=== PATIENT | female | born 1955 | race Caucasian/White ===

== ENCOUNTER → 2017-07-07 | Outpatient (CLI) | payer MEDICARE, MEDICAID ==
[2017-07-07 15:50] LABS: ABG BASE EXCESS 7.8 MMOL/L (-2.5-2.5); ABG OXYGEN SATURATION 89 % (94-100); ABG PCO2 53 MMHG (35-45); ABG PH 7.41 (7.37-7.43); ABG PO2 59 MMHG (79-93); ABG TCO2 34.1 MMOL/L (21.0-31.0); ALLENS TEST YES-POS
[2017-07-07 15:51] LABS: INSPIRED O2 3L; PATIENT TEMP 99.6; VENTILATOR NO
--- NOTE | 2017-07-07 16:29 | Diagnostic Imaging Report ---
INDICATION: Shortness of breath. TIME OF EXAMINATION: 3:14 PM. COMPARISON: No prior studies are available for comparison. FINDINGS: The lungs do show some hyperinflation, suggestive of COPD. No infiltrates are seen. No effusion or pneumothorax is identified. IMPRESSION: COPD. No other significant abnormality is detected. Dictated by: Dictated on workstation # [id number]
== END ==
LOC: RAD 14:10
PROVIDERS: ATTEND Nurse Practitioner Family
DX: J44.9 Chronic obstructive pulmonary disease, unspecified (principal)
CPT/HCPCS: 36600; 71046; 82805

== ENCOUNTER → 2017-08-03 | Outpatient (CLI) | payer MEDICARE, MEDICAID ==
[~2017-08-03] MED LIST: RT-ALBUTEROL SULF 2.5 MG/3 ML PRE-MIX VIAL INH ONE
== END ==
LOC: RT 09:41
PROVIDERS: ATTEND Nurse Practitioner Family
DX: J44.9 Chronic obstructive pulmonary disease, unspecified (principal)
CPT/HCPCS: 94060; 94726; 94729

== ENCOUNTER → 2017-10-12 | Outpatient (CLI) | payer MEDICARE, MEDICAID ==
--- NOTE | 2017-10-12 09:59 | Diagnostic Imaging Report ---
PATIENT HISTORY: COPD, CHRONIC BRONCHITIS, ASTHMA. TECHNIQUE: Two views of the chest. COMPARISON: 07/07/2017. FINDINGS: Lung volumes are normal. There are bibasilar airspace opacities which appear similar to the prior study, and may represent atelectasis or overlapping soft tissue. No new consolidation is seen. No pleural effusion or pneumothorax is present. The cardiomediastinal silhouette is normal in size and contour. There is aortic atherosclerosis. IMPRESSION: 1. Bibasilar opacities are stable and may present overlapping soft tissue or bibasilar atelectasis. No new consolidation is seen. Dictated by: Dictated on workstation # [id number]
== END ==
LOC: RAD 09:18
PROVIDERS: ATTEND Nurse Practitioner Family
DX: J44.9 Chronic obstructive pulmonary disease, unspecified (principal); J98.11 Atelectasis
CPT/HCPCS: 71046

== ENCOUNTER → 2017-11-05 | Outpatient (CLI) | payer MEDICARE, MEDICAID ==
--- NOTE | 2017-11-05 08:59 | Diagnostic Imaging Report ---
PROCEDURE: CT chest without contrast. TECHNIQUE: Multiple contiguous axial images were obtained through the chest without the use of intravenous contrast. INDICATION: COPD and chronic bronchitis. COMPARISON: Correlation is made with chest radiograph from 10/12/2017. No prior CT chest studies are available for comparison. FINDINGS: No axillary lymphadenopathy is seen. There are mildly prominent lymph nodes in mediastinum right paratracheal location, indeterminant. Hilar evaluation is limited without intravenous contrast. No pericardial or pleural fluid is identified. The central airways are patent. No infiltrate or mass is identified. The upper abdomen is unremarkable. IMPRESSION: Essentially unremarkable noncontrast CT chest apart from mildly prominent mediastinal lymph nodes, which may be reactive. No parenchymal mass or infiltrate is seen. Dictated by: Dictated on workstation # [id number]
== END ==
LOC: RAD 08:27
PROVIDERS: ATTEND Nurse Practitioner Family
DX: J44.9 Chronic obstructive pulmonary disease, unspecified (principal); J96.20 Acute and chronic respiratory failure, unspecified whether with hypoxia or hypercapnia
CPT/HCPCS: 71250

== ENCOUNTER → 2017-11-05 | Outpatient (CLI) | payer MEDICARE, MEDICAID ==
[2017-11-05 10:10] LABS: BASOPHILS % (AUTO) 0 % (0-10); EOSINOPHILS # (AUTO) 0.2 10^3/uL (0.0-0.3); EOSINOPHILS % (AUTO) 1 % (0-10); HEMATOCRIT 40 % (35-52); HEMOGLOBIN 12.9 G/DL (11.5-16.0); LYMPHOCYTES # (AUTO) 3.2 X 10^3 (1.0-4.0); LYMPHOCYTES % (AUTO) 19 % (12-44); MEAN CORPUSCULAR HEMOGLOBIN 33 PG (25-34); MEAN CORPUSCULAR HGB CONC 32 G/DL (32-36); MEAN CORPUSCULAR VOLUME 104 FL (80-99); MEAN PLATELET VOLUME 10.8 FL (7.4-10.4); MONOCYTES # (AUTO) 1.2 X 10^3 (0.0-1.0); MONOCYTES % (AUTO) 7 % (0-12); NEUTROPHILS # (AUTO) 12.6 X 10^3 (1.8-7.8); NEUTROPHILS % (AUTO) 73 % (42-75); PLATELET COUNT 323 10^3/uL (130-400); RED BLOOD COUNT 3.88 10^6/uL (4.35-5.85); RED CELL DISTRIBUTION WIDTH 19.4 % (10.0-14.5); WHITE BLOOD COUNT 17.2 10^3/uL (4.3-11.0)
[2017-11-05 10:32] LABS: ALBUMIN 4.1 GM/DL (3.2-4.5); BILIRUBIN,TOTAL 0.4 MG/DL (0.1-1.0); CALCIUM 10.5 MG/DL (8.5-10.1); CREATININE SERUM 1.42 MG/DL (0.60-1.30); POTASSIUM 4.2 MMOL/L (3.6-5.0); TOTAL PROTEIN 6.5 GM/DL (6.4-8.2)
[2017-11-05 10:51] LABS: BAND NEUTROPHILS 5 %; BASOPHILS % (MANUAL) 0 %; EOSINOPHILS % (MANUAL) 1 %; LYMPHOCYTES % (MANUAL) 11 %; MONOCYTES % (MANUAL) 11 %; NEUTROPHILS % (MANUAL) 70 %
[2017-11-05 10:52] LABS: ANISOCYTOSIS SLIGHT; MYELOCYTES % 2 %
== END ==
LOC: LAB 09:48
PROVIDERS: ATTEND Nurse Practitioner Family
DX: J44.9 Chronic obstructive pulmonary disease, unspecified (principal)
CPT/HCPCS: 36415; 80053; 83880; 85007; 85027

== ENCOUNTER 2017-12-01 13:00 | Outpatient (RCR) | payer MEDICARE, MEDICAID ==
[2017-12-01 13:05] VITALS: BP 130/60
[2017-12-01 14:00] VITALS: BP 140/70
[2017-12-10] MEDS ORDERED: MIRT30TA PO (11:39)
[2017-12-10] MEDS ORDERED: ZPR80C PO (11:39)
[2017-12-10] MEDS ORDERED: POLY119P5 PO (11:39)
[2017-12-10] MEDS ORDERED: RT-ALBUINH IH (11:39)
[2017-12-10] MEDS ORDERED: ZIPR60CA2 PO (11:39)
[2017-12-10] MEDS ORDERED: PREG75CA PO (11:39)
[2017-12-10] MEDS ORDERED: CHOL10003 PO (11:39)
[2017-12-10] MEDS ORDERED: POTA-51 PO (11:39)
[2017-12-10] MEDS ORDERED: PRAV20TA3 PO (11:39)
[2017-12-10] MEDS ORDERED: FLUT9.9S NS (11:39)
[2017-12-10] MEDS ORDERED: ACET-168 PO (11:39)
[2017-12-10] MEDS ORDERED: ONDN4T PO (11:39)
[2017-12-10] MEDS ORDERED: MONT10TA24 PO (11:39)
[2017-12-10] MEDS ORDERED: ALPR0.254 PO (11:39)
[2017-12-10] MEDS ORDERED: DULO30CA3 PO (11:39)
[2017-12-10] MEDS ORDERED: LIDO1ADH19 TP (11:39)
[2017-12-10] MEDS ORDERED: FLUT1AER IH (11:39)
[2017-12-10] MEDS ORDERED: UMEC62.5 IH (11:39)
[2017-12-10] MEDS ORDERED: LISI-556 PO (11:39)
[2017-12-10] MEDS ORDERED: FURO40TA4 PO (11:39)
[2017-12-10] MEDS ORDERED: LAMO150T3 PO (11:39)
[2017-12-10] MEDS ORDERED: MULT-1029 PO (11:39)
[2017-12-10] MEDS ORDERED: AMLO5TAB7 PO (11:39)
[2017-12-10] MEDS ORDERED: BENZ100C18 PO (11:39)
[2017-12-11] MEDS ORDERED: CEFD300C3 PO (08:22)
[2017-12-11] MEDS ORDERED: PRD10T PO (08:22)
[2017-12-15 12:55] VITALS: BP_SYST 129; BP_SYST 170; BP_DIAS 50; BP_DIAS 78
[2017-12-15 13:55] VITALS: BP 149/50
[2017-12-17 13:02] VITALS: BP 176/41
[2017-12-17 13:56] VITALS: BP 145/52
[2017-12-22 13:00] VITALS: BP 160/45
[2017-12-22 14:00] VITALS: BP 140/60
== END 2018-01-03 | disposition home or self-care (01) ==
LOC: PULM 13:00
PROVIDERS: ATTEND Nurse Practitioner Family
DX: J44.9 Chronic obstructive pulmonary disease, unspecified (principal); J96.20 Acute and chronic respiratory failure, unspecified whether with hypoxia or hypercapnia
CPT/HCPCS: 99211

== ENCOUNTER → 2017-12-07 | Outpatient (CLI) | payer MEDICARE, MEDICAID ==
[~2017-12-07] MED LIST changes: +ACET-168 PO; +ALPR0.254 PO; +AMLO5TAB7 PO; +BENZ100C18 PO; +CEFD300C3 PO; +CHOL10003 PO; +DULO30CA3 PO; +FLUT1AER IH; +FLUT9.9S NS; +FURO40TA4 PO; +LAMO150T3 PO; +LIDO1ADH19 TP; +LISI-556 PO; +MIRT30TA PO; +MONT10TA24 PO; +MULT-1029 PO; +ONDN4T PO; +POLY119P5 PO; +POTA-51 PO; +PRAV20TA3 PO; +PRD10T PO; +PREG75CA PO; +RT-ALBUINH IH; -RT-ALBUTEROL SULF 2.5 MG/3 ML PRE-MIX VIAL INH ONE; +UMEC62.5 IH; +ZIPR60CA2 PO; +ZPR80C PO
--- NOTE | 2017-12-07 12:21 | Diagnostic Imaging Report ---
PROCEDURE: CT sinuses without contrast TECHNIQUE: Multiple contiguous axial images were obtained through the sinuses without the use of intravenous contrast. Coronal and sagittal reformations were then performed. INDICATION: Allergic rhinitis and sinus pressure. FINDINGS: The ostiomeatal complexes are patent, bilaterally. Note is made of rightward deviation and spurring of the nasal septum. There is no evidence of paranasal sinus air-fluid level or significant mucosal thickening. Frontal sinuses are rudimentary, bilaterally. Mastoid air cells are also unremarkable in appearance. There is bilateral proptosis, greater on the left. No retrobulbar mass is identified. IMPRESSION: Rightward deviation of the nasal septum with rightward septal spurring. There is no CT evidence of significant sinusitis. Note is made of proptosis, greater on the left. Dictated by: Dictated on workstation # [id number]
== END ==
LOC: RAD 11:54
PROVIDERS: ATTEND Nurse Practitioner Family
DX: J30.9 Allergic rhinitis, unspecified (principal); J34.2 Deviated nasal septum; J42 Unspecified chronic bronchitis; H05.20 Unspecified exophthalmos
CPT/HCPCS: 70486

== ENCOUNTER 2017-12-10 09:46 | Day surgery (SDC) | payer MEDICARE, MEDICAID ==
[~2017-12-10] VITALS: Ht 152.4 cm; Wt 115.7 kg
[2017-12-10] VITALS (20 sets, daily range): BP systolic 98–189; BP diastolic 45–93
[2017-12-10] MEDS ORDERED: LIDOCAINE PF 1% 2 ML VIAL (OR ONLY) IJ ONE (09:47)
--- OUTSIDE RECORDS SUMMARY | 2017-12-10 09:50 | XMS REPORT | CCD ---
Author Author RONALDO PATEL Organization Unknown Address [address] [facility] [address] [place] [address] Care Team Providers Care Education Spec Name Role Phone EDIE WAGNER, CEE Aguilar Attphys Allergies Allergy Code Allergy Type Reaction Status BENZTROPINE 1424 Drug allergy Active TETRACYCLINE 83213 Drug allergy Active MINOCYCLINE 6980 Drug allergy Active SHELLFISH 0 Food allergy Active LITHIUM 6448 Drug allergy Active MYSOLINE 391527 Drug allergy Active ZOLOFT 11893 Drug allergy Active ERYTHROMYCIN 4053 Drug allergy Active TOVIAZ 210539 Drug allergy Active SULFA (sulfonamide) 0 Drug allergy Active IODINE 5933 Drug allergy Active KEFLEX 737602 Drug allergy Active TORADOL {Deactivated Allergy} 95893 Drug allergy Active Active Medications Medication Code Dose Units Frequency Route Modification Start Date/Time Lasix 40MG Oral Tablet 1.5 TABLET TWO TIMES A DAY BY MOUTH 09/04/2016 10:19 Prescription Detail 1.5 TABLET BY MOUTH TWO TIMES A DAY Potassium Chloride 20MEQ Oral Tablet, Extended Release 8900800 2 TABLET DAILY BY MOUTH 09/04/2016 10:19 Prescription Detail 2 TABLET BY MOUTH DAILY Alendronate Sod 70MG Oral Tablet 801757 70 MILLIGRAMS WEEKLY ORAL 09/04/2016 10:16 Prescription Detail 70 MILLIGRAMS ORAL WEEKLY amLODIPine Besylate 5MG Oral Tablet 501750 5 MILLIGRAMS DAILY ORAL 09/04/2016 10:16 Prescription Detail 5 MILLIGRAMS ORAL DAILY Anoro Ellipta 62.5MCG-25MCG/1ACT Inhalation Powder 7629237 1 EACH DAILY INHALATION 09/04/2016 10:16 Prescription Detail 1 EACH INHALATION DAILY DULoxetine HCl 30MG Oral Capsule, Delayed Release 117152 30 MILLIGRAMS DAILY ORAL 09/04/2016 10:16 Prescription Detail 30 MILLIGRAMS ORAL DAILY Duoneb 3MG/3ML-0.5MG/3ML Inhalation Solution 4764859 1 EACH INHALATION 09/04/2016 10:16 Prescription Detail 1 EACH INHALATION fentaNYL Transdermal System Novaplus 25MCG/1HR Transdermal Patch, Extended Release 508903 25 MCG EVERY 72 HOURS TOPICAL APPLICATION 09/04/2016 10:16 Prescription Detail 25 MCG TOPICAL APPLICATION EVERY 72 HOURS Geodon 40MG Oral Capsule 945867 40 MILLIGRAMS TWO TIMES A DAY BY MOUTH 09/04/2016 10:16 Prescription Detail 40 MILLIGRAMS BY MOUTH TWO TIMES A DAY lamoTRIgine 150MG Oral Tablet 914146 150 MILLIGRAMS TWO TIMES A DAY ORAL 09/04/2016 10:16 Prescription Detail 150 MILLIGRAMS ORAL TWO TIMES A DAY MiraLAX 17GM/1Dose Oral Powder for Solution 143079 1 EACH NEEDED ORAL 09/04/2016 10:16 Prescription Detail 1 EACH ORAL NEEDED Albuterol Sulfate 0.083% Inhalation Solution 269028 1 EACH TID PRN INHALATION 08/24/2015 12:42 Prescription Detail 1 EACH INHALATION TID PRN clonazePAM 0.5MG Oral Tablet 509729 0.5 MILLIGRAMS TWO TIMES A DAY ORAL 08/24/2015 12:42 Prescription Detail 0.5 MILLIGRAMS ORAL TWO TIMES A DAY Lyrica 75MG Oral Capsule 513817 75 MILLIGRAMS THREE TIMES A DAY ORAL 08/24/2015 12:42 Prescription Detail 75 MILLIGRAMS ORAL THREE TIMES A DAY metFORMIN HCl 500MG Oral Tablet 437975 500 MILLIGRAMS TWO TIMES A DAY ORAL 08/24/2015 12:42 Prescription Detail 500 MILLIGRAMS ORAL TWO TIMES A DAY Mirtazapine 15MG Oral Tablet 235912 1.5 TABLET AT BEDTIME ORAL 08/24/2015 12:42 Prescription Detail 1.5 TABLET ORAL AT BEDTIME SEROquel 50MG Oral Tablet 329935 100 MILLIGRAMS AT BEDTIME ORAL 08/24/2015 12:42 Prescription Detail 100 MILLIGRAMS ORAL AT BEDTIME Potassium Chloride 10MEQ Oral Tablet, Extended Release 8447401 10 MEQ DAILY ORAL 08/30/2014 12:24 Prescription Detail 10 MEQ ORAL DAILY Simvastatin 10MG Oral Tablet 537690 10 MILLIGRAMS AT BEDTIME ORAL 07/28/2012 15:17 Prescription Detail 10 MILLIGRAMS ORAL AT BEDTIME Singulair 10MG Oral Tablet 686542 10 MILLIGRAMS DAILY ORAL 07/28/2012 15:17 Prescription Detail 10 MILLIGRAMS ORAL DAILY Problems Problem Code Start Date Resolved Date Status COPD with exacerbation 957487762 09/03/2016 Active Hypokalemia 45017369 09/02/2016 Active Acute injury of kidney 11299720166370773 09/02/2016 Active Procedures Procedure Code Procedure Type Date CX CHEST [id number] [facility] 10/06/2016 TROPONIN-I ADV [id number] [facility] 10/06/[id number] [facility] 10/06/2016 CBC W/ AUTO DIFF (RFLX MAN DIFF IF IND) [id number] [facility] 10/06/2016 COMPREHENSIVE METABOLIC PANEL [id number] [facility] [id number] [facility] 10/06/2016 ^CBC W/AUTO DIFF [id number] [facility] 10/06/2016 Results COMPREHENSIVE METABOLIC PANEL - Collect Date/Time: 10/06/2016 16:25 Test Name Code Test Result Test Units Test Ref Range GLUCOSE 2345-7 101 MG/DL L=70 H=100 SODIUM 2951-2 143 MEQ/L L=135 H=148 POTASSIUM 2823-3 3.4 MEQ/L L=3.5 H=5.3 CHLORIDE 2075-0 99 MEQ/L L=96 H=110 CO2 2028-9 31 MEQ/L L=22 H=29 BUN 3094-0 14 MG/DL L=8 H=22 CREATININE 2160-0 1.2 MG/DL L=0.6 H=1.6 SGOT/AST 1920-8 22 IU/L L=10 H=40 SGPT/ALT 1742-6 24 IU/L L=8 H=54 ALK PHOS 6768-6 111 IU/L L=35 H=115 TOTAL PROTEIN 2885-2 7.0 G/DL L=5.5 H=8.5 ALBUMIN 1751-7 4.0 G/DL L=3.1 H=5.4 TOTAL BILI 1975-2 0.4 MG/DL L=0.0 H=1.5 CALCIUM 51997-2 10.4 MG/DL L=8.2 H=10.6 AGE 61 yrs GFR NonAA 46 GFR AA 56 eGFR 46 mL/min/1.7 eGFR AA* 56 mL/min/1.7 CBC W/ AUTO DIFF (RFLX MAN DIFF IF IND) - Collect Date/Time: 10/06/2016 16:25 Test Name Code Test Result Test Units Test Ref Range WBC 40534-9 8.0 TH/CMM L=4.5 H=10.8 RBC 789-8 4.11 ML/CMM L=4.20 H=5.40 HGB 718-7 13.7 G/DL L=12.0 H=16.0 HCT 4544-3 41.9 % L=37.0 H=47.0 MCV 102 FL L=81 H=99 MCH 33.3 PG L=27.0 H=33.0 MCHC 32.7 G/DL L=31.0 H=36.0 RDW SD 63 FL L=36 H=50 RDW CV 16.6 % L=0.0 H=14.8 MPV 10.6 FL L=9.3 H=12.5 PLT 777-3 242 TH/CMM L=130 H=440 NRBC# 0.00 TH/CMM L=0.00 H=0.00 NRBC% 0.0 /100WBC L=0.0 H=2.0 %NEUT 56.0 % %LYMP 31.8 % %MONO 7.9 % %EOS 3.3 % %BASO 0.6 % #NEUT 4.45 TH/CMM L=2.10 H=8.20 #LYMP 2.53 TH/CMM L=0.90 H=5.20 #MONO 0.63 TH/CMM L=0.16 H=1.00 #EOS 0.26 TH/CMM L=0.00 H=0.80 #BASO 0.05 TH/CMM L=0.00 H=0.20 MANUAL DIFF NOT IND N/A PT/PTT - Collect Date/Time: 10/06/2016 16:25 Test Name Code Test Result Test Units Test Ref Range PROTIME 5964-2 10.4 SEC L=9.9 H=11.9 INR 73557-7 1.0 PTT 3173-2 26.8 SEC L=22.2 H=37.2 BNP - Collect Date/Time: 10/06/2016 16:25 Test Name Code Test Result Test Units Test Ref Range BNP 30127-3 20 PG/ML L=0 H=100 TROPONIN-I ADV - Collect Date/Time: 10/06/2016 16:25 Test Name Code Test Result Test Units [place] [address]-5 <0.04 ng/mL L=0.04 H= 0.40 MAGNESIUM - Collect Date/Time: 10/06/2016 16:25 Test Name Code Test Result Test Units Test Ref Range MAGNESIUM 01852-0 1.7 MG/DL L=1.7 H=2.8 Function Status Unknown or Not Available. History of Immunizations Immunization Code Date influenza, split (incl. purified surface antigen) 15 03/11/2006 pneumococcal polysaccharide PPV23 33 03/03/2017 Plan of Treatment Unknown or Not Available. Social History Smoking Status Code Start Date End Date Former smoker [id number] Vital Signs Unknown or Not Available. Function Status Unknown or Not Available. Goals Unknown or Not Available. ASSESSMENTS Unknown or Not Available. Health Concerns Section Unknown or Not Available.
--- OUTSIDE RECORDS SUMMARY | 2017-12-10 09:50 | XMS REPORT | CCD ---
Author Author PEYTON BAH KELSEYMontse Organization Unknown Address [address] [place], [place] [id number] Care Team Providers Care Story Writer Name Role Phone SCHNEIDER, BRIANDA DO Attphys SCHNEIDER, BRIANDA DO Prisurg Vital Signs Unknown or Not Available. Allergies Allergy Code Allergy Type Reaction Status BENZTROPINE 1424 Drug allergy Active TETRACYCLINE 69583 Drug allergy Active MINOCYCLINE 6980 Drug allergy Active SHELLFISH 0 Food allergy Active LITHIUM 6448 Drug allergy Active MYSOLINE 058987 Drug allergy Active ZOLOFT 47056 Drug allergy Active ERYTHROMYCIN 4053 Drug allergy Active TOVIAZ 914317 Drug allergy Active SULFA (sulfonamide) 0 Drug allergy Active IODINE 5933 Drug allergy Active KEFLEX 214373 Drug allergy Active TORADOL 19838 Drug allergy Active Procedures Procedure Code Procedure Type Date RIBS, UNILAT.; PA CHEST, MINIMUM [id number] 02/13/2015 History of Immunizations Immunization Code Date influenza, split (incl. purified surface antigen) 15 03/11/2006 Problems Problem Code Start Date Resolved Date Status PNEUMONIA 486 Active Results Unknown or Not Available. Active Medications Medication Code Dose Units Frequency Route Modification Start Date/Time Abilify 10MG Oral Tablet 125765 10 MILLIGRAMS DAILY ORAL 08/30/2014 12:24 Prescription Detail 10 MILLIGRAMS ORAL DAILY Albuterol 0.09MG/Actuation Inhalation Aerosol Powder 605472 2 PUFF EVERY 6 HOURS INHALATION 08/30/2014 12: 24 Prescription Detail 2 PUFF INHALATION EVERY 6 HOURS ALPRAZolam 0.25MG Oral Tablet 939140 0.25 MILLIGRAMS WITH LUNCH ORAL 08/30/2014 12:24 Prescription Detail 0.25 MILLIGRAMS ORAL WITH LUNCH Cymbalta 30MG Oral Capsule, Delayed Release 242782 30 MILLIGRAMS TWO TIMES A DAY ORAL 08/30/2014 12:24 Prescription Detail 30 MILLIGRAMS ORAL TWO TIMES A DAY Duragesic 12MCG/1HR Transdermal Patch, Extended Release 971472 1 EACH EVERY 72 HOURS TRANSDERMAL 2014 12:24 Prescription Detail 1 EACH TRANSDERMAL EVERY 72 HOURS Furosemide 20MG Oral Tablet 687812 20 MILLIGRAMS DAILY ORAL 08/30/2014 12:24 Prescription Detail 20 MILLIGRAMS ORAL DAILY Gabapentin 300MG Oral Capsule 696448 300 MILLIGRAMS WITH BREAKFAST ORAL 08/30/2014 12:24 Prescription Detail 300 MILLIGRAMS ORAL WITH BREAKFAST Gabapentin 300MG Oral Capsule 695454 300 MILLIGRAMS WITH LUNCH ORAL 08/30/2014 12:24 Prescription Detail 300 MILLIGRAMS ORAL WITH LUNCH Gabapentin 300MG Oral Capsule 901420 600 MILLIGRAMS WITH SUPPER ORAL 08/30/2014 12:24 Prescription Detail 600 MILLIGRAMS ORAL WITH SUPPER Lidoderm 5% Topical application Patch, Extended Release 5082988 1 EACH NEEDED DAILY TOPICAL APPLICATION 08/30/2014 12:24 Prescription Detail 1 EACH TOPICAL APPLICATION NEEDED DAILY Lisinopril 5MG Oral Tablet 284732 5 MILLIGRAMS DAILY ORAL 08/30/2014 12:24 Prescription Detail 5 MILLIGRAMS ORAL DAILY Mirtazapine 30MG Oral Tablet 716552 30 MILLIGRAMS AT BEDTIME ORAL 08/30/2014 12:24 Prescription Detail 30 MILLIGRAMS ORAL AT BEDTIME Nasal 0.65% Nasal Lostant 23653345075 1 SPRAY NEEDED EVERY 12 H NASAL 08/30/2014 12:24 Prescription Detail 1 SPRAY NASAL NEEDED EVERY 12 H Nexium 40MG Oral Capsule, Delayed Release 333749 40 MILLIGRAMS DAILY ORAL 08/30/2014 12:24 Prescription Detail 40 MILLIGRAMS ORAL DAILY Novaplus fentaNYL Transdermal System 25MCG/1HR Transdermal Patch, Extended Release 317211 1 EACH EVERY 72 HOURS TOPICAL APPLICATION 08/30/2014 12:24 Prescription Detail 1 EACH TOPICAL APPLICATION EVERY 72 HOURS Potassium Chloride 10MEQ Oral Tablet, Extended Release 029153 10 MEQ DAILY ORAL 08/30/2014 12:24 Prescription Detail 10 MEQ ORAL DAILY Pulmicort Respules 0.5MG/2ML Inhalation Suspension 181104 1 DOSE Q 12 HRS (RT ONLY) INHALATION 08/30/2014 12:24 Prescription Detail 1 DOSE INHALATION Q 12 HRS (RT ONLY) Spiriva 18MCG Inhalation Capsule 472172 18 MCG DAILY INHALATION 08/30/2014 12:24 Prescription Detail 18 MCG INHALATION DAILY Symbicort 160MCG-4.5MCG/1 Actu Inhalation Aerosol Liquid 26872989339 2 PUFF TWO TIMES A DAY INHALATION 05/2014 12:24 Prescription Detail 2 PUFF INHALATION TWO TIMES A DAY Tylenol 325MG Oral Tablet 289740 325 MILLIGRAMS NEEDED ORAL 08/30/2014 12:24 Prescription Detail 325 MILLIGRAMS ORAL NEEDED Geodon 80MG Oral Capsule 368374 80 MILLIGRAMS TWO TIMES A DAY ORAL 04/30/2013 11:57 Prescription Detail 80 MILLIGRAMS ORAL TWO TIMES A DAY Clinton 325MG-10MG Oral Tablet 570557 1 EACH NEEDED EVERY 4 HR ORAL 04/30/2013 11:57 Prescription Detail 1 EACH ORAL NEEDED EVERY 4 HR Celebrex 200MG Oral Capsule 701674 200 MILLIGRAMS DAILY ORAL 07/28/2012 15:17 Prescription Detail 200 MILLIGRAMS ORAL DAILY Diltiazem 180MG Oral Capsule, Extended Release 945765 180 MILLIGRAMS DAILY ORAL 07/28/2012 15:17 Prescription Detail 180 MILLIGRAMS ORAL DAILY Lamotrigine 100MG Oral Tablet 970809 100 MILLIGRAMS TWO TIMES A DAY ORAL 07/28/2012 15:17 Prescription Detail 100 MILLIGRAMS ORAL TWO TIMES A DAY Simvastatin 10MG Oral Tablet 102366 10 MILLIGRAMS AT BEDTIME ORAL 07/28/2012 15:17 Prescription Detail 10 MILLIGRAMS ORAL AT BEDTIME Singulair 10MG Oral Tablet 723017 10 MILLIGRAMS DAILY ORAL 07/28/2012 15:17 Prescription Detail 10 MILLIGRAMS ORAL DAILY Medications Administered During Visit Unknown or Not Available. Encounters Encounter Diagnosis Diagnosis Code Start Date Sprain of ribs, initial encounter [id number] 02/13/2015 Social History Smoking Status Code Start Date End Date Former smoker [id number] Patient Decision Aids Unknown or Not Available. Discharge Instructions You were admitted to [facility] on 02/13/2015 with a principal diagnosis of Sprain of ribs, initial encounter. You were discharged from [facility] on 02/13/2015. Should you have any questions prior to discharge, please contact a member of your healthcare team. If you have left the hospital and have any questions, please contact your primary care physician. Chief Complaint and Reason For Visit Chief Complaint Date of Onset FALL INJURY Function Status Unknown or Not Available. Plan of Care Unknown or Not Available. Referral/Transition of Care Unknown or Not Available.
--- OUTSIDE RECORDS SUMMARY | 2017-12-10 09:50 | XMS REPORT | CCD ---
Author Author ELSA CORONA Unknown Address [address] [place], [place] [id number] Care Team Providers Care [employer] Order Clerk Name Role Phone SCHNEIDER, BRIANDA DO Attphys SCHNEIDERALYBRIANDA DO Prisurg Vital Signs Unknown or Not Available. Allergies Allergy Code Allergy Type Reaction Status BENZTROPINE 1424 Drug allergy Active TETRACYCLINE 69144 Drug allergy Active MINOCYCLINE 6980 Drug allergy Active SHELLFISH 0 Food allergy Active LITHIUM 6448 Drug allergy Active MYSOLINE 356753 Drug allergy Active ZOLOFT 25820 Drug allergy Active ERYTHROMYCIN 4053 Drug allergy Active TOVIAZ 180476 Drug allergy Active SULFA (sulfonamide) 0 Drug allergy Active IODINE 5933 Drug allergy Active KEFLEX 161246 Drug allergy Active TORADOL 24182 Drug allergy Active Procedures Unknown or Not Available. History of Immunizations Immunization Code Date influenza, split (incl. purified surface antigen) 15 03/11/2006 Problems Problem Code Start Date Resolved Date Status COPD with exacerbation 506623448 08/21/2015 Active Bronchospasms 8066250 08/21/2015 Active Results Unknown or Not Available. Active Medications Medication Code Dose Units Frequency Route Modification Start Date/Time SSB REGULAR INSULIN 0 SLIDING SCALE FOUR TIMES A DAY SUBCUTANEOUS 08/24/2015 13:46 Prescription Detail SLIDING SCALE SUBCUTANEOUS FOUR TIMES A DAY Albuterol 0.09MG/Actuation Inhalation Aerosol Powder 95331584111 1 EACH NEEDED EVERY 6 HR INHALATION 12:42 Prescription Detail 1 EACH INHALATION NEEDED EVERY 6 HR Albuterol Sulfate 0.083% Inhalation Solution 873761 1 EACH TID PRN INHALATION 08/24/2015 12:42 Prescription Detail 1 EACH INHALATION TID PRN ALPRAZolam 0.25MG Oral Tablet 253528 0.25 MILLIGRAMS NEEDED DAILY ORAL 08/24/2015 12:42 Prescription Detail 0.25 MILLIGRAMS ORAL NEEDED DAILY amLODIPine Besylate 5MG Oral Tablet 969010 5 MILLIGRAMS DAILY ORAL 08/24/2015 12:42 Prescription Detail 5 MILLIGRAMS ORAL DAILY Azithromycin 250MG Oral Tablet 359996 250 MILLIGRAMS DAILY ORAL 08/24/2015 12:42 Prescription Detail 250 MILLIGRAMS ORAL DAILY Benadryl Allergy 25MG Oral Tablet 8030353 25 MILLIGRAMS NEEDED EVERY 4 HR ORAL 08/24/2015 12:42 Prescription Detail 25 MILLIGRAMS ORAL NEEDED EVERY 4 HR cefTRIAXone 1GM Injection Powder for Solution 6409592 1 GM DAILY INJECTION 08/24/2015 12:42 Prescription Detail 1 GM INJECTION DAILY Cipro 500MG Oral Tablet 238129 1 TABLET TWO TIMES A DAY BY MOUTH 08/24/2015 12:42 Prescription Detail 1 TABLET BY MOUTH TWO TIMES A DAY clonazePAM 0.5MG Oral Tablet 135335 0.5 MILLIGRAMS TWO TIMES A DAY ORAL 08/24/2015 12:42 Prescription Detail 0.5 MILLIGRAMS ORAL TWO TIMES A DAY Colace 100MG Oral Capsule, Liquid Filled 6791931 100 MILLIGRAMS DAILY ORAL 08/24/2015 12:42 Prescription Detail 100 MILLIGRAMS ORAL DAILY Cymbalta 30MG Oral Capsule, Delayed Release 040196 30 MILLIGRAMS DAILY ORAL 08/24/2015 12:42 Prescription Detail 30 MILLIGRAMS ORAL DAILY Dulcolax 5MG Oral Tablet, Enteric Coated 312829 5 MILLIGRAMS NEEDED DAILY ORAL 08/24/2015 12:42 Prescription Detail 5 MILLIGRAMS ORAL NEEDED DAILY Fleet Enema Rectal Enema 5841269 1 EACH NEEDED RECTAL 08/24/2015 12:42 Prescription Detail 1 EACH RECTAL NEEDED Fluocinonide 0.05% Topical application Ointment 073549 1 EACH NEEDED EVERY 6 HR TOPICAL APPLICATION 12:42 Prescription Detail 1 EACH TOPICAL APPLICATION NEEDED EVERY 6 HR Furosemide 20MG Oral Tablet 774881 20 MILLIGRAMS WITH LUNCH ORAL 08/24/2015 12:42 Prescription Detail 20 MILLIGRAMS ORAL WITH LUNCH Furosemide 40MG Oral Tablet 799591 40 MILLIGRAMS DAILY ORAL 08/24/2015 12:42 Prescription Detail 40 MILLIGRAMS ORAL DAILY Geodon 40MG Oral Capsule 978708 2 TABLET DAILY AT 8 AM. ORAL 08/24/2015 12:42 Prescription Detail 2 TABLET ORAL DAILY AT 8 AM. Geodon 40MG Oral Capsule 976227 3 TABLET DAILY AT 1700 ORAL 08/24/2015 12:42 Prescription Detail 3 TABLET ORAL DAILY AT 1700 guaiFENesin 200MG Oral Tablet 889134 3 TABLET TWO TIMES A DAY ORAL 08/24/2015 12:42 Prescription Detail 3 TABLET ORAL TWO TIMES A DAY HYDROcodone bitartrate-acetaminophen 5MG-325MG Oral Tablet 443869 1 EACH NEEDED EVERY 8 HR ORAL 2015 12:42 Prescription Detail 1 EACH ORAL NEEDED EVERY 8 HR Hydrocortisone 1% Topical application Cream 2589430 1 EACH TID PRN TOPICAL APPLICATION 08/24/2015 12:42 Prescription Detail 1 EACH TOPICAL APPLICATION TID PRN hydrOXYzine HCl 25MG Oral Tablet 444832 25 MILLIGRAMS QID PRN ORAL 08/24/2015 12:42 Prescription Detail 25 MILLIGRAMS ORAL QID PRN lamoTRIgine 150MG Oral Tablet 141027 150 MILLIGRAMS TWO TIMES A DAY ORAL 08/24/2015 12:42 Prescription Detail 150 MILLIGRAMS ORAL TWO TIMES A DAY Lotrisone 1%-0.05% Topical application Lotion 526856 1 EACH NEEDED EVERY 6 HR TOPICAL APPLICATION 12:42 Prescription Detail 1 EACH TOPICAL APPLICATION NEEDED EVERY 6 HR Lyrica 75MG Oral Capsule 056184 75 MILLIGRAMS THREE TIMES A DAY ORAL 08/24/2015 12:42 Prescription Detail 75 MILLIGRAMS ORAL THREE TIMES A DAY Magnesium 250 MG Oral Tablet 13492892802 250 MG TWO TIMES A DAY ORAL 08/24/2015 12:42 Prescription Detail 250 MG ORAL TWO TIMES A DAY Magnesium Oxide 400MG Oral Tablet 615052 400 MILLIGRAMS DAILY ORAL 08/24/2015 12:42 Prescription Detail 400 MILLIGRAMS ORAL DAILY metFORMIN HCl 500MG Oral Tablet 836311 500 MILLIGRAMS TWO TIMES A DAY ORAL 08/24/2015 12:42 Prescription Detail 500 MILLIGRAMS ORAL TWO TIMES A DAY MILK OF MAG 0 30 MILLILITER NEEDED DAILY ORAL 08/24/2015 12:42 Prescription Detail 30 MILLILITER ORAL NEEDED DAILY MiraLAX 17GM/1Dose Oral Powder for Solution 760579 1 EACH DAILY ORAL 08/24/2015 12:42 Prescription Detail 1 EACH ORAL DAILY Mirtazapine 15MG Oral Tablet 186025 1.5 TABLET AT BEDTIME ORAL 08/24/2015 12:42 Prescription Detail 1.5 TABLET ORAL AT BEDTIME Nystatin/Triamcinolone Acetonide 780151X/1GM-0.1% Topical application Cream 2555957 1 EACH TWO TIMES A DAY TOPICAL APPLICATION 08/24/2015 12:42 Prescription Detail 1 EACH TOPICAL APPLICATION TWO TIMES A DAY ProAir HFA 0.09MG/1Actuation Inhalation Suspension 233200 2 PUFF NEEDED EVERY 6 HR INHALATION 2015 12:42 Prescription Detail 2 PUFF INHALATION NEEDED EVERY 6 HR Protonix 40MG Oral Tablet, Enteric Coated 875482 40 MILLIGRAMS DAILY ORAL 08/24/2015 12:42 Prescription Detail 40 MILLIGRAMS ORAL DAILY SEROquel 50MG Oral Tablet 836804 100 MILLIGRAMS AT BEDTIME ORAL 08/24/2015 12:42 Prescription Detail 100 MILLIGRAMS ORAL AT BEDTIME Ultram 50MG Oral Tablet 042927 50 MILLIGRAMS NEEDED EVERY 6 HR ORAL 08/24/2015 12:42 Prescription Detail 50 MILLIGRAMS ORAL NEEDED EVERY 6 HR Voltaren Gel 1% Topical application Gel/Jelly 662948 1 EACH NEEDED TOPICAL APPLICATION 08/24/2015 12: 42 Prescription Detail 1 EACH TOPICAL APPLICATION NEEDED Nasal 0.65% Nasal [place] 64834973017 1 SPRAY NEEDED EVERY 12 H NASAL 08/30/2014 12:24 Prescription Detail 1 SPRAY NASAL NEEDED EVERY 12 H Nexium 40MG Oral Capsule, Delayed Release 730596 40 MILLIGRAMS DAILY ORAL 08/30/2014 12:24 Prescription Detail 40 MILLIGRAMS ORAL DAILY Potassium Chloride 10MEQ Oral Tablet, Extended Release 9847429 10 MEQ DAILY ORAL 08/30/2014 12:24 Prescription Detail 10 MEQ ORAL DAILY Symbicort 160MCG-4.5MCG/1 Actu Inhalation Aerosol Liquid 34000383782 2 PUFF TWO TIMES A DAY INHALATION 05/2014 12:24 Prescription Detail 2 PUFF INHALATION TWO TIMES A DAY Tylenol 325MG Oral Tablet 547483 325 MILLIGRAMS NEEDED ORAL 08/30/2014 12:24 Prescription Detail 325 MILLIGRAMS ORAL NEEDED Simvastatin 10MG Oral Tablet 998110 10 MILLIGRAMS AT BEDTIME ORAL 07/28/2012 15:17 Prescription Detail 10 MILLIGRAMS ORAL AT BEDTIME Singulair 10MG Oral Tablet 645901 10 MILLIGRAMS DAILY ORAL 07/28/2012 15:17 Prescription Detail 10 MILLIGRAMS ORAL DAILY Medications Administered During Visit Unknown or Not Available. Encounters Encounter Diagnosis Diagnosis Code Start Date Other chronic pain G8929 12/17/2015 Social History Smoking Status Code Start Date End Date Former smoker [id number] Patient Decision Aids Unknown or Not Available. Discharge Instructions You were admitted to [facility] on 12/17/2015 08:47 with a principal diagnosis of Other chronic pain You were discharged from [facility] on 12/17/2015 09:33 Should you have any questions prior to discharge, please contact a member of your healthcare team. If you have left the hospital and have any questions, please contact your primary care physician. Chief Complaint and Reason For Visit Chief Complaint Date of Onset BACK PAIN LEG PAIN Function Status Unknown or Not Available. Referral/Transition of Care Unknown or Not Available.
--- OUTSIDE RECORDS SUMMARY | 2017-12-10 09:51 | XMS REPORT | CCD ---
Author Author RONALDO PATEL Organization Unknown Address [address] IN[facility] BEDS AT [facility] [address] [place], [place] [id number] Care Team Providers Care Monitoring And Evaluation Advisor Name Role Phone SUDARSHAN MENDOZA MD Attphys [place] [place] [facility], ELLIE GARSIA Prisurg H., SOLOMON Shanks NASST F., DANIELLA NASST H., LUKE Muhammad NASST B., PAOLA NASST P., NIMCO NASST J., SEDRICK WILSON NASST Vital Signs Vital Sign Value Unit Date/Time Recent/Initial? Heart Rate 113 bpm 09/10/2014 07:52 Initial VS O2 % BldC Oximetry 89 % 09/10/2014 07:52 Initial VS BP Systolic 94 mmHg 09/10/2014 07:53 Initial VS BP Diastolic 41 mmHg 09/10/2014 07:53 Initial VS Respiratory Rate 23 bpm 09/10/2014 08:00 Initial VS Body Temperature 101.4 degrees 09/10/2014 08:00 Initial VS Weight Measured 230.2 lbs 09/10/2014 10:15 Initial VS Height 60 in 09/10/2014 10:15 Initial VS BMI (Body Mass Index) 44.92 kg/m^2 09/10/2014 10:15 Initial VS BSA (Body Surface Area) 2.1 m^2 09/10/2014 10:15 Initial VS Weight Measured 232.7 lbs 09/17/2014 05:44 Most Recent VS Height 60 in 09/17/2014 05:44 Most Recent VS BMI (Body Mass Index) 45.45 kg/m^2 09/17/2014 05:44 Most Recent VS BSA (Body Surface Area) 2.11 m^2 09/17/2014 05:44 Most Recent VS BP Systolic 101 mmHg 09/17/2014 06:00 Most Recent VS BP Diastolic 44 mmHg 09/17/2014 06:00 Most Recent VS Body Temperature 99 degrees 09/17/2014 08:23 Most Recent VS Respiratory Rate 20 bpm 09/17/2014 10:05 Most Recent VS Heart Rate 102 bpm 09/17/2014 10:05 Most Recent VS O2 % BldC Oximetry 96 % 09/17/2014 10:05 Most Recent VS Allergies Allergy Code Allergy Type Reaction Status BENZTROPINE 1424 Drug allergy Active TETRACYCLINE 88459 Drug allergy Active MINOCYCLINE 6980 Drug allergy Active SHELLFISH 0 Food allergy Active LITHIUM 6448 Drug allergy Active MYSOLINE 436336 Drug allergy Active ZOLOFT 66873 Drug allergy Active ERYTHROMYCIN 4053 Drug allergy Active TOVIAZ 489213 Drug allergy Active SULFA (sulfonamide) 0 Drug allergy Active IODINE 5933 Drug allergy Active KEFLEX 366193 Drug allergy Active TORADOL 53220 Drug allergy Active Procedures Procedure Code Procedure Type Date NON INVASIVE MECHANICAL VENTILATION 9390 ICD-9 CM, Volume 3 09/10/[address] AB[address] SN[address]ED [address] 09/10/2014 CPAP/BIPAP INITIATION & MANAGEMENT 42226305 [facility] CT CPAP/BIPAP INITIATION & MANAGEMENT 99383898 SNOMED CT CPAP/BIPAP INITIATION & MANAGEMENT 32896530 SNOMED CT CPAP/BIPAP PER HOUR 87424969 [facility] 09/10/2014 CPAP/BIPAP INITIATION & MANAGEMENT 45453718 SNOMED CT CPAP/BIPAP PER HOUR 12499596 SNOMED CT 09/10/2014 CPAP/BIPAP INITIATION & MANAGEMENT 54277772 SNOMED CT CPAP/BIPAP PER HOUR 75451429 SNOMED CT 09/10/2014 CPAP/BIPAP PER HOUR 64452943 SNOMED CT 09/10/2014 CPAP/BIPAP PER HOUR 87108162 SNOMED CT 09/10/2014 CPAP/BIPAP PER HOUR 65302331 SNOMED CT 09/10/2014 CPAP/BIPAP PER HOUR 43295993 SNOMED CT 09/10/2014 CPAP/BIPAP PER HOUR 78129595 SNOMED CT 09/11/2014 CPAP/BIPAP PER HOUR 72165579 [facility] CT 09/11/2014 CPAP/BIPAP PER HOUR 58654905 [facility] CT 09/11/2014 CPAP/BIPAP PER HOUR 32351378 SNOMED CT 09/11/2014 CPAP/BIPAP PER HOUR 72556183 SNOMED CT 09/11/2014 CPAP/BIPAP PER HOUR 75704812 SNOMED CT 09/12/2014 CPAP/BIPAP PER HOUR 43435140 SNOMED CT 09/12/2014 CPAP/BIPAP PER HOUR 44879029 SNOMED CT 09/12/2014 CPAP/BIPAP PER HOUR 68479506 SNOMED CT 09/12/2014 CPAP/BIPAP INITIATION & MANAGEMENT 42286505 SNOMED CT CPAP/BIPAP PER HOUR 81000934 SNOMED CT 09/13/2014 CPAP/BIPAP PER HOUR 25820793 SNOMED CT 09/13/2014 CPAP/BIPAP PER HOUR 72319436 SNOMED CT 09/13/2014 CPAP/BIPAP PER HOUR 19208683 SNOMED CT 09/13/2014 CPAP/BIPAP PER HOUR 19565591 SNOMED CT 09/13/2014 CPAP/BIPAP PER HOUR 09935767 SNOMED CT 09/13/2014 CPAP/BIPAP PER HOUR 29848066 SNOMED CT 09/13/2014 CPAP/BIPAP INITIATION & MANAGEMENT 51971037 SNOMED CT CPAP/BIPAP PER HOUR 18219827 SNOMED CT 09/14/2014 CPAP/BIPAP PER HOUR 03676580 SNOMED CT 09/14/2014 CPAP/BIPAP PER HOUR 99456507 SNOMED CT 09/14/2014 CPAP/BIPAP PER HOUR 89389694 SNOMED CT 09/14/2014 CPAP/BIPAP PER HOUR 20785749 SNOMED CT 09/14/2014 CPAP/BIPAP PER HOUR 17605599 SNOMED CT 09/14/2014 CPAP/BIPAP PER HOUR 81208955 SNOMED CT 09/14/2014 CPAP/BIPAP PER HOUR 49838557 SNOMED CT 09/14/2014 CPAP/BIPAP PER HOUR 69596643 SNOMED CT 09/14/2014 CPAP/BIPAP PER HOUR 33995760 SNOMED CT 09/14/2014 CPAP/BIPAP PER HOUR 78997935 SNOMED CT 09/14/2014 CPAP/BIPAP PER HOUR 31833263 SNOMED CT 09/14/2014 CPAP/BIPAP INITIATION & MANAGEMENT 68149603 SNOMED CT CPAP/BIPAP PER HOUR 06975000 SNOMED CT 09/15/2014 CPAP/BIPAP PER HOUR 16716847 SNOMED CT 09/15/2014 CPAP/BIPAP PER HOUR 36565236 SNOMED CT 09/15/2014 CPAP/BIPAP PER HOUR 86161080 SNOMED CT 09/15/2014 CPAP/BIPAP PER HOUR 79846560 SNOMED CT 09/15/2014 CPAP/BIPAP PER HOUR 93535989 SNOMED CT 09/15/2014 CPAP/BIPAP PER HOUR 00505585 SNOMED CT 09/15/2014 CPAP/BIPAP PER HOUR 55993197 SNOMED CT 09/15/2014 CPAP/BIPAP PER HOUR 49283779 SNOMED CT 09/15/2014 CPAP/BIPAP PER HOUR 08967973 SNOMED CT 09/16/2014 CPAP/BIPAP PER HOUR 84596917 SNOMED CT 09/16/2014 CPAP/BIPAP PER HOUR 61970193 SNOMED CT 09/16/2014 CPAP/BIPAP PER HOUR 00840990 SNOMED CT 09/16/2014 CPAP/BIPAP PER HOUR 68987847 SNOMED CT 09/16/2014 CPAP/BIPAP PER HOUR 26076741 SNOMED CT 09/16/2014 CPAP/BIPAP PER HOUR 19962089 SNOMED CT 09/16/2014 CPAP/BIPAP PER HOUR 31633617 SNOMED CT 09/17/2014 CPAP/BIPAP PER HOUR 53246888 SNOMED CT 09/17/2014 CPAP/BIPAP PER HOUR 36027779 SNOMED CT 09/17/2014 CPAP/BIPAP PER HOUR 02343545 SNOMED CT 09/17/2014 ABG DRAW 25946899 SNOMED CT 09/17/2014 TROPONIN-I ADV 574913162 SNOMED CT 09/10/2014 CBC W/ AUTO DIFF (RFLX MAN DIFF IF IND) 4140851 SNOMED CT 09/10/2014 COMPREHENSIVE METABOLIC PANEL 391991387 SNOMED CT [address] 09/10/2014 LACTIC ACID 0259680 SNOM[address] 09/10/2014 CULTURE BLOOD 48548517 SNOMED CT 09/10/2014 UA W/MICRO C&S IF IND 181787829 SNOMED CT 09/10/2014 ^CBC W/AUTO DIFF 9151969 SNOMED CT 09/10/[address] 09/10/[address] 09/10/2014 CBC W/ AUTO DIFF (RFLX MAN DIFF IF IND) 5718933 SNOMED CT 09/11/2014 COMPREHENSIVE METABOLIC PANEL 427045021 SNOMED CT [address] 09/11/[address] 09/11/2014 BEDSIDE GLUCOSE 68802560 SNOMED CT 09/15/2014 LACTIC ACID 5368949 [address] 09/10/[address] 09/11/2014 CULTURE URINE 656506754 SNOMED CT 09/10/2014 ^CBC W/ MANUAL DIFF 71111272 SNOMED CT 09/11/2014 CULTURE SPUTUM 052968897 SNOMED CT 09/11/2014 CBC W/ AUTO DIFF (RFLX MAN DIFF IF IND) 7824114 SNOMED CT 09/12/2014 COMPREHENSIVE METABOLIC PANEL 334991415 SNOMED CT [address] 09/12/[address] 09/12/[address] 09/12/2014 ^CBC W/ MANUAL DIFF 87935477 SNOMED CT 09/12/[address] 09/13/2014 COMPREHENSIVE METABOLIC PANEL 687618709 SNOMED CT [address] 09/14/2014 COMPREHENSIVE METABOLIC PANEL 644837655 SNOMED CT [address] 09/14/2014 THYROID PANEL 32349165 SNOMED CT 09/13/2014 TROPONIN-I ADV 250070157 SNOMED CT 09/13/2014 TROPONIN-I ADV 508426580 SNOMED CT 09/13/2014 ^SENSITIVITY 209951165 SNOMED CT 09/11/[address] 09/15/2014 COMPREHENSIVE METABOLIC PANEL 858667588 SNOMED CT [address] 09/15/[address] 09/16/2014 COMPREHENSIVE METABOLIC PANEL 164385646 SNOMED CT [address] 09/16/[address] 09/17/2014 COMPREHENSIVE METABOLIC PANEL 179768606 SNOMED CT [address] 09/17/2014 GENTAMICIN TROUGH 883920604 SNOMED [address] 09/16/[address] 09/17/2014 CX CHEST [address] 09/17/2014 ABDOMEN ACUTE SERIES 6952269 SNOMED CT 09/10/2014 CT ABD AND PELVIS W/O CONTRAST 841169220 SNOMED CT 2014 CX CHEST [address] 09/11/2014 US ECHO 2D COMP WITH DOPP AND COLOR 12558691 SNOMED CT CX CHEST [address] 09/14/2014 CX CHEST [address] 09/15/2014 PT EVALUATION 711745215 SNOM[address] CT 09/11/2014 OT EVALUATION 251267979 SNOMED CT 09/11/2014 PT THERAPEUTIC EXERCISES [address] 2014 PT THERAPEUTIC EXERCISES [address] 2014 PT THERAPEUTIC EXERCISES [address] 2014 PT THERAPEUTIC EXERCISES [address] 2014 [facility]AN AERO ECLIPSE TREATMENT 71394555 SNOMED CT 09/10/2014 BAN AERO ECLIPSE TREATMENT 90311646 SNOMED CT 09/10/2014 BAN AERO ECLIPSE TREATMENT 35090221 SNOMED CT 09/10/2014 OXYGEN/HOUR 298629098 SNOMED CT 09/10/2014 OXYGEN/HOUR 693954223 SNOMED CT 09/10/2014 BAN AERO ECLIPSE TREATMENT 52574141 SNOMED CT 09/11/2014 BAN AERO ECLIPSE TREATMENT 79655158 SNOMED CT 09/11/2014 BAN AERO ECLIPSE TREATMENT 46974784 SNOMED CT 09/11/2014 BAN AERO ECLIPSE TREATMENT 35979689 SNOMED CT 09/11/2014 OXYGEN/HOUR 264702415 SNOMED CT 09/11/2014 BAN AERO ECLIPSE TREATMENT 33762543 SNOMED CT 09/12/2014 BAN AERO ECLIPSE TREATMENT 34532880 SNOMED CT 09/12/2014 BAN AERO ECLIPSE TREATMENT 88572167 SNOMED CT 09/12/2014 BAN AERO ECLIPSE TREATMENT 03279375 SNOMED CT 09/12/2014 OXYGEN/HOUR 352991313 SNOMED CT 09/12/2014 BAN AERO ECLIPSE TREATMENT 12545967 SNOMED CT 09/13/2014 BAN AERO ECLIPSE TREATMENT 77595221 SNOMED CT 09/13/2014 BAN AERO ECLIPSE TREATMENT 19947675 SNOMED CT 09/13/2014 BAN AERO ECLIPSE TREATMENT 24899498 SNOMED CT 09/13/2014 OXYGEN/HOUR 247447860 SNOMED CT 09/13/2014 OXYGEN/HOUR 404687316 SNOMED CT 09/13/2014 BAN AERO ECLIPSE TREATMENT 85904030 SNOMED CT 09/14/2014 BAN AERO ECLIPSE TREATMENT 96577325 SNOMED CT 09/14/2014 BAN AERO ECLIPSE TREATMENT 99487938 SNOMED CT 09/14/2014 BAN AERO ECLIPSE TREATMENT 01547096 SNOMED CT 09/14/2014 OXYGEN/HOUR 024001827 SNOMED CT 09/14/2014 OXYGEN/HOUR 882021401 SNOMED CT 09/14/2014 BAN AERO ECLIPSE TREATMENT 35499811 SNOMED CT 09/15/2014 BAN AERO ECLIPSE TREATMENT 95487716 SNOMED CT 09/15/2014 BAN AERO ECLIPSE TREATMENT 24601670 SNOMED CT 09/15/2014 BAN AERO ECLIPSE TREATMENT 60137399 SNOMED CT 09/15/2014 OXYGEN/HOUR 545242394 SNOMED CT 09/15/2014 OXYGEN/HOUR 299572760 SNOMED CT 09/15/2014 BAN AERO ECLIPSE TREATMENT 34700358 SNOMED CT 09/16/2014 BAN AERO ECLIPSE TREATMENT 97656467 SNOMED CT 09/16/2014 BAN AERO ECLIPSE TREATMENT 06102609 SNOMED CT 09/16/2014 BAN AERO ECLIPSE TREATMENT 28717891 SNOMED CT 09/16/2014 OXYGEN/HOUR 342466169 SNOMED CT 09/16/2014 OXYGEN/HOUR 125481766 SNOMED CT 09/16/2014 BAN AERO ECLIPSE TREATMENT 17373463 SNOMED CT 09/17/2014 BAN AERO ECLIPSE TREATMENT 45570742 SNOMED CT 09/17/2014 OXYGEN/HOUR 448109059 SNOMED CT 09/17/2014 History of Immunizations Immunization Code Date influenza, split (incl. purified surface antigen) 15 03/11/2006 Problems Problem Code Start Date Resolved Date Status PNEUMONIA 486 Active Results BEDSIDE GLUCOSE - Collect Date/Time: 09/15/2014 11:49 Test Name Code Test Result Test Units Test Ref Range GLUCOSE POCT 151 MG/DL L=70 H=100 COMPREHENSIVE METABOLIC PANEL - Collect Date/Time: 09/17/2014 05:05 Test Name Code Test Result Test Units Test Ref Range GLUCOSE 2345-7 84 MG/DL L=70 H=100 SODIUM 2951-2 138 MEQ/L L=135 H=148 POTASSIUM 2823-3 3.8 MEQ/L L=3.5 H=5.3 CHLORIDE 2075-0 90 MEQ/L L=96 H=110 CO2 2028-9 35 MEQ/L L=22 H=29 BUN 3094-0 15 MG/DL L=8 H=22 CREATININE 2160-0 0.9 MG/DL L=0.6 H=1.6 SGOT/AST 1920-8 26 IU/L L=10 H=40 SGPT/ALT 1742-6 13 IU/L L=8 H=54 ALK PHOS 6768-6 249 IU/L L=35 H=115 TOTAL PROTEIN 2885-2 6.0 G/DL L=5.5 H=8.5 ALBUMIN 1751-7 2.7 G/DL L=3.1 H=5.4 TOTAL BILI 1975-2 0.4 MG/DL L=0.0 H=1.5 CALCIUM 02517-1 9.6 MG/DL L=8.2 H=10.6 AGE 59 yrs GFR NonAA 64 GFR AA 78 eGFR >60 N/A eGFR AA* >60 N/A COMPREHENSIVE METABOLIC PANEL - Collect Date/Time: 09/16/2014 05:25 Test Name Code Test Result Test Units Test Ref Range GLUCOSE 2345-7 85 MG/DL L=70 H=100 SODIUM 2951-2 138 MEQ/L L=135 H=148 POTASSIUM 2823-3 3.8 MEQ/L L=3.5 H=5.3 CHLORIDE 2075-0 94 MEQ/L L=96 H=110 CO2 2028-9 31 MEQ/L L=22 H=29 BUN 3094-0 15 MG/DL L=8 H=22 CREATININE 2160-0 1.0 MG/DL L=0.6 H=1.6 SGOT/AST 1920-8 21 IU/L L=10 H=40 SGPT/ALT 1742-6 14 IU/L L=8 H=54 ALK PHOS 6768-6 244 IU/L L=35 H=115 TOTAL PROTEIN 2885-2 5.8 G/DL L=5.5 H=8.5 ALBUMIN 1751-7 2.6 G/DL L=3.1 H=5.4 TOTAL BILI 1975-2 0.4 MG/DL L=0.0 H=1.5 CALCIUM 58728-1 9.4 MG/DL L=8.2 H=10.6 AGE 59 yrs GFR NonAA 57 GFR AA 69 eGFR 57 mL/min/1.7 eGFR AA* >60 N/A COMPREHENSIVE METABOLIC PANEL - Collect Date/Time: 09/15/2014 05:30 Test Name Code Test Result Test Units Test Ref Range GLUCOSE 2345-7 87 MG/DL L=70 H=100 SODIUM 2951-2 137 MEQ/L L=135 H=148 POTASSIUM 2823-3 3.8 MEQ/L L=3.5 H=5.3 CHLORIDE 2075-0 98 MEQ/L L=96 H=110 CO2 2028-9 26 MEQ/L L=22 H=29 BUN 3094-0 14 MG/DL L=8 H=22 CREATININE 2160-0 1.1 MG/DL L=0.6 H=1.6 SGOT/AST 1920-8 14 IU/L L=10 H=40 SGPT/ALT 1742-6 11 IU/L L=8 H=54 ALK PHOS 6768-6 209 IU/L L=35 H=115 TOTAL PROTEIN 2885-2 5.6 G/DL L=5.5 H=8.5 ALBUMIN 1751-7 2.7 G/DL L=3.1 H=5.4 TOTAL BILI 1975-2 0.6 MG/DL L=0.0 H=1.5 CALCIUM 08853-9 9.0 MG/DL L=8.2 H=10.6 AGE 59 yrs GFR NonAA 51 GFR AA 62 eGFR 51 mL/min/1.7 eGFR AA* >60 N/A COMPREHENSIVE METABOLIC PANEL - Collect Date/Time: 09/14/2014 05:03 Test Name Code Test Result Test Units Test Ref Range GLUCOSE 2345-7 86 MG/DL L=70 H=100 SODIUM 2951-2 135 MEQ/L L=135 H=148 POTASSIUM 2823-3 3.9 MEQ/L L=3.5 H=5.3 CHLORIDE 2075-0 102 MEQ/L L=96 H=110 CO2 2028-9 21 MEQ/L L=22 H=29 BUN 3094-0 13 MG/DL L=8 H=22 CREATININE 2160-0 1.0 MG/DL L=0.6 H=1.6 SGOT/AST 1920-8 12 IU/L L=10 H=40 SGPT/ALT 1742-6 11 IU/L L=8 H=54 ALK PHOS 6768-6 177 IU/L L=35 H=115 TOTAL PROTEIN 2885-2 5.1 G/DL L=5.5 H=8.5 ALBUMIN 1751-7 2.4 G/DL L=3.1 H=5.4 TOTAL BILI 1975-2 0.7 MG/DL L=0.0 H=1.5 CALCIUM 59557-1 8.5 MG/DL L=8.2 H=10.6 AGE 59 yrs GFR NonAA 57 GFR AA 69 eGFR 57 mL/min/1.7 eGFR AA* >60 N/A COMPREHENSIVE METABOLIC PANEL - Collect Date/Time: 09/13/2014 05:15 Test Name Code Test Result Test Units Test Ref Range GLUCOSE 2345-7 83 MG/DL L=70 H=100 SODIUM 2951-2 133 MEQ/L L=135 H=148 POTASSIUM 2823-3 4.6 MEQ/L L=3.5 H=5.3 CHLORIDE 2075-0 106 MEQ/L L=96 H=110 CO2 2028-9 19 MEQ/L L=22 H=29 BUN 3094-0 13 MG/DL L=8 H=22 CREATININE 2160-0 1.0 MG/DL L=0.6 H=1.6 SGOT/AST 1920-8 14 IU/L L=10 H=40 SGPT/ALT 1742-6 12 IU/L L=8 H=54 ALK PHOS 6768-6 163 IU/L L=35 H=115 TOTAL PROTEIN 2885-2 4.7 G/DL L=5.5 H=8.5 ALBUMIN 1751-7 2.4 G/DL L=3.1 H=5.4 TOTAL BILI 1975-2 0.7 MG/DL L=0.0 H=1.5 CALCIUM 26572-2 8.1 MG/DL L=8.2 H=10.6 AGE 59 yrs GFR NonAA 57 GFR AA 69 eGFR 57 mL/min/1.7 eGFR AA* >60 N/A COMPREHENSIVE METABOLIC PANEL - Collect Date/Time: 09/12/2014 05:20 Test Name Code Test Result Test Units Test Ref Range GLUCOSE 2345-7 115 MG/DL L=70 H=100 SODIUM 2951-2 134 MEQ/L L=135 H=148 POTASSIUM 2823-3 4.5 MEQ/L L=3.5 H=5.3 CHLORIDE 2075-0 106 MEQ/L L=96 H=110 CO2 2028-9 19 MEQ/L L=22 H=29 BUN 3094-0 13 MG/DL L=8 H=22 CREATININE 2160-0 1.1 MG/DL L=0.6 H=1.6 SGOT/AST 1920-8 13 IU/L L=10 H=40 SGPT/ALT 1742-6 13 IU/L L=8 H=54 ALK PHOS 6768-6 155 IU/L L=35 H=115 TOTAL PROTEIN 2885-2 5.4 G/DL L=5.5 H=8.5 ALBUMIN 1751-7 2.7 G/DL L=3.1 H=5.4 TOTAL BILI 1975-2 0.6 MG/DL L=0.0 H=1.5 CALCIUM 03072-3 8.4 MG/DL L=8.2 H=10.6 AGE 59 yrs GFR NonAA 51 GFR AA 62 eGFR 51 mL/min/1.7 eGFR AA* >60 N/A COMPREHENSIVE METABOLIC PANEL - Collect Date/Time: 09/11/2014 05:40 Test Name Code Test Result Test Units Test Ref Range GLUCOSE 2345-7 101 MG/DL L=70 H=100 SODIUM 2951-2 132 MEQ/L L=135 H=148 POTASSIUM 2823-3 5.1 MEQ/L L=3.5 H=5.3 CHLORIDE 2075-0 103 MEQ/L L=96 H=110 CO2 2028-9 17 MEQ/L L=22 H=29 BUN 3094-0 18 MG/DL L=8 H=22 CREATININE 2160-0 1.9 MG/DL L=0.6 H=1.6 SGOT/AST 1920-8 16 IU/L L=10 H=40 SGPT/ALT 1742-6 13 IU/L L=8 H=54 ALK PHOS 6768-6 131 IU/L L=35 H=115 TOTAL PROTEIN 2885-2 4.9 G/DL L=5.5 H=8.5 ALBUMIN 1751-7 2.8 G/DL L=3.1 H=5.4 TOTAL BILI 1975-2 0.6 MG/DL L=0.0 H=1.5 CALCIUM 66855-7 7.4 MG/DL L=8.2 H=10.6 AGE 59 yrs GFR NonAA 27 GFR AA 33 eGFR 27 mL/min/1.7 eGFR AA* 33 mL/min/1.7 COMPREHENSIVE METABOLIC PANEL - Collect Date/Time: 09/10/2014 03:50 Test Name Code Test Result Test Units Test Ref Range GLUCOSE 2345-7 110 MG/DL L=70 H=100 SODIUM 2951-2 135 MEQ/L L=135 H=148 POTASSIUM 2823-3 4.8 MEQ/L L=3.5 H=5.3 CHLORIDE 2075-0 97 MEQ/L L=96 H=110 CO2 2028-9 23 MEQ/L L=22 H=29 BUN 3094-0 11 MG/DL L=8 H=22 CREATININE 2160-0 1.8 MG/DL L=0.6 H=1.6 SGOT/AST 1920-8 16 IU/L L=10 H=40 SGPT/ALT 1742-6 17 IU/L L=8 H=54 ALK PHOS 6768-6 141 IU/L L=35 H=115 TOTAL PROTEIN 2885-2 6.3 G/DL L=5.5 H=8.5 ALBUMIN 1751-7 3.4 G/DL L=3.1 H=5.4 TOTAL BILI 1975-2 0.7 MG/DL L=0.0 H=1.5 CALCIUM 37183-5 8.9 MG/DL L=8.2 H=10.6 AGE 59 yrs GFR NonAA 29 GFR AA 35 eGFR 29 mL/min/1.7 eGFR AA* 35 mL/min/1.7 LIPASE - Collect Date/Time: 09/10/2014 03:50 Test Name Code Test Result Test Units Test Ref Range LIPASE 3040-3 21 U/L L=8 H=78 GENTAMICIN TROUGH - Collect Date/Time: 09/16/2014 19:50 Test Name Code Test Result Test Units Test Ref Range GENT TR 3665-7 4.6 UG/ML L=0.0 H=2.0 CBC W/ AUTO DIFF (RFLX MAN DIFF IF IND) - Collect Date/Time: 09/12/2014 05:20 Test Name Code Test Result Test Units Test Ref Range WBC 26360-3 22.4 TH/CMM L=4.5 H=10.8 RBC 789-8 3.58 ML/CMM L=4.20 H=5.40 HGB 718-7 10.5 G/DL L=12.0 H=16.0 HCT 4544-3 32.3 % L=37.0 H=47.0 MCV 90 FL L=81 H=99 MCH 29.3 PG L=27.0 H=33.0 MCHC 32.5 G/DL L=31.0 H=36.0 RDW SD 47 FL L=36 H=50 RDW CV 14.2 % L=0.0 H=14.8 MPV 9.6 FL L=9.3 H=12.5 PLT 777-3 311 TH/CMM L=130 H=440 NRBC# 0.00 TH/CMM L=0.00 H=0.00 NRBC% 0.0 /100WBC L=0.0 H=2.0 %NEUT 88.0 % %LYMP 5.3 % %MONO 3.5 % %EOS 3.1 % %BASO 0.1 % #NEUT 19.71 TH/CMM L=2.10 H=8.20 #LYMP 1.19 TH/CMM L=0.90 H=5.20 #MONO 0.78 TH/CMM L=0.16 H=1.00 #EOS 0.70 TH/CMM L=0.00 H=0.80 #BASO 0.02 TH/CMM L=0.00 H=0.20 SEGS 55 % BANDS 33 % LYMPHS 5 % MONOS 3 % EOS 4 % MANUAL DIFF SEE BELOW N/A CBC W/ AUTO DIFF (RFLX MAN DIFF IF IND) - Collect Date/Time: 09/11/2014 05:40 Test Name Code Test Result Test Units Test Ref Range WBC 02294-9 23.5 TH/CMM L=4.5 H=10.8 RBC 789-8 3.60 ML/CMM L=4.20 H=5.40 HGB 718-7 10.4 G/DL L=12.0 H=16.0 HCT 4544-3 33.1 % L=37.0 H=47.0 MCV 92 FL L=81 H=99 MCH 28.9 PG L=27.0 H=33.0 MCHC 31.4 G/DL L=31.0 H=36.0 RDW SD 48 FL L=36 H=50 RDW CV 14.2 % L=0.0 H=14.8 MPV 9.6 FL L=9.3 H=12.5 PLT 777-3 331 TH/CMM L=130 H=440 NRBC# 0.00 TH/CMM L=0.00 H=0.00 NRBC% 0.0 /100WBC L=0.0 H=2.0 %NEUT 88.4 % %LYMP 6.7 % %MONO 3.7 % %EOS 1.1 % %BASO 0.1 % #NEUT 20.76 TH/CMM L=2.10 H=8.20 #LYMP 1.58 TH/CMM L=0.90 H=5.20 #MONO 0.87 TH/CMM L=0.16 H=1.00 #EOS 0.26 TH/CMM L=0.00 H=0.80 #BASO 0.02 TH/CMM L=0.00 H=0.20 SEGS 49 % BANDS 38 % LYMPHS 6 % MONOS 3 % EOS 2 % METAS 1 % MYELO 1 % MANUAL DIFF SEE BELOW N/A CBC W/ AUTO DIFF (RFLX MAN DIFF IF IND) - Collect Date/Time: 09/10/2014 03:50 Test Name Code Test Result Test Units Test Ref Range WBC 92815-5 12.4 TH/CMM L=4.5 H=10.8 RBC 789-8 4.36 ML/CMM L=4.20 H=5.40 HGB 718-7 12.7 G/DL L=12.0 H=16.0 HCT 4544-3 40.8 % L=37.0 H=47.0 MCV 94 FL L=81 H=99 MCH 29.1 PG L=27.0 H=33.0 MCHC 31.1 G/DL L=31.0 H=36.0 RDW SD 48 FL L=36 H=50 RDW CV 14.1 % L=0.0 H=14.8 MPV 9.8 FL L=9.3 H=12.5 PLT 777-3 464 TH/CMM L=130 H=440 NRBC# 0.00 TH/CMM L=0.00 H=0.00 NRBC% 0.0 /100WBC L=0.0 H=2.0 %NEUT 83.6 % %LYMP 12.2 % %MONO 1.7 % %EOS 2.3 % %BASO 0.2 % #NEUT 10.32 TH/CMM L=2.10 H=8.20 #LYMP 1.51 TH/CMM L=0.90 H=5.20 #MONO 0.21 TH/CMM L=0.16 H=1.00 #EOS 0.29 TH/CMM L=0.00 H=0.80 #BASO 0.02 TH/CMM L=0.00 H=0.20 MANUAL DIFF NOT IND N/A HEMOGRAM - Collect Date/Time: 09/17/2014 05:05 Test Name Code Test Result Test Units Test Ref Range WBC 65365-7 9.8 TH/CMM L=4.5 H=10.8 RBC 789-8 3.40 ML/CMM L=4.20 H=5.40 HGB 718-7 9.7 G/DL L=12.0 H=16.0 HCT 4544-3 30.5 % L=37.0 H=47.0 MCV 90 FL L=81 H=99 MCH 28.5 PG L=27.0 H=33.0 MCHC 31.8 G/DL L=31.0 H=36.0 RDW SD 49 FL L=36 H=50 RDW CV 15.1 % L=0.0 H=14.8 MPV 10.0 FL L=9.3 H=12.5 PLT 777-3 239 TH/CMM L=130 H=440 NRBC# 0.00 TH/CMM L=0.00 H=0.00 NRBC% 0.0 /100WBC L=0.0 H=2.0 HEMOGRAM - Collect Date/Time: 09/16/2014 05:25 Test Name Code Test Result Test Units Test Ref Range WBC 02217-9 9.9 TH/CMM L=4.5 H=10.8 RBC 789-8 3.23 ML/CMM L=4.20 H=5.40 HGB 718-7 9.2 G/DL L=12.0 H=16.0 HCT 4544-3 28.9 % L=37.0 H=47.0 MCV 90 FL L=81 H=99 MCH 28.5 PG L=27.0 H=33.0 MCHC 31.8 G/DL L=31.0 H=36.0 RDW SD 49 FL L=36 H=50 RDW CV 15.0 % L=0.0 H=14.8 MPV 9.5 FL L=9.3 H=12.5 PLT 777-3 235 TH/CMM L=130 H=440 NRBC# 0.00 TH/CMM L=0.00 H=0.00 NRBC% 0.0 /100WBC L=0.0 H=2.0 HEMOGRAM - Collect Date/Time: 09/15/2014 05:30 Test Name Code Test Result Test Units Test Ref Range WBC 45516-2 10.6 TH/CMM L=4.5 H=10.8 RBC 789-8 3.25 ML/CMM L=4.20 H=5.40 HGB 718-7 9.2 G/DL L=12.0 H=16.0 HCT 4544-3 28.8 % L=37.0 H=47.0 MCV 89 FL L=81 H=99 MCH 28.3 PG L=27.0 H=33.0 MCHC 31.9 G/DL L=31.0 H=36.0 RDW SD 49 FL L=36 H=50 RDW CV 14.8 % L=0.0 H=14.8 MPV 9.6 FL L=9.3 H=12.5 PLT 777-3 223 TH/CMM L=130 H=440 NRBC# 0.00 TH/CMM L=0.00 H=0.00 NRBC% 0.0 /100WBC L=0.0 H=2.0 HEMOGRAM - Collect Date/Time: 09/14/2014 05:03 Test Name Code Test Result Test Units Test Ref Range WBC 38121-3 12.7 TH/CMM L=4.5 H=10.8 RBC 789-8 3.20 ML/CMM L=4.20 H=5.40 HGB 718-7 9.3 G/DL L=12.0 H=16.0 HCT 4544-3 28.7 % L=37.0 H=47.0 MCV 90 FL L=81 H=99 MCH 29.1 PG L=27.0 H=33.0 MCHC 32.4 G/DL L=31.0 H=36.0 RDW SD 49 FL L=36 H=50 RDW CV 14.7 % L=0.0 H=14.8 MPV 10.1 FL L=9.3 H=12.5 PLT 777-3 244 TH/CMM L=130 H=440 NRBC# 0.00 TH/CMM L=0.00 H=0.00 NRBC% 0.0 /100WBC L=0.0 H=2.0 HEMOGRAM - Collect Date/Time: 09/13/2014 05:15 Test Name Code Test Result Test Units Test Ref Range WBC 73006-2 13.3 TH/CMM L=4.5 H=10.8 RBC 789-8 3.21 ML/CMM L=4.20 H=5.40 HGB 718-7 9.4 G/DL L=12.0 H=16.0 HCT 4544-3 28.8 % L=37.0 H=47.0 MCV 90 FL L=81 H=99 MCH 29.3 PG L=27.0 H=33.0 MCHC 32.6 G/DL L=31.0 H=36.0 RDW SD 48 FL L=36 H=50 RDW CV 14.5 % L=0.0 H=14.8 MPV 9.6 FL L=9.3 H=12.5 PLT 777-3 230 TH/CMM L=130 H=440 NRBC# 0.00 TH/CMM L=0.00 H=0.00 NRBC% 0.0 /100WBC L=0.0 H=2.0 UA W/MICRO C&S IF IND - Collect Date/Time: 09/11/2014 01:30 Test Name Code Test Result Test Units Test Ref Range COLOR YELLOW N/A NL: YELLOW APPEARANCE HAZY N/A NL: CLEAR SPEC GRAV 1.025 N/A NL: 1.002 - 1.022 pH 5.5 N/A NL: 5 - 9 PROTEIN 30 N/A NL: NEGATIVE mg/dl GLUCOSE NEGATIVE N/A NL: NEGATIVE mg/dl KETONE NEGATIVE N/A NL: NEGATIVE mg/dl BILIRUBIN NEGATIVE N/A NL: NEGATIVE BLOOD MODERATE N/A NL: NEGATIVE NITRITE NEGATIVE N/A NL: NEGATIVE LEUK SCREEN SMALL N/A NL: NEGATIVE WBC/HPF 20-50 N/A NL: NEGATIVE RBC/HPF 5-10 N/A NL: NEGATIVE CASTS/LPF 1+ FINE GRAN N/A NL: NEGATIVE CRYSTALS TRACE AMORPH N/A NL: NEGATIVE MUCOUS THRDS FEW N/A NL: NEGATIVE BACTERIA 1+ N/A NL: NEGATIVE EPITH CELLS FEW SQUAMOUS N/A NL: NEGATIVE TRICHOMONAS NEGATIVE N/A NL: NEGATIVE YEAST NEGATIVE N/A NL: NEGATIVE CULT SET UP? YES N/A BNP - Collect Date/Time: 09/17/2014 05:05 Test Name Code Test Result Test Units Test Ref Range BNP 37410-8 65 PG/ML L=0 H=100 BNP - Collect Date/Time: 09/16/2014 05:25 Test Name Code Test Result Test Units Test Ref Range BNP 89195-7 77 PG/ML L=0 H=100 BNP - Collect Date/Time: 09/15/2014 05:30 Test Name Code Test Result Test Units Test Ref Range BNP 86922-6 120 PG/ML L=0 H=100 BNP - Collect Date/Time: 09/14/2014 05:03 Test Name Code Test Result Test Units Test Ref Range BNP 66289-6 120 PG/ML L=0 H=100 BNP - Collect Date/Time: 09/12/2014 05:20 Test Name Code Test Result Test Units Test Ref Range BNP 49356-8 230 PG/ML L=0 H=100 BNP - Collect Date/Time: 09/11/2014 05:40 Test Name Code Test Result Test Units Test Ref Range BNP 91682-3 106 PG/ML L=0 H=100 BNP - Collect Date/Time: 09/10/2014 03:50 Test Name Code Test Result Test Units Test Ref Range BNP 50651-2 16 PG/ML L=0 H=100 TROPONIN-I ADV - Collect Date/Time: 09/13/2014 20:40 Test Name Code Test Result Test Units [place] [address]-0 <0.04 ng/mL L=0.04 H= 0.40 TROPONIN-I ADV - Collect Date/Time: 09/13/2014 18:30 Test Name Code Test Result Test Units [place] [address]-2 <0.04 ng/mL L=0.04 H= 0.40 TROPONIN-I ADV - Collect Date/Time: 09/10/2014 03:50 Test Name Code Test Result Test Units [place] [address]-2 <0.04 ng/mL L=0.04 H= 0.40 THYROID PANEL - Collect Date/Time: 09/13/2014 05:15 Test Name Code Test Result Test Units Test Ref Range FREE T4 3024-7 0.97 NG/DL L=0.71 H=1.85 TSH 29274-2 0.19 mIU/L L=0.35 H=4.94 ABG - Collect Date/Time: 09/17/2014 07:55 Test Name Code Test Result Test Units Test Ref Range PH 7.46 L=7.35 H=7.45 PCO2 55 mmHG L=35 H=45 PO2 111 mmHG L=80 H=100 BE 12.9 mmol/L L=-2.5 H=2.5 HCO3 39 mmol/L L=22 H=28 TCO2 35 mmol/L L=18 H=31 O2SAT 99 % L=80 H=100 SITE RRA N/A FIO2 10 L NRB N/A ABG - Collect Date/Time: 09/10/2014 10:39 Test Name Code Test Result Test Units Test Ref Range PH 7.33 L=7.35 H=7.45 PCO2 50 mmHG L=35 H=45 PO2 55 mmHG L=80 H=100 HCO3 26 mmol/L L=22 H=28 TCO2 24 mmol/L L=18 H=31 O2SAT 85 % L=80 H=100 SITE L BRACH N/A FIO2 6L N/A BE -0.3 N/A L=-2.5 H=2.5 LACTIC ACID - Collect Date/Time: 09/10/2014 10:39 Test Name Code Test Result Test Units Test Ref Range LACTIC ACID 2524-7 1.8 mmol/L L=0.5 H=1.6 LACTIC ACID - Collect Date/Time: 09/10/2014 03:50 Test Name Code Test Result Test Units Test Ref Range LACTIC ACID 2524-7 2.5 mmol/L L=0.5 H=1.6 MAGNESIUM - Collect Date/Time: 09/12/2014 05:20 Test Name Code Test Result Test Units Test Ref Range MAGNESIUM 92085-0 2.1 MG/DL L=1.7 H=2.8 MAGNESIUM - Collect Date/Time: 09/11/2014 05:40 Test Name Code Test Result Test Units Test Ref Range MAGNESIUM 81526-4 1.7 MG/DL L=1.7 H=2.8 PHOSPHORUS - Collect Date/Time: 09/12/2014 05:20 Test Name Code Test Result Test Units Test Ref Range PHOSPHORUS 2777-1 3.0 MG/DL L=2.5 H=4.5 PHOSPHORUS - Collect Date/Time: 09/11/2014 05:40 Test Name Code Test Result Test Units Test Ref Range PHOSPHORUS 2777-1 4.4 MG/DL L=2.5 H=4.5 Active Medications Medication Code Dose Units Frequency Route Modification Start Date/Time GENTAMICIN IV (PHARMACY INTERVAL DOSING) 876712 Q36H IVPB 09/16/2014 12:00 ~~ GENTAMICIN VIAL: 40MG/ML(800MG IN VIAL) 152579 350 MG ~~ NACL 0.9%: 50ML BAG 240379 50 ML ~~ REFRIGERATE!!! [id number] 1 EA AZACTAM IVPB [PREDEFINED] : 2 GM Q8H IVPB 09/14/2014 10:00 ~~ AZTREONAM [AZACTAM] INJ : 2 GM VIAL 512706 2 GM ~~ NACL 0.9%: 100 ML BAG 904166 100 ML ~~ REFRIGERATE!!! [id number] 1 EA POTASSIUM CHL [K DUR] TABLET: 20 MEQ 886796 20 MEQ BID PO 09/14/2014 09:15 NITROGLYCERIN [NITROSTAT] TAB:0.4 MG SL 972161 1 TAB PRN SL 09/13/2014 18:11 MILK OF MAGNESIA:12OZ 299588 30 ML PRN Q HS PO 09/12/2014 16:30 NORCO [HYDROCODONE/APAP] 5/325MG TAB 872169 1 TAB PRN PO 09/12/2014 09:05 POLYETHYLENE [MIRALAX] POWDER: 17 GM 075814 17 GM DAILY PO 09/12/2014 08:07 ALPRAZOLAM [XANAX] TABLET : 0.25 MG 367921 0.5 MG PRN PO 09/11/2014 16:24 NS 1000 ML IV [PREDEFINED] (7983) 049532 CONT IV IV 09/11/2014 12:44 ~~ NACL 0.9% (7983) 1000ML IV BAG 215354 2817 ML CLINDAMYCIN IV [PREDEFINED]: 900 MG ADV 903255 Q8H IVPB 09/10/2014 14:00 ~~ CLINDAMYCIN IV [PREDEFINED]: 900 MG ADV 850898 900 MG ~~ NACL 0.9% ADD-VANTAGE: 100 ML BAG 632289 100 ML ONDANSETRON [ZOFRAN] INJ 4 MG/2 ML VIAL 716824 4 MG PRN SIVP 09/10/2014 10:22 METOCLOPRAMIDE [REGLAN] INJ: 10MG/2ML 159682 10 MG Q6H IVP 09/10/2014 10:21 PANTOPRAZOLE [PROTONIX] TABLET : 40 MG 832177 40 MG DAILY PO 09/10/2014 10:15 HEPARIN: 5000 UNITS/1ML VIAL 8885215 8139 UNIT(S) Q12H SQ 09/10/2014 08:31 DULOXETINE [CYMBALTA] CAP: 30 MG 209765 30 MG BID PO 09/10/2014 06:53 GABAPENTIN (NEURONTIN) CAP:300 MG 056952 300 MG TID PO 09/10/2014 06:53 LAMOTRIGINE [LAMICTAL] TABLET: 100 MG 187163 100 MG BID PO 09/10/2014 06:53 ACETAMINOPHEN [TYLENOL] TABS 325MG 545909 650 MG PRN PO 09/10/2014 06:52 ARIPIPRAZOLE [ABILIFY] TAB : 10 MG 438025 10 MG DAILY PO 09/10/2014 06:52 DUONEB [IPRATROPIUM/ALBUTEROL] 0.5/3 MG 5436621 1 EA Q 6 HRS (RT ONLY) INHALE 09/10/2014 06:52 ZIPRASIDONE [GEODON] CAPSULE : 40MG 785121 80 MG BID PO 09/10/2014 06:52 ALBUTEROL NEB 2.5MG/3ML (ONLY ALBUTEROL) 115130 1 EA PRN INHALE 09/10/2014 06:51 Medications Administered During Visit Medication Dose Units Frequency Route Date/ Time of Last Dose NS 1000 ML IV [PREDEFINED] (7983) CONT IV IV 09/11/2014 12:36 ARIPIPRAZOLE [ABILIFY] TAB : 10 MG 10 MG DAILY PO 09/16/2014 08:35 ACETAMINOPHEN [TYLENOL] TABS 325MG 650 MG PRN PO 09/12/2014 03:33 GABAPENTIN (NEURONTIN) CAP:300 MG 300 MG TID PO 09/16/2014 17:45 LAMOTRIGINE [LAMICTAL] TABLET: 100 MG 100 MG BID PO 09/16/2014 21:38 DUONEB [IPRATROPIUM/ALBUTEROL] 0.5/3 MG 1 UD Q 6 HRS (RT ONLY) INHALE 09/17/2014 09:38 ZIPRASIDONE [GEODON] CAPSULE : 40MG 80 MG BID PO 09/16/2014 21:38 DULOXETINE [CYMBALTA] CAP: 30 MG 30 MG BID PO 09/16/2014 21:38 CLINDAMYCIN IV [PREDEFINED]: 900 MG ADV Q8H IVPB 09/17/2014 05:42 DOPamine 400MG/250ML:PRE-MIX CONT IV IV 09/12/2014 09:08 HEPARIN: 5000 UNITS/1ML VIAL 5000 UNIT(S) Q12H SQ 09/16/2014 21:38 PANTOPRAZOLE [PROTONIX] TABLET : 40 MG 40 MG DAILY PO 09/16/2014 08:35 METOCLOPRAMIDE [REGLAN] INJ: 10MG/2ML 10 MG Q6H IVP 09/17/2014 04:07 NEOSTIGMINE [BLOXIVERZ] 1MG/ML 10ML VL 0.5 ML QID SQ 09/12/2014 10:14 ONDANSETRON [ZOFRAN] INJ 4 MG/2 ML VIAL 4 MG PRN SIVP 09/10/2014 18:01 NS 1000 ML IV [PREDEFINED] (7983) X1 IV 09/10/2014 12:45 ZOSYN 3.375 GM IV [PREDEFINED] Q6H IVPB 09/11/2014 07:41 MAG SULFATE 2 GM/50ML IVPB BAG X1 IV 09/11/2014 09:21 NS 1000 ML IV [PREDEFINED] (7983) CONT IV IV 09/16/2014 18:11 ZOSYN 2.25 GM IV [PREDEFINED] Q6H IVPB 09/14/2014 08:36 ALPRAZOLAM [XANAX] TABLET : 0.25 MG 0.5 MG PRN PO 09/16/2014 18:11 POLYETHYLENE [MIRALAX] POWDER: 17 GM 17 GM DAILY PO 09/16/2014 08:35 NORCO [HYDROCODONE/APAP] 5/325MG TAB 2 TAB PRN PO 09/17/2014 05:32 MILK OF MAGNESIA:12OZ 30 ML PRN Q HS PO 16:58 FUROSEMIDE (LASIX): 20 MG/2 ML INJ 60 MG X1 IVP 09/13/2014 17:36 FUROSEMIDE (LASIX): 20 MG/2 ML INJ 60 MG X1 IVP 09/13/2014 21:18 NITROGLYCERIN [NITROSTAT] TAB:0.4 MG SL 1 TAB PRN SL 09/13/2014 18:17 FUROSEMIDE (LASIX): 40 MG/4 ML VIAL 60 MG X1 IVP 09/14/2014 09:32 POTASSIUM CHL [K DUR] TABLET: 20 MEQ 40 MEQ X1 PO 09/14/2014 09:32 FUROSEMIDE (LASIX): 40 MG/4 ML VIAL 40 MG Q4H IVP 09/15/2014 00:57 AZACTAM IVPB [PREDEFINED] : 2 GM Q8H IVPB 09/17/2014 02:26 POTASSIUM CHL [K DUR] TABLET: 20 MEQ 20 MEQ BID PO 09/16/2014 21:38 ALBUMIN (HUMAN) 25%(12.5GM)/50ML Q1H IVPB 09/14/2014 14:04 FUROSEMIDE (LASIX): 40 MG/4 ML VIAL 40 MG Q4H IVP 09/16/2014 04:19 FUROSEMIDE (LASIX): 40 MG/4 ML VIAL 40 MG Q4H IVP 09/17/2014 04:07 GENTAMICIN IV (PHARMACY INTERVAL DOSING) Q36H IVPB 09/16/2014 11:51 Encounters Encounter Diagnosis Diagnosis Code Start Date SEPTICEMIA NOS 0389 09/10/2014 Social History Smoking Status Code Start Date End Date Former smoker [id number] Patient Decision Aids Unknown or Not Available. Discharge Instructions You were admitted to [facility] on 09/10/2014 with a principal diagnosis of SEPTICEMIA NOS. You had the following procedures done: NON INVASIVE MECHANICAL VENTILATION You were discharged from [facility] on 09/17/2014. Should you have any questions prior to discharge, please contact a member of your healthcare team. If you have left the hospital and have any questions, please contact your primary care physician. CHIEF COMPLAINT: SOB and Chest Pain Chief Complaint and Reason For Visit Chief Complaint Date of Onset RIGHT LOWER LOBE PNEUMONIA Function Status Unknown or Not Available. Plan of Care Unknown or Not Available. Referral/Transition of Care Unknown or Not Available.
--- OUTSIDE RECORDS SUMMARY | 2017-12-10 09:52 | XMS REPORT | CCD ---
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 Weight Measured 237 lbs 08/21/2015 17:00 Initial VS Height 60 in 08/21/2015 17:00 Initial VS BMI (Body Mass Index) 46.29 kg/m^2 08/21/2015 17:00 Initial VS BSA (Body Surface Area) 2.13 m^2 08/21/2015 17:00 Initial VS BP Systolic 158 mmHg 08/21/2015 17:00 Initial VS BP Diastolic 79 mmHg 08/21/2015 17:00 Initial VS Respiratory Rate 20 bpm 08/21/2015 17:00 Initial VS Heart Rate 88 bpm 08/21/2015 17:00 Initial VS O2 % BldC Oximetry 94 % 08/21/2015 17:00 Initial VS Body Temperature 97.9 degrees 08/21/2015 17:00 Initial VS BP Systolic 136 mmHg 08/24/2015 11:18 Most Recent VS BP Diastolic 74 mmHg 08/24/2015 11:18 Most Recent VS Respiratory Rate 20 bpm 08/24/2015 11:18 Most Recent VS Heart Rate 91 bpm 08/24/2015 11:18 Most Recent VS O2 % BldC Oximetry 94 % 08/24/2015 11:18 Most Recent VS Body Temperature 96.5 degrees 08/24/2015 11:18 Most Recent VS Allergies Allergy Code Allergy Type Reaction Status BENZTROPINE 1424 Drug allergy Active TETRACYCLINE 54962 Drug allergy Active MINOCYCLINE 6980 Drug allergy Active SHELLFISH 0 Food allergy Active LITHIUM 6448 Drug allergy Active MYSOLINE 060051 Drug allergy Active ZOLOFT 66260 Drug allergy Active ERYTHROMYCIN 4053 Drug allergy Active TOVIAZ 678403 Drug allergy Active SULFA (sulfonamide) 0 Drug allergy Active IODINE 5933 Drug allergy Active KEFLEX 531156 Drug allergy Active TORADOL 58199 Drug allergy Active Procedures Procedure Code Procedure Type Date CX CHEST [address] 08/21/2015 BEDSIDE GLUCOSE 31996399 SNOMED CT 08/24/2015 BEDSIDE GLUCOSE 10443566 SNOMED CT 08/24/2015 BEDSIDE GLUCOSE 46636735 SNOMED CT 08/23/2015 BEDSIDE GLUCOSE 58898990 SNOMED CT 08/23/2015 BEDSIDE GLUCOSE 56800194 SNOMED CT 08/23/2015 BEDSIDE GLUCOSE 16861524 SNOMED CT 08/23/2015 BEDSIDE GLUCOSE 72417796 SNOMED CT 08/22/2015 BEDSIDE GLUCOSE 50552264 SNOMED CT 08/22/2015 BEDSIDE GLUCOSE 04789120 SNOMED CT 08/22/[address] 08/21/2015 [address]ROID PANEL 217[address]39 SN[address] 08/21/2015 COMPREHENSIVE METABOLIC PANEL 994617020 SNOMED CT 2015 CBC W/ AUTO DIFF (RFLX MAN DIFF IF IND) 0296891 SNOMED CT 08/22/2015 CULTURE SPUTUM 851834358 SNOMED CT 08/21/2015 INFLUENZA A & B 765809097 SNOMED CT 08/21/[address] 08/21/2015 CULTURE BLOOD 70309509 SNOMED CT 08/21/2015 COMPREHENSIVE METABOLIC PANEL 532790713 SNOMED CT 2015 CBC W/ AUTO DIFF (RFLX MAN DIFF IF IND) 0603463 SNOMED CT 08/21/2015 ABG DRAW 97031105 SNOMED CT 08/21/2015 ABG DRAW 13836432 SNOMED CT 08/21/2015 ^CBC W/ MANUAL DIFF 81027183 SNOMED CT 08/22/2015 ^CBC W/AUTO DIFF 6732844 SNOMED CT 08/21/2015 OXYGEN/HOUR 325937314 SNOMED CT 08/24/2015 PULSE OX CONTINUOUS 276236162 SNOMED CT 08/24/2015 BAN AERO ECLIPSE TREATMENT 94723702 SNOMED CT 08/24/2015 BAN AERO ECLIPSE TREATMENT 44977433 SNOMED CT 08/24/2015 OXYGEN/HOUR 425667842 SNOMED CT 08/23/2015 OXYGEN/HOUR 157837502 SNOMED CT 08/23/2015 PULSE OX CONTINUOUS 859316117 SNOMED CT 08/23/2015 PULSE OX CONTINUOUS 805948926 SNOMED CT 08/23/2015 BAN AERO ECLIPSE TREATMENT 76026223 SNOMED CT 08/23/2015 BAN AERO ECLIPSE TREATMENT 51438808 SNOMED CT 08/23/2015 BAN AERO ECLIPSE TREATMENT 99536196 SNOMED CT 08/23/2015 BAN AERO ECLIPSE TREATMENT 30896955 SNOMED CT 08/23/2015 OXYGEN/HOUR 740954085 SNOMED CT 08/22/2015 OXYGEN/HOUR 977228203 SNOMED CT 08/22/2015 PULSE OX CONTINUOUS 690485384 SNOMED CT 08/22/2015 PULSE OX CONTINUOUS 721294641 SNOMED CT 08/22/2015 BAN AERO ECLIPSE TREATMENT 98130984 SNOMED CT 08/22/2015 BAN AERO ECLIPSE TREATMENT 40517284 SNOMED CT 08/22/2015 BAN AERO ECLIPSE TREATMENT 24489459 SNOMED CT 08/22/2015 BAN AERO ECLIPSE TREATMENT 02573620 SNOMED CT 08/22/2015 BAN AERO ECLIPSE TREATMENT 42112234 SNOMED CT 08/21/2015 PULSE OX CONTINUOUS 932194321 SNOMED CT 08/21/2015 BAN AERO ECLIPSE TREATMENT 88178465 SNOMED CT 08/21/2015 PULSE OX CONTINUOUS 424182771 SNOMED CT 08/21/2015 OXYGEN/HOUR 249481365 SNOMED CT 08/21/2015 History of Immunizations Immunization Code Date influenza, split (incl. purified surface antigen) 15 03/11/2006 Problems Problem Code Start Date Resolved Date Status COPD with exacerbation 070038013 08/21/2015 Active Bronchospasms 5666791 08/21/2015 Active Acute chest pain 805051848 07/24/2015 08/22/2015 Resolved Results BEDSIDE GLUCOSE - Collect Date/Time: 08/24/2015 12:15 Test Name Code Test Result Test Units Test Ref Range GLUCOSE POCT 162 MG/DL L=70 H=100 BEDSIDE GLUCOSE - Collect Date/Time: 08/24/2015 05:04 Test Name Code Test Result Test Units Test Ref Range GLUCOSE POCT 169 MG/DL L=70 H=100 BEDSIDE GLUCOSE - Collect Date/Time: 08/23/2015 20:45 Test Name Code Test Result Test Units Test Ref Range GLUCOSE POCT 183 MG/DL L=70 H=100 BEDSIDE GLUCOSE - Collect Date/Time: 08/23/2015 16:30 Test Name Code Test Result Test Units Test Ref Range GLUCOSE POCT 137 MG/DL L=70 H=100 BEDSIDE GLUCOSE - Collect Date/Time: 08/23/2015 11:54 Test Name Code Test Result Test Units Test Ref Range GLUCOSE POCT 202 MG/DL L=70 H=100 BEDSIDE GLUCOSE - Collect Date/Time: 08/23/2015 05:07 Test Name Code Test Result Test Units Test Ref Range GLUCOSE POCT 167 MG/DL L=70 H=100 BEDSIDE GLUCOSE - Collect Date/Time: 08/22/2015 20:55 Test Name Code Test Result Test Units Test Ref Range GLUCOSE POCT 307 MG/DL L=70 H=100 BEDSIDE GLUCOSE - Collect Date/Time: 08/22/2015 19:33 Test Name Code Test Result Test Units Test Ref Range GLUCOSE POCT 333 MG/DL L=70 H=100 BEDSIDE GLUCOSE - Collect Date/Time: 08/22/2015 17:29 Test Name Code Test Result Test Units Test Ref Range GLUCOSE POCT 326 MG/DL L=70 H=100 COMPREHENSIVE METABOLIC PANEL - Collect Date/Time: 08/22/2015 06:15 Test Name Code Test Result Test Units Test Ref Range GLUCOSE 2345-7 208 MG/DL L=70 H=100 SODIUM 2951-2 142 MEQ/L L=135 H=148 POTASSIUM 2823-3 4.2 MEQ/L L=3.5 H=5.3 CHLORIDE 2075-0 105 MEQ/L L=96 H=110 CO2 2028-9 24 MEQ/L L=22 H=29 BUN 3094-0 16 MG/DL L=8 H=22 CREATININE 2160-0 1.1 MG/DL L=0.6 H=1.6 SGOT/AST 1920-8 18 IU/L L=10 H=40 SGPT/ALT 1742-6 15 IU/L L=8 H=54 ALK PHOS 6768-6 154 IU/L L=35 H=115 TOTAL PROTEIN 2885-2 6.7 G/DL L=5.5 H=8.5 ALBUMIN 1751-7 4.0 G/DL L=3.1 H=5.4 TOTAL BILI 1975-2 0.2 MG/DL L=0.0 H=1.5 CALCIUM 07135-6 9.6 MG/DL L=8.2 H=10.6 AGE 60 yrs GFR NonAA 50 GFR AA 61 eGFR 50 mL/min/1.7 eGFR AA* >60 N/A COMPREHENSIVE METABOLIC PANEL - Collect Date/Time: 08/21/2015 17:25 Test Name Code Test Result Test Units Test Ref Range GLUCOSE 2345-7 101 MG/DL L=70 H=100 SODIUM 2951-2 141 MEQ/L L=135 H=148 POTASSIUM 2823-3 3.7 MEQ/L L=3.5 H=5.3 CHLORIDE 2075-0 103 MEQ/L L=96 H=110 CO2 2028-9 28 MEQ/L L=22 H=29 BUN 3094-0 15 MG/DL L=8 H=22 CREATININE 2160-0 1.1 MG/DL L=0.6 H=1.6 SGOT/AST 1920-8 20 IU/L L=10 H=40 SGPT/ALT 1742-6 15 IU/L L=8 H=54 ALK PHOS 6768-6 155 IU/L L=35 H=115 TOTAL PROTEIN 2885-2 6.3 G/DL L=5.5 H=8.5 ALBUMIN 1751-7 3.9 G/DL L=3.1 H=5.4 TOTAL BILI 1975-2 0.3 MG/DL L=0.0 H=1.5 CALCIUM 94187-7 9.1 MG/DL L=8.2 H=10.6 AGE 60 yrs GFR NonAA 50 GFR AA 61 eGFR 50 mL/min/1.7 eGFR AA* >60 N/A CBC W/ AUTO DIFF (RFLX MAN DIFF IF IND) - Collect Date/Time: 08/22/2015 06:15 Test Name Code Test Result Test Units Test Ref Range WBC 17781-3 3.9 TH/CMM L=4.5 H=10.8 RBC 789-8 4.27 ML/CMM L=4.20 H=5.40 HGB 718-7 12.1 G/DL L=12.0 H=16.0 HCT 4544-3 37.7 % L=37.0 H=47.0 MCV 88 FL L=81 H=99 MCH 28.3 PG L=27.0 H=33.0 MCHC 32.1 G/DL L=31.0 H=36.0 RDW SD 60 FL L=36 H=50 RDW CV 18.6 % L=0.0 H=14.8 MPV 10.5 FL L=9.3 H=12.5 PLT 777-3 235 TH/CMM L=130 H=440 NRBC# 0.00 TH/CMM L=0.00 H=0.00 NRBC% 0.0 /100WBC L=0.0 H=2.0 %NEUT 73.5 % %LYMP 23.1 % %MONO 1.3 % %EOS 0.0 % %BASO 0.3 % #NEUT 2.83 TH/CMM L=2.10 H=8.20 #LYMP 0.89 TH/CMM L=0.90 H=5.20 #MONO 0.05 TH/CMM L=0.16 H=1.00 #EOS 0.00 TH/CMM L=0.00 H=0.80 #BASO 0.01 TH/CMM L=0.00 H=0.20 SEGS 66 % BANDS 11 % LYMPHS 23 % MANUAL DIFF SEE BELOW N/A ANISO 1+ N/A CBC W/ AUTO DIFF (RFLX MAN DIFF IF IND) - Collect Date/Time: 08/21/2015 17:25 Test Name Code Test Result Test Units Test Ref Range WBC 25292-0 5.2 TH/CMM L=4.5 H=10.8 RBC 789-8 4.14 ML/CMM L=4.20 H=5.40 HGB 718-7 11.8 G/DL L=12.0 H=16.0 HCT 4544-3 37.5 % L=37.0 H=47.0 MCV 91 FL L=81 H=99 MCH 28.5 PG L=27.0 H=33.0 MCHC 31.5 G/DL L=31.0 H=36.0 RDW SD 60 FL L=36 H=50 RDW CV 18.6 % L=0.0 H=14.8 MPV 10.4 FL L=9.3 H=12.5 PLT 777-3 251 TH/CMM L=130 H=440 NRBC# 0.00 TH/CMM L=0.00 H=0.00 NRBC% 0.0 /100WBC L=0.0 H=2.0 %NEUT 46.9 % %LYMP 33.4 % %MONO 14.0 % %EOS 4.5 % %BASO 0.4 % #NEUT 2.42 TH/CMM L=2.10 H=8.20 #LYMP 1.72 TH/CMM L=0.90 H=5.20 #MONO 0.72 TH/CMM L=0.16 H=1.00 #EOS 0.23 TH/CMM L=0.00 H=0.80 #BASO 0.02 TH/CMM L=0.00 H=0.20 MANUAL DIFF NOT IND N/A INFLUENZA A & B - Collect Date/Time: 08/21/2015 17:25 Test Name Code Test Result Test Units Test Ref Range INFLUENZA A & B 6437-8 NO INFLUENZA A OR B DETECTED N/A BNP - Collect Date/Time: 08/21/2015 17:25 Test Name Code Test Result Test Units Test Ref Range BNP 72469-9 13 PG/ML L=0 H=100 THYROID PANEL - Collect Date/Time: 08/21/2015 17:25 Test Name Code Test Result Test Units Test Ref Range FREE T4 3024-7 0.86 NG/DL L=0.71 H=1.85 TSH 11286-9 0.93 mIU/L L=0.35 H=4.94 ABG - Collect Date/Time: 08/21/2015 18:21 Test Name Code Test Result Test Units Test Ref Range PH 7.38 L=7.35 H=7.45 PCO2 46 mmHG L=35 H=45 PO2 65 mmHG L=80 H=100 BE 1.5 mmol/L L=-2.5 H=2.5 HCO3 27 mmol/L L=22 H=28 TCO2 24 mmol/L L=18 H=31 O2SAT 91 % L=80 H=100 SITE LT RADISL N/A FIO2 2L N/A Active Medications Medication Code Dose Units Frequency Route Modification Start Date/Time SSB REGULAR INSULIN 0 SLIDING SCALE FOUR TIMES A DAY SUBCUTANEOUS 08/24/2015 13:46 Prescription Detail SLIDING SCALE SUBCUTANEOUS FOUR TIMES A DAY Albuterol 0.09MG/Actuation Inhalation Aerosol Powder 31838026084 1 EACH NEEDED EVERY 6 HR INHALATION 12:42 Prescription Detail 1 EACH INHALATION NEEDED EVERY 6 HR Albuterol Sulfate 0.083% Inhalation Solution 723011 1 EACH TID PRN INHALATION 08/24/2015 12:42 Prescription Detail 1 EACH INHALATION TID PRN ALPRAZolam 0.25MG Oral Tablet 810280 0.25 MILLIGRAMS NEEDED DAILY ORAL 08/24/2015 12:42 Prescription Detail 0.25 MILLIGRAMS ORAL NEEDED DAILY amLODIPine Besylate 5MG Oral Tablet 810299 5 MILLIGRAMS DAILY ORAL 08/24/2015 12:42 Prescription Detail 5 MILLIGRAMS ORAL DAILY Azithromycin 250MG Oral Tablet 222278 250 MILLIGRAMS DAILY ORAL 08/24/2015 12:42 Prescription Detail 250 MILLIGRAMS ORAL DAILY Benadryl Allergy 25MG Oral Tablet 2593961 25 MILLIGRAMS NEEDED EVERY 4 HR ORAL 08/24/2015 12:42 Prescription Detail 25 MILLIGRAMS ORAL NEEDED EVERY 4 HR cefTRIAXone 1GM Injection Powder for Solution 9533045 1 GM DAILY INJECTION 08/24/2015 12:42 Prescription Detail 1 GM INJECTION DAILY Cipro 500MG Oral Tablet 500061 1 TABLET TWO TIMES A DAY BY MOUTH 08/24/2015 12:42 Prescription Detail 1 TABLET BY MOUTH TWO TIMES A DAY clonazePAM 0.5MG Oral Tablet 302983 0.5 MILLIGRAMS TWO TIMES A DAY ORAL 08/24/2015 12:42 Prescription Detail 0.5 MILLIGRAMS ORAL TWO TIMES A DAY Colace 100MG Oral Capsule, Liquid Filled 7329639 100 MILLIGRAMS DAILY ORAL 08/24/2015 12:42 Prescription Detail 100 MILLIGRAMS ORAL DAILY Cymbalta 30MG Oral Capsule, Delayed Release 895158 30 MILLIGRAMS DAILY ORAL 08/24/2015 12:42 Prescription Detail 30 MILLIGRAMS ORAL DAILY Dulcolax 5MG Oral Tablet, Enteric Coated 632561 5 MILLIGRAMS NEEDED DAILY ORAL 08/24/2015 12:42 Prescription Detail 5 MILLIGRAMS ORAL NEEDED DAILY Fleet Enema Rectal Enema 3212161 1 EACH NEEDED RECTAL 08/24/2015 12:42 Prescription Detail 1 EACH RECTAL NEEDED Fluocinonide 0.05% Topical application Ointment 932330 1 EACH NEEDED EVERY 6 HR TOPICAL APPLICATION 12:42 Prescription Detail 1 EACH TOPICAL APPLICATION NEEDED EVERY 6 HR Furosemide 20MG Oral Tablet 618632 20 MILLIGRAMS WITH LUNCH ORAL 08/24/2015 12:42 Prescription Detail 20 MILLIGRAMS ORAL WITH LUNCH Furosemide 40MG Oral Tablet 062771 40 MILLIGRAMS DAILY ORAL 08/24/2015 12:42 Prescription Detail 40 MILLIGRAMS ORAL DAILY Geodon 40MG Oral Capsule 697740 2 TABLET DAILY AT 8 AM. ORAL 08/24/2015 12:42 Prescription Detail 2 TABLET ORAL DAILY AT 8 AM. Geodon 40MG Oral Capsule 635260 3 TABLET DAILY AT 1700 ORAL 08/24/2015 12:42 Prescription Detail 3 TABLET ORAL DAILY AT 1700 guaiFENesin 200MG Oral Tablet 726099 3 TABLET TWO TIMES A DAY ORAL 08/24/2015 12:42 Prescription Detail 3 TABLET ORAL TWO TIMES A DAY HYDROcodone bitartrate-acetaminophen 5MG-325MG Oral Tablet 365922 1 EACH NEEDED EVERY 8 HR ORAL 2015 12:42 Prescription Detail 1 EACH ORAL NEEDED EVERY 8 HR Hydrocortisone 1% Topical application Cream 7359766 1 EACH TID PRN TOPICAL APPLICATION 08/24/2015 12:42 Prescription Detail 1 EACH TOPICAL APPLICATION TID PRN hydrOXYzine HCl 25MG Oral Tablet 633032 25 MILLIGRAMS QID PRN ORAL 08/24/2015 12:42 Prescription Detail 25 MILLIGRAMS ORAL QID PRN lamoTRIgine 150MG Oral Tablet 901161 150 MILLIGRAMS TWO TIMES A DAY ORAL 08/24/2015 12:42 Prescription Detail 150 MILLIGRAMS ORAL TWO TIMES A DAY Lotrisone 1%-0.05% Topical application Lotion 633559 1 EACH NEEDED EVERY 6 HR TOPICAL APPLICATION 12:42 Prescription Detail 1 EACH TOPICAL APPLICATION NEEDED EVERY 6 HR Lyrica 75MG Oral Capsule 932296 75 MILLIGRAMS THREE TIMES A DAY ORAL 08/24/2015 12:42 Prescription Detail 75 MILLIGRAMS ORAL THREE TIMES A DAY Magnesium 250 MG Oral Tablet 98877164252 250 MG TWO TIMES A DAY ORAL 08/24/2015 12:42 Prescription Detail 250 MG ORAL TWO TIMES A DAY Magnesium Oxide 400MG Oral Tablet 313791 400 MILLIGRAMS DAILY ORAL 08/24/2015 12:42 Prescription Detail 400 MILLIGRAMS ORAL DAILY metFORMIN HCl 500MG Oral Tablet 135272 500 MILLIGRAMS TWO TIMES A DAY ORAL 08/24/2015 12:42 Prescription Detail 500 MILLIGRAMS ORAL TWO TIMES A DAY MILK OF MAG 0 30 MILLILITER NEEDED DAILY ORAL 08/24/2015 12:42 Prescription Detail 30 MILLILITER ORAL NEEDED DAILY MiraLAX 17GM/1Dose Oral Powder for Solution 819172 1 EACH DAILY ORAL 08/24/2015 12:42 Prescription Detail 1 EACH ORAL DAILY Mirtazapine 15MG Oral Tablet 509982 1.5 TABLET AT BEDTIME ORAL 08/24/2015 12:42 Prescription Detail 1.5 TABLET ORAL AT BEDTIME Nystatin/Triamcinolone Acetonide 638415F/1GM-0.1% Topical application Cream 5038127 1 EACH TWO TIMES A DAY TOPICAL APPLICATION 08/24/2015 12:42 Prescription Detail 1 EACH TOPICAL APPLICATION TWO TIMES A DAY ProAir HFA 0.09MG/1Actuation Inhalation Suspension 771115 2 PUFF NEEDED EVERY 6 HR INHALATION 2015 12:42 Prescription Detail 2 PUFF INHALATION NEEDED EVERY 6 HR Protonix 40MG Oral Tablet, Enteric Coated 444916 40 MILLIGRAMS DAILY ORAL 08/24/2015 12:42 Prescription Detail 40 MILLIGRAMS ORAL DAILY SEROquel 50MG Oral Tablet 507257 100 MILLIGRAMS AT BEDTIME ORAL 08/24/2015 12:42 Prescription Detail 100 MILLIGRAMS ORAL AT BEDTIME Ultram 50MG Oral Tablet 696969 50 MILLIGRAMS NEEDED EVERY 6 HR ORAL 08/24/2015 12:42 Prescription Detail 50 MILLIGRAMS ORAL NEEDED EVERY 6 HR Voltaren Gel 1% Topical application Gel/Jelly 732077 1 EACH NEEDED TOPICAL APPLICATION 08/24/2015 12: 42 Prescription Detail 1 EACH TOPICAL APPLICATION NEEDED Nasal 0.65% Nasal Toyah 90263570823 1 SPRAY NEEDED EVERY 12 H NASAL 08/30/2014 12:24 Prescription Detail 1 SPRAY NASAL NEEDED EVERY 12 H Nexium 40MG Oral Capsule, Delayed Release 058518 40 MILLIGRAMS DAILY ORAL 08/30/2014 12:24 Prescription Detail 40 MILLIGRAMS ORAL DAILY Potassium Chloride 10MEQ Oral Tablet, Extended Release 266690 10 MEQ DAILY ORAL 08/30/2014 12:24 Prescription Detail 10 MEQ ORAL DAILY Symbicort 160MCG-4.5MCG/1 Actu Inhalation Aerosol Liquid 09135294567 2 PUFF TWO TIMES A DAY INHALATION 05/2014 12:24 Prescription Detail 2 PUFF INHALATION TWO TIMES A DAY Tylenol 325MG Oral Tablet 264905 325 MILLIGRAMS NEEDED ORAL 08/30/2014 12:24 Prescription Detail 325 MILLIGRAMS ORAL NEEDED Simvastatin 10MG Oral Tablet 872355 10 MILLIGRAMS AT BEDTIME ORAL 07/28/2012 15:17 Prescription Detail 10 MILLIGRAMS ORAL AT BEDTIME Singulair 10MG Oral Tablet 222801 10 MILLIGRAMS DAILY ORAL 07/28/2012 15:17 Prescription Detail 10 MILLIGRAMS ORAL DAILY Medications Administered During Visit Medication Dose Units Frequency Route Date/ Time of Last Dose AMLODIPINE [NORVASC] TABLET : 5 MG 5 MG DAILY PO 08/24/2015 08:32 OSELTAMIVIR [TAMIFLU] CAPSULE: 75 MG 75 MG BID PO 08/24/2015 08:32 CLONAZEPAM [KLONOPIN] TABLET: 0.5 MG 2 EA TID PO 08/24/2015 14:04 DOCUSATE SODIUM 100 MG [COLACE] CAPSULE 100 MG DAILY PO 08/24/2015 08:32 FUROSEMIDE [LASIX] TABLET: 40 MG 40 MG DAILY PO 08/24/2015 05:22 FUROSEMIDE [LASIX] TABLET: 20 MG 20 MG DAILY PO 08/24/2015 14:04 ZIPRASIDONE [GEODON] CAPSULE : 40MG 40 MG BID PO 08/24/2015 08:32 LAMOTRIGINE [LAMICTAL] TABLET: 100 MG 100 MG BID PO 08/24/2015 08:32 POTASSIUM CHL [MICRO K] CAPSULE: 10 MEQ 10 MEQ BID PO 08/24/2015 08:32 QUETIAPINE [SEROQUEL] TABLET: 25 MG 50 MG HS PO 08/23/2015 20:20 TraMADOL [ULTRAM] TABLET : 50 MG 50 MG PRN QID PO 08/24/2015 14:07 ALPRAZOLAM [XANAX] TABLET : 0.25 MG 0.25 MG PRN QID PO 08/23/2015 20:20 DUONEB [IPRATROPIUM/ALBUTEROL] 0.5/3 MG 1 UD QID (RT ONLY ) INHALE 08/24/2015 13:20 METHYLPREDNISOLONE INJ [SOLU] 40MG VL 80 MG Q8H IVP 08/22/2015 04:55 LEVOFLOXACIN [LEVAQUIN] IV BAMG Q24H IVPB 08/23/2015 17:47 AZACTAM IVPB [PREDEFINED] : 1 GM Q6H IV 08/24/2015 08:32 METFORMIN [GLUCOPHAGE] TABLET: 500 MG 500 MG BIDM PO 08/24/2015 08:32 BENZONATATE [TESSALON PERLES] : 100 MG 100 MG PRN QID PO 08/24/2015 06:31 METHYLPREDNISOLONE INJ [SOLU] 40MG VL 40 MG Q8H IVP 08/24/2015 05:22 INSULIN [NOVOLOG] 100UNITS/ML (SQ) 10ML 2 Unit(s) PRN SUBCUTANEOUS 08/24/2015 12:33 SALINE NASAL SPRAY (OCEAN, ALTAMIST) 1 EA PRN NASAL 08/23/2015 13:52 Encounters Encounter Diagnosis Diagnosis Code Start Date Chronic obstructive pulmonary disease with acute lower respiratory infection J440 08/21/2015 Social History Smoking Status Code Start Date End Date Former smoker [id number] Patient Decision Aids Unknown or Not Available. Discharge Instructions You were admitted to [facility] on 08/21/2015 16:34 with a principal diagnosis of Chronic obstructive pulmonary disease with acute lower respiratory infecti You had the following tests done: ABG BEDSIDE GLUCOSE BEDSIDE GLUCOSE BEDSIDE GLUCOSE BEDSIDE GLUCOSE BEDSIDE GLUCOSE BEDSIDE GLUCOSE BEDSIDE GLUCOSE BEDSIDE GLUCOSE BEDSIDE GLUCOSE BNP CBC W/ AUTO DIFF (RFLX MAN DIFF IF IND) CBC W/ AUTO DIFF (RFLX MAN DIFF IF IND) COMPREHENSIVE METABOLIC PANEL COMPREHENSIVE METABOLIC PANEL INFLUENZA A & B THYROID PANEL You were discharged from [facility] on 08/24/2015 14:40 Should you have any questions prior to discharge, please contact a member of your healthcare team. If you have left the hospital and have any questions, please contact your primary care physician. PRIMARY CARE PROVIDER: DR. MENDOZA CODE STATUS: PRIOR TRANSFER TO: [facility]. REPORT GIVEN TO JUANIS AT 1340. DIET: DIABETIC - 1800. ELIMINATION: Bowel - Last BM: 08-23-15 AMBULATION: Walker assist. RISK FOR: Fall. BED MOBILITY: Independent. TRANSFER BED/CHAIR: Supervision. TOILET USE: Independent. EATING: Independent. AMBULATING: Supervision. F/U THERAPY AND APPOINTMENTS FOLLOW-UP APPOINTMENT WITH DR. MENDOZA ON August AT 10:00 AM. IN THE LAST 14 DAYS THE PATIENT RECEIVED: IV medication. OTHER COMMENTS: QID ACCUCHECKS WITH SLIDING SCALE B REGULAR INSULIN. CHIEF COMPLAINT: PATIENT PRESENTS TO DR. MENDOZA'S OFFICE WITH C/O CONGESTION SINCE THURSDAY. STATES SHE HAD THE FLU WHILE IN [place]- PS[facility] Chief Complaint and Reason For Visit Chief Complaint Date of Onset BRONCHOSPASM COPD WITH EXAC 08/21/2015 Function Status Unknown or Not Available. Plan of Care Unknown or Not Available. Referral/Transition of Care Unknown or Not Available.
--- OUTSIDE RECORDS SUMMARY | 2017-12-10 09:52 | XMS REPORT | CCD ---
Author Author RONALDO PATEL Organization Unknown Address [address] [facility] [address] [place] [address] Care Team Providers Care Mud Grinder Name Role Phone [facility] Attphys [facility], LUMA ER Prisurg B., RONALD NASST G., ROSA NASST Allergies Allergy Code Allergy Type Reaction Status BENZTROPINE 1424 Drug allergy Active TETRACYCLINE 81832 Drug allergy Active MINOCYCLINE 6980 Drug allergy Active SHELLFISH 0 Food allergy Active LITHIUM 6448 Drug allergy Active MYSOLINE 710002 Drug allergy Active ZOLOFT 88588 Drug allergy Active ERYTHROMYCIN 4053 Drug allergy Active TOVIAZ 030690 Drug allergy Active SULFA (sulfonamide) 0 Drug allergy Active IODINE 5933 Drug allergy Active KEFLEX 279149 Drug allergy Active TORADOL {Deactivated Allergy} 08039 Drug allergy Active Active Medications Medication Code Dose Units Frequency Route Modification Start Date/Time Lasix 40MG Oral Tablet 1.5 TABLET TWO TIMES A DAY BY MOUTH 09/04/2016 10:19 Prescription Detail 1.5 TABLET BY MOUTH TWO TIMES A DAY Potassium Chloride 20MEQ Oral Tablet, Extended Release 1701312 2 TABLET DAILY BY MOUTH 09/04/2016 10:19 Prescription Detail 2 TABLET BY MOUTH DAILY Alendronate Sod 70MG Oral Tablet 552920 70 MILLIGRAMS WEEKLY ORAL 09/04/2016 10:16 Prescription Detail 70 MILLIGRAMS ORAL WEEKLY amLODIPine Besylate 5MG Oral Tablet 234723 5 MILLIGRAMS DAILY ORAL 09/04/2016 10:16 Prescription Detail 5 MILLIGRAMS ORAL DAILY Anoro Ellipta 62.5MCG-25MCG/1ACT Inhalation Powder 6754587 1 EACH DAILY INHALATION 09/04/2016 10:16 Prescription Detail 1 EACH INHALATION DAILY DULoxetine HCl 30MG Oral Capsule, Delayed Release 918684 30 MILLIGRAMS DAILY ORAL 09/04/2016 10:16 Prescription Detail 30 MILLIGRAMS ORAL DAILY Duoneb 3MG/3ML-0.5MG/3ML Inhalation Solution 5945217 1 EACH INHALATION 09/04/2016 10:16 Prescription Detail 1 EACH INHALATION fentaNYL Transdermal System Novaplus 25MCG/1HR Transdermal Patch, Extended Release 821354 25 MCG EVERY 72 HOURS TOPICAL APPLICATION 09/04/2016 10:16 Prescription Detail 25 MCG TOPICAL APPLICATION EVERY 72 HOURS Geodon 40MG Oral Capsule 101585 40 MILLIGRAMS TWO TIMES A DAY BY MOUTH 09/04/2016 10:16 Prescription Detail 40 MILLIGRAMS BY MOUTH TWO TIMES A DAY lamoTRIgine 150MG Oral Tablet 516685 150 MILLIGRAMS TWO TIMES A DAY ORAL 09/04/2016 10:16 Prescription Detail 150 MILLIGRAMS ORAL TWO TIMES A DAY MiraLAX 17GM/1Dose Oral Powder for Solution 514599 1 EACH NEEDED ORAL 09/04/2016 10:16 Prescription Detail 1 EACH ORAL NEEDED Albuterol Sulfate 0.083% Inhalation Solution 220858 1 EACH TID PRN INHALATION 08/24/2015 12:42 Prescription Detail 1 EACH INHALATION TID PRN clonazePAM 0.5MG Oral Tablet 395690 0.5 MILLIGRAMS TWO TIMES A DAY ORAL 08/24/2015 12:42 Prescription Detail 0.5 MILLIGRAMS ORAL TWO TIMES A DAY Lyrica 75MG Oral Capsule 949269 75 MILLIGRAMS THREE TIMES A DAY ORAL 08/24/2015 12:42 Prescription Detail 75 MILLIGRAMS ORAL THREE TIMES A DAY metFORMIN HCl 500MG Oral Tablet 495513 500 MILLIGRAMS TWO TIMES A DAY ORAL 08/24/2015 12:42 Prescription Detail 500 MILLIGRAMS ORAL TWO TIMES A DAY Mirtazapine 15MG Oral Tablet 827622 1.5 TABLET AT BEDTIME ORAL 08/24/2015 12:42 Prescription Detail 1.5 TABLET ORAL AT BEDTIME SEROquel 50MG Oral Tablet 165482 100 MILLIGRAMS AT BEDTIME ORAL 08/24/2015 12:42 Prescription Detail 100 MILLIGRAMS ORAL AT BEDTIME Potassium Chloride 10MEQ Oral Tablet, Extended Release 7808273 10 MEQ DAILY ORAL 08/30/2014 12:24 Prescription Detail 10 MEQ ORAL DAILY Simvastatin 10MG Oral Tablet 230085 10 MILLIGRAMS AT BEDTIME ORAL 07/28/2012 15:17 Prescription Detail 10 MILLIGRAMS ORAL AT BEDTIME Singulair 10MG Oral Tablet 828737 10 MILLIGRAMS DAILY ORAL 07/28/2012 15:17 Prescription Detail 10 MILLIGRAMS ORAL DAILY Problems Problem Code Start Date Resolved Date Status COPD with exacerbation 550691167 09/03/2016 Active Hypokalemia 92729247 09/02/2016 Active Acute injury of kidney 18318754586177269 09/02/2016 Active Bronchospasms 9817673 08/21/2015 09/02/2016 Resolved Procedures Procedure Code Procedure Type Date Respiratory Ventilation, Less than 24 Consecutive Hours [id number] ICD-10 PCS 09/03/2016 US ECHO 2D COMP WITH DOPP AND COLOR 23256758 SNOMED CT 09/2016 CX CHEST [address] 09/02/2016 BEDSIDE GLUCOSE 26758330 SNOMED CT 09/04/2016 BEDSIDE GLUCOSE 94716787 SNOMED CT 09/04/2016 BEDSIDE GLUCOSE 30991791 SNOMED CT 09/03/2016 BEDSIDE GLUCOSE 34331915 SNOMED CT 09/03/2016 BASIC METABOLIC PANEL 127884459 SNOMED CT 09/04/2016 CBC W/ AUTO DIFF (RFLX MAN DIFF IF IND) 4774184 SNOMED CT 09/04/2016 BASIC METABOLIC PANEL 396842210 SNOMED CT 09/03/2016 BEDSIDE GLUCOSE 71208216 SNOMED CT 09/03/2016 BEDSIDE GLUCOSE 61805741 SNOMED CT 09/03/2016 BEDSIDE GLUCOSE 19617229 SNOMED CT 09/02/2016 CREATININE UR RANDOM 844297523 SNOMED CT 09/02/2016 SODIUM UR RANDOM 730473343 SNOMED CT 09/02/2016 URINALYSIS ONLY 802467007 SNOMED CT 09/02/[address] 09/03/[address] 09/03/2016 LIPID [address] 040[address]25 [address] 09/03/[address]OGLOBIN A1C 40604351 SNOMED [address] 09/03/[address] 09/03/[address] 09/03/2016 COMPREHENSIVE METABOLIC PANEL 016413166 SNOMED CT 2016 CBC W/ AUTO DIFF (RFLX MAN DIFF IF IND) 3752197 SNOMED CT 09/03/[address] 09/02/[address] 09/02/2016 CBC W/ AUTO DIFF (RFLX MAN DIFF IF IND) 7463880 SNOMED CT 09/02/2016 COMPREHENSIVE METABOLIC PANEL 605963227 SNOMED CT 2016 TROPONIN-I ADV 192917728 SNOMED CT 09/02/2016 PT EVALUATION; LOW 046739737 SNOMED CT 09/04/2016 CPAP/BIPAP PER HOUR 14577220 SNOMED CT 09/04/2016 CPAP/BIPAP INITIATION AND MANAGEMENT 85434228 SNOMED CT BAN AERO ECLIPSE TREATMENT #[address] 2016 CPAP/BIPAP INITIATION AND MANAGEMENT 54400255 SNOMED CT BAN AERO ECLIPSE TREATMENT #[address] 2016 BAN AERO ECLIPSE TREATMENT #[address] 2016 BAN AERO ECLIPSE TREATMENT #[address] 2016 ^CBC W/AUTO DIFF 5420682 SNOMED CT 09/04/2016 ^CBC W/AUTO DIFF 3534276 SNOMED CT 09/03/2016 ^CBC W/AUTO DIFF 3050480 SNOMED CT 09/02/2016 BAN AERO ECLIPSE TREATMENT 74456155 SNOMED CT 09/04/2016 OXYGEN/HOUR 862203575 SNOMED CT 09/03/2016 OXYGEN/HOUR 939829200 SNOMED CT 09/03/2016 BAN AERO ECLIPSE TREATMENT 78496139 SNOMED CT 09/03/2016 BAN AERO ECLIPSE TREATMENT 87683786 SNOMED CT 09/03/2016 BAN AERO ECLIPSE TREATMENT 52744531 SNOMED CT 09/03/2016 BAN AERO ECLIPSE TREATMENT 96289373 SNOMED CT 09/03/2016 BAN AERO ECLIPSE TREATMENT 05533703 SNOMED CT 09/02/2016 OXYGEN/HOUR 012174332 SNOMED CT 09/02/2016 BAN AERO ECLIPSE TREATMENT 62714068 SNOMED CT 09/02/2016 Results BASIC METABOLIC PANEL - Collect Date/Time: 09/04/2016 05:28 Test Name Code Test Result Test Units Test Ref Range GLUCOSE 2345-7 132 MG/DL L=70 H=100 SODIUM 2951-2 141 MEQ/L L=135 H=148 POTASSIUM 2823-3 3.5 MEQ/L L=3.5 H=5.3 CHLORIDE 2075-0 92 MEQ/L L=96 H=110 CO2 2028-9 33 MEQ/L L=22 H=29 BUN 3094-0 55 MG/DL L=8 H=22 CREATININE 2160-0 1.3 MG/DL L=0.6 H=1.6 CALCIUM 70480-0 9.5 MG/DL L=8.2 H=10.6 AGE 64491-4 61 yrs GFR NonAA 80518-0 42 GFR AA 86490-9 51 eGFR 68684-5 42 mL/min/1.7 eGFR AA* 52930-1 51 mL/min/1.7 BASIC METABOLIC PANEL - Collect Date/Time: 09/03/2016 18:10 Test Name Code Test Result Test Units Test Ref Range GLUCOSE 2345-7 183 MG/DL L=70 H=100 SODIUM 2951-2 137 MEQ/L L=135 H=148 POTASSIUM 2823-3 2.9 MEQ/L L=3.5 H=5.3 CHLORIDE 2075-0 90 MEQ/L L=96 H=110 CO2 8-9 28 MEQ/L L=22 H=29 BUN 3094-0 53 MG/DL L=8 H=22 CREATININE 2160-0 1.5 MG/DL L=0.6 H=1.6 CALCIUM 39343-7 9.7 MG/DL L=8.2 H=10.6 AGE 99272-8 61 yrs GFR NonAA 73937-1 35 GFR AA 09323-4 42 eGFR 86408-3 35 mL/min/1.7 eGFR AA* 90740-2 42 mL/min/1.7 BEDSIDE GLUCOSE - Collect Date/Time: 09/04/2016 11:37 Test Name Code Test Result Test Units Test Ref Range GLUCOSE POCT 122 MG/DL L=70 H=100 BEDSIDE GLUCOSE - Collect Date/Time: 09/04/2016 05:36 Test Name Code Test Result Test Units Test Ref Range GLUCOSE POCT 133 MG/DL L=70 H=100 BEDSIDE GLUCOSE - Collect Date/Time: 09/03/2016 22:38 Test Name Code Test Result Test Units Test Ref Range GLUCOSE POCT 142 MG/DL L=70 H=100 BEDSIDE GLUCOSE - Collect Date/Time: 09/03/2016 16:56 Test Name Code Test Result Test Units Test Ref Range GLUCOSE POCT 172 MG/DL L=70 H=100 BEDSIDE GLUCOSE - Collect Date/Time: 09/03/2016 11:44 Test Name Code Test Result Test Units Test Ref Range GLUCOSE POCT 171 MG/DL L=70 H=100 BEDSIDE GLUCOSE - Collect Date/Time: 09/03/2016 05:05 Test Name Code Test Result Test Units Test Ref Range GLUCOSE POCT 172 MG/DL L=70 H=100 BEDSIDE GLUCOSE - Collect Date/Time: 09/02/2016 21:37 Test Name Code Test Result Test Units Test Ref Range GLUCOSE POCT 242 MG/DL L=70 H=100 COMPREHENSIVE METABOLIC PANEL - Collect Date/Time: 09/03/2016 05:00 Test Name Code Test Result Test Units Test Ref Range GLUCOSE 2345-7 187 MG/DL L=70 H=100 SODIUM 2951-2 139 MEQ/L L=135 H=148 POTASSIUM 2823-3 2.5 MEQ/L L=3.5 H=5.3 CHLORIDE 2075-0 90 MEQ/L L=96 H=110 CO2 2028-9 31 MEQ/L L=22 H=29 BUN 3094-0 50 MG/DL L=8 H=22 CREATININE 2160-0 1.3 MG/DL L=0.6 H=1.6 SGOT/AST 1920-8 26 IU/L L=10 H=40 SGPT/ALT 1742-6 25 IU/L L=8 H=54 ALK PHOS 6768-6 141 IU/L L=35 H=115 TOTAL PROTEIN 2885-2 7.4 G/DL L=5.5 H=8.5 ALBUMIN 1751-7 3.8 G/DL L=3.1 H=5.4 TOTAL BILI 1975-2 0.4 MG/DL L=0.0 H=1.5 CALCIUM 68211-1 9.9 MG/DL L=8.2 H=10.6 AGE [address]2383-8 61 yrs GFR NonAA 44274-4 42 [place]FR AA 89311-7 51 eGFR 50592-0 42 mL/min/1.7 eGFR AA* 63206-0 51 mL/min/1.7 COMPREHENSIVE METABOLIC PANEL - Collect Date/Time: 09/02/2016 15:55 Test Name Code Test Result Test Units Test Ref Range GLUCOSE 2345-7 130 MG/DL L=70 H=100 SODIUM 2951-2 140 MEQ/L L=135 H=148 POTASSIUM 2823-3 2.4 MEQ/L L=3.5 H=5.3 CHLORIDE 2075-0 87 MEQ/L L=96 H=110 CO2 2028-9 39 MEQ/L L=22 H=29 BUN 3094-0 56 MG/DL L=8 H=22 CREATININE 2160-0 1.5 MG/DL L=0.6 H=1.6 SGOT/AST 1920-8 23 IU/L L=10 H=40 SGPT/ALT 1742-6 25 IU/L L=8 H=54 ALK PHOS 6768-6 146 IU/L L=35 H=115 TOTAL PROTEIN 2885-2 7.0 G/DL L=5.5 H=8.5 ALBUMIN 1751-7 4.0 G/DL L=3.1 H=5.4 TOTAL BILI 1975-2 0.4 MG/DL L=0.0 H=1.5 CALCIUM 73556-0 9.9 MG/DL L=8.2 H=10.6 AGE 61 yrs GFR NonAA 35 GFR AA 42 eGFR 35 mL/min/1.7 eGFR AA* 42 mL/min/1.7 LIPID PANEL - Collect Date/Time: 09/03/2016 05:00 Test Name Code Test Result Test Units Test Ref Range TRIGLYCERIDES 3043-7 80 MG/DL L=0 H=135 CHOLESTEROL 2093-3 152 MG/DL L=0 H=199 HDL 2085-9 58 MG/DL L=29 H=89 TOT CHOL/HDL 59724-9 2.6 L=0.0 H=5.0 LDL (CALC) 56613-9 78 MG/DL L=0 H=129 MAGNESIUM - Collect Date/Time: 09/03/2016 05:00 Test Name Code Test Result Test Units Test Ref Range MAGNESIUM 55759-6 2.3 MG/DL L=1.7 H=2.8 MAGNESIUM - Collect Date/Time: 09/02/2016 15:55 Test Name Code Test Result Test Units Test Ref Range MAGNESIUM 79687-1 2.0 MG/DL L=1.7 H=2.8 PHOSPHORUS - Collect Date/Time: 09/03/2016 05:00 Test Name Code Test Result Test Units Test Ref Range PHOSPHORUS 2777-1 2.8 MG/DL L=2.5 H=4.5 CREATININE UR RANDOM - Collect Date/Time: 09/02/2016 20:02 Test Name Code Test Result Test Units Test Ref Range CREAT UR RAND 2161-8 29.8 MG/DL SODIUM UR RANDOM - Collect Date/Time: 09/02/2016 20:02 Test Name Code Test Result Test Units Test Ref Range NA UR RANDOM 2955-3 77 MEQ/L CBC W/ AUTO DIFF (RFLX MAN DIFF IF IND) - Collect Date/Time: 09/04/2016 05:28 Test Name Code Test Result Test Units Test Ref Range WBC 10414-4 14.7 TH/CMM L=4.5 H=10.8 RBC 789-8 3.96 ML/CMM L=4.20 H=5.40 HGB 718-7 13.2 G/DL L=12.0 H=16.0 HCT 4544-3 39.2 % L=37.0 H=47.0 MCV 03344-5 99 FL L=81 H=99 MCH 86529-1 33.3 PG L=27.0 H=33.0 MCHC 96276-8 33.7 G/DL L=31.0 H=36[place]0 [place] [address]-7 63 FL L=36 H=50 [place] [address]-6 17.5 % L=0.0 H=14.8 MPV 12103-1 10.5 FL L=9.3 H=12.5 PLT 777-3 271 TH/CMM L=130 H=440 NRBC# 62443-3 0.02 TH/CMM L=0.00 H=0.00 NRBC% 93430-0 0.1 /100WBC L=0.0 H=2.0 %NEUT 16128-8 69.5 % %LYMP 72798-9 20.1 % %MONO 37653-4 8.9 % %EOS 80541-2 0.2 % %BASO 83557-5 0.3 % #NEUT 68503-9 10.18 TH/CMM L=2.10 H=8.20 #LYMP 66026-7 2.95 TH/CMM L=0.90 H=5.20 #MONO 24536-4 1.31 TH/CMM L=0.16 H=1.00 #EOS 56533-5 0.03 TH/CMM L=0.00 H=0.80 #BASO 10553-5 0.05 TH/CMM L=0.00 H=0.20 MANUAL DIFF 02820-0 NOT IND N/A CBC W/ AUTO DIFF (RFLX MAN DIFF IF IND) - Collect Date/Time: 09/03/2016 05:00 Test Name Code Test Result Test Units Test Ref Range WBC 50239-1 9.7 TH/CMM L=4.5 H=10.8 RBC 789-8 4.22 ML/CMM L=4.20 H=5.40 HGB 718-7 14.2 G/DL L=12.0 H=16.0 HCT 4544-3 41.4 % L=37.0 H=47.0 MCV 55115-0 98 FL L=81 H=99 MCH 51529-3 33.6 PG L=27.0 H=33.0 MCHC 61678-9 34.3 G/DL L=31.0 H=36.0 [place] [address]-3 63 FL L=36 H=50 [place] [address]-3 17.4 % L=0.0 H=14.8 MPV 34078-0 10.6 FL L=9.3 H=12.5 PLT 777-3 260 TH/CMM L=130 H=440 NRBC# 03734-4 0.00 TH/CMM L=0.00 H=0.00 NRBC% 47699-3 0.0 /100WBC L=0.0 H=2.0 %NEUT 07110-0 84.6 % %LYMP 22260-3 13.3 % %MONO 78349-2 1.0 % %EOS 47560-0 0.0 % %BASO 04671-3 0.4 % #NEUT 37532-1 8.17 TH/CMM L=2.10 H=8.20 #LYMP 83259-7 1.28 TH/CMM L=0.90 H=5.20 #MONO 80720-3 0.10 TH/CMM L=0.16 H=1.00 #EOS 72055-1 0.00 TH/CMM L=0.00 H=0.80 #BASO 71692-8 0.04 TH/CMM L=0.00 H=0.20 MANUAL DIFF 68956-8 NOT IND N/A CBC W/ AUTO DIFF (RFLX MAN DIFF IF IND) - Collect Date/Time: 09/02/2016 15:55 Test Name Code Test Result Test Units Test Ref Range WBC 93103-4 13.8 TH/CMM L=4.5 H=10.8 RBC 789-8 4.42 ML/CMM L=4.20 H=5.40 HGB 718-7 14.6 G/DL L=12.0 H=16.0 HCT 4544-3 43.2 % L=37.0 H=47.0 MCV 98 FL L=81 H=99 MCH 33.0 PG L=27.0 H=33.0 MCHC 33.8 G/DL L=31.0 H=36.0 RDW SD 62 FL L=36 H=50 RDW CV 17.0 % L=0.0 H=14.8 MPV 10.5 FL L=9.3 H=12.5 PLT 777-3 293 TH/CMM L=130 H=440 NRBC# 0.00 TH/CMM L=0.00 H=0.00 NRBC% 0.0 /100WBC L=0.0 H=2.0 %NEUT 65.4 % %LYMP 23.2 % %MONO 8.9 % %EOS 1.3 % %BASO 0.5 % #NEUT 8.99 TH/CMM L=2.10 H=8.20 #LYMP 3.19 TH/CMM L=0.90 H=5.20 #MONO 1.23 TH/CMM L=0.16 H=1.00 #EOS 0.18 TH/CMM L=0.00 H=0.80 #BASO 0.07 TH/CMM L=0.00 H=0.20 MANUAL DIFF NOT IND N/A URINALYSIS ONLY - Collect Date/Time: 09/02/2016 20:02 Test Name Code Test Result Test Units Test Ref Range COLOR 59144-9 YELLOW N/A NL: YELLOW APPEARANCE 93407-9 CLEAR N/A NL: CLEAR SPEC GRAV 80194-9 1.010 N/A NL: 1.002 - 1.022 pH 14821-7 7.5 N/A NL: 5 - 9 PROTEIN 24057-8 NEGATIVE N/A NL: NEGATIVE mg/dl GLUCOSE 40229-7 NEGATIVE N/A NL: NEGATIVE mg/dl KETONE 19291-1 NEGATIVE N/A NL: NEGATIVE mg/dl BILIRUBIN 61628-7 NEGATIVE N/A NL: NEGATIVE BLOOD 82660-2 NEGATIVE N/A NL: NEGATIVE NITRITE 59417-5 NEGATIVE N/A NL: NEGATIVE LEUK SCREEN 97641-3 NEGATIVE N/A NL: NEGATIVE WBC/HPF 89714-5 NEGATIVE N/A NL: NEGATIVE RBC/HPF 82299-0 NEGATIVE N/A NL: NEGATIVE CASTS/LPF 34452-1 NEGATIVE N/A NL: NEGATIVE CRYSTALS 49548-1 NEGATIVE N/A NL: NEGATIVE MUCOUS THRDS 31494-8 NEGATIVE N/A NL: NEGATIVE BACTERIA 58196-3 NEGATIVE N/A NL: NEGATIVE EPITH CELLS 73822-8 FEW SQUAMOUS N/A NL: NEGATIVE TRICHOMONAS 23204-7 NEGATIVE N/A NL: NEGATIVE YEAST 74693-8 NEGATIVE N/A NL: NEGATIVE BNP - Collect Date/Time: 09/02/2016 15:55 Test Name Code Test Result Test Units Test Ref Range BNP 97211-2 15 PG/ML L=0 H=100 HEMOGLOBIN A1C - Collect Date/Time: 09/03/2016 05:00 Test Name Code Test Result Test Units Test Ref Range HGB A1C 25433-7 6.0 % L=4.0 H=6.4 Est Avg Glucose 36339-7 125.5 mg/dL TROPONIN-I ADV - Collect Date/Time: 09/02/2016 15:55 Test Name Code Test Result Test Units [place] [address]-9 <0.04 ng/mL L=0.04 H= 0.40 TSH - Collect Date/Time: 09/03/2016 05:00 Test Name Code Test Result Test Units Test Ref Range TSH 28740-3 0.71 mIU/L L=0.35 H=4.94 PREALBUMIN - Collect Date/Time: 09/03/2016 05:00 Test Name Code Test Result Test Units Test Ref Range PREALBUMIN 28586-6 29 MG/DL L=17 H=34 Function Status Unknown or Not Available. History of Immunizations Immunization Code Date influenza, split (incl. purified surface antigen) 15 03/11/2006 pneumococcal polysaccharide PPV23 33 03/03/2017 Plan of Treatment Unknown or Not Available. Social History Smoking Status Code Start Date End Date Former smoker [id number] Vital Signs Vital Sign Value Unit Date/Time Recent/Initial? BMI (Body Mass Index) 53.71 kg/m2 09/02/2016 17:48 Initial VS Weight Measured 252.58 [lb_av] 09/02/2016 17:48 Initial VS Height 60 [in_i] 09/02/2016 17:48 Initial VS BSA (Body Surface Area) 2.2 m2 09/02/2016 17:48 Initial VS BP Systolic 119 mm[Hg] 09/02/2016 19:31 Initial VS BP Diastolic 70 mm[Hg] 09/02/2016 19:31 Initial VS Respiratory Rate 22 /min 09/02/2016 19:31 Initial VS Body Temperature 98.2 [degF] 09/02/2016 19:31 Initial VS Heart Rate 95 /min 09/02/2016 19:32 Initial VS O2 % BldC Oximetry 91 % 09/02/2016 19:41 Initial VS BP Systolic 105 mm[Hg] 09/04/2016 10:00 Most Recent VS BP Diastolic 57 mm[Hg] 09/04/2016 10:00 Most Recent VS Respiratory Rate 16 /min 09/04/2016 10:01 Most Recent VS Body Temperature 97.6 [degF] 09/04/2016 10:01 Most Recent VS Heart Rate 97 /min 09/04/2016 10:59 Most Recent VS O2 % BldC Oximetry 91 % 09/04/2016 10:59 Most Recent VS Function Status Unknown or Not Available. Goals Unknown or Not Available. ASSESSMENTS Unknown or Not Available. Health Concerns Section Unknown or Not Available.
--- OUTSIDE RECORDS SUMMARY | 2017-12-10 09:52 | XMS REPORT | CCD ---
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 BP Systolic 133 mmHg 07/24/2015 20:13 Initial VS BP Diastolic 71 mmHg 07/24/2015 20:13 Initial VS Respiratory Rate 18 bpm 07/24/2015 20:13 Initial VS Heart Rate 85 bpm 07/24/2015 20:13 Initial VS O2 % BldC Oximetry 95 % 07/24/2015 20:13 Initial VS Body Temperature 97.9 degrees 07/24/2015 20:13 Initial VS Weight Measured 229.4 lbs 07/24/2015 20:28 Initial VS Height 60 in 07/24/2015 20:28 Initial VS BMI (Body Mass Index) 44.8 kg/m^2 07/24/2015 20:28 Initial VS BSA (Body Surface Area) 2.1 m^2 07/24/2015 20:28 Initial VS BP Systolic 132 mmHg 07/27/2015 11:22 Most Recent VS BP Diastolic 61 mmHg 07/27/2015 11:22 Most Recent VS Respiratory Rate 20 bpm 07/27/2015 11:22 Most Recent VS Heart Rate 88 bpm 07/27/2015 11:22 Most Recent VS O2 % BldC Oximetry 99 % 07/27/2015 11:22 Most Recent VS Body Temperature 97.2 degrees 07/27/2015 11:22 Most Recent VS Allergies Allergy Code Allergy Type Reaction Status BENZTROPINE 1424 Drug allergy Active TETRACYCLINE 11554 Drug allergy Active MINOCYCLINE 6980 Drug allergy Active SHELLFISH 0 Food allergy Active LITHIUM 6448 Drug allergy Active MYSOLINE 844090 Drug allergy Active ZOLOFT 30191 Drug allergy Active ERYTHROMYCIN 4053 Drug allergy Active TOVIAZ 791317 Drug allergy Active SULFA (sulfonamide) 0 Drug allergy Active IODINE 5933 Drug allergy Active KEFLEX 338702 Drug allergy Active TORADOL 96334 Drug allergy Active Procedures Procedure Code Procedure Type Date US STRESS ECHO 872791715 SNOMED CT 07/26/2015 US ECHO 2D COMP WITH DOPP AND COLOR 33028384 SNOMED CT CT CHEST W/O CONTRAST 188830891 SNOMED CT 07/25/2015 CX CHEST [address] 07/24/[address] 07/25/[address] 07/25/2015 COMPREHENSIVE METABOLIC PANEL 104131712 SNOMED CT 2015 CBC W/ AUTO DIFF (RFLX MAN DIFF IF IND) 3854421 SNOMED CT 07/25/2015 TROPONIN-I ADV 435740400 SNOMED CT 07/25/2015 TROPONIN-I ADV 061530797 SNOMED CT 07/25/2015 TROPONIN-I ADV 837888218 SNOMED CT 07/24/2015 TROPONIN-I ADV 581778679 SNOMED CT 07/24/[address] 07/24/2015 D DIMER QUANT 466842656 SNOMED CT 07/24/[address] 07/24/[address] 07/24/2015 COMPREHENSIVE METABOLIC PANEL 981372803 SNOMED CT 2015 CBC W/ AUTO DIFF (RFLX MAN DIFF IF IND) 6346838 SNOMED CT 07/24/2015 TROPONIN-I ADV 797929635 SNOMED CT 07/24/2015 NM STRESS TEST-EXERCISE W/TRACING 82772794 SNOMED CT 07/25 ABG DRAW 31914388 SNOMED CT 07/25/2015 ABG DRAW 78047504 SNOMED CT 07/24/2015 ^CBC W/AUTO DIFF 0356272 SNOMED CT 07/25/2015 ^CBC W/AUTO DIFF 6368833 SNOMED CT 07/24/2015 DOBUTamine PRE-MIX BAMG/250ML 138208707 SNOMED CT OXYGEN/HOUR 507438078 SNOMED CT 07/27/2015 PULSE OX CONTINUOUS 677631502 SNOMED CT 07/27/2015 BAN AERO ECLIPSE TREATMENT 66818230 SNOMED CT 07/27/2015 OXYGEN/HOUR 561929571 SNOMED CT 07/26/2015 OXYGEN/HOUR 812290799 SNOMED CT 07/26/2015 PULSE OX CONTINUOUS 971677409 SNOMED CT 07/26/2015 PULSE OX CONTINUOUS 846500414 SNOMED CT 07/26/2015 BAN AERO ECLIPSE TREATMENT 77508639 SNOMED CT 07/26/2015 BAN AERO ECLIPSE TREATMENT 29911202 SNOMED CT 07/26/2015 BAN AERO ECLIPSE TREATMENT 45711265 SNOMED CT 07/26/2015 OXYGEN/HOUR 660078538 SNOMED CT 07/25/2015 OXYGEN/HOUR 277031978 SNOMED CT 07/25/2015 PULSE OX CONTINUOUS 370627666 SNOMED CT 07/25/2015 PULSE OX CONTINUOUS 747783821 SNOMED CT 07/25/2015 BAN AERO ECLIPSE TREATMENT 91048688 SNOMED CT 07/25/2015 BAN AERO ECLIPSE TREATMENT 24884938 SNOMED CT 07/25/2015 BAN AERO ECLIPSE TREATMENT 95995146 SNOMED CT 07/25/2015 History of Immunizations Immunization Code Date influenza, split (incl. purified surface antigen) 15 03/11/2006 Problems Problem Code Start Date Resolved Date Status COPD with exacerbation 549039343 08/21/2015 Active Bronchospasms 8899187 08/21/2015 Active Acute chest pain 065777716 07/24/2015 08/22/2015 Resolved PNEUMONIA 486 07/25/2015 Resolved Results COMPREHENSIVE METABOLIC PANEL - Collect Date/Time: 07/25/2015 06:15 Test Name Code Test Result Test Units Test Ref Range GLUCOSE 2345-7 164 MG/DL L=70 H=100 SODIUM 2951-2 141 MEQ/L L=135 H=148 POTASSIUM 2823-3 4.2 MEQ/L L=3.5 H=5.3 CHLORIDE 2075-0 102 MEQ/L L=96 H=110 CO2 2028-9 26 MEQ/L L=22 H=29 BUN 3094-0 16 MG/DL L=8 H=22 CREATININE 2160-0 1.1 MG/DL L=0.6 H=1.6 SGOT/AST 1920-8 17 IU/L L=10 H=40 SGPT/ALT 1742-6 13 IU/L L=8 H=54 ALK PHOS 6768-6 166 IU/L L=35 H=115 TOTAL PROTEIN 2885-2 7.2 G/DL L=5.5 H=8.5 ALBUMIN 1751-7 4.1 G/DL L=3.1 H=5.4 TOTAL BILI 1975-2 0.3 MG/DL L=0.0 H=1.5 CALCIUM 40994-3 9.8 MG/DL L=8.2 H=10.6 AGE 59 yrs GFR NonAA 51 GFR AA 62 eGFR 51 mL/min/1.7 eGFR AA* >60 N/A COMPREHENSIVE METABOLIC PANEL - Collect Date/Time: 07/24/2015 16:20 Test Name Code Test Result Test Units Test Ref Range GLUCOSE 2345-7 115 MG/DL L=70 H=100 SODIUM 2951-2 143 MEQ/L L=135 H=148 POTASSIUM 2823-3 3.6 MEQ/L L=3.5 H=5.3 CHLORIDE 2075-0 102 MEQ/L L=96 H=110 CO2 2028-9 28 MEQ/L L=22 H=29 BUN 3094-0 13 MG/DL L=8 H=22 CREATININE 2160-0 1.3 MG/DL L=0.6 H=1.6 SGOT/AST 1920-8 17 IU/L L=10 H=40 SGPT/ALT 1742-6 16 IU/L L=8 H=54 ALK PHOS 6768-6 185 IU/L L=35 H=115 TOTAL PROTEIN 2885-2 7.6 G/DL L=5.5 H=8.5 ALBUMIN 1751-7 4.4 G/DL L=3.1 H=5.4 TOTAL BILI 1975-2 0.3 MG/DL L=0.0 H=1.5 CALCIUM 01907-9 9.8 MG/DL L=8.2 H=10.6 AGE 59 yrs GFR NonAA 42 GFR AA 51 eGFR 42 mL/min/1.7 eGFR AA* 51 mL/min/1.7 LIPASE - Collect Date/Time: 07/24/2015 16:20 Test Name Code Test Result Test Units Test Ref Range LIPASE 3040-3 34 U/L L=8 H=78 CBC W/ AUTO DIFF (RFLX MAN DIFF IF IND) - Collect Date/Time: 07/25/2015 06:15 Test Name Code Test Result Test Units Test Ref Range WBC 52567-5 8.9 TH/CMM L=4.5 H=10.8 RBC 789-8 4.83 ML/CMM L=4.20 H=5.40 HGB 718-7 13.6 G/DL L=12.0 H=16.0 HCT 4544-3 42.5 % L=37.0 H=47.0 MCV 88 FL L=81 H=99 MCH 28.2 PG L=27.0 H=33.0 MCHC 32.0 G/DL L=31.0 H=36.0 RDW SD 53 FL L=36 H=50 RDW CV 16.8 % L=0.0 H=14.8 MPV 10.5 FL L=9.3 H=12.5 PLT 777-3 272 TH/CMM L=130 H=440 NRBC# 0.00 TH/CMM L=0.00 H=0.00 NRBC% 0.0 /100WBC L=0.0 H=2.0 %NEUT 82.3 % %LYMP 15.8 % %MONO 0.8 % %EOS 0.0 % %BASO 0.3 % #NEUT 7.29 TH/CMM L=2.10 H=8.20 #LYMP 1.40 TH/CMM L=0.90 H=5.20 #MONO 0.07 TH/CMM L=0.16 H=1.00 #EOS 0.00 TH/CMM L=0.00 H=0.80 #BASO 0.03 TH/CMM L=0.00 H=0.20 MANUAL DIFF NOT IND N/A CBC W/ AUTO DIFF (RFLX MAN DIFF IF IND) - Collect Date/Time: 07/24/2015 16:20 Test Name Code Test Result Test Units Test Ref Range WBC 92401-5 11.5 TH/CMM L=4.5 H=10.8 RBC 789-8 4.94 ML/CMM L=4.20 H=5.40 HGB 718-7 13.8 G/DL L=12.0 H=16.0 HCT 4544-3 44.2 % L=37.0 H=47.0 MCV 90 FL L=81 H=99 MCH 27.9 PG L=27.0 H=33.0 MCHC 31.2 G/DL L=31.0 H=36.0 RDW SD 55 FL L=36 H=50 RDW CV 17.3 % L=0.0 H=14.8 MPV 10.2 FL L=9.3 H=12.5 PLT 777-3 306 TH/CMM L=130 H=440 NRBC# 0.00 TH/CMM L=0.00 H=0.00 NRBC% 0.0 /100WBC L=0.0 H=2.0 %NEUT 58.1 % %LYMP 30.7 % %MONO 7.4 % %EOS 2.7 % %BASO 0.6 % #NEUT 6.66 TH/CMM L=2.10 H=8.20 #LYMP 3.53 TH/CMM L=0.90 H=5.20 #MONO 0.85 TH/CMM L=0.16 H=1.00 #EOS 0.31 TH/CMM L=0.00 H=0.80 #BASO 0.07 TH/CMM L=0.00 H=0.20 MANUAL DIFF NOT IND N/A D DIMER QUANT - Collect Date/Time: 07/24/2015 16:20 Test Name Code Test Result Test Units Test Ref Range D-DIMER QUANT 73579-4 0.37 MG/L FEU L=0.00 H= 0.50 BNP - Collect Date/Time: 07/25/2015 06:15 Test Name Code Test Result Test Units Test Ref Range BNP 22562-3 28 PG/ML L=0 H=100 BNP - Collect Date/Time: 07/24/2015 16:20 Test Name Code Test Result Test Units Test Ref Range BNP 60099-7 17 PG/ML L=0 H=100 TROPONIN-I ADV - Collect Date/Time: 07/25/2015 06:15 Test Name Code Test Result Test Units [place] [address]-6 <0.04 ng/mL L=0.04 H= 0.40 TROPONIN-I ADV - Collect Date/Time: 07/25/2015 02:25 Test Name Code Test Result Test Units Test [place] [address]-4 <0.04 ng/mL L=0.04 H= 0.40 TROPONIN-I ADV - Collect Date/Time: 07/24/2015 22:45 Test Name Code Test Result Test Units [place] [address]-5 <0.04 ng/mL L=0.04 H= 0.40 TROPONIN-I ADV - Collect Date/Time: 07/24/2015 17:40 Test Name Code Test Result Test Units [place] [address]-7 <0.04 ng/mL L=0.04 H= 0.40 TROPONIN-I ADV - Collect Date/Time: 07/24/2015 16:20 Test Name Code Test Result Test Units [place] [address]-4 <0.04 ng/mL L=0.04 H= 0.40 ABG - Collect Date/Time: 07/25/2015 05:30 Test Name Code Test Result Test Units Test Ref Range PH 7.39 L=7.35 H=7.45 PCO2 46 mmHG L=35 H=45 PO2 72 mmHG L=80 H=100 BE 2.5 mmol/L L=-2.5 H=2.5 HCO3 28 mmol/L L=22 H=28 TCO2 25 mmol/L L=18 H=31 O2SAT 94 % L=80 H=100 SITE LEFT RADIAL N/A FIO2 6L N/A ABG - Collect Date/Time: 07/24/2015 16:35 Test Name Code Test Result Test Units Test Ref Range PH 7.41 L=7.35 H=7.45 PCO2 44 mmHG L=35 H=45 PO2 72 mmHG L=80 H=100 BE 2.6 mmol/L L=-2.5 H=2.5 HCO3 27 mmol/L L=22 H=28 TCO2 23 mmol/L L=18 H=31 O2SAT 94 % L=80 H=100 SITE RT RAD N/A FIO2 6L NC N/A Active Medications Medications Administered During Visit Medication Dose Units Frequency Route Date/ Time of Last Dose MORPHINE INJ: 2MG/ML 1 ML SYRINGE 2 MG PRN Q 1 HR IVP 07/24/2015 21:59 ASPIRIN [CHEWABLE] TAB : 81MG 81 MG DAILYM PO 07/27/2015 07:50 METHYLPREDNISOLONE INJ [SOLU] 125MG VL 125 MG Q8H IVP 07/27/2015 06:07 DUONEB [IPRATROPIUM/ALBUTEROL] 0.5/3 MG 1 UD QID (RT ONLY ) INHALE 07/27/2015 09:23 MONTELUKAST [SINGULAIR] TABLET: 10 MG 10 MG HS PO 07/26/2015 22:15 SIMVASTATIN [ZOCOR] TABLET: 10 MG 10 MG HS PO 07/26/2015 22:15 ZIPRASIDONE [GEODON] CAPSULE : 40MG 80 MG BID PO 07/27/2015 07:50 POTASSIUM CHL [MICRO K] CAPSULE: 10 MEQ 10 MEQ DAILY PO 07/27/2015 07:50 PANTOPRAZOLE [PROTONIX] TABLET : 40 MG 40 MG DAILY PO 07/27/2015 07:50 FUROSEMIDE [LASIX] TABLET: 40 MG 40 MG DAILY PO 07/27/2015 07:50 LAMOTRIGINE [LAMICTAL] TAB: 150 MG 150 MG BID PO 07/27/2015 08:51 NORCO [HYDROCODONE/APAP] 5/325MG TAB 1 EA PRN Q 8 HRS PO 07/27/2015 08:00 AMLODIPINE [NORVASC] TABLET : 5 MG 5 MG DAILY PO 07/27/2015 07:50 CLONAZEPAM [KLONOPIN] TABLET: 0.5 MG 0.5 MG BID PO 07/27/2015 07:50 DULOXETINE [CYMBALTA] CAP: 30 MG 30 MG DAILY PO 07/27/2015 07:50 FUROSEMIDE [LASIX] TABLET: 20 MG 40 MG CLUNCH PO 07/26/2015 10:59 GUAIFENESIN [place] (ROBITUSSIN) 5 ML PRN PO 07/26/2015 04:25 PREGABALIN 75 MG "LYRICA" CAP 75 MG TID PO 07/27/2015 07:50 POLYETHYLENE [MIRALAX] POWDER: 17 GM 1 GM DAILY PO 07/26/2015 10:59 PHENERGAN & CODEINE LIQUID CHARGE PER ML 5 ML PRN PO 07/26/2015 18:44 QUETIAPINE [SEROQUEL] TABLET: 25 MG 75 MG HS PO 07/26/2015 22:15 TraMADOL [ULTRAM] TABLET : 50 MG 50 MG PRN Q 6 HRS PO 07/26/2015 18:44 ALPRAZOLAM [XANAX] TABLET : 0.25 MG 0.25 MG PRN DAILY PO 07/25/2015 12:36 DOCUSATE SODIUM 100 MG [COLACE] CAPSULE 100 MG DAILY PO 07/27/2015 07:50 Encounters Encounter Diagnosis Diagnosis Code Start Date Chronic obstructive pulmonary disease with (acute) exacerbation J441 07/24/2015 Social History Smoking Status Code Start Date End Date Former smoker [id number] 03/30/1974 03/30/2014 Patient Decision Aids Unknown or Not Available. Discharge Instructions You were admitted to [facility] on 07/24/2015 18:29 with a principal diagnosis of Chronic obstructive pulmonary disease with (acute) exacerbation You had the following tests done: ABG ABG BNP BNP CBC W/ AUTO DIFF (RFLX MAN DIFF IF IND) CBC W / AUTO DIFF (RFLX MAN DIFF IF IND) COMPREHENSIVE METABOLIC PANEL COMPREHENSIVE METABOLIC PANEL D DIMER QUANT LIPASE TROPONIN-I ADV TROPONIN-I ADV TROPONIN-I ADV TROPONIN-I ADV TROPONIN-I ADV You were discharged from [facility] on 07/27/2015 13:01 Should you have any questions prior to discharge, please contact a member of your healthcare team. If you have left the hospital and have any questions, please contact your primary care physician. HOME DIET: PREVIOUS. LOW SODIUM. CONDITION AT DISMISSAL Stable. HOME MEDICATION INSTRUCTIONS: Take only the medications listed above.. HOME MEDS RETURNED TO PATIENT: N/A. ACTIVITY INSTRUCTIONS(list limitations): PREVIOUS - ALL MEDS AND O2 PRIOR RETURN TO WORK/SCHOOL: N/A. WEIGHT MONITORING DISCUSSED (CHF PT) No. SCRIPTS WRITTEN BY DOCTOR GIVEN TO PATIENT? No-none written by physician:. FOLLOW UP CARE - SEE YOUR PHYSICIAN: DR. YOUNG AUGUST 09 AT 1 PM PAIN MANAGEMENT: Medication. PRIMARY CARE PHYSICIAN OR PRACTITIONER: Arsenio Yuong MD, . CONTACT PHYSICIAN IF YOU EXPERIENCE ANY: INCREASE IN SHORTNESS OF BREATH PERSONAL ITEMS RETURNED: Yes. PATIENT PORTAL/OTHER INSTRUCTIONS: Assisted on to Patient Portal. Bring these instructions to next visit? Yes. INSTRUCTIONS GIVEN AND DISCHARGE TO: Patient, AL Staff, [employer] UNDERSTANDING OF INSTRUCTIONS: Yes. INSTRUCTIONS GIVEN BY (TYPE IN NAME AND DATE) BRENTON ESPOSITO CHIEF COMPLAINT: CHEST PAIN/PRESSURE AT NH. DECREASED Thu Chief Complaint and Reason For Visit Chief Complaint Date of Onset COPD CHEST PAIN R/O MD Function Status Unknown or Not Available. Plan of Care Unknown or Not Available. Referral/Transition of Care Unknown or Not Available.
--- OUTSIDE RECORDS SUMMARY | 2017-12-10 09:53 | XMS REPORT | CCD ---
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 Allergies Allergy Code Allergy Type Reaction Status BENZTROPINE 1424 Drug allergy Active TETRACYCLINE 21096 Drug allergy Active MINOCYCLINE 6980 Drug allergy Active SHELLFISH 0 Food allergy Active LITHIUM 6448 Drug allergy Active MYSOLINE 240718 Drug allergy Active ZOLOFT 43748 Drug allergy Active ERYTHROMYCIN 4053 Drug allergy Active TOVIAZ 682242 Drug allergy Active SULFA (sulfonamide) 0 Drug allergy Active IODINE 5933 Drug allergy Active KEFLEX 153952 Drug allergy Active TORADOL 50487 Drug allergy Active Procedures Procedure Code Procedure Type Date ABDOMEN 2 VIEW DECUB/UPRIGHT 794855510 SNOMED CT 2015 UA ROUTINE C&S IF IND 756055126 SNOMED CT 10/09/2015 ^UA WITH MICRO 766387924 SNOMED CT 10/09/2015 History of Immunizations Immunization Code Date influenza, split (incl. purified surface antigen) 15 03/11/2006 Problems Problem Code Start Date Resolved Date Status COPD with exacerbation 526488839 08/21/2015 Active Bronchospasms 0876949 08/21/2015 Active Results UA ROUTINE C&S IF IND - Collect Date/Time: 10/09/2015 10:49 Test Name Code Test Result Test Units Test Ref Range COLOR YELLOW N/A NL: YELLOW APPEARANCE CLEAR N/A NL: CLEAR SPEC GRAV 1.010 N/A NL: 1.002 - 1.022 pH 7.5 N/A NL: 5 - 9 PROTEIN NEGATIVE N/A NL: NEGATIVE mg/dl GLUCOSE NEGATIVE N/A NL: NEGATIVE mg/dl KETONE NEGATIVE N/A NL: NEGATIVE mg/dl BILIRUBIN NEGATIVE N/A NL: NEGATIVE BLOOD TRACE-INTACT N/A NL: NEGATIVE NITRITE NEGATIVE N/A NL: NEGATIVE LEUK SCREEN NEGATIVE N/A NL: NEGATIVE MICRO INDICATED? SEE BELOW N/A WBC/HPF RARE N/A NL: NEGATIVE RBC/HPF 0-5 N/A NL: NEGATIVE CASTS/LPF NEGATIVE N/A NL: NEGATIVE CRYSTALS NEGATIVE N/A NL: NEGATIVE MUCOUS THRDS NEGATIVE N/A NL: NEGATIVE BACTERIA FEW N/A NL: NEGATIVE EPITH CELLS 1+ SQUAMOUS N/A NL: NEGATIVE TRICHOMONAS NEGATIVE N/A NL: NEGATIVE YEAST NEGATIVE N/A NL: NEGATIVE CULT SET UP? NO N/A Active Medications Medication Code Dose Units Frequency Route Modification Start Date/Time SSB REGULAR INSULIN 0 SLIDING SCALE FOUR TIMES A DAY SUBCUTANEOUS 08/24/2015 13:46 Prescription Detail SLIDING SCALE SUBCUTANEOUS FOUR TIMES A DAY Albuterol 0.09MG/Actuation Inhalation Aerosol Powder 59309775469 1 EACH NEEDED EVERY 6 HR INHALATION 12:42 Prescription Detail 1 EACH INHALATION NEEDED EVERY 6 HR Albuterol Sulfate 0.083% Inhalation Solution 373978 1 EACH TID PRN INHALATION 08/24/2015 12:42 Prescription Detail 1 EACH INHALATION TID PRN ALPRAZolam 0.25MG Oral Tablet 378199 0.25 MILLIGRAMS NEEDED DAILY ORAL 08/24/2015 12:42 Prescription Detail 0.25 MILLIGRAMS ORAL NEEDED DAILY amLODIPine Besylate 5MG Oral Tablet 271921 5 MILLIGRAMS DAILY ORAL 08/24/2015 12:42 Prescription Detail 5 MILLIGRAMS ORAL DAILY Azithromycin 250MG Oral Tablet 783279 250 MILLIGRAMS DAILY ORAL 08/24/2015 12:42 Prescription Detail 250 MILLIGRAMS ORAL DAILY Benadryl Allergy 25MG Oral Tablet 8677300 25 MILLIGRAMS NEEDED EVERY 4 HR ORAL 08/24/2015 12:42 Prescription Detail 25 MILLIGRAMS ORAL NEEDED EVERY 4 HR cefTRIAXone 1GM Injection Powder for Solution 4038352 1 GM DAILY INJECTION 08/24/2015 12:42 Prescription Detail 1 GM INJECTION DAILY Cipro 500MG Oral Tablet 274896 1 TABLET TWO TIMES A DAY BY MOUTH 08/24/2015 12:42 Prescription Detail 1 TABLET BY MOUTH TWO TIMES A DAY clonazePAM 0.5MG Oral Tablet 559060 0.5 MILLIGRAMS TWO TIMES A DAY ORAL 08/24/2015 12:42 Prescription Detail 0.5 MILLIGRAMS ORAL TWO TIMES A DAY Colace 100MG Oral Capsule, Liquid Filled 8431301 100 MILLIGRAMS DAILY ORAL 08/24/2015 12:42 Prescription Detail 100 MILLIGRAMS ORAL DAILY Cymbalta 30MG Oral Capsule, Delayed Release 319240 30 MILLIGRAMS DAILY ORAL 08/24/2015 12:42 Prescription Detail 30 MILLIGRAMS ORAL DAILY Dulcolax 5MG Oral Tablet, Enteric Coated 132526 5 MILLIGRAMS NEEDED DAILY ORAL 08/24/2015 12:42 Prescription Detail 5 MILLIGRAMS ORAL NEEDED DAILY Fleet Enema Rectal Enema 8817454 1 EACH NEEDED RECTAL 08/24/2015 12:42 Prescription Detail 1 EACH RECTAL NEEDED Fluocinonide 0.05% Topical application Ointment 489073 1 EACH NEEDED EVERY 6 HR TOPICAL APPLICATION 12:42 Prescription Detail 1 EACH TOPICAL APPLICATION NEEDED EVERY 6 HR Furosemide 20MG Oral Tablet 474515 20 MILLIGRAMS WITH LUNCH ORAL 08/24/2015 12:42 Prescription Detail 20 MILLIGRAMS ORAL WITH LUNCH Furosemide 40MG Oral Tablet 861546 40 MILLIGRAMS DAILY ORAL 08/24/2015 12:42 Prescription Detail 40 MILLIGRAMS ORAL DAILY Geodon 40MG Oral Capsule 274900 2 TABLET DAILY AT 8 AM. ORAL 08/24/2015 12:42 Prescription Detail 2 TABLET ORAL DAILY AT 8 AM. Geodon 40MG Oral Capsule 766955 3 TABLET DAILY AT 1700 ORAL 08/24/2015 12:42 Prescription Detail 3 TABLET ORAL DAILY AT 1700 guaiFENesin 200MG Oral Tablet 722775 3 TABLET TWO TIMES A DAY ORAL 08/24/2015 12:42 Prescription Detail 3 TABLET ORAL TWO TIMES A DAY HYDROcodone bitartrate-acetaminophen 5MG-325MG Oral Tablet 920417 1 EACH NEEDED EVERY 8 HR ORAL 2015 12:42 Prescription Detail 1 EACH ORAL NEEDED EVERY 8 HR Hydrocortisone 1% Topical application Cream 8820484 1 EACH TID PRN TOPICAL APPLICATION 08/24/2015 12:42 Prescription Detail 1 EACH TOPICAL APPLICATION TID PRN hydrOXYzine HCl 25MG Oral Tablet 776798 25 MILLIGRAMS QID PRN ORAL 08/24/2015 12:42 Prescription Detail 25 MILLIGRAMS ORAL QID PRN lamoTRIgine 150MG Oral Tablet 561335 150 MILLIGRAMS TWO TIMES A DAY ORAL 08/24/2015 12:42 Prescription Detail 150 MILLIGRAMS ORAL TWO TIMES A DAY Lotrisone 1%-0.05% Topical application Lotion 976336 1 EACH NEEDED EVERY 6 HR TOPICAL APPLICATION 12:42 Prescription Detail 1 EACH TOPICAL APPLICATION NEEDED EVERY 6 HR Lyrica 75MG Oral Capsule 219102 75 MILLIGRAMS THREE TIMES A DAY ORAL 08/24/2015 12:42 Prescription Detail 75 MILLIGRAMS ORAL THREE TIMES A DAY Magnesium 250 MG Oral Tablet 49642129180 250 MG TWO TIMES A DAY ORAL 08/24/2015 12:42 Prescription Detail 250 MG ORAL TWO TIMES A DAY Magnesium Oxide 400MG Oral Tablet 575476 400 MILLIGRAMS DAILY ORAL 08/24/2015 12:42 Prescription Detail 400 MILLIGRAMS ORAL DAILY metFORMIN HCl 500MG Oral Tablet 622750 500 MILLIGRAMS TWO TIMES A DAY ORAL 08/24/2015 12:42 Prescription Detail 500 MILLIGRAMS ORAL TWO TIMES A DAY MILK OF MAG 0 30 MILLILITER NEEDED DAILY ORAL 08/24/2015 12:42 Prescription Detail 30 MILLILITER ORAL NEEDED DAILY MiraLAX 17GM/1Dose Oral Powder for Solution 939205 1 EACH DAILY ORAL 08/24/2015 12:42 Prescription Detail 1 EACH ORAL DAILY Mirtazapine 15MG Oral Tablet 952294 1.5 TABLET AT BEDTIME ORAL 08/24/2015 12:42 Prescription Detail 1.5 TABLET ORAL AT BEDTIME Nystatin/Triamcinolone Acetonide 090849L/1GM-0.1% Topical application Cream 7959567 1 EACH TWO TIMES A DAY TOPICAL APPLICATION 08/24/2015 12:42 Prescription Detail 1 EACH TOPICAL APPLICATION TWO TIMES A DAY ProAir HFA 0.09MG/1Actuation Inhalation Suspension 860187 2 PUFF NEEDED EVERY 6 HR INHALATION 2015 12:42 Prescription Detail 2 PUFF INHALATION NEEDED EVERY 6 HR Protonix 40MG Oral Tablet, Enteric Coated 177700 40 MILLIGRAMS DAILY ORAL 08/24/2015 12:42 Prescription Detail 40 MILLIGRAMS ORAL DAILY SEROquel 50MG Oral Tablet 174035 100 MILLIGRAMS AT BEDTIME ORAL 08/24/2015 12:42 Prescription Detail 100 MILLIGRAMS ORAL AT BEDTIME Ultram 50MG Oral Tablet 607727 50 MILLIGRAMS NEEDED EVERY 6 HR ORAL 08/24/2015 12:42 Prescription Detail 50 MILLIGRAMS ORAL NEEDED EVERY 6 HR Voltaren Gel 1% Topical application Gel/Jelly 129839 1 EACH NEEDED TOPICAL APPLICATION 08/24/2015 12: 42 Prescription Detail 1 EACH TOPICAL APPLICATION NEEDED Nasal 0.65% Nasal [place] 70204513869 1 SPRAY NEEDED EVERY 12 H NASAL 08/30/2014 12:24 Prescription Detail 1 SPRAY NASAL NEEDED EVERY 12 H Nexium 40MG Oral Capsule, Delayed Release 953133 40 MILLIGRAMS DAILY ORAL 08/30/2014 12:24 Prescription Detail 40 MILLIGRAMS ORAL DAILY Potassium Chloride 10MEQ Oral Tablet, Extended Release 5289079 10 MEQ DAILY ORAL 08/30/2014 12:24 Prescription Detail 10 MEQ ORAL DAILY Symbicort 160MCG-4.5MCG/1 Actu Inhalation Aerosol Liquid 49185390124 2 PUFF TWO TIMES A DAY INHALATION 05/2014 12:24 Prescription Detail 2 PUFF INHALATION TWO TIMES A DAY Tylenol 325MG Oral Tablet [id number] 325 MILLIGRAMS NEEDED ORAL 08/30/2014 12:24 Prescription Detail 325 MILLIGRAMS ORAL NEEDED Simvastatin 10MG Oral Tablet [id number] 10 MILLIGRAMS AT BEDTIME ORAL 07/28/2012 15:17 Prescription Detail 10 MILLIGRAMS ORAL AT BEDTIME Singulair 10MG Oral Tablet [id number] 10 MILLIGRAMS DAILY ORAL 07/28/2012 15:17 Prescription Detail 10 MILLIGRAMS ORAL DAILY Medications Administered During Visit Unknown or Not Available. Encounters Encounter Diagnosis Diagnosis Code Start Date Slow transit constipation K5901 10/09/2015 Social History Smoking Status Code Start Date End Date Former smoker [id number] Patient Decision Aids Unknown or Not Available. Discharge Instructions You were admitted to [facility] on 10/09/2015 09:09 with a principal diagnosis of Slow transit constipation You had the following tests done: UA ROUTINE C&S IF IND You were discharged from [facility] on 10/09/2015 11:30 Should you have any questions prior to discharge, please contact a member of your healthcare team. If you have left the hospital and have any questions, please contact your primary care physician. Chief Complaint and Reason For Visit Chief Complaint Date of Onset CONSTIPATION NAUSEA Function Status Unknown or Not Available. Plan of Care Unknown or Not Available. Referral/Transition of Care Unknown or Not Available.
--- OUTSIDE RECORDS SUMMARY | 2017-12-10 09:53 | XMS REPORT ---
Author Author [facility] Medical Staff Organization [facility] Address [address] [place], [place] [id number] Phone [phone] Care Team Providers Care [place]ama Farmer Name Role Phone MILAGROS YOUNG MD, PP [phone] MILAGROS YOUNG MD, PP [phone] Summary purpose CCDA Sent to [facility] Chief Complaint and Reason for Visit No authorized Reason for Visit (Admitting Diagnosis) is available for this visit. Problem list Condition Status Certainty Chronicity Onset .Agitation Active Encounters The following conditions tracked for encounter diagnoses were recorded for this visit: Finding or Diagnosis Status Certainty Chronicity Onset .Agitation Active Medications Discharge Medications Status Medication Directions Current acetaminophen (TYLENOL) 325 mg: TABLET 650 MG oral EVERY FOUR HOURS NEEDED for PAIN OR FEVER Current ALBUTEROL SULFATE 1.25 MG inhalation INHL THREE TIMES A DAY NEEDED for SOB Current albuterol sulfate (ALBUTEROL) 90 mcg/actuation: AEROSOL 2 PUFFS inhalation Give INHL EVERY SIX HOURS NEEDED for SOB Current alum-mag hydroxide-simeth (MAALOX) 400-400-40 mg/5 mL: SUSPENSION 30 milliliter(s) oral EVERY FOUR HOURS NEEDED for GI UPSET Current amLODIPine (NORVASC) 5 mg: TABLET 5 MG oral ONE TIME A DAY Current azithromycin (ZITHROMAX) 250 mg: TABLET 250 MG oral ONE TIME A DAY Current bisacodyl (DULCOLAX) 5 mg: Tab DR 5 MG oral ONE TIME A DAY NEEDED for CONSTIPATION Current budesonide-formoterol (SYMBICORT) 160-4.5 mcg/actuation: AEROSOL 2 puff(s) inhalation Give INHL RESP 2XDAY Current cefTRIAXone (ROCEPHIN) 1 gram: VIAL 1 GM injection Give IM ONE TIME A DAY Current clonazePAM (KLONOPIN) 0.5 mg: TABLET 0.5 MG oral TWO TIMES A DAY Current diclofenac sodium (VOLTAREN) 1 %: gel 1 APPLIC topical Give TOP THREE TIMES A DAY NEEDED for PAIN Current diphenhydrAMINE HCl (BENADRYL) 25 mg: capsule 25 MG oral EVERY FOUR HOURS NEEDED for ITCHING Current docusate sodium (COLACE) 100 mg: capsule 100 MG oral ONE TIME A DAY Current DULoxetine (CYMBALTA) 60 mg: Cap DR 60 MG oral ONE TIME A DAY Current FLUOCINONIDE 1 APPLICATION topical TOP FOUR TIMES A DAY NEEDED for RASH Current fluticasone (FLONASE) 50 mcg/actuation: SPRAY 1 SPRAY nasal Give NareBoth ONE TIME A DAY Current furosemide (LASIX) 20 mg: TABLET 20 MG oral DAILY AT 1 PM Current furosemide (LASIX) 40 mg: TABLET 40 MG oral ONE TIME A DAY Current guaiFENesin (MUCINEX) 600 mg: Tab ER 12HR 600 MG oral TWO TIMES A DAY Current HYDROcodone-acetaminophen (HYDROCODONE/APAP) 5-325 mg: TABLET 1 TAB oral THREE TIMES A DAY NEEDED for PAIN Current HYDROCORTISONE 1 %: CREAM 1 APPLIC topical Give TOP THREE TIMES A DAY NEEDED for ITCHING Current hydrOXYzine HCl (ATARAX) 25 mg: TABLET 25 MG oral FOUR TIMES A DAY NEEDED for ANXIETY Current lamoTRIgine (LAMICTAL) 100 mg: TABLET 150 MG oral TWO TIMES A DAY Current magnesium hydroxide (MILK OF MAGNESIA) 400 mg/5 mL: SUSPENSION 30 milliliter(s) oral ONE TIME A DAY NEEDED for CONSTIPATION Current magnesium hydroxide (MILK OF MAGNESIA) 400 mg/5 mL: SUSPENSION 30 milliliter(s) oral ONE TIME A DAY NEEDED for NAUSEA Current MAGNESIUM OXIDE 400 mg: TABLET 400 MG oral ONE TIME A DAY Current metFORMIN (GLUCOPHAGE) 500 mg: TABLET 500 MG oral TWO TIMES A DAY Current mirtazapine (REMERON) 15 mg: TABLET 22.5 MG oral BEDTIME Current montelukast (SINGULAIR) 10 mg: TABLET 10 MG oral DAILY AT 5 PM Current nystatin-triamcinolone (NYSTATIN/TRIAMCINOLONE) 100,000-0.1 unit/g-%: CREAM 1 APPLIC topical Give TOP TWO TIMES A DAY Current pantoprazole (PROTONIX) 40 mg: Tab DR 40 MG oral ONE TIME A DAY Current polyethylene glycol 3350 (MIRALAX) 17 gram: POWD PACK 17 GM oral ONE TIME A DAY Current potassium chloride (KLOR-CON) 10 mEq: Tab ER 12HR 10 MEQ oral ONE TIME A DAY Current pregabalin (LYRICA) 75 mg: capsule 75 MG oral THREE TIMES A DAY Current QUEtiapine (SEROQUEL) 100 mg: TABLET 100 MG oral DAILY AT 8 PM Current simvastatin (ZOCOR) 20 mg: TABLET 10 MG oral DAILY AT 8 PM Current sodium phosphates (FLEETS ENEMA) 19-7 gram/118 mL: ENEMA 133 ML rectal Give RECT NEEDED for IF NO RESULTS FROM MOM Current tiotropium bromide (SPIRIVA 18 MCG CP-HANDIHALER) 18 mcg: Inh. Cap 18 MCG inhalation Give INHL EVERY TWENTY-FOUR HOURS Current traMADol (ULTRAM) 50 mg: TABLET 50 MG oral FOUR TIMES A DAY NEEDED for PAIN Current ziprasidone HCl (GEODON) 40 mg: capsule 120 MG oral ONE TIME A DAY Current ziprasidone HCl (GEODON) 40 mg: capsule 80 MG oral ONE TIME A DAY Stopped albuterol sulfate 1.25 mg/3 mL solution for nebulization 3 milliliter (s) inhalation THREE TIMES A DAY NEEDED Stopped amLODIPine 5 mg tablet 5 miligram(s) oral ONE TIME A DAY HOLD IF SBP <110 Stopped Benadryl 25 mg capsule 25 miligram(s) oral EVERY FOUR HOURS NEEDED Stopped clonazePAM 0.5 mg tablet 0.5 miligram(s) oral TWO TIMES A DAY BID @ 0800 ET 1200 Stopped Colace 100 mg capsule 100 miligram(s) oral ONE TIME A DAY Stopped Cymbalta 60 mg capsule,delayed release 60 miligram(s) oral ONE TIME A DAY Stopped Dulcolax (bisacodyl) 5 mg tablet,delayed release 5 miligram(s) oral ONE TIME A DAY NEEDED Stopped fluocinonide 0.05 % topical ointment 1 application(s) topical FOUR TIMES A DAY NEEDED Stopped furosemide 20 mg tablet 20 miligram(s) oral DAILY AT 1 PM Stopped furosemide 40 mg tablet 40 miligram(s) oral ONE TIME A DAY Stopped Geodon 80 mg capsule 80 miligram(s) oral TWO TIMES A DAY BID @ 0800 ET 1700 Stopped Samaria-Tussin 100 mg/5 mL oral liquid 5 milliliter(s) oral FOUR TIMES A DAY NEEDED Stopped HYDROcodone 5 mg-acetaminophen 325 mg tablet 5 miligram(s) oral THREE TIMES A DAY NEEDED Stopped hydrOXYzine HCl 25 mg tablet 25 miligram(s) oral FOUR TIMES A DAY NEEDED Stopped lamoTRIgine 150 mg tablet 150 miligram(s) oral TWO TIMES A DAY BID @ 0800 ET 1700 Stopped Lotrisone 1 %-0.05 % topical cream 1 application(s) topical FOUR TIMES A DAY NEEDED Stopped Lyrica 75 mg capsule 75 miligram(s) oral THREE TIMES A DAY Stopped magnesium 250 mg tablet 250 miligram(s) oral TWO TIMES A DAY BID @ 0800 ET 1700 Stopped Milk of Magnesia oral 30 milliliter(s) oral ONE TIME A DAY NEEDED Stopped Miralax 17 gram oral powder packet 1 packet(s) oral ONE TIME A DAY Stopped Nasal Wallace (sodium chloride) 0.65 % aerosol 1 spray(s) nasal TWO TIMES A DAY NEEDED Stopped Nexium 40 mg capsule,delayed release 40 miligram(s) oral ONE TIME A DAY Stopped potassium chloride ER 10 mEq tablet,extended release 10 milliequivilant(s) oral ONE TIME A DAY Stopped ProAir HFA 90 mcg/actuation aerosol inhaler 2 puff(s) inhalation EVERY SIX HOURS NEEDED Stopped promethazine 6.25 mg-codeine 10 mg/5 mL syrup 5 milliliter(s) oral FOUR TIMES A DAY NEEDED 5-10 mL Stopped Seroquel 50 mg tablet 75 miligram(s) oral DAILY AT 8 PM Stopped simvastatin 10 mg tablet 10 miligram(s) oral DAILY AT 8 PM Stopped Singulair 10 mg tablet 10 miligram(s) oral DAILY AT 5 PM Stopped Spiriva with HandiHaler 18 mcg & inhalation capsules 18 microgram(s) inhalation ONE TIME A DAY Stopped Symbicort 160 mcg-4.5 mcg/actuation HFA aerosol inhaler 2 puff(s) inhalation TWO TIMES A DAY BID @ 0715 ET 1600 Stopped Tylenol 325 mg tablet 650 miligram(s) oral EVERY FOUR HOURS NEEDED Stopped Ultram 50 mg tablet 50 miligram(s) oral FOUR TIMES A DAY NEEDED Stopped Voltaren 1 % topical gel 1 application(s) topical THREE TIMES A DAY NEEDED Allergies, adverse reactions, alerts Allergen Category Ingredient Status Reaction Severity Onset Sulfa (Sulfonamide Antibiotics) Drug Sulfa (Sulfonamide Antibiotics) Active Rash iodine Drug iodine Active Rash Keflex Drug Keflex Active back pain Keflex Drug Cephalexin Active back pain Zoloft Drug Zoloft Active suicidal Zoloft Drug sertraline Active suicidal [place] Drug [place] Active loose stools & vomiting Elavil Drug Elavil Active heart arrythmia Elavil Drug amitriptyline Active heart arrythmia benztropine Drug benztropine Active Unknown Alrgy React adhesive Drug adhesive Active Rash Minocycline Drug Minocycline Active Unknown Alrgy React Tetracycline Drug Tetracycline Active legs hurt Erythromycin Base Drug Erythromycin Base Active legs hurt shellfish derived Drug shellfish derived Active Unknown Adolescence Tetracyclines Drug Tetracyclines Active Unknown Adolescence Toviaz Drug Toviaz Active Unknown Adolescence Toviaz Drug fesoterodine Active Unknown Adolescence Immunizations No immunizations recorded for this patient visit Relevant diagnostic tests and/or laboratory data RESULTS CBC :10:00 Result Normal Range Units WBC 6.52 4.60-10.20 x 103/uL RBC 4.19 4.04-6.13 x 106/uL Hemoglobin L 11.8 12.2-18.1 g/dl Hematocrit 38.2 37.7-53.7 % MCV 91.2 80.0-97.0 FL MCH 28.2 27.0-31.2 pg MCHC L 30.9 31.8-35.4 g/dl RDW H 18.9 11.6-14.8 % Platelets 283 142-424 x 103/uL MPV 10.5 9.4-12.4 FL Manual Diff Not Indicated Neutrophil % 46.8 37-80 % Neutrophils 3.05 2.0-6.9 x 103/uL Lymphocyte % 33.4 10-50 % Lymphocytes 2.18 0.6-3.4 x 103/uL Monocyte % H 14.6 0-12 % Monocytes 0.95 0.0-1.0 x 103/uL Eosinophil % 4.6 0-7 % Eosinophils 0.30 0-0.7 x 103/uL Basophil % 0.6 0-2 % Basophils 0.04 0.0-0.1 x 103/uL :06:00 Result Normal Range Units WBC 10.15 4.60-10.20 x 103/uL RBC 4.37 4.04-6.13 x 106/uL Hemoglobin 12.4 12.2-18.1 g/dl Hematocrit 39.4 37.7-53.7 % MCV 90.2 80.0-97.0 FL MCH 28.4 27.0-31.2 pg MCHC L 31.5 31.8-35.4 g/dl RDW H 18.2 11.6-14.8 % Platelets 231 142-424 x 103/uL MPV 11.1 9.4-12.4 FL Manual Diff Not Indicated Neutrophil % 64.2 37-80 % Neutrophils 6.52 2.0-6.9 x 103/uL Lymphocyte % 26.8 10-50 % Lymphocytes 2.72 0.6-3.4 x 103/uL Monocyte % 6.0 0-12 % Monocytes 0.61 0.0-1.0 x 103/uL Eosinophil % 2.2 0-7 % Eosinophils 0.22 0-0.7 x 103/uL Basophil % 0.8 0-2 % Basophils 0.08 0.0-0.1 x 103/uL Urinalysis :00:00 Result Normal Range Units Site Unknown Urine Color Yellow Yellow Urine Appearance Clear Clear Urine Glucose Negative Negative Urine Bilirubin Negative Negative Urine Ketones Negative Negative Urine Specific [place] 1.010 1.010-1.020 Urine PH 6.5 5.5-7.5 Urine Protein Negative Negative Urine Urobilinogen 0.2 0.2-1.0 Urine Nitrites Negative Negative Urine Blood Negative Negative Urine Leukocytes Negative Negative Urine WBC's None Seen Urine RBC's None Seen Urine Bacteria None Seen Chemistry Group :10:00 Result Normal Range Units Glucose H 109 70-99 mg/dl BUN 17 7-26 mg/dl Creatinine 1.2 0.6-1.3 mg/dl Sodium 144 136-145 mmol/L Potassium 3.9 3.5-5.1 mmol/L Chloride 105 98-107 mmol/L CO2 28 22-29 mmol/L BUN/Creatinine Ratio 14 7-25 Ratio Calcium 9.1 8.4-10.2 mg/dl Osmolality 280 261-280 mOsm/kg Anion GAP 11 5-16 mmol/L :40:00 Result Normal Range Units Glucose H 108 70-99 mg/dl BUN 13 7-26 mg/dl Creatinine 1.0 0.6-1.3 mg/dl Sodium 142 136-145 mmol/L Potassium 4.1 3.5-5.1 mmol/L Chloride 102 98-107 mmol/L CO2 27 22-29 mmol/L BUN/Creatinine Ratio 13 7-25 Ratio Calcium 9.9 8.4-10.2 mg/dl Osmolality 275 261-280 mOsm/kg Anion GAP 13 5-16 mmol/L Hemoglobin A1C H 6.2 < 6.0 % [id number]:06:00 Result Normal Range Units Glucose H 160 70-99 mg/dl BUN 14 7-26 mg/dl Creatinine 1.3 0.6-1.3 mg/dl Sodium 142 136-145 mmol/L Potassium 3.6 3.5-5.1 mmol/L Chloride 102 98-107 mmol/L CO2 27 22-29 mmol/L BUN/Creatinine Ratio 11 7-25 Ratio Calcium 9.4 8.4-10.2 mg/dl Protein Total 6.7 6.4-8.3 g/dl Albumin L 3.4 3.5-5.0 g/dl A/G Ratio L 1.0 1.2-2.2 Ratio AST 14 5-34 U/L ALT 19 0-55 U/L ALP H 151 40-150 U/L Bilirubin Total 0.3 0.2-1.2 mg/dl Osmolality 278 261-280 mOsm/kg Globulin 3.3 2.4-3.5 g/dl Free T4 0.80 0.70-1.48 ng/dl TSH 0.98 0.35-4.94 uIU/mL Reference Lab Group :13:00 Result Normal Range Units Adenovirus Not Detected Not Detected Result Amended on 2015-08-19 at 17:39:42. Previous status was FR. Adeno2 Not Detected Not Detected Result Amended on 2015-08-19 at 17:39:42. Previous status was FR. Coronavirus 229E Not Detected Not Detected Result Amended on 2015-08-19 at 17:39:43. Previous status was FR. Coronavirus HKU1 Not Detected Not Detected Result Amended on 2015-08-19 at 17:39:43. Previous status was FR. Coronavirus NL63 Not Detected Not Detected Result Amended on 2015-08-19 at 17:39:43. Previous status was FR. Coronavirus OC43 Not Detected Not Detected Result Amended on 2015-08-19 at 17:39:43. Previous status was FR. Human Metapneumovir. Not Detected Not Detected Result Amended on 2015-08-19 at 17:39:43. Previous status was FR. Entero1 Not Detected Not Detected Result Amended on 2015-08-19 at 17:39:43. Previous status was FR. Entero2 Not Detected Not Detected Result Amended on 2015-08-19 at 17:39:43. Previous status was FR. Human Rhinovirus 1 Not Detected Not Detected Result Amended on 2015-08-19 at 17:39:43. Previous status was FR. Human Rhinovirus 2 Not Detected Not Detected Result Amended on 2015-08-19 at 17:39:43. Previous status was FR. Human Rhinovirus 3 Not Detected Not Detected Result Amended on 2015-08-19 at 17:39:43. Previous status was FR. Human Rhinovirus 4 Not Detected Not Detected Result Amended on 2015-08-19 at 17:39:43. Previous status was FR. [id number] Not Detected Not Detected Result Amended on 2015-08-19 at 17:39:43. Previous status was FR. FluA-H1-madsen Not Detected Not Detected Result Amended on 2015-08-19 at 17:39:43. Previous status was FR. FluA-H3 Not Detected Not Detected Result Amended on 2015-08-19 at 17:39:43. Previous status was FR. FluA-pan1 Not Detected Not Detected Result Amended on 2015-08-19 at 17:39:43. Previous status was FR. FluA-pan2 Not Detected Not Detected Result Amended on 2015-08-19 at 17:39:43. Previous status was FR. Influenza B Not Detected Not Detected Result Amended on 2015-08-19 at 17:39:43. Previous status was FR. Parainfluenza Virus 1 Not Detected Not Detected Result Amended on 2015-08-19 at 17:39:43. Previous status was FR. Parainfluenza Virus 2 Not Detected Not Detected Result Amended on 2015-08-19 at 17:39:43. Previous status was FR. Parainfluenza Virus 3 AB Detected Not Detected Result Amended on 2015-08-19 at 17:39:43. Previous status was FR. Parainfluenza Virus 4 Not Detected Not Detected Result Amended on 2015-08-19 at 17:39:43. Previous status was FR. Respiratory Syncytial Vir Not Detected Not Detected Result Amended on 2015-08-19 at 17:39:43. Previous status was FR. Bordetella pertussis Not Detected Not Detected Result Amended on 2015-08-19 at 17:39:43. Previous status was FR. Chlamydophila pnemon Not Detected Not Detected Result Amended on 2015-08-19 at 17:39:43. Previous status was FR. Mycoplasma pneumoni Not Detected Not Detected Result Amended on 2015-08-19 at 17:39:43. Previous status was FR. [id number]:45:00 Result Normal Range Units Adenovirus Not Detected Not Detected Result Amended on 2015-08-16 at 14:53:45. Previous status was FR. Adeno2 Not Detected Not Detected Result Amended on 2015-08-16 at 14:53:45. Previous status was FR. Coronavirus 229E Not Detected Not Detected Result Amended on 2015-08-16 at 14:53:45. Previous status was FR. Coronavirus HKU1 Not Detected Not Detected Result Amended on 2015-08-16 at 14:53:45. Previous status was FR. Coronavirus NL63 Not Detected Not Detected Result Amended on 2015-08-16 at 14:53:45. Previous status was FR. Coronavirus OC43 Not Detected Not Detected Result Amended on 2015-08-16 at 14:53:45. Previous status was FR. Human Metapneumovir. Not Detected Not Detected Result Amended on 2015-08-16 at 14:53:45. Previous status was FR. Entero1 Not Detected Not Detected Result Amended on 2015-08-16 at 14:53:45. Previous status was FR. Entero2 Not Detected Not Detected Result Amended on 2015-08-16 at 14:53:45. Previous status was FR. Human Rhinovirus 1 Not Detected Not Detected Result Amended on 2015-08-16 at 14:53:45. Previous status was FR. Human Rhinovirus 2 Not Detected Not Detected Result Amended on 2015-08-16 at 14:53:45. Previous status was FR. Human Rhinovirus 3 Not Detected Not Detected Result Amended on 2015-08-16 at 14:53:45. Previous status was FR. Human Rhinovirus 4 Not Detected Not Detected Result Amended on 2015-08-16 at 14:53:45. Previous status was FR. [id number] Not Detected Not Detected Result Amended on 2015-08-16 at 14:53:45. Previous status was FR. FluA-H1-madsen Not Detected Not Detected Result Amended on 2015-08-16 at 14:53:45. Previous status was FR. FluA-H3 Not Detected Not Detected Result Amended on 2015-08-16 at 14:53:45. Previous status was FR. FluA-pan1 Not Detected Not Detected Result Amended on 2015-08-16 at 14:53:45. Previous status was FR. FluA-pan2 Not Detected Not Detected Result Amended on 2015-08-16 at 14:53:45. Previous status was FR. Influenza B Not Detected Not Detected Result Amended on 2015-08-16 at 14:53:45. Previous status was FR. Parainfluenza Virus 1 Not Detected Not Detected Result Amended on 2015-08-16 at 14:53:45. Previous status was FR. Parainfluenza Virus 2 Not Detected Not Detected Result Amended on 2015-08-16 at 14:53:45. Previous status was FR. Parainfluenza Virus 3 Not Detected Not Detected Result Amended on 2015-08-16 at 14:53:45. Previous status was FR. Parainfluenza Virus 4 Not Detected Not Detected Result Amended on 2015-08-16 at 14:53:45. Previous status was FR. Respiratory Syncytial Vir Not Detected Not Detected Result Amended on 2015-08-16 at 14:53:45. Previous status was FR. Bordetella pertussis Not Detected Not Detected Result Amended on 2015-08-16 at 14:53:45. Previous status was FR. Chlamydophila pnemon Not Detected Not Detected Result Amended on 2015-08-16 at 14:53:45. Previous status was FR. Mycoplasma pneumoni Not Detected Not Detected Result Amended on 2015-08-16 at 14:53:45. Previous status was FR. :06:00 EKG See Manual Report Urinalysis :00:00 Result Normal Range Units Site Unknown Urine Color Yellow Yellow Urine Appearance Clear Clear Urine Glucose Negative Negative Urine Bilirubin Negative Negative Urine Ketones Negative Negative Urine Specific [place] 1.010 1.010-1.020 Urine PH 6.5 5.5-7.5 Urine Protein Negative Negative Urine Urobilinogen 0.2 0.2-1.0 Urine Nitrites Negative Negative Urine Blood Negative Negative Urine Leukocytes Negative Negative Urine WBC's None Seen Urine RBC's None Seen Urine Bacteria None Seen Gram Positive Bacteria :13:00 Result Normal Range Units Entero1 Not Detected Not Detected Result Amended on 2015-08-19 at 17:39:43. Previous status was FR. :45:00 Result Normal Range Units Entero1 Not Detected Not Detected Result Amended on 2015-08-16 at 14:53:45. Previous status was FR. History of procedures No procedures recorded for this patient visit. Functional status Functional Status Finding Observation Time Dexterity Left-handed :44 Weight Bearing Statu Full :44 Transferring/Ambulat Independent :44 Bathing Independent :44 Dressing Independent :44 Eating Independent :44 Drinking Independent :44 Toileting Independent :44 Able to Turn Self in Independent :44 Cane Yes :44 Cognitive Status Finding Observation Time Level of Consciousne Alert :00 Oriented to Person Yes :[address] Yes :00 Oriented to Time Yes :00 Eyes - MONISHA Yes :00 Vital signs Type Value Date Respirations 18 :00 Pulse 71 :00 O2 Saturation 93% :00 Systolic Blood Press 136mm/HG :00 Diastolic Blood Pres 72mm/HG :00 Temperature (Fahr) 98.0Degrees :00 Height 60in :24 Weight 241.4LB [id number] Social history Type Value Smoking Status FORMER SMOKER Treatment Plan Treatment Plan at Follow up with PCP and mental health agency Hospital discharge instructions Diagnosis Schizoaffective disorder, bipolar type currently depressed Diet 1800 ADA Activity Level As tolerated. Uses walker Personal Items Retur Yes Med Dispensed by [facility] Current medication list Flu Vaccine Given Comment: 12/2014 Pneumonia Vaccine Gi Comment: 12/[address] Young Appointment Date and 08/28/15 @ 10:[address] [facility] for Comment: [place] Appointment Date and 09/18/15 @ 11 am Comment: Medication management appointment with Ling Feliciano. Other Instructions Contact precautions d/t parainfluenza virus 3. O2 titrate for O2 > 92%. Currently using 5L per nc. Uses CPAP when laying down.
--- OUTSIDE RECORDS SUMMARY | 2017-12-10 09:53 | XMS REPORT | CCD ---
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 Allergies Allergy Code Allergy Type Reaction Status BENZTROPINE 1424 Drug allergy Active TETRACYCLINE 29943 Drug allergy Active MINOCYCLINE 6980 Drug allergy Active SHELLFISH 0 Food allergy Active LITHIUM 6448 Drug allergy Active MYSOLINE 567927 Drug allergy Active ZOLOFT 22116 Drug allergy Active ERYTHROMYCIN 4053 Drug allergy Active TOVIAZ 684395 Drug allergy Active SULFA (sulfonamide) 0 Drug allergy Active IODINE 5933 Drug allergy Active KEFLEX 024442 Drug allergy Active TORADOL 82726 Drug allergy Active Procedures Procedure Code Procedure Type Date CX CHEST [address] 05/25/[address] 05/25/2015 CULTURE BLOOD 50969986 SNOMED CT 05/25/2015 LACTIC [address]ID 7[address]702 [address] 05/25/2015 INFLUENZA A & B 789893636 SNOMED CT 05/25/2015 TROPONIN-I ADV 810294032 SNOMED CT 05/25/2015 COMPREHENSIVE METABOLIC PANEL 166919220 SNOMED CT 2015 CBC W/ AUTO DIFF (RFLX MAN DIFF IF IND) 1947232 SNOMED CT 05/25/2015 ^CBC W/AUTO DIFF 6681169 SNOMED CT 05/25/2015 History of Immunizations Immunization Code Date influenza, split (incl. purified surface antigen) 15 03/11/2006 Problems Problem Code Start Date Resolved Date Status PNEUMONIA 486 Active Results COMPREHENSIVE METABOLIC PANEL - Collect Date/Time: 05/25/2015 20:00 Test Name Code Test Result Test Units Test Ref Range GLUCOSE 2345-7 135 MG/DL L=70 H=100 SODIUM 2951-2 137 MEQ/L L=135 H=148 POTASSIUM 2823-3 3.7 MEQ/L L=3.5 H=5.3 CHLORIDE 2075-0 100 MEQ/L L=96 H=110 CO2 2028-9 23 MEQ/L L=22 H=29 BUN 3094-0 11 MG/DL L=8 H=22 CREATININE 2160-0 1.0 MG/DL L=0.6 H=1.6 SGOT/AST 1920-8 16 IU/L L=10 H=40 SGPT/ALT 1742-6 12 IU/L L=8 H=54 ALK PHOS 6768-6 164 IU/L L=35 H=115 TOTAL PROTEIN 2885-2 6.7 G/DL L=5.5 H=8.5 ALBUMIN 1751-7 4.0 G/DL L=3.1 H=5.4 TOTAL BILI 1975-2 0.3 MG/DL L=0.0 H=1.5 CALCIUM 44118-3 9.3 MG/DL L=8.2 H=10.6 AGE 59 yrs GFR NonAA 57 GFR AA 69 eGFR 57 mL/min/1.7 eGFR AA* >60 N/A CBC W/ AUTO DIFF (RFLX MAN DIFF IF IND) - Collect Date/Time: 05/25/2015 20:00 Test Name Code Test Result Test Units Test Ref Range WBC 93995-7 12.6 TH/CMM L=4.5 H=10.8 RBC 789-8 4.30 ML/CMM L=4.20 H=5.40 HGB 718-7 12.2 G/DL L=12.0 H=16.0 HCT 4544-3 38.4 % L=37.0 H=47.0 MCV 89 FL L=81 H=99 MCH 28.4 PG L=27.0 H=33.0 MCHC 31.8 G/DL L=31.0 H=36.0 RDW SD 56 FL L=36 H=50 RDW CV 17.1 % L=0.0 H=14.8 MPV 10.3 FL L=9.3 H=12.5 PLT 777-3 251 TH/CMM L=130 H=440 NRBC# 0.00 TH/CMM L=0.00 H=0.00 NRBC% 0.0 /100WBC L=0.0 H=2.0 %NEUT 51.1 % %LYMP 40.7 % %MONO 4.9 % %EOS 3.0 % %BASO 0.3 % #NEUT 6.43 TH/CMM L=2.10 H=8.20 #LYMP 5.12 TH/CMM L=0.90 H=5.20 #MONO 0.62 TH/CMM L=0.16 H=1.00 #EOS 0.38 TH/CMM L=0.00 H=0.80 #BASO 0.04 TH/CMM L=0.00 H=0.20 MANUAL DIFF NOT IND N/A INFLUENZA A & B - Collect Date/Time: 05/25/2015 20:00 Test Name Code Test Result Test Units Test Ref Range INFLUENZA A & B 6437-8 NO INFLUENZA A OR B DETECTED N/A BNP - Collect Date/Time: 05/25/2015 20:00 Test Name Code Test Result Test Units Test Ref Range BNP 88343-5 28 PG/ML L=0 H=100 TROPONIN-I ADV - Collect Date/Time: 05/25/2015 20:00 Test Name Code Test Result Test Units [place] [address]-4 <0.04 ng/mL L=0.04 H= 0.40 LACTIC ACID - Collect Date/Time: 05/25/2015 20:00 Test Name Code Test Result Test Units Test Ref Range LACTIC ACID 2524-7 1.9 mmol/L L=0.5 H=1.6 Active Medications Medication Code Dose Units Frequency Route Modification Start Date/Time Abilify 10MG Oral Tablet 457231 10 MILLIGRAMS DAILY ORAL 08/30/2014 12:24 Prescription Detail 10 MILLIGRAMS ORAL DAILY Albuterol 0.09MG/Actuation Inhalation Aerosol Powder 18401980726 2 PUFF EVERY 6 HOURS INHALATION 08/30/2014 12:24 Prescription Detail 2 PUFF INHALATION EVERY 6 HOURS ALPRAZolam 0.25MG Oral Tablet 952672 0.25 MILLIGRAMS WITH LUNCH ORAL 08/30/2014 12:24 Prescription Detail 0.25 MILLIGRAMS ORAL WITH LUNCH Cymbalta 30MG Oral Capsule, Delayed Release [id number] 30 MILLIGRAMS TWO TIMES A DAY ORAL 08/30/2014 12:24 Prescription Detail 30 MILLIGRAMS ORAL TWO TIMES A DAY Duragesic 12MCG/1HR Transdermal Patch, Extended Release [id number] 1 EACH EVERY 72 HOURS TRANSDERMAL 08/30 12:24 Prescription Detail 1 EACH TRANSDERMAL EVERY 72 HOURS Furosemide 20MG Oral Tablet 644055 20 MILLIGRAMS DAILY ORAL 08/30/2014 12:24 Prescription Detail 20 MILLIGRAMS ORAL DAILY Gabapentin 300MG Oral Capsule 216752 300 MILLIGRAMS WITH BREAKFAST ORAL 08/30/2014 12:24 Prescription Detail 300 MILLIGRAMS ORAL WITH BREAKFAST Gabapentin 300MG Oral Capsule 830470 300 MILLIGRAMS WITH LUNCH ORAL 08/30/2014 12:24 Prescription Detail 300 MILLIGRAMS ORAL WITH LUNCH Gabapentin 300MG Oral Capsule 454546 600 MILLIGRAMS WITH SUPPER ORAL 08/30/2014 12:24 Prescription Detail 600 MILLIGRAMS ORAL WITH SUPPER Lidoderm 5% Topical application Patch, Extended Release 7058612 1 EACH NEEDED DAILY TOPICAL APPLICATION 08/30/2014 12:24 Prescription Detail 1 EACH TOPICAL APPLICATION NEEDED DAILY Lisinopril 5MG Oral Tablet 904987 5 MILLIGRAMS DAILY ORAL 08/30/2014 12:24 Prescription Detail 5 MILLIGRAMS ORAL DAILY Mirtazapine 30MG Oral Tablet 144828 30 MILLIGRAMS AT BEDTIME ORAL 08/30/2014 12:24 Prescription Detail 30 MILLIGRAMS ORAL AT BEDTIME Nasal 0.65% Nasal [place] [id number] 1 SPRAY NEEDED EVERY 12 H NASAL 08/30/2014 12:24 Prescription Detail 1 SPRAY NASAL NEEDED EVERY 12 H Nexium 40MG Oral Capsule, Delayed Release 795751 40 MILLIGRAMS DAILY ORAL 08/30/2014 12:24 Prescription Detail 40 MILLIGRAMS ORAL DAILY Novaplus fentaNYL Transdermal System 25MCG/1HR Transdermal Patch, Extended Release 096353 1 EACH EVERY 72 HOURS TOPICAL APPLICATION 08/30/2014 12:24 Prescription Detail 1 EACH TOPICAL APPLICATION EVERY 72 HOURS Potassium Chloride 10MEQ Oral Tablet, Extended Release 601720 10 MEQ DAILY ORAL 08/30/2014 12:24 Prescription Detail 10 MEQ ORAL DAILY Pulmicort Respules 0.5MG/2ML Inhalation Suspension 398145 1 DOSE Q 12 HRS (RT ONLY) INHALATION 08/30/2014 12:24 Prescription Detail 1 DOSE INHALATION Q 12 HRS (RT ONLY) Spiriva 18MCG Inhalation Capsule 574606 18 MCG DAILY INHALATION 08/30/2014 12:24 Prescription Detail 18 MCG INHALATION DAILY Symbicort 160MCG-4.5MCG/1 Actu Inhalation Aerosol Liquid 59538909220 2 PUFF TWO TIMES A DAY INHALATION 05/2014 12:24 Prescription Detail 2 PUFF INHALATION TWO TIMES A DAY Tylenol 325MG Oral Tablet 595349 325 MILLIGRAMS NEEDED ORAL 08/30/2014 12:24 Prescription Detail 325 MILLIGRAMS ORAL NEEDED Geodon 80MG Oral Capsule 742820 80 MILLIGRAMS TWO TIMES A DAY ORAL 04/30/2013 11:57 Prescription Detail 80 MILLIGRAMS ORAL TWO TIMES A DAY [place] 325MG-10MG Oral Tablet 224733 1 EACH NEEDED EVERY 4 HR ORAL 04/30/2013 11:57 Prescription Detail 1 EACH ORAL NEEDED EVERY 4 HR Celebrex 200MG Oral Capsule 839813 200 MILLIGRAMS DAILY ORAL 07/28/2012 15:17 Prescription Detail 200 MILLIGRAMS ORAL DAILY Diltiazem 180MG Oral Capsule, Extended Release 278954 180 MILLIGRAMS DAILY ORAL 07/28/2012 15:17 Prescription Detail 180 MILLIGRAMS ORAL DAILY Lamotrigine 100MG Oral Tablet 243772 100 MILLIGRAMS TWO TIMES A DAY ORAL 07/28/2012 15:17 Prescription Detail 100 MILLIGRAMS ORAL TWO TIMES A DAY Simvastatin 10MG Oral Tablet 558256 10 MILLIGRAMS AT BEDTIME ORAL 07/28/2012 15:17 Prescription Detail 10 MILLIGRAMS ORAL AT BEDTIME Singulair 10MG Oral Tablet 623550 10 MILLIGRAMS DAILY ORAL 07/28/2012 15:17 Prescription Detail 10 MILLIGRAMS ORAL DAILY Medications Administered During Visit Unknown or Not Available. Encounters Encounter Diagnosis Diagnosis Code Start Date Acute bronchitis, unspecified J209 05/25/2015 Social History Smoking Status Code Start Date End Date Former smoker [id number] Patient Decision Aids Unknown or Not Available. Discharge Instructions You were admitted to [facility] on 05/25/2015 19:31 with a principal diagnosis of Acute bronchitis, unspecified You had the following tests done: BNP CBC W/ AUTO DIFF (RFLX MAN DIFF IF IND) COMPREHENSIVE METABOLIC PANEL INFLUENZA A & B LACTIC ACID TROPONIN-I ADV You were discharged from [facility] on 05/25/2015 22:46 Should you have any questions prior to discharge, please contact a member of your healthcare team. If you have left the hospital and have any questions, please contact your primary care physician. Chief Complaint and Reason For Visit Chief Complaint Date of Onset RESPIRATORY DISTRESS Function Status Unknown or Not Available. Plan of Care Unknown or Not Available. Referral/Transition of Care Unknown or Not Available.
--- OUTSIDE RECORDS SUMMARY | 2017-12-10 09:54 | XMS REPORT ---
Author Author [facility] Medical Staff Organization [facility] Address [phone] [place], [place] [id number] Phone [phone] Care Team Providers Care Hack Driver Name Role Phone MILAGROS MENDOZA MD PP [phone] Summary purpose CCDA Sent to [facility] Chief Complaint and Reason for Visit No authorized Reason for Visit (Admitting Diagnosis) is available for this visit. Problem list No authorized problems tracked for continuity of care are available for this visit. Encounters No authorized problems tracked for encounter diagnoses are available for this visit. Medications No medications recorded for this patient visit Allergies, adverse reactions, alerts Allergen Category Ingredient Status Reaction Severity Onset Sulfa (Sulfonamide Antibiotics) Drug Sulfa (Sulfonamide Antibiotics) Active Rash iodine Drug iodine Active Rash Keflex Drug Keflex Active back pain Keflex Drug Cephalexin Active back pain Zoloft Drug Zoloft Active suicidal Zoloft Drug sertraline Active suicidal Almyra Drug Almyra Active loose stools & vomiting Elavil Drug [...] visit Relevant diagnostic tests and/or laboratory data No authorized results are available for this patient visit History of procedures Procedure Code Code Type Description Date Performed Performing Physician [id number] CPT-4 ELECTROCARDIOGRAM REPORT 08-09-2015 NICOLE ZUNIGA Functional status No functional or cognitive status observations are available for this visit. Vital signs No authorized vital signs are available for this visit. Social history No Social History or smoking status observations were recorded for this visit. ( Unknown if ever smoked.) Treatment Plan No treatment plan text is available for this visit. Hospital discharge instructions No discharge instruction text is available for this visit.
--- OUTSIDE RECORDS SUMMARY | 2017-12-10 09:56 | XMS REPORT ---
Author Author Yeny Hilario Organization [facility] Address [address] [place], [place] [id number] Care Team Providers Care Field Sales Associate Name Role Phone Yeny Hilario PCP Ping Mosqueda Unavailable Unavailable Ping Mosqueda PreferredProvider Allergies and Adverse Reactions Name Reaction Notes erythromycin Toradol Minocycline TETRACYCLINES SULFA (SULFONAMIDES) Keflex Zoloft [place] Carbonate benztropine iodine Shell Fish (shrimp, crayfish, lobster, crab) Plan of Treatment Planned Activity Comments Planned Date Planned Time Plan/Goal URINALYSIS ROUTINE C&S IF IND 11/06/2016 12:00 AM FOBT 1st specimen 12/31/2016 12:00 AM Fecal occult blood detection 03/03/2017 12:00 AM Urine microalbumin screen 03/03/2017 12:00 AM MAMMOGRAPHY SCREENING, BILATERAL 10/15/2017 12:00 AM COPD 05/21/2017 9:30 AM Medications Active Name Start Date Estimated Completion Date SIG Comments triamcinolone acetonide topical cream 0.1 % 06/01/2013 apply a thin layer to the affected area(s) by topical route 2 times per day Geodon 40 mg oral capsule take 2 in the AM and 3 at 5pm lamotrigine 150 mg oral tablet take 1 tablet (150 mg) by oral route 2 times per day Aquaphilic topical ointment 12/03/2016 apply to affected area by external route 2 times a day for 30 days duloxetine 30 mg oral capsule,delayed release(DR/EC) 02/25/2017 take 1 capsule (30 mg) by oral route once daily for 90 days mirtazapine 30 mg oral tablet 05/25/2017 take 1 tablet (30 mg) by oral route once daily before bedtime for 30 days Myrbetriq 25 mg oral tablet extended release 24 hr 06/24/2017 TAKE 1 TABLET BY MOUTH DAILY lisinopril 5 mg oral tablet 08/17/2017 TAKE 1 TABLET (5 MG) BY ORAL ROUTE ONCE DAILY FOR 30 DAYS FOR 30 DAYS Lidoderm 5 % topical adhesive patch,medicated 09/04/2017 04/02/2018 apply 2 patches by transdermal route once daily (May wear up to 12hours.) for 30 days amlodipine 5 mg oral tablet 10/09/2017 TAKE 1 TABLET (5 MG) BY ORAL ROUTE ONCE DAILY FOR 30 DAYS Lasix 40 mg oral tablet 10/28/2017 TAKE 2 TABS IN AM AND 1 IN PM pravastatin 20 mg oral tablet 11/12/2017 TAKE 1 TABLET (20 MG) BY ORAL ROUTE ONCE DAILY AT BEDTIME FOR 90 DAYS prednisone 10 mg oral tablets,dose pack take as directed Mucinex oral potassium chloride 20 mEq oral tablet,ER particles/crystals 11/23/2017 TAKE 2 TABLETS BY MOUTH EVERY DAY Lyrica 50 mg oral capsule 11/24/2017 12/24/2017 take 1 capsule (50 mg) by oral route 3 times per day for 30 days montelukast 10 mg oral tablet 11/25/2017 TAKE 1 TABLET BY MOUTH IN THE EVENING Name Start Date Expiration Date SIG Comments Zocor Oral Tablet 10 mg take 1 tablet (10 mg) by oral route once daily in the evening risperidone Oral tablet 2 mg 03/25/2012 04/24/2012 take 1 tablet (2 mg) by oral route 2 times per day for 30 days Celebrex Oral Capsule 200 mg 04/16/2012 04/16/2012 take 1 capsule (200 mg) by oral route once daily Lamictal Oral Tablet 200 mg 04/19/2012 07/18/2012 take 1 tablet (200 mg) by oral route 2 times per day Risperdal Oral tablet 2 mg 05/03/2012 06/02/2012 TAKE 1 TABLET BY MOUTH TWICE DAILY Carafate Oral tablet 1 gram 05/07/2012 06/04/2012 take 1 tablet (1 gram) by oral route 4 times per day on an empty stomach 1 hour before meals and at bedtime for 4 weeks gabapentin Oral tablet 800 mg 08/16/2012 09/15/2012 TAKE 1 TABLET BY MOUTH THREE TIMES DAILY clindamycin HCl Oral capsule 150 mg 09/02/2012 09/09/2012 take 2 capsules (300 mg) by oral route 2 times per day for 7 days Sudafed 12 Hour Oral tablet extended release 120 mg 09/15/2012 10/15/2012 take 1 tablet (120 mg) by oral route every 12 hours for 30 days docusate sodium Oral tablet 100 mg 01/07/2013 take 1 tablet (100 mg) by oral route once daily Cipro Oral tablet 250 mg 01/07/2013 01/12/2013 take 1 tablet (250 mg) by oral route every 12 hours for 5 days ziprasidone HCl Oral capsule 80 mg 05/24/2012 06/23/2012 TAKE 1 CAPSULE BY MOUTH TWICE DAILY WITH FOOD promethazine Oral tablet 25 mg 05/24/2012 06/01/2012 TAKE 1 TABLET BY MOUTH EVERY 6 HOURS NEEDED montelukast Oral tablet 10 mg 09/13/2012 10/13/2012 TAKE 1 TABLET BY MOUTH ONCE DAILY clindamycin HCl Oral capsule 150 mg 02/03/2013 02/10/2013 take 2 capsules ( 300 mg) by oral route 2 times per day for 7 days bupropion HCl oral tablet extended release 24 hr 150 mg 05/13/2012 06/12/2012 TAKE 1 TABLET BY MOUTH DAILY gabapentin oral capsule 300 mg take 1 capsule (300 mg) by oral route 3 times per day Nexium oral capsule,delayed release(DR/EC) 40 mg 05/25/2013 09/22/2013 TAKE 1 CAPSULE BY MOUTH DAILY Bactroban topical ointment 2 % 06/01/2013 apply a small amount to the affected area by topical route 3 times per day triamcinolone acetonide topical cream 0.1 % 06/17/2013 APPLY A THIN LAYER TO THE AFFECTED AREA (S) TWICE DAILY Lidoderm topical adhesive patch,medicated 5 %(700 mg/patch) 10/05/20132013 apply 1 patch by transdermal route once daily (May wear up to 12hours.) for 30 days Wellbutrin XL oral tablet extended release 24 hr 150 mg take 1 tablet ( 150 mg) by oral route once daily fentanyl transdermal patch 72 hour 25 mcg/hr 12/01/2013 12/31/2013 apply 1 patch (25 mcg/hour) by transdermal route every 72 hours for 30 days 12mcg patch [place] oral tablet 10-325 mg 12/01/2013 01/30/2014 take 1 tablet by oral route every 6 hours as needed for pain for 30 days Dexilant oral capsule,biphase delayed releas 60 mg 12/07/2013 06/05/2014 take 1 capsule (60 mg) by oral route once daily for 30 days Miralax oral powder 17 gram/dose 09/05/2014 03/04/2015 take 17 gram mixed with 8 oz. water, juice, soda, coffee or tea by oral route once daily for 30 days Tylenol 325 mg oral tablet 10/08/2016 11/07/2016 May take up to 4000mg /day as needed for pain Seroquel 50 mg oral tablet 10/27/2016 11/26/2016 take 1 tablet (50 mg) by oral route daily for 30 days Aspir-81 81 mg oral tablet,delayed release (DR/EC) 11/06/2016 02/04/2017 take 1 tablet (81 mg) by oral route once daily for 90 days Zocor 10 mg oral tablet 11/06/2016 02/04/2017 take 1 tablet (10 mg) by oral route once daily in the evening for 90 days Calcium 500 + D (D3) 500 mg(1,250mg) -125 unit oral tablet 03/03/20172017 take 1 tablet by oral route 2 times a day for 30 days prednisone 20 mg oral tablet 04/16/2017 take 2 tablets (40 mg) by oral route once daily for 7 days Colace 100 mg oral capsule 07/02/2017 08/01/2017 take 1 capsule (100 mg) by oral route once daily at bedtime as needed for 30 days triamcinolone acetonide 0.5 % topical cream 07/02/2017 08/31/2017 apply a thin layer to the affected area(s) by topical route 2 times per day for 30 days metformin 500 mg oral tablet 07/08/2017 10/06/2017 take 1 tab daily potassium chloride 20 mEq oral tablet extended release 07/08/2017 11/05/2017 TAKE 2 BY ORAL ROUTE ONCE DAILY WITH FOOD FOR 30 DAYS FOR 30 DAYS for 30 days amlodipine 5 mg oral tablet 07/08/2017 11/05/2017 take 1 tablet (5 mg) by oral route once daily for 30 days for 30 days Tessalon Perles 100 mg oral capsule 09/04/2017 09/11/2017 take 1 capsule (100 mg) by oral route 3 times per day as needed for cough for 7 days Zofran 4 mg oral tablet 09/04/2017 09/11/2017 Take 1-2 hrs PRN nausea every 6- 8 hrs Zyrtec 10 mg oral capsule 10/15/2017 11/14/2017 take 1 capsule by oral route daily for 30 days Flonase Allergy Relief 50 mcg/actuation nasal spray,suspension 10/15/201711/14 spray 1 spray (50 mcg) in each nostril by intranasal route once daily for 30 days Discontinued Name Start Date Discontinued Date SIG Comments Abilify Oral Tablet 10 mg 04/27/2012 take 1 tablet by oral route daily Cozaar Oral Tablet 100 mg 04/27/2012 take 1 tablet (100 mg) by oral route once daily Cymbalta Oral Capsule, Delayed Release(E.C.) 60 mg 04/27/2012 take 2 capsules by oral route once daily Digoxin Oral Tablet 250 mcg 04/27/2012 take 1 tablet (250 mcg) by oral route once daily Estrace Oral Tablet 2 mg 04/27/2012 take 1 tablet (2 mg) by oral route once daily Hydroxyzine HCl Oral Tablet 25 mg 04/27/2012 1 q am,1 q pm & 2 q hs Lorazepam Oral Tablet 1 mg 04/27/2012 take 1 tablet (1 mg) by oral route 3 times per day Namenda Oral Tablet 10 mg 04/27/2012 take 1 tablet (10 mg) by oral route daily Nexium Oral Capsule, Delayed Release(E.C.) 40 mg 04/27/2012 take 1 capsule by oral route daily Requip Oral Tablet 1 mg 04/27/2012 1 tab at 7pm Seroquel Oral Tablet 25 mg 04/27/2012 take 1 tablet (25 mg) by oral route 3 times per day Trihexyphenidyl Oral Tablet 5 mg 04/27/2012 take one-half tablet (2.5 mg) by oral route 2 times per day Zyrtec Oral Tablet 10 mg 04/27/2012 take 1 tablet (10 mg) by oral route once daily Trifluoperazine Oral Tablet 5 mg 01/31/2013 take 2 tablets (10 mg) by oral route once daily Morphine Oral Tablet 15 mg 04/27/2012 1 tab q 6 hrs/PRN pain Prednisone Oral Tablet 20 mg 04/27/2012 1/2 tab daily,finishes 3-3 Voltaren Topical Gel 1 % 10/22/2012 apply 4 gram to affected area(s) by topical route 4 times per day for 30 days lisinopril Oral tablet 20 mg 03/25/2012 10/22/2012 take 1 tablet (20 mg) by oral route once daily for 90 days Protonix Oral tablet,delayed release (DR/EC) 40 mg 04/16/2012 05/07/2012 take 1 tablet (40 mg) by oral route once daily diltiazem HCl Oral capsule, extended release 180 mg 06/18/2016 take 1 capsule (180 mg) by oral route once daily Klonopin Oral tablet 1 mg 11/16/2013 take 1 tablet (1 mg) by oral route 2 times per day Advair Diskus Inhalation Disk with Device 250-50 mcg/dose 01/31/2013 inhale 1 puff by inhalation route 2 times per day in the morning and evening approximately 12 hours apart Bactroban Topical Ointment 2 % 09/09/2012 02/03/2013 apply a small amount to the affected area by topical route 3 times per day Flonase Nasal [place], Suspension 50 mcg/actuation 09/09/2012 10/22/2012 inhale 1 spray (50 mcg) in each nostril by intranasal route once daily Claritin-D 12 Hour Oral tablet extended release 12 hr 5-120 mg 09/09/201210/22 take 1 tablet by oral route every 12 hours Diflucan Oral tablet 150 mg 09/28/2012 10/06/2012 take 1 tablet (150 mg) by oral route once tramadol Oral tablet 50 mg 10/08/2012 10/22/2012 take 1 tablet (50 mg) by oral route every 6 hours as needed oxycodone Oral 01/31/2013 Abilify Oral tablet 5 mg 11/16/2013 take 1 tablet (5 mg) by oral route once daily Geodon Oral capsule 80 mg 06/18/2016 take 1 capsule (80 mg) by oral route 2 times per day with food lamotrigine Oral tablet extended release 24hr 100 mg 06/18/2016 take 1 tablet by oral route two times per day swallowing whole. Do not crush, chew and/ or divide. Singulair Oral tablet 10 mg 06/18/2016 take 1 tablet (10 mg) by oral route once daily in the evening Spiriva with HandiHaler Inhalation capsule, w/inhalation device 18 mcg 06/18 inhale 1 capsule (18 mcg) by inhalation route once daily Symbicort Inhalation HFA Aerosol Inhaler 160-4.5 mcg/actuation 06/18/2016 inhale 2 puffs by inhalation route 2 times a day multivitamin Oral tablet 06/18/2016 take 1 tablet by oral route daily tramadol Oral tablet 50 mg 01/31/2013 take 1 tablet (50 mg) by oral route every 6 hours as needed Bactroban topical cream 2 % 04/18/2013 11/16/2013 apply a small amount to the affected area by topical route 3 times per day Cymbalta oral capsule,delayed release(DR/EC) 30 mg 11/16/2013 take 1 capsule (30 mg) by oral route 2 times per day Ambien oral tablet 5 mg 07/05/2013 11/16/2013 take 1 tablet (5 mg) by oral route once daily at bedtime pantoprazole oral tablet,delayed release (DR/EC) 40 mg 12/07/2013 take 1 tablet (40 mg) by oral route once daily cyclobenzaprine oral tablet 10 mg 2013 11/16/2013 take 1 tablet by mouth daily at Abili oral tablet 10 mg 06/18/2016 take 1 tablet (10 mg) by oral route once daily Klonopin oral tablet 0.5 mg 06/18/2016 1 tab daily alprazolam oral tablet 0.25 mg 09/10/2016 take 1 tablet (0.25 mg) by oral route 2 times per day /PRN second dose should be 4 hrs or more since the first dose. Cymbalta oral capsule,delayed release(DR/EC) 30 mg 06/18/2016 1 capsule po BID fentanyl transdermal patch 72 hour 12 mcg/hr 06/18/2016 apply 1 patch (12 mcg/hour) by transdermal route every 72 hours furosemide oral tablet 20 mg 06/18/2016 take 1 tablet (20 mg) by oral route once daily gabapentin oral capsule 300 mg 06/18/2016 1 po BID and 600mg po once a day Nexium oral capsule,delayed release(DR/EC) 40 mg 06/18/2016 take 1 capsule by oral route daily mirtazapine oral tablet 30 mg 06/18/2016 take 1 tablet (30 mg) by oral route once daily before bedtime Milk of Magnesia oral suspension 400 mg/5 mL 06/18/2016 take 30 milliliters by oral route once daily as needed, followed by a full glass (8 oz) of liquid Nasal [place] (sodium chloride) nasal aerosol,spray 0.65 % 06/18/2016 apply 1 spray by nasal route As needed potassium chloride oral capsule, extended release 10 mEq 06/18/2016 take 1 capsule (10 meq) by oral route once daily ProAir HFA inhalation HFA aerosol inhaler 90 mcg/actuation 06/18/2016 inhale 1 - 2 puffs (90 - 180 mcg) by inhalation route every 6 hours as needed Pulmicort inhalation suspension for nebulization 0.5 mg/2 mL 06/18/2016 inhale 2 milliliters (0.5 mg) by nebulization route once daily simvastatin oral tablet 10 mg 06/18/2016 take 1 tablet (10 mg) by oral route once daily in the evening Xanax oral tablet 0.25 mg 06/18/2016 1 po daily at lunch Tylenol oral tablet 325 mg 06/18/2016 take 1 tablet (325 mg) by oral route every 4 hours as needed tramadol 50 mg oral tablet 09/10/2016 take 1 tablet (50 mg) by oral route every 6 hours as needed [place] 5-325 mg oral tablet 09/10/2016 take 1 tablet by oral route every 6 hours as needed for pain Klonopin 0.5 mg oral tablet 10/08/2016 take 1 tablet (0.5 mg) by oral route 2 times per day Remeron 15 mg oral tablet 09/10/2016 take 1/2 tab at nigth dose change potassium chloride 10 mEq oral tablet extended release 09/10/2016 take 1 tablet (10 meq) by oral route once daily with food new dosage Cymbalta 30 mg oral capsule,delayed release(DR/EC) 09/10/2016 take 1 capsule (30 mg) by oral route once daily Lamictal 25 mg oral tablet 09/10/2016 take 2 tablets (50 mg) by oral route 2 times per day Norvasc 5 mg oral tablet 10/08/2016 take 1 tablet (5 mg) by oral route once daily Seroquel 100 mg oral tablet 09/10/2016 take 1 tab at night Lasix 40 mg oral tablet 09/10/2016 take 1 tab in the AM and 2 at night cyclobenzaprine 10 mg oral tablet 10/08/2016 take 1 tablet (10 mg) by oral route 3 times per day simvastatin 10 mg oral tablet 10/17/2016 02/25/2017 TAKE 1 TABLET BY MOUTH EVERY NIGHT AT BEDTIME furosemide 40 mg oral tablet 11/21/2016 12/03/2016 TAKE 1 1/2 TABLETS BY MOUTH TWICE DAILY Singulair 10 mg oral tablet 12/26/2016 06/12/2017 take 1 tablet (10 mg) by oral route once daily in the evening for 30 days duplicate Colace 100 mg oral capsule 01/28/2017 03/03/2017 take 1 capsule (100 mg) by oral route 2 times per day for 90 days prednisone 20 mg oral tablet 02/25/2017 03/03/2017 take 2 tablets (40 mg) by oral route once daily for 5 days Levaquin 500 mg oral tablet 02/25/2017 03/03/2017 take 1 tablet (500 mg) by oral route once daily for 5 days alendronate 70 mg oral tablet 05/13/2017 11/11/2017 TAKE 1 TABLET BY MOUTH ONCE WEEKLY IN THE MORNING for 30 days Augmentin 875-125 mg oral tablet 05/26/2017 06/03/2017 take 1 tablet by oral route every 12 hours for 7 days Levaquin 500 mg oral tablet 06/12/2017 07/02/2017 take 1 tablet (500 mg) by oral route once daily for 7 days Bevespi Aerosphere 9-4.8 mcg inhalation HFA aerosol inhaler 07/02/20172017 inhale 2 puffs by inhalation route 2 times per day in the morning and evening for 30 days fentanyl 25 mcg/hr transdermal patch 72 hour 07/31/2017 09/04/2017 apply 1 patch (25 mcg/hour) by transdermal route every 72 hours for 30 days Negative Drug test Colace 100 mg oral capsule 09/02/2017 11/11/2017 TAKE 1 CAPSULE (100 MG) BY ORAL ROUTE ONCE DAILY AT BEDTIME NEEDED FOR 30 DAYS Myrbetriq 25 mg oral tablet extended release 24 hr 10/01/2017 11/11/2017 TAKE 1 TABLET BY MOUTH DAILY tramadol 50 mg oral tablet 10/15/2017 11/11/2017 Take 1 tab BID PRN severe pain Problem List Description Status Onset Anxiety Active Bipolar disorder, unspecified Active Chronic Obstructive Pulmonary Disease Active Gastroesophageal Reflux Active Hypercholesterolemia Active Hypertension Active Ovarian Cancer Active Obesity Active Degenerative disc disease Active Restless Leg Syndrome Active Other benign neoplasm of connective and other soft tissue; pelvis Active L5-S1 HNP, 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/07/2013 lumbar spondylosis Active 09/07/2013 Colon cancer screening Active 06/18/2016 Schizophrenia Active 09/10/2016 Kidney failure Active 09/10/2016 Chronic systolic congestive heart failure Active 09/23/2016 Chronic kidney disease (CKD) Active 04/02/2017 Vital Signs Date Time BP-Sys(mm[Hg] BP-Mary(mm[Hg]) HR(bpm) RR(rpm) Temp WT HT HC BMI BSA BMI Percentile O2 Sat(%) 11/13/2017 11:09:00 AM 122 mmHg 80 mmHg 100 bpm 24 rpm 97.7 F 255.25 lbs 60 in 49.8496 kg/m 2.2139 m 92 % 11/11/2017 9:46:00 AM 142 mmHg 64 mmHg 111 bpm 20 rpm 97.9 F 254.5 lbs 60 in 49.70 kg/m2 2.21 m2 91 % 10/28/2017 3:19:00 PM 154 mmHg 62 mmHg 119 bpm 20 rpm 98.6 F 254.25 lbs 60 in 49.6543 kg/m 2.2096 m 92 % 10/15/2017 9:26:00 AM 144 mmHg 64 mmHg 103 bpm 18 rpm 98.4 F 253.375 lbs 60 in 49.48 kg/m2 2.21 m2 93 % 09/15/2017 3:52:00 PM 134 mmHg 68 mmHg 94 bpm 20 rpm 98.1 F 240 lbs 60 in 46.8713 kg/m 2.1467 m 94 % 09/04/2017 9:39:00 AM 164 mmHg 66 mmHg 115 bpm 22 rpm 98.8 F 251 lbs 60 in 49.02 kg/m2 2.20 m2 95 % 08/11/2017 9:51:00 AM 164 mmHg 70 mmHg 91 bpm 20 rpm 98.2 F 70 in 93 % 07/31/2017 9:58:00 AM 164 mmHg 60 mmHg 108 bpm 20 rpm 98.4 F 254.125 lbs 60 in 49.6299 kg/m 2.209 m 93 % 07/02/2017 9:16:00 AM 152 mmHg 74 mmHg 114 bpm 20 rpm 98.4 F 261 lbs 60 in 50.97 kg/m2 2.24 m2 92 % 06/12/2017 12:10:00 PM 160 mmHg 76 mmHg 109 bpm 24 rpm 97.5 F 254 lbs 60 in 49.6055 kg/m 2.2085 m 95 % 06/03/2017 9:39:00 AM 158 mmHg 70 mmHg 105 bpm 18 rpm 97.8 F 251.25 lbs 60 in 49.07 kg/m2 2.20 m2 92 % 05/26/2017 10:36:00 AM 174 mmHg 72 mmHg 110 bpm 20 rpm 97.6 F 257.5 lbs 60 in 50.289 kg/m 2.2236 m 92 % 05/13/2017 8:45:00 AM 178 mmHg 64 mmHg 118 bpm 20 rpm 98.8 F 253.5 lbs 60 in 49.51 kg/m2 2.21 m2 93 % 05/06/2017 1:34:00 PM 120 mmHg 60 mmHg 105 bpm 99.5 F 253 lbs 93 % 04/29/2017 10:59:00 AM 138 mmHg 70 mmHg 118 bpm 20 rpm 99.5 F 253.5 lbs 60 in 49.5078 kg/m 2.2063 m 91 % 04/02/2017 9:33:00 AM 158 mmHg 79 mmHg 105 bpm 20 rpm 98.3 F 253.125 lbs 60 in 49.43 kg/m2 2.20 m2 94 % 03/03/2017 8:20:00 AM 170 mmHg 84 mmHg 90 bpm 20 rpm 98.7 F 248.25 lbs 60 in 48.4825 kg/m 2.1833 m 98 % 02/25/2017 1:34:00 PM 153 mmHg 73 mmHg 91 bpm 20 rpm 99.1 F 257 lbs 60 in 50.19 kg/m2 2.22 m2 88 % 12/31/2016 1:20:00 PM 141 mmHg 73 mmHg 101 bpm 20 rpm 99.1 F 253 lbs 60 in 49.4102 kg/m 2.2041 m 92 % 12/17/2016 8:53:00 AM 110 mmHg 60 mmHg 98 bpm 20 rpm 98.8 F 257.375 lbs 60 in 50.26 kg/m2 2.22 m2 92 % 12/03/2016 3:50:00 PM 134 mmHg 60 mmHg 97 bpm 20 rpm 99.6 F 261.5 lbs 91 % 11/06/2016 9:03:00 AM 142 mmHg 64 mmHg 32 bpm 102 rpm 97.4 F 263.25 lbs 86 % 10/08/2016 9:02:00 AM 122 mmHg 62 mmHg 98 bpm 20 rpm 99.2 F 261 lbs 60 in 50.9725 kg/m 2.2387 m 94 % 10/07/2016 4:05:00 PM 130 mmHg 64 mmHg 106 bpm 24 rpm 99.3 F 261 lbs 60 in 50.97 kg/m2 2.24 m2 88 % 09/23/2016 8:54:00 AM 131 mmHg 71 mmHg 100 bpm 22 rpm 99.2 F 265 lbs 88 % 09/16/2016 9:21:00 AM 142 mmHg 68 mmHg 103 bpm 22 rpm 98.1 F 267.375 lbs 60 in 52.2176 kg/m 2.2659 m 90 % 09/10/2016 3:31:00 PM 91 % 09/10/2016 2:20:00 PM 123 mmHg 69 mmHg 79 bpm 20 rpm 98 F 261 lbs 60 in 50.9725 kg/m 2.2387 m 88 % 06/18/2016 1:22:00 PM 118 mmHg 57 mmHg 79 bpm 20 rpm 98.1 F 255 lbs 60 in 49.80 kg/m2 2.21 m2 09/05/2014 11:09:00 AM 118 mmHg 57 mmHg 79 bpm 20 rpm 98.2 F 11/16/2013 3:52:00 PM 132 mmHg 70 mmHg 76 bpm 16 rpm 96.2 F 212 lbs 60 in 41.403 kg/m 2.0176 m 11/03/2013 12:56:00 PM 124 mmHg 62 mmHg 80 bpm 18 rpm 96.6 F 215 lbs 60 in 41.99 kg/m2 2.03 m2 10/05/2013 9:11:00 AM 140 mmHg 76 mmHg 84 bpm 16 rpm 98.4 F 217 lbs 60 in 42.3795 kg/m 2.0413 m 10/04/2013 10:12:00 AM 132 mmHg 68 mmHg 93 bpm 18 rpm 96.8 F 215.125 lbs 60 in 42.01 kg/m2 2.03 m2 96 % 09/07/2013 9:40:00 AM 132 mmHg 76 mmHg 88 bpm 20 rpm 97.7 F 208 lbs 60 in 40.6218 kg/m 1.9985 m 2013 10:06:00 AM 122 mmHg 62 mmHg 76 bpm 18 rpm 98.5 F 204.5 lbs 60 in 39.94 kg/m2 1.98 m2 94 % 07/25/2013 9:29:00 AM 136 mmHg 68 mmHg 84 bpm 18 rpm 96.7 F 207.375 lbs 60 in 40.4997 kg/m 1.9955 m 95 % 07/22/2013 10:08:00 AM 152 mmHg 80 mmHg 72 bpm 16 rpm 96.9 F 207 lbs 60 in 40.43 kg/m2 1.99 m2 07/05/2013 3:15:00 PM 132 mmHg 68 mmHg 82 bpm 20 rpm 98 F 206.25 lbs 60 in 40.28 kg/m 1.9901 m 94 % 06/13/2013 1:51:00 PM 140 mmHg 62 mmHg 93 bpm 18 rpm 98.8 F 206.375 lbs 60 in 40.30 kg/m2 1.99 m2 91 % 06/01/2013 11:30:00 AM 132 mmHg 64 mmHg 84 bpm 18 rpm 98 F 205 lbs 60 in 40.0359 kg/m 1.984 m 96 % 05/24/2013 10:00:00 AM 148 mmHg 80 mmHg 78 bpm 18 rpm 97.8 F 202.125 lbs 60 in 39.47 kg/m2 1.97 m2 05/18/2013 10:28:00 AM 120 mmHg 60 mmHg 76 bpm 20 rpm 96.6 F 92 % 05/04/2013 11:04:00 AM 152 mmHg 80 mmHg 92 bpm 24 rpm 96.4 F 206 lbs 60 in 40.2312 kg/m 1.9889 m 94 % 04/26/2013 10:32:00 AM 142 mmHg 80 mmHg 56 bpm 16 rpm 97.9 F 203.125 lbs 60 in 39.67 kg/m2 1.97 m2 04/25/2013 10:38:00 AM 164 mmHg 82 mmHg 75 bpm 20 rpm 96.3 F 206 lbs 60 in 40.2312 kg/m 1.9889 m 94 % 04/18/2013 2:01:00 PM 136 mmHg 78 mmHg 80 bpm 16 rpm 98.1 F 206 lbs 60 in 40.23 kg/m2 1.99 m2 03/31/2013 9:26:00 AM 152 mmHg 84 mmHg 84 bpm 16 rpm 95.9 F 207 lbs 60 in 40.4265 kg/m 1.9937 m 03/09/2013 8:28:00 AM 124 mmHg 80 mmHg 84 bpm 18 rpm 98.2 F 207 lbs 60 in 40.43 kg/m2 1.99 m2 02/28/2013 10:07:00 AM 144 mmHg 74 mmHg 81 bpm 20 rpm 96.3 F 210 lbs 60 in 41.0124 kg/m 2.0081 m 95 % 02/17/2013 10:53:00 AM 124 mmHg 70 mmHg 82 bpm 18 rpm 97.6 F 207 lbs 60 in 40.43 kg/m2 1.99 m2 02/09/2013 2:51:00 PM 144 mmHg 84 mmHg 71 bpm 20 rpm 96 F 209 lbs 60 in 40.8171 kg/m 2.0033 m 94 % 02/03/2013 10:14:00 AM 138 mmHg 76 mmHg 99 bpm 18 rpm 98.8 F 209.25 lbs 60 in 40.87 kg/m2 2.00 m2 91 % 01/31/2013 9:36:00 AM 146 mmHg 82 mmHg 84 bpm 18 rpm 96.8 F 209 lbs 60 in 40.8171 kg/m 2.0033 m 01/07/2013 10:38:00 AM 136 mmHg 78 mmHg 78 bpm 20 rpm 97.8 F 207 lbs 60 in 40.43 kg/m2 1.99 m2 92 % 11/25/2012 9:42:00 AM 144 mmHg 78 mmHg 96 bpm 18 rpm 97.5 F 205 lbs 60 in 40.0359 kg/m 1.984 m 89 % 10/22/2012 9:20:00 AM 110 mmHg 60 mmHg 101 bpm 18 rpm 98.6 F 60 in 94 % 10/06/2012 9:02:00 AM 134 mmHg 74 mmHg 92 bpm 18 rpm 97.6 F 222 lbs 92 % 10/06/2012 8:10:00 AM 118 mmHg 56 mmHg 80 bpm 16 rpm 97.2 F 222.375 lbs 60 in 43.4292 kg/m 2.0664 m 09/21/2012 8:12:00 AM 150 mmHg 72 mmHg 82 bpm 16 rpm 97.2 F 230 lbs 60 in 44.9183 kg/m 2.10 m2 09/09/2012 8:18:00 AM 136 mmHg 70 mmHg 72 bpm 20 rpm 97.7 F 224.25 lbs 60 in 43.80 kg/m2 2.0751 m 08/27/2012 8:42:00 AM 142 mmHg 64 mmHg 72 bpm 18 rpm 98.4 F 222 lbs 60 in 43.356 kg/m 2.06 m2 08/11/2012 9:12:00 AM 122 mmHg 64 mmHg 82 bpm 18 rpm 98.4 F 225 lbs 60 in 43.94 kg/m2 2.0786 m 96 % 05/27/2012 11:31:00 AM 136 mmHg 74 mmHg 107 bpm 18 rpm 97.8 F 230.062 lbs 60 in 44.9305 kg/m 2.10 m2 94 % 05/07/2012 9:34:00 AM 142 mmHg 68 mmHg 88 bpm 18 rpm 98.6 F 230.25 lbs 60 in 44.97 kg/m2 2.1027 m 04/27/2012 8:34:00 AM 144 mmHg 74 mmHg 78 bpm 18 rpm 96.1 F 233 lbs 60 in 45.5042 kg/m 2.12 m2 04/16/2012 9:19:00 AM 136 mmHg 74 mmHg 101 bpm 18 rpm 97.6 F 222.25 lbs 98 % 03/25/2012 8:17:00 AM 138 mmHg 70 mmHg 100 bpm 20 rpm 98.1 F 239 lbs 60 in 46.676 kg/m 2.1423 m 95 % 05/28/2009 1:32:00 PM 132 mmHg 62 mmHg 102 bpm 20 rpm 95.6 F 204 lbs Social History Name Description Comments Tobacco Former smoker quit 10 years ago lives alone in a apartment recieving Social Security Disability x 10 years High school graduate Has never used alcohol Denies illicit substance abuse History of Procedures Date Ordered Description Order Status 09/10/2016 12:00 AM COMPREHEN METABOLIC PANEL Reviewed 09/10/2016 12:00 AM GLYCOSYLATED HEMOGLOBIN TEST Reviewed 09/16/2016 12:00 AM CHEST X-RAY 2VW FRONTAL&LATL Reviewed 11/06/2016 11:16 AM URINALYSIS AUTO W/O SCOPE Reviewed 11/06/2016 12:00 AM ETHOS drug screen collection Reviewed 12/17/2016 12:00 AM [facility] MEDICARE - flu vaccine administration Reviewed 12/17/2016 12:00 AM INFLUENZA VACCINE SPLT PRSRV FREE INC ANTIGEN IM Reviewed 02/04/2017 12:00 AM [facility] drug screen collection Reviewed 03/03/2017 12:00 AM LIPID PANEL Reviewed 03/03/2017 12:00 AM COMPREHEN METABOLIC PANEL Reviewed 03/03/2017 12:00 AM GLYCOSYLATED HEMOGLOBIN TEST Reviewed 03/03/2017 12:00 AM COMPLETE CBC W/AUTO DIFF WBC Reviewed 03/03/2017 12:00 AM VITAMIN D 25 HYDROXY Reviewed 03/03/2017 12:00 AM PNEUMOCOCCAL VACC 23 JUAN IM Reviewed 03/03/2017 12:00 AM [facility] MEDICARE - pneumonia vaccine administration Reviewed 05/13/2017 12:00 AM TTE W/DOPPLER COMPLETE Returned 04/26/2012 12:00 AM COMPLETE CBC W/AUTO DIFF WBC Reviewed 04/26/2012 12:00 AM COMPREHEN METABOLIC PANEL Reviewed 04/26/2012 12:00 AM X-RAY EXAM OF ABDOMEN Reviewed 05/07/2012 12:00 AM COMPLETE CBC W/AUTO DIFF WBC Reviewed 05/07/2012 12:00 AM COMPREHEN METABOLIC PANEL Reviewed 05/07/2012 12:00 AM ASSAY OF TROPONIN QUANT Reviewed 05/07/2012 12:00 AM CHEST X-RAY 2VW FRONTAL&LATL Reviewed 05/07/2012 12:00 AM ELECTROCARDIOGRAM COMPLETE Reviewed 05/13/2012 12:00 AM COMPREHEN METABOLIC PANEL Reviewed 07/02/2017 12:00 AM MICROALBUMIN SEMIQUANT Returned 07/02/2017 12:00 AM GLYCOSYLATED HEMOGLOBIN TEST Returned 07/31/2017 12:00 AM Urine Drug Screen Reviewed 08/11/2017 12:00 AM Misc Order Reviewed 09/04/2017 12:00 AM COMPLETE CBC W/AUTO DIFF WBC Returned 09/04/2017 12:00 AM ASSAY OF LACTIC ACID Returned 10/15/2017 12:00 AM Urine Drug Screen Returned 10/15/2017 12:00 AM COMPREHEN METABOLIC PANEL Returned 10/15/2017 12:00 AM GLYCOSYLATED HEMOGLOBIN TEST Returned 11/11/2017 12:00 AM COMPREHEN METABOLIC PANEL Returned 11/11/2017 12:00 AM URNLS DIP STICK/TABLET RGNT AUTO W/O MICROSCOPY Returned 11/11/2017 12:00 AM COMPLETE CBC W/AUTO DIFF WBC Returned 11/11/2017 12:00 AM ASSAY OF LACTIC ACID Returned 11/11/2017 12:00 AM RADIOLOGIC EXAM CHEST 2 VIEWS FRONTAL&LATERAL Returned 11/13/2017 12:00 AM COMPLETE CBC W/AUTO DIFF WBC Reviewed 11/13/2017 12:00 AM COMPREHEN METABOLIC PANEL Reviewed 08/27/2012 12:00 AM Culture-Wound Reviewed 10/22/2012 12:00 AM COMPLETE CBC W/AUTO DIFF WBC Reviewed 10/22/2012 12:00 AM COMPREHEN METABOLIC PANEL Reviewed 10/22/2012 12:00 AM URINALYSIS AUTO W/SCOPE Reviewed 10/22/2012 12:[address] HEAD/BRAIN W/O & W/DYE Reviewed 10/22/2012 12:00 AM CHEST X-RAY 2VW FRONTAL&LATL Reviewed 01/14/2013 12:00 AM METABOLIC PANEL TOTAL CA Reviewed 02/09/2013 12:[address] PELVIS W/O & W/DYE Reviewed 03/31/2013 12:00 AM MRI LUMBAR SPINE W/O DYE Reviewed 04/28/2013 12:00 AM MRI LUMBAR SPINE W/O DYE Reviewed 06/13/2013 12:00 AM COMPLETE CBC W/AUTO DIFF WBC Reviewed 06/13/2013 12:00 AM COMPREHEN METABOLIC PANEL Reviewed 06/13/2013 12:00 AM CHEST X-RAY 2VW FRONTAL&LATL Reviewed 2013 12:00 AM URINALYSIS AUTO W/O SCOPE Reviewed 09/07/2013 12:00 AM Neurosurgery Consult Reviewed 12/01/2013 12:00 AM OFFICE/OUTPATIENT VISIT EST Reviewed Results Summary Date and Description Results 04/27/2012 10:00 AM WBC 8.2 RBC 4.60 HGB 14.0 g/dLHCT 41.80 %MCV 91.0 fLMCH 30.40 pgMCHC 33.50 g/dLRDW SD 49 RDW CV 14.80 %MPV 10.0 fLPLT 233 NRBC# 0.00 NRBC% 0.0 %NEUT 65.10 %%LYMP 24.70 %%MONO 6.30 %%EOS 3.40 %%BASO 0.50 %#NEUT 5.34 #LYMP 2.03 #MONO 0.52 #EOS 0.28 #BASO 0.04 MANUAL DIFF NOT IND GLUCOSE 97.0 mg/dLSODIUM 140.0 mmol/LPOTASSIUM 4.40 mmol/LCHLORIDE 104.0 mmol/LCO2 23.0 mmol/LBUN 11.0 mg/dLCREATININE 0.90 mg/dLSGOT/AST 18.0 IU/LSGPT/ALT 18.0 IU/ LALK PHOS 133.0 IU/LTOTAL PROTEIN 7.0 g/dLALBUMIN 4.30 g/dLTOTAL BILI 0.30 mg/ dLCALCIUM 10.20 mg/dLAGE 56 GFR NonAA 65 GFR AA 79 eGFR 60 eGFR AA* 60 05/07/2012 11:05 AM TROPONIN-I AD < 0.04 ng/mLWBC 13.6 RBC 4.65 HGB 14.20 g/dLHCT 42.70 %MCV 92.0 fLMCH 30.50 pgMCHC 33.30 g/dLRDW SD 50 RDW CV 14.70 %MPV 11.60 fLPLT 194 NRBC# 0.00 NRBC% 0.0 %NEUT 84.10 %%LYMP 11.30 %%MONO 4.30 %%EOS 0.20 %%BASO 0.10 %#NEUT 11.43 #LYMP 1.53 #MONO 0.58 #EOS 0.03 #BASO 0.01 MANUAL DIFF SEE BELOW SEGS 81 BANDS 1 LYMPHS 12 MONOS 6 GLUCOSE 122.0 mg/ dLSODIUM 140.0 mmol/LPOTASSIUM 4.70 mmol/LCHLORIDE 102.0 mmol/LCO2 22.0 mmol/ LBUN 11.0 mg/dLCREATININE 0.90 mg/dLSGOT/AST 18.0 IU/LSGPT/ALT 24.0 IU/LALK PHOS 137.0 IU/LTOTAL PROTEIN 7.60 g/dLALBUMIN 4.40 g/dLTOTAL BILI 0.20 mg/ dLCALCIUM 10.60 mg/dLAGE 56 GFR NonAA 65 GFR AA 79 eGFR 60 eGFR AA* 60 05/18/2012 9:15 AM GLUCOSE 99.0 mg/dLSODIUM 142.0 mmol/LPOTASSIUM 4.50 mmol/ LCHLORIDE 101.0 mmol/LCO2 27.0 mmol/LBUN 11.0 mg/dLCREATININE 0.80 mg/dLSGOT/ AST 17.0 IU/LSGPT/ALT 25.0 IU/LALK PHOS 124.0 IU/LTOTAL PROTEIN 6.50 g/ dLALBUMIN 4.20 g/dLTOTAL BILI 0.40 mg/dLCALCIUM 10.10 mg/dLAGE 56 GFR NonAA 74 GFR AA 90 eGFR 60 eGFR AA* 60 10/22/2012 12:45 PM WBC 9.3 RBC 3.71 HGB 11.10 g/dLHCT 34.40 %MCV 93.0 fLMCH 29.90 pgMCHC 32.30 g/dLRDW SD 51 RDW CV 14.90 %MPV 9.0 fLPLT 402 NRBC# 0.00 NRBC % 0.0 %NEUT 62.90 %%LYMP 25.30 %%MONO 9.30 %%EOS 2.0 %%BASO 0.50 %#NEUT 5.83 # LYMP 2.35 #MONO 0.86 #EOS 0.19 #BASO 0.05 MANUAL DIFF SEE BELOW SEGS 64 LYMPHS 23 MONOS 7 EOS 2.0 %BASO 1.0 %METAS 2 MYELO 1 GLUCOSE 108.0 mg/dLSODIUM 141.0 mmol/LPOTASSIUM 3.60 mmol/LCHLORIDE 102.0 mmol/LCO2 26.0 mmol/LBUN 3.0 mg/ dLCREATININE 0.70 mg/dLSGOT/AST 30.0 IU/LSGPT/ALT 41.0 IU/LALK PHOS 121.0 IU/ LTOTAL PROTEIN 5.10 g/dLALBUMIN 2.60 g/dLTOTAL BILI 0.40 mg/dLCALCIUM 8.90 mg/ dLAGE 57 GFR NonAA 86 GFR AA 104 eGFR 60 eGFR AA* 60 10/25/2012 12:40 PM WBC 9.7 RBC 3.92 HGB 11.50 g/dLHCT 37.20 %MCV 95.0 fLMCH 29.30 pgMCHC 30.90 g/dLRDW SD 54 RDW CV 15.40 %MPV 9.10 fLPLT 454 NRBC# 0.03 NRBC% 0.3 %NEUT 65.40 %%LYMP 23.70 %%MONO 8.60 %%EOS 1.90 %%BASO 0.40 %#NEUT 6.34 #LYMP 2.30 #MONO 0.83 #EOS 0.18 #BASO 0.04 MANUAL DIFF NOT IND GLUCOSE 105.0 mg/dLSODIUM 141.0 mmol/LPOTASSIUM 4.0 mmol/LCHLORIDE 102.0 mmol/LCO2 28.0 mmol/LBUN 5.0 mg/dLCREATININE 0.80 mg/dLSGOT/AST 28.0 IU/LSGPT/ALT 32.0 IU/LALK PHOS 118.0 IU/LTOTAL PROTEIN 6.10 g/dLALBUMIN 2.80 g/dLTOTAL BILI 0.40 mg/ dLCALCIUM 9.70 mg/dLAGE 57 GFR NonAA 74 GFR AA 90 eGFR 60 eGFR AA* 60 11/23/2012 10:20 PM COLOR YELLOW APPEARANCE CLEAR SPEC GRAV <=1.005 pH 7.0 PROTEIN NEGATIVE GLUCOSE NEGATIVE KETONE NEGATIVE BILIRUBIN NEGATIVE BLOOD NEGATIVE NITRITE NEGATIVE LEUK SCREEN NEGATIVE WBC/HPF NEGATIVE RBC/HPF RARE CASTS/LPF NEGATIVE CRYSTALS NEGATIVE MUCOUS THRDS NEGATIVE BACTERIA 1+ EPITH CELLS 1+ SQUAMOUS TRICHOMONAS NEGATIVE YEAST NEGATIVE CULT SET UP? NO 01/13/2013 8:52 AM GLUCOSE 104.0 mg/dLSODIUM 138.0 mmol/LPOTASSIUM 4.20 mmol/ LCHLORIDE 102.0 mmol/LCO2 24.0 mmol/LBUN 9.0 mg/dLCREATININE 0.90 mg/dLCALCIUM 10.40 mg/dLAGE 57 GFR NonAA 64 GFR AA 78 eGFR >60 mL/min/1.73 m2eGFR AA* >60 06/13/2013 2:18 PM GLUCOSE 97.0 mg/dLSODIUM 135.0 mmol/LPOTASSIUM 4.70 mmol/ LCHLORIDE 96.0 mmol/LCO2 25.0 mmol/LBUN 12.0 mg/dLCREATININE 0.90 mg/dLSGOT/AST 19.0 IU/LSGPT/ALT 17.0 IU/LALK PHOS 155.0 IU/LTOTAL PROTEIN 6.30 g/dLALBUMIN 4.10 g/dLTOTAL BILI 0.40 mg/dLCALCIUM 9.80 mg/dLAGE 57 GFR NonAA 64 GFR AA 78 eGFR >60 mL/min/1.73 m2eGFR AA* >60 WBC 11.3 RBC 4.46 HGB 13.90 g/dLHCT 40.80 % MCV 92.0 fLMCH 31.20 pgMCHC 34.10 g/dLRDW SD 43 RDW CV 12.80 %MPV 10.0 fLPLT 279 NRBC# 0.00 NRBC% 0.0 %NEUT 61.10 %%LYMP 29.90 %%MONO 6.20 %%EOS 2.40 %%BASO 0.40 %#NEUT 6.93 #LYMP 3.39 #MONO 0.70 #EOS 0.27 #BASO 0.04 MANUAL DIFF NOT IND 09/10/2016 4:00 PM HGB A1C 6.0 %Est Avg Glucose 125.5 mg/dLGLUCOSE 95.0 mg/ dLSODIUM 142.0 mmol/LPOTASSIUM 3.60 mmol/LCHLORIDE 100.0 mmol/LCO2 28.0 mmol/ LBUN 22.0 mg/dLCREATININE 1.0 mg/dLSGOT/AST 20.0 IU/LSGPT/ALT 26.0 IU/LALK PHOS 117.0 IU/LTOTAL PROTEIN 7.40 g/dLALBUMIN 3.90 g/dLTOTAL BILI 0.40 mg/dLCALCIUM 9.90 mg/dLAGE 61 GFR NonAA 56 GFR AA 68 eGFR 56 eGFR AA* >60 11/06/2016 11:16 AM Clarity Ur clear Color Ur lt yellow Glucose Ur-sCnc negative Bilirub Ur Ql Strip negative Ketones Ur Ql Strip negative Sp Gr Ur Qn < =1.005 Hgb Ur Ql Strip negative pH Ur-LsCnc 7 Prot Ur Ql Strip negative Urobilinogen Ur-mCnc 0.2 Nitrite Ur Ql Strip negative WBC Est Ur Ql Strip negative 03/03/2017 9:25 AM HGB A1C 5.70 %Est Avg Glucose 116.9 mg/dLWBC 9.8 RBC 4.29 HGB 14.20 g/dLHCT 43.10 %MCV 101.0 fLMCH 33.10 pgMCHC 32.90 g/dLRDW SD 61 RDW CV 17.0 %MPV 10.90 fLPLT 312 NRBC# 0.03 NRBC% 0.3 %NEUT 46.90 %%LYMP 41.50 %% MONO 8.50 %%EOS 1.10 %%BASO 0.80 %#NEUT 4.58 #LYMP 4.05 #MONO 0.83 #EOS 0.11 # BASO 0.08 MANUAL DIFF NOT IND GLUCOSE 94.0 mg/dLSODIUM 145.0 mmol/LPOTASSIUM 3.80 mmol/LCHLORIDE 99.0 mmol/LCO2 30.0 mmol/LBUN 27.0 mg/dLCREATININE 1.20 mg/ dLSGOT/AST 33.0 IU/LSGPT/ALT 36.0 IU/LALK PHOS 133.0 IU/LTOTAL PROTEIN 7.80 g/ dLALBUMIN 4.30 g/dLTOTAL BILI 0.40 mg/dLCALCIUM 10.20 mg/dLAGE 61 GFR NonAA 46 GFR AA 56 eGFR 46 eGFR AA* 56 TRIGLYCERIDES 155.0 mg/dLCHOLESTEROL 196.0 mg/ dLHDL 59.0 mg/dLTOT CHOL/HDL 3.3 LDL (CALC) 106.0 mg/dLVITAMIN D 35.10 ng/mL 11/13/2017 11:38 AM WBC 14.3 RBC 3.87 HGB 13.3 HCT 40.5 MCV 105 MCH 34.4 MCHC 32.8 RDW SD 69 RDW CV 18.0 MPV 10.3 PLT 264 NRBC# 0.00 NRBC% 0.0 %NEUT 82.3 % LYMP 13.2 %MONO 2.5 %EOS 0.6 %BASO 0.6 #NEUT 11.72 #LYMP 1.88 #MONO 0.35 #EOS 0.09 #BASO 0.09 MANUAL DIFF NOT IND GLUCOSE 222 SODIUM 139 POTASSIUM 4.4 CHLORIDE 102 CO2 27 BUN 21 CREATININE 1.0 SGOT/AST 23 SGPT/ALT 33 ALK PHOS 115 TOTAL PROTEIN 7.6 ALBUMIN 4.6 TOTAL BILI 0.7 CALCIUM 10.0 AGE 62 GFR NonAA 56 GFR AA 68 eGFR 56 eGFR AA* >60 History Of Immunizations Name Date Admin Mfg Name Mfg Code Trade Name Lot# Route Inj Vis Given Vis Pub CVX Influenza 12/29/2012 Not Entered NE Not Entered Not Entered Not Entered 03/30/2018 03/30/2018 111 Influenza 12/17/2016 [employer] pasteur PMC FLUZONE [id number] Intramuscular Right Deltoid 12/17/2016 11/03/2014 135 Pneumococcal 03/03/2017 [employer] MSD PNEUMOVAX 23 [id number] Intramuscular Left Arm 03/03/2017 07/21/2014 33 History of Past Illness Name Date of Onset Comments Anxiety Chronic Obstructive Pulmonary Disease Hypertension Obesity Bipolar disorder, unspecified Ovarian Cancer Gastroesophageal Reflux Hypercholesterolemia Mechanical pain of sacroiliac region (piriformis), other specified sites May 28 2009 1:39PM Cervicalgia May 28 2009 1:39PM Lumbago May 28 2009 1:39PM Muscle Spasm May 28 2009 1:39PM Pain in joint; lower leg/knee May 28 2009 1:39PM Degenerative disc disease Restless Leg Syndrome Other benign neoplasm of connective and other soft tissue; pelvis ischial/ gluteal fossa L5-S1 HNP, Right 09/07/2013 lumbar spondylosis 09/07/2013 Oxygen dependent 2 liters portable, 3 liters at home Colon cancer screening 06/18/2016 Schizophrenia 09/10/2016 Kidney failure 09/10/2016 Chronic systolic congestive heart failure 09/23/2016 Diabetes 1.5, managed as type 2 Renal impairment Chronic kidney disease (CKD) 04/02/2017 Bowel Obstruction Bipolar disorder, unspecified Mar 25 2012 8:20AM Chronic Obstructive Pulmonary Disease Mar 25 2012 8:20AM Gastroesophageal Reflux Mar 25 2012 8:20AM Hypercholesterolemia Mar 25 2012 8:20AM Hypertension Mar 25 2012 8:20AM Degenerative disc disease Mar 25 2012 8:20AM Restless Leg Syndrome Mar 25 2012 8:20AM Back Pain Apr 16 2012 9:21AM Osteoarthritis Apr 16 2012 9:21AM Gastroesophageal Reflux Apr 16 2012 9:21AM Tobacco Abuse Apr 16 2012 9:21AM Vomiting Apr 26 2012 10:18AM L5-S1 HNP, Right Apr 27 2012 8:46AM Lumbar spondylosis Apr 27 2012 8:46AM Shortness Of Breath b 2012 9:36AM Chest Pain b 2012 9:36AM Gastroesophageal Reflux May 07 2012 9:36AM Shortness Of Breath b 2012 11:38AM Bipolar Disorder May 27 2012 11:33AM Left Bursitis Aug 11 2012 9:15AM Abscess Aug 27 2012 8:44AM Local Infection Sep 09 2012 8:20AM Allergic Rhinitis Sep 09 2012 8:20AM L5-S1 HNP, Right Sep 21 2012 8:19AM Lumbar spondylosis Sep 21 2012 8:19AM L5-S1 HNP, Right Oct 06 2012 8:12AM Lumbar spondylosis Oct 06 2012 8:12AM Joint Pain elbow Oct 06 2012 9:04AM Altered mental status Oct 22 2012 9:24AM Chronic Obstructive Pulmonary Disease Nov 25 2012 9:44AM Gastroesophageal Reflux Nov 25 2012 9:44AM Hypercholesterolemia Nov 25 2012 9:44AM Hypertension Nov 25 2012 9:44AM Lateral epicondylitis, Left Nov 25 2012 9:44AM Bipolar disorder, unspecified Jan 07 2013 10:40AM Chronic Obstructive Pulmonary Disease Jan 07 2013 10:40AM Gastroesophageal Reflux Jan 07 2013 10:40AM Hypercholesterolemia Jan 07 2013 10:40AM Hypertension Jan 07 2013 10:40AM Degenerative disc disease Jan 07 2013 10:40AM Restless Leg Syndrome Jan 07 2013 10:40AM Pressure ulcer; buttock Jan 07 2013 10:40AM Lateral epicondylitis, Left Jan 07 2013 10:40AM L5-S1 HNP, Right Jan 31 2013 9:53AM Lumbar spondylosis Jan 31 2013 9:53AM Subcutaneous Nodule Feb 03 2013 10:16AM Other benign neoplasm of connective and other soft tissue; pelvis Feb 09 2013 2:59PM Subcutaneous mass Feb 09 2013 2:59PM L5-S1 HNP, Right Feb 17 2013 10:59AM Lumbar spondylosis Feb 17 2013 10:59AM L5-S1 HNP, Right Mar 09 2013 8:30AM Lumbar spondylosis Mar 09 2013 8:30AM Scar Conditions And Fibrosis Of Skin Feb 28 2013 10:08AM L5-S1 HNP, Right Mar 31 2013 9:34AM Lumbar spondylosis Mar 31 2013 9:34AM Bipolar disorder, unspecified Apr 18 2013 2:03PM Chronic Obstructive Pulmonary Disease Apr 18 2013 2:03PM Gastroesophageal Reflux Apr 18 2013 2:03PM Hypercholesterolemia Apr 18 2013 2:03PM Hypertension Apr 18 2013 2:03PM Degenerative disc disease Apr 18 2013 2:03PM Restless Leg Syndrome Apr 18 2013 2:03PM Cellulitis, right hand Apr 18 2013 2:03PM Hoarseness Apr 18 2013 2:03PM Subcutaneous mass Apr 25 2013 10:40AM Chronic Obstructive Pulmonary Disease Apr 25 2013 10:40AM Hypertension Apr 25 2013 10:40AM Obesity Apr 25 2013 10:40AM Degenerative disc disease Apr 25 2013 10:40AM L5-S1 HNP, Right Apr 26 2013 10:33AM Lumbar spondylosis Apr 26 2013 10:33AM Post operative follow-up May 04 2013 11:06AM Postoperative Follow-up May 18 2013 10:33AM L5-S1 HNP, Right May 24 2013 10:09AM Lumbar spondylosis May 24 2013 10:09AM Eczema Jun 01 2013 11:33AM Shortness Of Breath Jun 13 2013 1:54PM Chronic Obstructive Pulmonary Disease Jun 13 2013 1:54PM Obstructive Sleep Apnea Jul 05 2013 3:18PM Insomnia Jul 05 2013 3:18PM L5-S1 HNP, Right Jul 22 2013 10:10AM Lumbar spondylosis Jul 22 2013 10:10AM Bipolar disorder, unspecified Jul 25 2013 9:32AM Chronic Obstructive Pulmonary Disease Jul 25 2013 9:32AM Gastroesophageal Reflux Jul 25 2013 9:32AM Constipation Jul 25 2013 9:32AM Costochondritis 2013 10:10AM L5-S1 HNP, Right Sep 07 2013 9:46AM Lumbar spondylosis Sep 07 2013 9:46AM Lumbar spondylosis Oct 04 2013 10:14AM Anxiety Oct 04 2013 10:14AM Bipolar disorder, unspecified Oct 04 2013 10:14AM Chronic Obstructive Pulmonary Disease Oct 04 2013 10:14AM Gastroesophageal Reflux Oct 04 2013 10:14AM Hypercholesterolemia Oct 04 2013 10:14AM Degenerative disc disease Oct 04 2013 10:14AM Restless Leg Syndrome Oct 04 2013 10:14AM L5-S1 HNP, Right Oct 05 2013 9:15AM Lumbar spondylosis Oct 05 2013 9:15AM L5-S1 HNP, Right Nov 03 2013 1:05PM Lumbar spondylosis Nov 03 2013 1:05PM L5-S1 HNP, Right Nov 16 2013 3:56PM Lumbar spondylosis Nov 16 2013 3:56PM Lumbar spinal stenosis Dec 01 2013 10:02AM Chronic pain syndrome Dec 01 2013 10:02AM Lumbago Dec 01 2013 10:02AM Colon cancer screening Jun 18 2016 1:48PM COPD (chronic obstructive pulmonary disease) Jun 18 2016 1:48PM Hypokalemia Sep 10 2016 2:23PM Kidney failure Sep 10 2016 2:23PM Diabetes 1.5, managed as type 2 Sep 10 2016 2:23PM Schizophrenia Sep 10 2016 2:23PM Obesity Sep 10 2016 2:23PM Osteoarthritis Sep 10 2016 2:23PM History of abnormal cervical Pap smear Sep 10 2016 2:23PM Shortness of breath Sep 16 2016 9:31AM Orthopnea Sep 16 2016 9:31AM COPD (chronic obstructive pulmonary disease) Sep 16 2016 9:31AM Edema Sep 16 2016 9:31AM Chronic systolic (congestive) heart failure Sep 23 2016 9:01AM COPD exacerbation Oct 07 2016 4:11PM Knee osteomyelitis, left Oct 08 2016 9:04AM Lumbar spondylolysis Oct 08 2016 9:04AM COPD (chronic obstructive pulmonary disease) Oct 08 2016 9:04AM Systolic heart failure Oct 08 2016 9:04AM Urinary frequency Nov 06 2016 9:12AM COPD (chronic obstructive pulmonary disease) Nov 06 2016 9:12AM CHF (congestive heart failure) Nov 06 2016 9:12AM HTN (hypertension) Nov 06 2016 9:12AM Chronic pain Nov 06 2016 9:12AM Osteopenia Nov 06 2016 9:12AM Small vessel disease Nov 06 2016 9:12AM Reduced mobility Nov 06 2016 9:12AM Encounter for drug therapy Nov 06 2016 9:12AM Osteoarthritis Dec 03 2016 3:57PM Morbid obesity Dec 03 2016 3:57PM COPD exacerbation Dec 17 2016 8:55AM Eczema Dec 17 2016 8:55AM Flu Vaccine Dec 17 2016 11:17AM Depression Dec 31 2016 1:24PM COPD (chronic obstructive pulmonary disease) Dec 31 2016 1:24PM Chronic pain Dec 31 2016 1:24PM Colon cancer screening Dec 31 2016 1:24PM Osteoporosis Dec 31 2016 1:24PM Chronic pain Feb 04 2017 8:30AM COPD exacerbation Feb 25 2017 1:39PM Acute upper respiratory infection, unspecified Feb 25 2017 1:39PM Other viral agents as the cause of diseases classified elsewhere Feb 25 2017 1:39PM Obesity Mar 03 2017 8:24AM Diabetes 1.5, managed as type 2 Mar 03 2017 8:24AM Hyperlipemia Mar 03 2017 8:24AM Essential hypertension Mar 03 2017 8:24AM Colon cancer screening Mar 03 2017 8:24AM Osteoporosis Mar 03 2017 8:24AM Pneumonia vaccine Mar 03 2017 3:40PM COPD exacerbation Apr 02 2017 9:38AM Constipation Apr 02 2017 9:38AM Chronic pain Apr 02 2017 9:38AM Chronic kidney disease (CKD) Apr 02 2017 9:38AM Advanced COPD Apr 29 2017 11:03AM Oxygen dependent Apr 29 2017 11:03AM Chronic pain Apr 29 2017 11:03AM Morbid obesity Apr 29 2017 11:03AM Peroneal neuropathy at knee, right May 06 2017 1:39PM Neuropathic pain May 06 2017 1:39PM CHF (congestive heart failure) May 13 2017 8:48AM COPD (chronic obstructive pulmonary disease) May 13 2017 8:48AM Essential hypertension May 13 2017 8:48AM Chronic pain May 13 2017 8:48AM COPD exacerbation May 26 2017 10:40AM End stage COPD May 26 2017 10:40AM Oxygen dependent May 26 2017 10:40AM COPD (chronic obstructive pulmonary disease) Jun 03 2017 9:42AM CHF (congestive heart failure) Jun 03 2017 9:42AM Essential hypertension Jun 03 2017 9:42AM Chronic pain Jun 03 2017 9:42AM COPD exacerbation Jun 12 2017 12:14PM Diabetes 1.5, managed as type 2 Jul 02 2017 9:22AM Psoriasis Jul 02 2017 9:22AM Essential hypertension Jul 02 2017 9:22AM Hyperlipemia Jul 02 2017 9:22AM COPD (chronic obstructive pulmonary disease) Jul 31 2017 10:02AM Constipation Jul 31 2017 10:02AM Essential hypertension Jul 31 2017 10:02AM Chronic pain Jul 31 2017 10:02AM COPD (chronic obstructive pulmonary disease) Aug 11 2017 9:56AM Oxygen dependent Aug 11 2017 9:56AM Chronic pain Aug 11 2017 9:56AM Chronic pain Aug 11 2017 10:58AM Cough Sep 04 2017 9:44AM Viral gastroenteritis Sep 04 2017 9:44AM COPD (chronic obstructive pulmonary disease) Sep 04 2017 9:44AM Chronic pain Sep 04 2017 9:44AM COPD (chronic obstructive pulmonary disease) Sep 15 2017 3:57PM Neuropathy Sep 15 2017 3:57PM RLS (restless legs syndrome) Sep 15 2017 3:57PM COPD (chronic obstructive pulmonary disease) Oct 15 2017 9:32AM Diabetes 1.5, managed as type 2 Oct 15 2017 9:32AM Microalbuminuria Oct 15 2017 9:32AM Chronic pain Oct 15 2017 9:32AM Neuropathy Oct 15 2017 9:32AM Breast cancer screening Oct 15 2017 9:32AM Controlled substance agreement signed Oct 15 2017 9:32AM COPD (chronic obstructive pulmonary disease) Oct 28 2017 3:25PM Osteoarthritis Oct 28 2017 3:25PM Acute kidney injury Nov 11 2017 9:50AM CKD (chronic kidney disease) Nov 11 2017 9:50AM COPD (chronic obstructive pulmonary disease) Nov 11 2017 9:50AM Leukocytosis Nov 11 2017 9:50AM Acute kidney injury Nov 13 2017 11:12AM Chronic kidney disease (CKD) Nov 13 2017 11:12AM Chronic Obstructive Pulmonary Disease Nov 13 2017 11:12AM Payers Insurance Name Company Name Plan Name Plan Number Policy Number Policy Group Number Start Date Medicare RHC Medicare RHC [id number] N/A [employer] - RHC [place] [employer] - [place] Plan [id number] N/A [employer] [place] [employer] [place] [id number] N/A Medicare Part A Medicare - Lab/Xray [id number] September Medicare Part B Medicare Of [place] [id number] N/A Medicare Part B [place] [id number] September [place] [employer] [place]g [id number] N/A Medicare Part A Medicare Part A [id number] September [facility] [id number] Monday, October 22, 2012 History of Encounters Visit Date Visit Type Provider 11/13/2017 Office visit Yeny Hilario REPRESENTATIVE 11/11/[address] Ping Mosqueda DO 10/28/[address] Ping Mosqueda DO 10/15/[address] Ping Mosqueda DO 09/15/[address] Ping Mosqueda DO 09/04/2017 [facility] Caesar Mosqueda MD 09/04/2017 Office visit 09/04/[address] Ping Mosqueda DO 08/11/[address] Ping Mosqueda DO 07/31/[address] Ping Mosqueda DO 07/02/[address] Ping Mosqueda DO 06/12/2017 Office visit Yeny Hilario REPRESENTATIVE 06/03/[address] Pign Mosqueda DO 05/26/[address] Ping Mosqueda DO 05/13/[address] Ping Mosqueda DO 05/07/2017 [facility] Bandar Levine MD 05/06/2017 Office visit Michelet Harper DO 04/29/[address] Ping Mosqueda DO 04/02/[address] Ping Mosqueda DO 03/03/[address] Ping Mosqueda DO 02/25/[address] Ping Mosqueda DO 12/31/[address] Ping Mosqueda DO 12/17/[address] Ping Mosqueda DO 12/03/[address] Ping Mosqueda DO 11/06/[address] Ping Mosqueda DO 10/08/[address] Ping Mosqueda DO 10/07/[address] Ping Mosqueda DO 10/06/2016 [facility] Bandar Levine MD 09/23/[address] Ping Mosqueda DO 09/16/[address] Ping Mosqueda DO 09/10/[address] Ping Mosqueda DO 09/02/2016 [facility] Caesar Mosqueda MD 09/02/2016 [facility] Bandar Levine MD 06/18/2016 Office visit Cesar Martínnati DO 07/24/2015 [facility] Bandar Levine MD 05/25/2015 [facility] Bandar Levine MD 09/11/2014 Hospital Cesar Bouman DO 09/10/2014 [facility] Bandar Levine MD 09/05/2014 Office visit Cesar Bouman DO 08/22/2014 Hospital Cesar Bouman DO 08/21/2014 Hospital Cesar Bouman DO 08/21/2014 Hospital Cesar Bouman DO 12/01/2013 Nurse visit Gianna OMER 11/16/2013 Office visit Gianna OMER 11/03/2013 Office visit Gianna OMER 10/05/2013 Office visit Gianna OMER 10/04/2013 Office visit Genesis Marie APRN 09/07/2013 Office visit Gianna OMER 2013 Office visit Genesis Marie APRN 07/25/2013 Office visit Genesis Marie APRN 07/22/2013 Office visit Gianna OMER 07/05/2013 Office visit Genesis Marie APRN 06/13/2013 Office visit Genesis Marie APRN 06/01/2013 Office visit Genesis Marie APRN 05/24/2013 Office visit Gianna OMER 05/18/2013 Office visit Angel Hand MD 05/04/2013 Office visit Angel Hand MD 04/28/2013 [facility] Angel Hand MD 04/26/2013 Office visit Sahara Ruiz MD 04/25/2013 [facility] Angel Hand MD 04/18/2013 Office visit Michael Fleming DO 03/31/2013 Office visit Gianna OMER 03/09/2013 Office visit Gianna OMER 02/28/2013 Office visit Angel Hand MD 02/17/2013 Office visit Gianna OMER 02/09/2013 Office visit Angel Hand MD 02/03/2013 Office visit Genesis Marie APRN 01/31/2013 Office visit Gianna OMER 01/07/2013 Office visit Michael Fleming DO 11/25/2012 Office visit Michael Fleming DO 10/22/2012 Office visit Genesis Marie REPRESENTATIVE 10/18/2012 [facility] Bhakti José MD 10/10/2012 [facility] Scarlett Austinfield DO 10/06/2012 Office visit Genesis Marie REPRESENTATIVE 10/06/2012 Office visit Pepe Herr MD 09/21/2012 [facility] Pepe Herr MD 09/21/2012 Office visit Pepe Herr MD 09/09/2012 Office visit Genesis Marie REPRESENTATIVE 08/27/2012 Office visit Genesis Marie REPRESENTATIVE 08/26/2012 [facility] Pepe Herr MD 08/11/2012 Office visit Genesis Marie REPRESENTATIVE 07/27/2012 [facility] Bhakti José MD 05/27/2012 Office visit Genesis Marie REPRESENTATIVE 05/07/2012 [facility] Bandar Levine MD 05/07/2012 Office visit Genesis Marie REPRESENTATIVE 05/06/2012 [facility] Pepe Herr MD 04/27/2012 Office visit Pepe Herr MD 04/16/2012 Office visit Genesis Marie REPRESENTATIVE 03/25/2012 Office visit Michael Fleming DO 10/07/2011 [facility] Pepe Herr MD 09/23/2011 [facility] Pepe Herr MD 09/09/2011 [facility] Pepe Herr MD 03/20/2011 [facility] Bandar Levine MD 05/28/2009 Office visit Pepe Herr MD
--- OUTSIDE RECORDS SUMMARY | 2017-12-10 09:58 | XMS REPORT ---
Author Author Yeny Hilario Organization [facility] Address [address] [place], [place] [id number] Care Team Providers Care Nurse Practitioner Per Diem Name Role Phone Yeny Hilario PCP Ping Mosqueda Unavailable Unavailable Ping Mosqueda PreferredProvider Allergies and Adverse Reactions Name Reaction Notes erythromycin Toradol Minocycline TETRACYCLINES SULFA (SULFONAMIDES) Keflex Zoloft [place] Carbonate benztropine iodine Shell Fish (shrimp, crayfish, [...] 06/24/2017 TAKE 1 TABLET BY MOUTH DAILY montelukast 10 mg oral tablet 08/05/2017 TAKE 1 TABLET BY MOUTH IN THE EVENING lisinopril 5 mg oral tablet 08/17/2017 TAKE [...] ORAL ROUTE ONCE DAILY FOR 30 DAYS Lyrica 50 mg oral capsule 10/15/2017 11/14/2017 take 1 capsule (50 mg) by oral route 3 times per day for 30 days Zyrtec 10 mg oral capsule 10/15/2017 11/14/2017 take 1 capsule by oral route daily for 30 days Flonase Allergy Relief 50 mcg/actuation nasal spray,suspension 10/15/201711/14 spray 1 spray (50 mcg) in each nostril by intranasal route once daily for 30 days Lasix 40 mg oral tablet 10/28/2017 TAKE 2 TABS IN AM AND 1 IN PM pravastatin 20 mg oral tablet 11/12/2017 TAKE 1 TABLET (20 MG) BY ORAL ROUTE ONCE DAILY AT BEDTIME FOR 90 DAYS prednisone 10 mg oral tablets,dose pack take as directed Mucinex oral Name Start Date Expiration Date SIG Comments [...] 72 hours for 30 days 12mcg patch [employer] oral tablet 10-325 mg 12/01/2013 01/30/2014 take [...] hrs PRN nausea every 6- 8 hrs Discontinued Name Start Date Discontinued Date SIG [...] route 3 times per day Flonase Nasal [place], Suspension 50 mcg/actuation 09/09/2012 10/22/2012 inhale 1 [...] take 1 tablet by mouth daily at HS Abilify oral tablet 10 mg 06/18/2016 take 1 [...] full glass (8 oz) of liquid Nasal [place] (sodium chloride) nasal aerosol,spray 0.65 % 06/18/2016 [...] oral route every 6 hours as needed [employer] 5-325 mg oral tablet 09/10/2016 take 1 [...] Reviewed 11/13/2017 12:00 AM COMPREHEN METABOLIC PANEL Returned 08/27/2012 12:00 AM Culture-Wound Reviewed 10/22/2012 12:00 [...] 0.09 #BASO 0.09 MANUAL DIFF NOT IND History Of Immunizations Name Date Admin Mfg Name Mfg Code Trade Name Lot# Route Inj Vis Given Vis Pub CVX Influenza 12/29/2012 Not Entered NE Not Entered Not Entered Not Entered 03/30/2018 03/30/2018 111 Influenza 12/17/2016 sanofi pasteur PMC FLUZONE [id number] Intramuscular Right Deltoid 12/17/2016 11/03/2014 135 Pneumococcal 03/03/2017 Merck & Co., Inc. MSD PNEUMOVAX 23 [id number] Intramuscular Left Arm 03/03/2017 07/21/2014 33 History [...] Apr 27 2012 8:46AM Shortness Of Breath May 07 2012 9:36AM Chest Pain May 07 2012 9:36AM Gastroesophageal Reflux May 07 2012 9:36AM Shortness Of Breath May 13 2012 11:38AM Bipolar Disorder May 27 2012 [...] Number Start Date Medicare RHC Medicare RHC [id number] N/A Amer[employer] [place] State [place] Amer[employer] [place] State Plan [id number] N/A Amer[employer] [place] [facility] [id number] N/A Medicare Part A Medicare - Lab/Xray [id number] September Medicare Part B Medicare Of [place] [id number] N/A Medicare Part B Medicare [place] [id number] September [place] [facility] [place] Prog [id number] N/A Medicare Part A Medicare Part A [id number] September [facility] [id number] Monday, October 22, 2012 History of Encounters Visit Date Visit Type Provider 11/13/2017 Office visit Yeny Hilario APRN 11/11/[address] Ping Mosqueda DO 10/28/[address] Ping Mosqueda DO 10/15/[address] Ping Mosqueda DO 09/15/[address] Ping Mosqueda DO 09/04/2017 [facility] Caesar Mosqueda MD 09/04/2017 Office visit 09/04/[address] Ping Mosqueda DO 08/11/[address] Ping Mosqueda DO 07/31/[address] Ping Mosqueda DO 07/02/[address] Ping Mosqueda DO 06/12/2017 Office visit Yeny ArreguinZac Boling BRAKE REPAIRER 06/03/[address] Ping Mosqueda DO 05/26/[address] Ping Mosqueda DO 05/13/[address] Ping Mosqueda DO 05/07/2017 [facility] Bandar Levine MD 05/06/2017 Office [...] Office visit Dr. Ping Mosqueda DO 10/06/2016 [facility] Bandar Levine MD 09/23/[address] Ping Mosqueda DO 09/16/[address] Ping Mosqueda DO 09/10/[address] Ping Mosqueda DO 09/02/2016 [facility] Caesar Mosqueda MD 09/02/2016 [facility] Bandar Levine MD 06/18/2016 Office visit Cesar Encarnacion DO 07/24/2015 [facility] Bandar Levine MD 05/25/2015 [facility] Bandar Levine MD 09/11/2014 [facility] Cesar Encarnacion DO 09/10/2014 [facility] Bandar Levine MD 09/05/2014 Office visit Cesar Encarnacion DO 08/22/2014 [facility] 08/21/2014 [facility] 08/21/2014 [facility] DO 12/01/2013 Nurse visit Gianna OMER 11/16/2013 Office visit Gianna OMER 11/03/2013 Office visit Gianna AMADORP 10/05/2013 Office visit Gianna AMADORP 10/04/2013 Office visit Genesis Marie BRAKE REPAIRER 09/07/2013 Office visit Gianna AMADORP 2013 Office visit Genesis Marie BRAKE REPAIRER 07/25/2013 Office visit Genesis Marie BRAKE REPAIRER 07/22/2013 Office visit Gianna AMADORP 07/05/2013 Office visit Genesis Marie BRAKE REPAIRER 06/13/2013 Office visit Genesis Marie BRAKE REPAIRER 06/01/2013 Office visit Genesis Marie BRAKE REPAIRER 05/24/2013 Office visit Gianna OMER 05/18/2013 Office visit Angel Hand MD 05/04/2013 Office visit Angel Hand MD 04/28/2013 [facility] Angel Hand MD 04/26/2013 Office visit Sahara Ruiz MD 04/25/2013 Procedures Angel Hand MD 04/18/2013 Office visit Michael [...] Fleming DO 10/22/2012 Office visit Genesis Marie APRN 10/18/2012 [facility] Bhakti José MD 10/10/2012 [facility] Scarlett Gunnmfield DO 10/06/2012 Office visit Genesis Marie APRN 10/06/2012 Office visit Pepe Herr MD 09/21/2012 [facility] Pepe Herr MD 09/21/2012 Office visit Pepe Herr MD 09/09/2012 Office visit Genesis Marie BRAKE REPAIRER 08/27/2012 Office visit Genesis Marie BRAKE REPAIRER 08/26/2012 [facility] Pepe Herr MD 08/11/2012 Office visit Genesis Marie BRAKE REPAIRER 07/27/2012 [facility] Bhakit José MD 05/27/2012 Office visit Genesis Marie BRAKE REPAIRER 05/07/2012 [facility] Bandar Levine MD 05/07/2012 Office visit Genesis Marie BRAKE REPAIRER 05/06/2012 [facility] Pepe Herr MD 04/27/2012 Office visit Pepe Herr MD 04/16/2012 Office visit Genesis Marie BRAKE REPAIRER 03/25/2012 Office visit Michael Fleming DO 10/07/2011 [facility] Pepe Herr MD 09/23/2011 [facility] Pepe Herr MD 09/09/2011 [facility] Pepe Herr MD 03/20/2011 [facility] Bandar Levine MD 05/28/2009 Office visit Pepe Herr MD
--- OUTSIDE RECORDS SUMMARY | 2017-12-10 10:00 | XMS REPORT ---
Author Author Ping Mosqueda [facility] Address [address] [place], [place] [id number] Care Team Providers Care Battery Vent Plug Inserter Name Role Phone Ping Mosqueda PCP Ping Mosqueda Unavailable Unavailable Ping Mosqueda PreferredProvider Allergies and Adverse Reactions Name Reaction Notes erythromycin Toradol Minocycline TETRACYCLINES SULFA (SULFONAMIDES) Keflex Zoloft [place] Carbonate benztropine iodine Shell Fish (shrimp, crayfish, [...] TABS IN AM AND 1 IN PM Name Start Date Expiration Date SIG Comments [...] 72 hours for 30 days 12mcg patch [place] oral tablet 10-325 mg 12/01/2013 01/30/2014 take [...] 2 times per day for 30 days pravastatin 20 mg oral tablet 07/08/2017 10/06/2017 take 1 tablet (20 mg) by oral route once daily at bedtime for 90 days metformin 500 mg oral tablet 07/08/2017 [...] route 3 times per day Flonase Nasal [place], Suspension 50 mcg/actuation 09/09/2012 10/22/2012 inhale 1 [...] full glass (8 oz) of liquid Nasal [place] (sodium chloride) nasal aerosol,spray 0.65 % 06/18/2016 [...] oral route every 6 hours as needed [place] 5-325 mg oral tablet 09/10/2016 take 1 [...] HC BMI BSA BMI Percentile O2 Sat(%) 11/11/2017 9:46:00 AM 142 mmHg 64 mmHg 111 bpm 20 rpm 97.9 F 254.5 lbs 60 in 49.7031 kg/m 2.2106 m 91 % 10/28/2017 3:19:00 PM 154 mmHg 62 mmHg 119 bpm 20 rpm 98.6 F 254.25 lbs 60 in 49.65 kg/m2 2.21 m2 92 % 10/15/2017 9:26:00 AM 144 mmHg 64 mmHg 103 bpm 18 rpm 98.4 F 253.375 lbs 60 in 49.4834 kg/m 2.2058 m 93 % 09/15/2017 3:52:00 PM 134 mmHg 68 mmHg 94 bpm 20 rpm 98.1 F 240 lbs 60 in 46.87 kg/m2 2.15 m2 94 % 09/04/2017 9:39:00 AM 164 mmHg 66 mmHg 115 bpm 22 rpm 98.8 F 251 lbs 60 in 49.0196 kg/m 2.1954 m 95 % 08/11/2017 9:51:00 AM 164 mmHg [...] rpm 97.2 F 230 lbs 60 in 44.92 kg/m2 2.10 m2 09/09/2012 8:18:00 AM 136 mmHg 70 mmHg 72 bpm 20 rpm 97.7 F 224.25 lbs 60 in 43.7954 kg/m 2.0751 m 08/27/2012 8:42:00 AM 142 mmHg 64 mmHg 72 bpm 18 rpm 98.4 F 222 lbs 60 in 43.36 kg/m2 2.06 m2 08/11/2012 9:12:00 AM 122 mmHg 64 mmHg 82 bpm 18 rpm 98.4 F 225 lbs 60 in 43.9418 kg/m 2.0786 m 96 % 05/27/2012 11:31:00 AM 136 mmHg 74 mmHg 107 bpm 18 rpm 97.8 F 230.062 lbs 60 in 44.93 kg/m2 2.10 m2 94 % 05/07/2012 9:34:00 AM 142 mmHg 68 mmHg 88 bpm 18 rpm 98.6 F 230.25 lbs 60 in 44.9672 kg/m 2.1027 m 04/27/2012 8:34:00 AM 144 mmHg 74 mmHg 78 bpm 18 rpm 96.1 F 233 lbs 60 in 45.50 kg/m2 2.12 m2 04/16/2012 9:19:00 AM 136 mmHg [...] drug screen collection Reviewed 12/17/2016 12:00 AM [facility] MEDICARE - flu vaccine administration Reviewed 12/17/2016 [...] 23 JUAN IM Reviewed 03/03/2017 12:00 AM [facility] MEDICARE - pneumonia vaccine administration Reviewed 05/13/2017 [...] RADIOLOGIC EXAM CHEST 2 VIEWS FRONTAL&LATERAL Returned 08/27/2012 12:00 AM Culture-Wound Reviewed 10/22/2012 [...] LDL (CALC) 106.0 mg/dLVITAMIN D 35.10 ng/mL History Of Immunizations Name Date Admin Mfg Name Mfg Code Trade Name Lot# Route Inj Vis Given Vis Pub CVX Influenza 12/29/2012 Not Entered NE Not Entered Not Entered Not Entered 03/30/2018 03/30/2018 111 Influenza 12/17/2016 sanofi [facility] FLUZONE [id number] Intramuscular Right Deltoid 12/17/2016 11/03/2014 135 Pneumococcal 03/03/2017 Merck & Co., Inc[employer] MSD PNEUMOVAX 23 [id number] Intramuscular Left Arm 03/03/2017 07/21/2014 33 History [...] 2017 11:03AM Peroneal neuropathy at knee, right Feb 7 2018 1:39PM Neuropathic pain May 06 2017 1:39PM [...] 2017 9:50AM Leukocytosis Nov 11 2017 9:50AM Payers Insurance Name Company Name Plan Name Plan Number Policy Number Policy Group Number Start Date Medicare RHC Medicare RHC [id number] N/A [employer] [place] Amer[employer] [place] [id number] N/A Amer[employer] [place] Amer[employer] [place] State Plan [id number] N/A Medicare Part A Medicare - Lab/Xray [id number] September Medicare Part B Medicare Of [place] [id number] N/A Medicare Part B Medicare [place] [id number] , September 27, 1998 [place] Medical Assistance [facility] Medical Assistance Prog [id number] N/A Medicare Part A Medicare Part A [id number] September [facility] [id number] Monday, October 22, 2012 History of Encounters Visit Date Visit Type Provider 11/11/[address] Ping Mosqueda DO 10/28/[address] Ping Mosqueda DO 10/15/[address] Ping Mosqueda DO 09/15/[address] Ping Mosqueda DO 09/04/2017 [facility] Caesar Mosqueda MD 09/04/2017 Office visit 09/04/[address] Ping Mosqueda DO 08/11/[address] Ping Mosqueda DO 07/31/[address] Ping Mosqueda DO 07/02/[address] Ping Mosqueda DO 06/12/2017 Office visit Yeny Hilario APRN 06/03/[address] Ping Mosqueda DO 05/26/[address] Ping Mosqueda DO 05/13/[address] Ping Mosqueda DO 05/07/2017 [facility] Bandar Levine MD 05/06/2017 Office visit Michelet [...] Office visit Dr. Ping Mosqueda DO 10/06/2016 [facility] Bandar Levine MD 09/23/[address] Pnig Mosqueda DO 09/16/[address] Ping Mosqueda DO 09/10/[address] Ping Mosqueda DO 09/02/2016 [facility] Caesar Mosqueda MD 09/02/2016 [facility] Bandar Levine MD 06/18/2016 Office visit Cesar Encarnacion DO 07/24/2015 [facility] Bandar Levine MD 05/25/2015 [facility] Bandar Levine MD 09/11/2014 [facility] DO 09/10/2014 [facility] Bandar Levine MD 09/05/2014 Office visit [facility] DO 08/22/2014 [facility] DO 08/21/2014 [facility] DO 08/21/2014 [facility] DO 12/01/2013 Nurse visit Gianna OMER 11/16/2013 Office visit Gianna OMER 11/03/2013 Office visit Gianna OMER 10/05/2013 Office visit Gianna OMER 10/04/2013 Office visit Genesis Marie ENVIRONMENTAL HEALTH SAFETY ENGINEER 09/07/2013 Office visit Gianna OMER 2013 Office visit Genesis Marie ENVIRONMENTAL HEALTH SAFETY ENGINEER 07/25/2013 Office visit Genesis Marie APRN 07/22/2013 Office visit Gianna OMER 07/05/2013 Office visit Genesis Marie APRN 06/13/2013 Office visit Genesis Marie APRN 06/01/2013 Office visit Genesis Marie ENVIRONMENTAL HEALTH SAFETY ENGINEER 05/24/2013 Office visit Gianna OMER 05/18/2013 Office visit Angel Hand MD 05/04/2013 Office visit Angel Hand MD 04/28/2013 Hospital Angel Hand MD 04/26/2013 Office visit Sahara Ruiz MD 04/25/2013 Procedures Angel Hand MD 04/18/2013 Office visit Michael Fleming DO 03/31/2013 Office visit Gianna AMADORP 03/09/2013 Office visit Gianna AMADORP 02/28/2013 Office visit Angel Hand MD 02/17/2013 Office visit Gianna AMADORP 02/09/2013 Office visit Angel Hand MD 02/03/2013 Office visit Genesis Marie ENVIRONMENTAL HEALTH SAFETY ENGINEER 01/31/2013 Office visit Gianna Mercer HOUSEKEEPING/LAUNDRY SUPERVISOR 01/07/2013 Office visit Michael Fleming DO 11/25/2012 Office visit Michael Fleming DO 10/22/2012 Office visit Genesis Marie ENVIRONMENTAL HEALTH SAFETY ENGINEER 10/18/2012 [facility] Bhakti José MD 10/10/2012 [facility] DO 10/06/2012 Office visit Genesis Marie ENVIRONMENTAL HEALTH SAFETY ENGINEER 10/06/2012 Office visit Pepe Herr MD 09/21/2012 [facility] Pepe Herr MD 09/21/2012 Office visit Pepe Herr MD 09/09/2012 Office visit Genesis Marie ENVIRONMENTAL HEALTH SAFETY ENGINEER 08/27/2012 Office visit Genesis Marie ENVIRONMENTAL HEALTH SAFETY ENGINEER 08/26/2012 [facility] Pepe Herr MD 08/11/2012 Office visit Genesis Marie ENVIRONMENTAL HEALTH SAFETY ENGINEER 07/27/2012 [facility] Bhakti José MD 05/27/2012 Office visit Genesis Marie ENVIRONMENTAL HEALTH SAFETY ENGINEER 05/07/2012 [facility] Bandar Levine MD 05/07/2012 Office visit Genesis Marie ENVIRONMENTAL HEALTH SAFETY ENGINEER 05/06/2012 [facility] Pepe Herr MD 04/27/2012 Office visit Pepe Herr MD 04/16/2012 Office visit Genesis Marie ENVIRONMENTAL HEALTH SAFETY ENGINEER 03/25/2012 Office visit Michael Fleming DO 10/07/2011 [facility] Pepe Herr MD 09/23/2011 [facility] Pepe Herr MD 09/09/2011 Hospital Pepe Herr MD 03/20/2011 [facility] Bandar Levine MD 05/28/2009 Office visit Pepe Herr MD
--- OUTSIDE RECORDS SUMMARY | 2017-12-10 10:03 | XMS REPORT ---
Author Author Ping Mosqueda [facility] Address [address] [place], [place] [id number] Care Team Providers Care Gas Well Pumper Name Role Phone Ping Mosqueda PCP Ping Mosqueda Unavailable Unavailable Ping Mosqueda PreferredProvider Allergies and Adverse Reactions Name Reaction Notes erythromycin Toradol Minocycline TETRACYCLINES SULFA (SULFONAMIDES) Keflex Zoloft [place] Carbonate benztropine iodine Shell Fish (shrimp, crayfish, lobster, crab) Plan of Treatment Planned Activity Comments Planned Date Planned Time Plan/Goal URINALYSIS ROUTINE C&S IF IND 11/06/2016 12:00 AM FOBT 1st specimen 12/31/2016 12:00 AM Fecal occult blood detection 03/03/2017 12:00 AM Urine microalbumin screen 03/03/2017 12:00 AM MAMMOGRAPHY SCREENING, BILATERAL 10/15/2017 12:00 AM CMP 11/11/2017 12:00 AM URINALYSIS ROUTINE C&S IF IND 11/11/2017 12:00 AM CBC W/ AUTO DIFF (RFLX MAN DIFF IF IND). 11/11/2017 12:00 AM LACTIC ACID. 11/11/2017 12:00 AM Chest PA and Lateral - MOB 11/11/2017 12:00 AM COPD 05/21/2017 9:30 AM Medications [...] 72 hours for 30 days 12mcg patch [place] oral tablet 10-325 mg 12/01/2013 01/30/2014 take [...] route 3 times per day Flonase Nasal [place], Suspension 50 mcg/actuation 09/09/2012 10/22/2012 inhale 1 [...] take 1 tablet by [facility] oral tablet 10 mg 06/18/2016 take 1 [...] full glass (8 oz) of liquid Nasal [place] (sodium chloride) nasal aerosol,spray 0.65 % 06/18/2016 [...] oral route every 6 hours as needed [place] 5-325 mg oral tablet 09/10/2016 take 1 [...] 23 JUAN IM Reviewed 03/03/2017 12:00 AM C MEDICARE - pneumonia vaccine administration Reviewed 05/13/2017 [...] 10/15/2017 12:00 AM GLYCOSYLATED HEMOGLOBIN TEST Returned 08/27/2012 12:00 AM Culture-Wound Reviewed 10/22/2012 [...] 111 Influenza 12/17/2016 sanofi pasteur PMC FLUZONE [id number] Intramuscular Right Deltoid 12/17/2016 11/03/2014 135 Pneumococcal 03/03/2017 [employer]ck [employer] Co[employer] MSD PNEUMOVAX 23 [id number] Intramuscular Left Arm 03/03/2017 07/21/2014 33 History [...] 2017 11:03AM Peroneal neuropathy at knee, right Fe2017 1:39PM Neuropathic pain May 06 2017 1:39PM [...] Number Start Date Medicare RHC Medicare RHC [id number] N/[place] [employer] [place] [employer] [place] [id number] N/[place] [employer] [employer] [place] [id number] N/A Medicare Part A Medicare - Lab/Xray [id number] September Medicare Part B Medicare Of [place] [id number] N/A Medicare Part B Medicare [place] [id number] , September 27, 1998 [place] Medical Assistance [facility] Medical Assistance Prog [id number] N/A Medicare Part A Medicare Part A [id number] [facility] [id number] Monday, October 22, 2012 History of Encounters Visit Date Visit Type Provider 11/11/[address] Ping Mosqueda DO 10/28/[address] Ping Mosqueda DO 10/15/[address] Ping Mosqueda DO 09/15/[address] Ping Mosqueda DO 09/04/2017 [facility] Caesar Mosqueda MD 09/04/2017 Office visit 09/04/[address] Ping Mosqueda DO 08/11/[address] Ping Mosqueda DO 07/31/[address] Ping Mosqueda DO 07/02/[address] Ping Mosqueda DO 06/12/2017 Office visit Yeny Hilario APRN 06/03/[address] Ping Mosqueda DO 05/26/[address] Ping Mosqueda DO 05/13/[address] Ping Mosqueda DO 05/07/2017 [facility] Bandar Levine MD 05/06/2017 Office visit Michelet Harper DO 04/29/[address] Ping Mosqueda DO 04/02/[address] Ping Mosqueda DO 03/03/[address] Ping Mosqueda DO 02/25/[address] Ping Mosqueda DO 12/31/[address] Pnig Mosqueda DO 12/17/[address] Ping Mosqueda DO 12/03/[address] Ping Mosqueda DO 11/06/[address] Ping Mosqueda DO 10/08/[address] Ping Mosqueda DO 10/07/[address] Ping Mosqueda DO 10/06/2016 [facility] Bandar Levine MD 09/23/[address] Ping Mosqueda DO 09/16/[address] Ping Mosqueda DO 09/10/[address] Ping Mosqueda DO 09/02/2016 [facility] Caesar Mosqueda MD 09/02/2016 [facility] Bandar Levine MD 06/18/2016 Office visit Cesar Encarnacion DO 07/24/2015 [facility] Bandar Levine MD 05/25/2015 [facility] Bandar Levine MD 09/11/2014 [facility] DO 09/10/2014 [facility] Bandar Levine MD 09/05/2014 Office visit [facility] DO 08/22/2014 [facility] DO 08/21/2014 [facility] DO 08/21/2014 [facility] DO 12/01/2013 Nurse visit Gianna OMER 11/16/2013 Office visit Gianna OMER 11/03/2013 Office visit Gianna OMER 10/05/2013 Office visit Gianna OMER 10/04/2013 Office visit Genesis Marie POST MANAGER 09/07/2013 Office visit Gianna OMER 2013 Office visit Genesis Marie POST MANAGER 07/25/2013 Office visit Genesis Marie APRN 07/22/2013 Office visit iGanna OMER 07/05/2013 Office visit Genesis Marie APRN [...] Hand MD 02/03/2013 Office visit Genesis Marie POST MANAGER 01/31/2013 Office visit Gianna AMADORP 01/07/2013 Office visit Michael Fleming DO 11/25/2012 Office visit Michael Fleming DO 10/22/2012 Office visit Genesis Marie POST MANAGER 10/18/2012 [facility] Bhakti José MD 10/10/2012 [facility] Scarlett Aramis DO 10/06/2012 Office visit Genesis Marie POST MANAGER 10/06/2012 Office visit Pepe Herr MD 09/21/2012 [facility] Pepe Herr MD 09/21/2012 Office visit Pepe Herr MD 09/09/2012 Office visit Genesis Marie POST MANAGER 08/27/2012 Office visit Genesis Marie POST MANAGER 08/26/2012 [facility] Pepe Herr MD 08/11/2012 Office visit Genesis Marie POST MANAGER 07/27/2012 [facility] Bhakti José MD 05/27/2012 Office visit Genesis Marie POST MANAGER 05/07/2012 [facility] Bandar Levine MD 05/07/2012 Office visit Genesis Marie POST MANAGER 05/06/2012 [facility] Pepe Herr MD 04/27/2012 Office visit Pepe Herr MD 04/16/2012 Office visit Genesis Marie POST MANAGER 03/25/2012 Office visit Michael Fleming DO 10/07/2011 [facility] Pepe Herr MD 09/23/2011 [facility] Pepe Herr MD 09/09/2011 [facility] Pepe Herr MD 03/20/2011 [facility] Bandar Levine MD 05/28/2009 Office visit Pepe Herr MD
--- OUTSIDE RECORDS SUMMARY | 2017-12-10 10:05 | XMS REPORT ---
Author Author Ping Mosqueda [facility] Address [address] [place], [place] [id number] Care Team Providers Care Chain Maker Hand Name Role Phone Ping Mosqueda PCP Ping Mosqueda Unavailable Unavailable Ping Mosqueda PreferredProvider Allergies and Adverse Reactions Name Reaction Notes erythromycin Toradol Minocycline TETRACYCLINES SULFA (SULFONAMIDES) Keflex Zoloft [place] Carbonate benztropine iodine Shell Fish (shrimp, crayfish, [...] oral route once daily for 90 days alendronate 70 mg oral tablet 05/13/2017 TAKE 1 TABLET BY MOUTH ONCE WEEKLY IN THE MORNING for 30 days mirtazapine 30 mg oral tablet 05/25/2017 take 1 tablet (30 mg) by oral route once daily before bedtime for 30 days Myrbetriq 25 mg oral tablet extended release 24 hr 06/24/2017 TAKE 1 TABLET BY MOUTH DAILY potassium chloride 20 mEq oral tablet extended release 07/08/2017 11/05/2017 TAKE 2 BY ORAL ROUTE ONCE DAILY WITH FOOD FOR 30 DAYS FOR 30 DAYS for 30 days amlodipine 5 mg oral tablet 07/08/2017 11/05/2017 take 1 tablet (5 mg) by oral route once daily for 30 days for 30 days montelukast 10 mg oral tablet 08/05/2017 TAKE 1 TABLET BY MOUTH IN THE EVENING lisinopril 5 mg oral tablet 08/17/2017 TAKE 1 TABLET (5 MG) BY ORAL ROUTE ONCE DAILY FOR 30 DAYS FOR 30 DAYS Colace 100 mg oral capsule 09/02/2017 TAKE 1 CAPSULE (100 MG) BY ORAL ROUTE ONCE DAILY AT BEDTIME NEEDED FOR 30 DAYS Lidoderm 5 % topical adhesive patch,medicated 09/04/2017 04/02/2018 apply 2 patches by transdermal route once daily (May wear up to 12hours.) for 30 days Myrbetriq 25 mg oral tablet extended release 24 hr 10/01/2017 TAKE 1 TABLET BY MOUTH DAILY amlodipine 5 mg oral tablet 10/09/2017 TAKE 1 TABLET (5 MG) BY ORAL ROUTE ONCE DAILY FOR 30 DAYS Lyrica 50 mg oral capsule 10/15/2017 11/14/2017 take 1 capsule (50 mg) by oral route 3 times per day for 30 days tramadol 50 mg oral tablet 10/15/2017 11/14/2017 Take 1 tab BID PRN severe pain Zyrtec 10 mg oral capsule 10/15/2017 11/14/2017 take 1 capsule by oral route daily for 30 days Flonase Allergy Relief 50 mcg/actuation nasal spray,suspension 10/15/201711/14 spray 1 spray (50 mcg) in each nostril by intranasal route once daily for 30 days Name Start Date Expiration Date SIG Comments [...] 72 hours for 30 days 12mcg patch [place] oral tablet 10-325 mg 12/01/2013 01/30/2014 take [...] oral route once daily for 7 days Lasix 40 mg oral tablet 05/18/2017 07/17/2017 TAKE 2 TABS IN AM AND 1 IN PM Colace 100 mg oral capsule 07/02/2017 08/01/2017 [...] tablet 07/08/2017 10/06/2017 take 1 tab daily Tessalon Perles 100 mg oral capsule 09/04/2017 [...] route 3 times per day Flonase Nasal [place], Suspension 50 mcg/actuation 09/09/2012 10/22/2012 inhale 1 [...] 1 tablet by mouth daily at HS Abilif oral tablet 10 mg 06/18/2016 take 1 [...] full glass (8 oz) of liquid Nasal [place] (sodium chloride) nasal aerosol,spray 0.65 % 06/18/2016 [...] oral route every 6 hours as needed [place] 5-325 mg oral tablet 09/10/2016 take 1 [...] oral route once daily for 5 days Augmentin 875-125 mg oral tablet 05/26/2017 [...] hours for 30 days Negative Drug test Problem List Description Status Onset Anxiety Active [...] HC BMI BSA BMI Percentile O2 Sat(%) 10/28/2017 3:19:00 PM 154 mmHg 62 mmHg [...] rpm 96.4 F 206 lbs 60 in 40.23 kg/m2 1.9889 m 94 % 04/26/2013 10:32:00 AM 142 mmHg 80 mmHg 56 bpm 16 rpm 97.9 F 203.125 lbs 60 in 39.6697 kg/m 1.97 m2 04/25/2013 10:38:00 AM 164 mmHg 82 mmHg 75 bpm 20 rpm 96.3 F 206 lbs 60 in 40.23 kg/m2 1.9889 m 94 % 04/18/2013 2:01:00 PM 136 mmHg 78 mmHg 80 bpm 16 rpm 98.1 F 206 lbs 60 in 40.2312 kg/m 1.99 m2 03/31/2013 9:26:00 AM 152 mmHg 84 mmHg 84 bpm 16 rpm 95.9 F 207 lbs 60 in 40.43 kg/m2 1.9937 m 03/09/2013 8:28:00 AM 124 mmHg 80 mmHg 84 bpm 18 rpm 98.2 F 207 lbs 60 in 40.4265 kg/m 1.99 m2 02/28/2013 10:07:00 AM 144 mmHg 74 mmHg 81 bpm 20 rpm 96.3 F 210 lbs 60 in 41.01 kg/m2 2.0081 m 95 % 02/17/2013 10:53:00 AM 124 mmHg 70 mmHg 82 bpm 18 rpm 97.6 F 207 lbs 60 in 40.4265 kg/m 1.99 m2 02/09/2013 2:51:00 PM 144 mmHg 84 mmHg 71 bpm 20 rpm 96 F 209 lbs 60 in 40.82 kg/m2 2.0033 m 94 % 02/03/2013 10:14:00 AM 138 mmHg 76 mmHg 99 bpm 18 rpm 98.8 F 209.25 lbs 60 in 40.8659 kg/m 2.00 m2 91 % 01/31/2013 9:36:00 AM 146 mmHg 82 mmHg 84 bpm 18 rpm 96.8 F 209 lbs 60 in 40.82 kg/m2 2.0033 m 01/07/2013 10:38:00 AM 136 mmHg 78 mmHg 78 bpm 20 rpm 97.8 F 207 lbs 60 in 40.4265 kg/m 1.99 m2 92 % 11/25/2012 9:42:00 AM 144 mmHg 78 mmHg 96 bpm 18 rpm 97.5 F 205 lbs 60 in 40.04 kg/m2 1.984 m 89 % 10/22/2012 9:20:00 AM [...] drug screen collection Reviewed 12/17/2016 12:00 AM [facility] MEDICARE - flu vaccine administration Reviewed [...] 23 JUAN IM Reviewed 03/03/2017 12:00 AM [facility] MEDICARE - pneumonia vaccine administration Reviewed [...] 111 Influenza 12/17/2016 sanofi pasteur PMC FLUZONE [id number] Intramuscular Right Deltoid 12/17/2016 11/03/2014 135 Pneumococcal 03/03/2017 Merck & [employer] Inc. MSD PNEUMOVAX 23 [id number] Intramuscular Left Arm 03/03/2017 07/21/2014 33 History of Past Illness Name Date of Onset Comments Anxiety Chronic Obstructive Pulmonary Disease Hypertension Obesity Bipolar disorder, unspecified Ovarian Cancer Gastroesophageal Reflux Hypercholesterolemia Mechanical pain of sacroiliac region (piriformis), other specified sites May 28 2009 1:39PM Cervicalgia May 28 2009 1:39PM Lumbago Mar 1 2010 1:39PM Muscle Spasm May 28 2009 1:39PM [...] Of Breath b 2012 9:36AM Chest Pain May 07 2012 [...] 2017 3:25PM Osteoarthritis Oct 28 2017 3:25PM Payers Insurance Name Company Name Plan Name Plan Number Policy Number Policy Group Number Start Date Medicare RHC Medicare RHC [id number] N/A Amer[employer] - [place] - [place] State Plan [facility] State Plan [id number] N/A [facility] [id number] N/A Medicare Part A Medicare - Lab/Xray [id number] September Medicare Part B Medicare Of [place] [id number] N/A Medicare Part B Medicare [place] [id number] September [place] Medical [place] Program [place] Prog [id number] N/A Medicare Part A Medicare Part A [id number] September Kandi Fowler [facility] [id number] Monday, October 22, 2012 History of Encounters Visit Date Visit Type Provider 10/28/[address] Ping Mosqueda DO 10/15/[address] Ping Mosqueda DO 09/15/[address] Ping Mosqueda DO 09/04/2017 [facility] Caesar Mosqueda MD 09/04/2017 Office visit 09/04/[address] Ping Mosqueda DO 08/11/[address] Ping Mosqueda DO 07/31/[address] Ping Mosqueda DO 07/02/[address] Ping Mosqueda DO 06/12/2017 Office visit Yeny Hilario APRN 06/03/[address] Ping Mosqueda DO 05/26/[address] Ping Mosqueda DO 05/13/[address] Ping Mosqueda DO 05/07/2017 [facility] Bandar Levine MD 05/06/2017 Office visit [...] Office visit Dr. Ping Mosqueda DO 10/06/2016 [facility] Bandar Levine MD 09/23/[address] Ping Mosqueda DO 09/16/[address] Ping Mosqueda DO 09/10/[address] Ping Mosqueda DO 09/02/2016 [facility] Caesar Mosqueda MD 09/02/2016 [facility] Bandar Levine MD 06/18/2016 Office visit Cesar Bonati DO 07/24/2015 Hospital Bandar Levine MD 05/25/2015 [facility] Bandar Levine MD 09/11/2014 [facility] Cesar Resendizuman DO 09/10/2014 [facility] Bandar Levine MD 09/05/2014 Office visit Cesar Bouman DO 08/22/2014 Hospital Cesar Bouman DO 08/21/2014 [facility] Cesar Bouman DO 08/21/2014 Hospital Cesar [...] 05/04/2013 Office visit Angel Hand MD 04/28/2013 [facility] Angel Hand MD 04/26/2013 Office visit [...] 10/22/2012 Office visit Genesis Marie APRN 10/18/2012 [facility] Bhakti José MD 10/10/2012 [facility] Scarlett Aramis DO 10/06/2012 Office visit Genesis Marie APRN 10/06/2012 Office visit Pepe Herr MD 09/21/2012 [facility] Pepe Herr MD 09/21/2012 Office visit Pepe Herr MD 09/09/2012 Office visit Genesis Marie SPINDLE SETTER 08/27/2012 Office visit Genesis Marie SPINDLE SETTER 08/26/2012 [facility] Pepe Herr MD 08/11/2012 Office visit Genesis Marie SPINDLE SETTER 07/27/2012 [facility] Bhakti José MD 05/27/2012 Office visit Genesis Marie SPINDLE SETTER 05/07/2012 [facility] Bandar Levine MD 05/07/2012 Office visit Genesis Marie SPINDLE SETTER 05/06/2012 [facility] Pepe Herr MD 04/27/2012 Office visit Pepe Herr MD 04/16/2012 Office visit Genesis Marie SPINDLE SETTER 03/25/2012 Office visit Michael Fleming DO 10/07/2011 [facility] Pepe Herr MD 09/23/2011 [facility] Pepe Herr MD 09/09/2011 [facility] Pepe Herr MD 03/20/2011 [facility] Bandar Levine MD 05/28/2009 Office visit Pepe Herr MD
--- OUTSIDE RECORDS SUMMARY | 2017-12-10 10:07 | XMS REPORT ---
Author Author Ping Mosqueda [facility] Address [address] [place], [place] [id number] Care Team Providers Care Chief Passenger Ship Steward/Stewardess Name Role Phone Ping Mosqueda PCP Ping Mosqueda Unavailable Unavailable Ping Mosqueda PreferredProvider Allergies and Adverse Reactions Name Reaction Notes erythromycin Toradol Minocycline TETRACYCLINES SULFA (SULFONAMIDES) Keflex Zoloft [place] Carbonate benztropine iodine Shell Fish (shrimp, crayfish, [...] 72 hours for 30 days 12mcg patch [place] oral tablet 10-325 mg 12/01/2013 01/30/2014 take [...] route 3 times per day Flonase Nasal [place], Suspension 50 mcg/actuation 09/09/2012 10/22/2012 inhale 1 [...] full glass (8 oz) of liquid Nasal [place] (sodium chloride) nasal aerosol,spray 0.65 % 06/18/2016 [...] oral route every 6 hours as needed [place] 5-325 mg oral tablet 09/10/2016 take 1 [...] HC BMI BSA BMI Percentile O2 Sat(%) 10/15/2017 9:26:00 AM 144 mmHg 64 mmHg [...] rpm 97.7 F 208 lbs 60 in 40.62 kg/m2 1.9985 m 2013 10:06:00 AM 122 mmHg 62 mmHg 76 bpm 18 rpm 98.5 F 204.5 lbs 60 in 39.9383 kg/m 1.98 m2 94 % 07/25/2013 9:29:00 AM 136 mmHg 68 mmHg 84 bpm 18 rpm 96.7 F 207.375 lbs 60 in 40.50 kg/m2 1.9955 m 95 % 07/22/2013 10:08:00 AM 152 mmHg 80 mmHg 72 bpm 16 rpm 96.9 F 207 lbs 60 in 40.4265 kg/m 1.99 m2 07/05/2013 3:15:00 PM 132 mmHg 68 mmHg 82 bpm 20 rpm 98 F 206.25 lbs 60 in 40.28 kg/m2 1.9901 m 94 % 06/13/2013 1:51:00 PM 140 mmHg 62 mmHg 93 bpm 18 rpm 98.8 F 206.375 lbs 60 in 40.3044 kg/m 1.99 m2 91 % 06/01/2013 11:30:00 AM 132 mmHg 64 mmHg 84 bpm 18 rpm 98 F 205 lbs 60 in 40.04 kg/m2 1.984 m 96 % 05/24/2013 10:00:00 AM 148 mmHg 80 mmHg 78 bpm 18 rpm 97.8 F 202.125 lbs 60 in 39.4744 kg/m 1.97 m2 05/18/2013 10:28:00 AM 120 mmHg [...] drug screen collection Reviewed 12/17/2016 12:00 AM [facility] - flu vaccine administration Reviewed 12/17/2016 [...] 23 JUAN IM Reviewed 03/03/2017 12:00 AM [facility] - pneumonia vaccine administration Reviewed 05/13/2017 [...] 111 Influenza 12/17/2016 sanofi pasteur PMC FLUZONE [id number] Intramuscular Right Deltoid 12/17/2016 11/03/2014 135 Pneumococcal 03/03/2017 Merck & Co[employer] Inc[employer] MSD PNEUMOVAX 23 [id number] Intramuscular Left Arm 03/03/2017 07/21/2014 33 History [...] substance agreement signed Oct 15 2017 9:32AM Payers Insurance Name Company Name Plan Name Plan Number Policy Number Policy Group Number Start Date Medicare RHC Medicare RHC [id number] N/A [employer] - [place] State Plan Amer[employer] - RHC [place] State Plan [id number] N/A [employer] [place] State Plan [facility] [id number] N/A Medicare Part A Medicare - Lab/Xray [id number] September Medicare Part B Medicare Of [place] [id number] N/A Medicare Part B Medicare [place] [id number] September [place] Medical Assistance Program [place] Medical Assistance Prog [id number] N/A Medicare Part A Medicare Part A [id number] September [facility] Hernandez [facility] [id number] Monday, October 22, 2012 History of Encounters Visit Date Visit Type Provider 10/15/[address] Ping Mosqueda DO 09/15/[address] Ping Mosqueda DO 09/04/2017 [facility] Caesar Mosqueda MD 09/04/2017 Office visit 09/04/[address] Ping Mosqueda DO 08/11/[address] Ping Mosqueda DO 07/31/[address] Ping Mosqueda DO 07/02/[address] Ping Mosqueda DO 06/12/2017 Office visit Yeny Hilario GLORIA 06/03/[address] Ping Mosqueda DO 05/26/[address] Ping Mosqueda DO 05/13/[address] Ping Mosqueda DO 05/07/2017 [facility] Bandar Levine MD 05/06/2017 Office visit [...] Office visit Dr. Ping Mosqueda DO 10/06/2016 [facility] Bandar Levine MD 09/23/[address] Ping Mosqueda DO 09/16/[address] Ping Mosqueda DO 09/10/[address] Ping Mosqueda DO 09/02/2016 [facility] Caesar Mosqueda MD 09/02/2016 Hospital Bandar Levine MD 06/18/2016 Office visit Cesar Encarnacion DO 07/24/2015 Hospital Bandar Levine MD 05/25/2015 Hospital Bandar Levine MD 09/11/2014 [facility] Cesar Encarnacion DO 09/10/2014 Hospital Bandar Levine MD 09/05/2014 Office visit Cesar Encarnacion DO 08/22/2014 [facility] DO 08/21/2014 [facility] DO 12/01/2013 Nurse visit Gianna OMER 11/16/2013 Office visit Gianna OMER 11/03/2013 Office visit Gianna OMER 10/05/2013 Office visit Gianna OMER 10/04/2013 Office visit Genesis Marie PAINT TECHNICIAN 09/07/2013 Office visit Gianna OMER 2013 Office visit Genesis Marie PAINT TECHNICIAN 07/25/2013 Office visit Genesis Marie PAINT TECHNICIAN 07/22/2013 Office visit Gianna AMADORP 07/05/2013 Office visit Genesis Marie PAINT TECHNICIAN 06/13/2013 Office visit Genesis Marie PAINT TECHNICIAN 06/01/2013 Office visit Genesis Marie PAINT TECHNICIAN 05/24/2013 Office visit Gianna OMER 05/18/2013 Office visit Angel Hand MD 05/04/2013 Office visit Angel Hand MD 04/28/2013 [facility] Angel Hand MD 04/26/2013 Office visit Sahara Ruiz MD 04/25/2013 [facility] Angel Hand MD 04/18/2013 Office visit Michael [...] 10/22/2012 Office visit Genesis Marie APRN 10/18/2012 [facility] Bhakti José MD 10/10/2012 [facility] DO 10/06/2012 Office visit Genesis Marie APRN 10/06/2012 Office visit Pepe Herr MD 09/21/2012 [facility] Pepe Herr MD 09/21/2012 Office visit Pepe Herr MD 09/09/2012 Office visit Genesis Marie APRN 08/27/2012 Office visit Genesis Marie APRN 08/26/2012 [facility] Pepe Herr MD 08/11/2012 Office visit Genesis Marie APRN 07/27/2012 [facility] Bhakti José MD 05/27/2012 Office visit Genesis Marie PAINT TECHNICIAN 05/07/2012 [facility] Bandar Levine MD 05/07/2012 Office visit Genesis Marie PAINT TECHNICIAN 05/06/2012 [facility] Pepe Herr MD 04/27/2012 Office visit Pepe Herr MD 04/16/2012 Office visit Genesis Marie PAINT TECHNICIAN 03/25/2012 Office visit Michael Fleming DO 10/07/2011 [facility] Pepe Herr MD 09/23/2011 [facility] Pepe Herr MD 09/09/2011 [facility] Pepe Herr MD 03/20/2011 [facility] Bandar Levine MD 05/28/2009 Office visit Pepe Herr MD
[2017-12-10] MEDS ORDERED: LACTATED RINGERS 1,000 ML IV ONE (10:08)
--- OUTSIDE RECORDS SUMMARY | 2017-12-10 10:10 | XMS REPORT ---
Author Author Ping Mosqueda [facility] Address [address] [place], [place] [id number] Care Team Providers Care Merchandising Stock Associate Name Role Phone Ping Mosqueda PCP Ping Mosqueda Unavailable Unavailable Ping Mosqueda PreferredProvider Allergies and Adverse Reactions Name Reaction Notes erythromycin Toradol Minocycline TETRACYCLINES SULFA (SULFONAMIDES) Keflex Zoloft [place] Carbonate benztropine iodine Shell Fish (shrimp, crayfish, lobster, crab) Plan of Treatment Planned Activity Comments Planned Date Planned Time Plan/Goal URINALYSIS ROUTINE C&S IF IND 11/06/2016 12:00 AM FOBT 1st specimen 12/31/2016 12:00 AM Fecal occult blood detection 03/03/2017 12:00 AM Urine microalbumin screen 03/03/2017 12:00 AM Urine Drug Screen 10/15/2017 12:00 AM CMP 10/15/2017 12:00 AM HEMOGLOBIN A1C 10/15/2017 12:00 AM MAMMOGRAPHY SCREENING, BILATERAL 10/15/2017 12:00 [...] 72 hours for 30 days 12mcg patch [place] oral tablet 10-325 mg 12/01/2013 01/30/2014 take [...] route 3 times per day Flonase Nasal [place], Suspension 50 mcg/actuation 09/09/2012 10/22/2012 inhale 1 [...] full glass (8 oz) of liquid Nasal [place] (sodium chloride) nasal aerosol,spray 0.65 % 06/18/2016 [...] oral route every 6 hours as needed [place] 5-325 mg oral tablet 09/10/2016 take 1 [...] drug screen collection Reviewed 12/17/2016 12:00 AM [facility] MEDICARE - flu vaccine administration Reviewed 12/17/2016 [...] 23 JUAN IM Reviewed 03/03/2017 12:00 AM [facility] MEDICARE - pneumonia vaccine administration Reviewed 05/13/2017 [...] 12:00 AM ASSAY OF LACTIC ACID Returned 08/27/2012 12:00 AM Culture-Wound Reviewed 10/22/2012 [...] 111 Influenza 12/17/2016 sanofi pasteur PMC FLUZONE [id number] Intramuscular Right Deltoid 12/17/2016 11/03/2014 135 Pneumococcal 03/03/2017 [employer]ck & Co[employer] MSD PNEUMOVAX 23 [id number] Intramuscular Left Arm 03/03/2017 07/21/2014 33 History [...] Number Start Date Medicare RHC Medicare RHC [id number] N/A [employer] [place] [employer] [place] State Plan [id number] N/A [employer] [place] State Plan [facility] [id number] N/A Medicare Part A Medicare - Lab/Xray [id number] September Medicare Part B Medicare Of [place] [id number] N/A Medicare Part B Medicare [place] [id number] September [place] Medical [place] Program [place] Medical [place] Prog [id number] N/A Medicare Part A Medicare Part A [id number] September Kandi Hernandezchristal [facility] [id number] Monday, October 22, 2012 History of Encounters Visit Date Visit Type Provider 10/15/[address] Ping Mosqueda DO 09/15/[address] Ping Mosqueda DO 09/04/2017 [facility] Caesar Mosqueda MD 09/04/2017 Office visit 09/04/[address] Ping Mosqueda DO 08/11/[address] Ping Mosqueda DO 07/31/[address] Ping Mosqueda DO 07/02/[address] Ping Mosqueda DO 06/12/2017 Office visit Yeny ArreguinZac Sulaiman GLORIA 06/03/[address] Ping Mosqueda DO 05/26/[address] Ping Mosqueda DO 05/13/[address] Ping Mosqueda DO 05/07/2017 [facility] Bandar Levine MD 05/06/2017 [...] Office visit Dr. Ping Mosqueda DO 10/06/2016 [facility] Bandar Levine MD 09/23/[address] Ping Mosqueda DO 09/16/[address] Ping Mosqueda DO 09/10/[address] Ping Mosqueda DO 09/02/2016 [facility] Caesar Mosqueda MD 09/02/2016 Hospital Bandar Levine MD 06/18/2016 Office visit Cesar Encarnacion DO 07/24/2015 Hospital Bandar Levine MD 05/25/2015 [facility] Bandar Levine MD 09/11/2014 [facility] Cesar Encarnacion DO 09/10/2014 [facility] Bandar Levine MD 09/05/2014 Office visit Cesar Encarnacion DO 08/22/2014 Hospital Cesar Encarnacion DO 08/21/2014 [facility] DO 12/01/2013 Nurse visit Gianna OMER 11/16/2013 Office visit Gianna OMER 11/03/2013 Office visit Gianna AMADORP 10/05/2013 Office visit Gianna OMER 10/04/2013 Office visit Genesis Marie INSTRUMENT LENS INSPECTOR 09/07/2013 Office visit Gianna AMADORP 2013 Office visit Genesis Marie INSTRUMENT LENS INSPECTOR 07/25/2013 Office visit Genesis Marie INSTRUMENT LENS INSPECTOR 07/22/2013 Office visit Gianna AMADORP 07/05/2013 Office visit Genesis Marie INSTRUMENT LENS INSPECTOR 06/13/2013 Office visit Genesis Marie INSTRUMENT LENS INSPECTOR 06/01/2013 Office visit Genesis Marei INSTRUMENT LENS INSPECTOR 05/24/2013 Office visit Gianna OMER 05/18/2013 Office visit Angel Hand MD 05/04/2013 Office visit Angel Hand MD 04/28/2013 [facility] Angel Hand MD 04/26/2013 Office visit Sahara Ruiz MD 04/25/2013 [facility] Angel Hand MD 04/18/2013 Office visit [...] 10/22/2012 Office visit Genesis Marie APRN 10/18/2012 [facility] Bhakti José MD 10/10/2012 [facility] DO 10/06/2012 Office visit Genesis Marie APRN 10/06/2012 Office visit Pepe Herr MD 09/21/2012 [facility] Pepe Herr MD 09/21/2012 Office visit Pepe Herr MD 09/09/2012 Office visit Genesis Marie APRN 08/27/2012 Office visit Genesis Marie APRN 08/26/2012 [facility] Pepe Herr MD 08/11/2012 Office visit Genesis Marie INSTRUMENT LENS INSPECTOR 07/27/2012 [facility] Bhakti José MD 05/27/2012 Office visit Genesis Marie INSTRUMENT LENS INSPECTOR 05/07/2012 [facility] Bandar Levine MD 05/07/2012 Office visit Genesis Marie INSTRUMENT LENS INSPECTOR 05/06/2012 [facility] Pepe Herr MD 04/27/2012 Office visit Pepe Herr MD 04/16/2012 Office visit Genesis Marie INSTRUMENT LENS INSPECTOR 03/25/2012 Office visit Michael Fleming DO 10/07/2011 [facility] Pepe Herr MD 09/23/2011 [facility] Pepe Herr MD 09/09/2011 [facility] Pepe Herr MD 03/20/2011 [facility] Bandar Levine MD 05/28/2009 Office visit Pepe Herr MD
--- OUTSIDE RECORDS SUMMARY | 2017-12-10 10:12 | XMS REPORT ---
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 Name Role Phone Ping Mosqueda PCP Ping Mosqueda Unavailable Unavailable Ping Mosqueda PreferredProvider Allergies and Adverse Reactions Name Reaction Notes erythromycin Toradol Minocycline TETRACYCLINES SULFA (SULFONAMIDES) Keflex Zoloft [place] Carbonate benztropine iodine Shell Fish (shrimp, crayfish, lobster, crab) Plan of Treatment Planned Activity Comments Planned Date Planned Time Plan/Goal URINALYSIS ROUTINE C&S IF IND 11/06/2016 12:00 AM FOBT 1st specimen 12/31/2016 12:00 AM Fecal occult blood detection 03/03/2017 12:00 AM Urine microalbumin screen 03/03/2017 12:00 AM COPD 05/21/2017 9:30 AM Medications [...] wear up to 12hours.) for 30 days Lyrica 50 mg oral capsule 09/15/2017 10/15/2017 take 1 capsule (50 mg) by oral route 3 times per day for 30 days Myrbetriq 25 mg oral tablet extended release 24 hr 10/01/2017 TAKE 1 TABLET BY MOUTH DAILY amlodipine 5 mg oral tablet 10/09/2017 TAKE 1 TABLET (5 MG) BY ORAL ROUTE ONCE DAILY FOR 30 DAYS Name Start Date Expiration Date SIG Comments [...] 72 hours for 30 days 12mcg patch [place] oral tablet 10-325 mg 12/01/2013 01/30/2014 take [...] tablet 07/08/2017 10/06/2017 take 1 tab daily tramadol 50 mg oral tablet 09/04/2017 10/04/2017 take 1 tablet by oral route Q12 hours PRN severe pain Kierra Perles 100 mg oral capsule 09/04/2017 09/11/2017 [...] route 3 times per day Flonase Nasal [place], Suspension 50 mcg/actuation 09/09/2012 10/22/2012 inhale 1 [...] full glass (8 oz) of liquid Nasal [place] (sodium chloride) nasal aerosol,spray 0.65 % 06/18/2016 [...] oral route every 6 hours as needed Yale 5-325 mg oral tablet 09/10/2016 take 1 [...] 23 JUAN IM Reviewed 03/03/2017 12:00 AM [facility] MEDIC[facility] - pneumonia vaccine administration Reviewed 05/13/2017 [...] 111 Influenza 12/17/2016 sanofi pasteur PMC FLUZONE [id number] Intramuscular Right Deltoid 12/17/2016 11/03/2014 135 Pneumococcal 03/03/2017 [employer] MSD PNEUMOVAX 23 [id number] Intramuscular Left Arm 03/03/2017 07/21/2014 33 History [...] (restless legs syndrome) Sep 15 2017 3:57PM Payers Insurance Name Company Name Plan Name Plan Number Policy Number Policy Group Number Start Date Medicare RHC Medicare RHC [id number] N/A [employer] [place] [employer] [place] [id number] N/A [employer] [place] [employer] [place] [id number] N/A Medicare Part A Medicare - Lab/Xray [id number] , September 27, 1998 Medicare Part B Medicare Of [place] [id number] N/A Medicare Part B [place] [id number] , September 27, 1998 [place] Medical Assistance [facility] Medical Assistance Prog [id number] N/A Medicare Part A Medicare Part A [id number] September [facility] [id number] Monday, October 22, 2012 History of Encounters Visit Date Visit Type Provider 10/15/[address] Ping Mosqueda DO 09/15/[address] Ping Mosqueda DO 09/04/2017 [facility] Caesar Mosqueda MD 09/04/2017 [...] Office visit Dr. Ping Mosqueda DO 05/07/2017 [facility] Bandar Levine MD 05/06/2017 [...] Office visit Dr. Ping Mosqueda DO 10/06/2016 [facility] Bandar Levine MD 09/23/[address] Ping Mosqueda DO 09/16/[address] Ping Mosqueda DO 09/10/[address] Ping Mosqueda DO 09/02/2016 [facility] Caesar Mosqueda MD 09/02/2016 [facility] Bandar Levine MD 06/18/2016 Office visit Cesar Encarnacion DO 07/24/2015 [facility] Bandar Levine MD 05/25/2015 [facility] Bandar Levine MD 09/11/2014 [facility] DO 09/10/2014 [facility] Bandar Levine MD 09/05/2014 [facility] 08/22/2014 [facility] DO 08/21/2014 [facility] DO 08/21/2014 [facility] DO 12/01/2013 Nurse visit Gianna OMER 11/16/2013 Office visit Gianna OMER 11/03/2013 Office visit Gianna OMER 10/05/2013 Office visit Gianna OMER 10/04/2013 Office visit Genesis Marie ENGINEER TECHNICAL STAFF 09/07/2013 Office visit Gianna OMER 2013 Office visit Genesis Marie ENGINEER TECHNICAL STAFF 07/25/2013 Office visit Genesis Marie ENGINEER TECHNICAL STAFF 07/22/2013 Office visit Gianna OMER 07/05/2013 Office visit Genesis Marie APRN 06/13/2013 Office visit Genesis Marie ENGINEER TECHNICAL STAFF 06/01/2013 Office visit Genesis Marie ENGINEER TECHNICAL STAFF 05/24/2013 Office visit Gianna OMER 05/18/2013 Office [...] Hand MD 02/03/2013 Office visit Genesis Marie ENGINEER TECHNICAL STAFF 01/31/2013 Office visit Gianna AMADORP 01/07/2013 Office visit Michael Fleming DO 11/25/2012 Office visit Michael Fleming DO 10/22/2012 Office visit Genesis Marie ENGINEER TECHNICAL STAFF 10/18/2012 [facility] Bhakti José MD 10/10/2012 [facility] DO 10/06/2012 Office visit Genesis Marie ENGINEER TECHNICAL STAFF 10/06/2012 Office visit Pepe Herr MD 09/21/2012 [facility] Pepe Herr MD 09/21/2012 Office visit Pepe Herr MD 09/09/2012 Office visit Genesis Marie ENGINEER TECHNICAL STAFF 08/27/2012 Office visit Genesis Marie ENGINEER TECHNICAL STAFF 08/26/2012 [facility] Pepe Herr MD 08/11/2012 Office visit Genesis Marie ENGINEER TECHNICAL STAFF 07/27/2012 [facility] Bhakti José MD 05/27/2012 Office visit Genesis Marie ENGINEER TECHNICAL STAFF 05/07/2012 [facility] Bandar Levine MD 05/07/2012 Office visit Genesis Marie ENGINEER TECHNICAL STAFF 05/06/2012 [facility] Pepe Herr MD 04/27/2012 Office visit Pepe Herr MD 04/16/2012 Office visit Genesis Marie ENGINEER TECHNICAL STAFF 03/25/2012 Office visit Michael Fleming DO 10/07/2011 [facility] Pepe Herr MD 09/23/2011 [facility] Pepe Herr MD 09/09/2011 [facility] Pepe Herr MD 03/20/2011 [facility] Bandar Levine MD 05/28/2009 Office visit Pepe Herr MD
--- OUTSIDE RECORDS SUMMARY | 2017-12-10 10:14 | XMS REPORT ---
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 Name Role Phone Ping Mosqueda PCP Ping Mosqueda Unavailable Unavailable Ping Mosqueda PreferredProvider Allergies and Adverse Reactions Name Reaction Notes erythromycin Toradol Minocycline TETRACYCLINES SULFA (SULFONAMIDES) Keflex Zoloft [place] Carbonate benztropine iodine Shell Fish (shrimp, crayfish, lobster, crab) Plan of Treatment Planned Activity Comments Planned Date Planned Time Plan/Goal URINALYSIS ROUTINE C&S IF IND 11/06/2016 12:00 AM FOBT 1st specimen 12/31/2016 12:00 AM Medications Active Name Start Date Estimated Completion Date SIG Comments triamcinolone acetonide topical cream 0.1 % 06/01/2013 apply a thin layer to the affected area(s) by topical route 2 times per day Geodon 40 mg oral capsule take 2 in the AM and 3 at 5pm Lyrica 75 mg oral capsule take one TID mirtazapine 15 mg oral tablet take 1 tablet (15 mg) by oral route once daily before bedtime lamotrigine 150 mg oral tablet take 1 tablet (150 mg) by oral route 2 times per day Bevespi Aerosphere 9-4.8 mcg inhalation HFA aerosol inhaler inhale 2 puffs by inhalation route 2 times per day in the morning and evening amlodipine 5 mg oral tablet 10/08/2016 02/05/2017 take 1 tablet (5 mg) by oral route once daily for 30 days simvastatin 10 mg oral tablet 10/17/2016 TAKE 1 TABLET BY MOUTH EVERY NIGHT AT BEDTIME mirtazapine 15 mg oral tablet 10/17/2016 TAKE 1 1/2 TABLET BY MOUTH EVERY NIGHT AT BEDTIME Lasix 40 mg oral tablet 11/06/2016 01/05/2017 Take 1 tab in AM and 2in PM Aspir-81 81 mg oral tablet,delayed release (DR/EC) 11/06/2016 02/04/2017 take 1 tablet (81 mg) by oral route once daily for 90 days duloxetine 30 mg oral capsule,delayed release(DR/EC) 11/06/2016 02/04/2017 take 1 capsule (30 mg) by oral route once daily for 90 days Zocor 10 mg oral tablet 11/06/2016 02/04/2017 take 1 tablet (10 mg) by oral route once daily in the evening for 90 days Colace 100 mg oral capsule 11/06/2016 02/04/2017 take 1 capsule (100 mg) by oral route 2 times per day for 90 days Myrbetriq 25 mg oral tablet extended release 24 hr 11/17/2016 TAKE 1 TABLET BY MOUTH DAILY Aquaphilic topical ointment 12/03/2016 apply to affected area by external route 2 times a day for 30 days fentanyl 25 mcg/hr transdermal patch 72 hour 12/03/2016 01/02/2017 apply 1 patch (25 mcg/hour) by transdermal route every 72 hours for 30 days potassium chloride 20 mEq oral tablet extended release 12/03/2016 take 2 by oral route once daily with food for 30 days alendronate 70 mg oral tablet 12/05/2016 01/02/2017 TAKE 1 TABLET BY MOUTH ONCE WEEKLY IN THE MORNING Levaquin 500 mg oral tablet 12/17/2016 take 1 tablet (500 mg) by oral route once daily for 5 days Singulair 10 mg oral tablet 12/26/2016 03/26/2017 take 1 tablet (10 mg) by oral route once daily in the evening for 30 days Name Start Date Expiration [...] 72 hours for 30 days 12mcg patch [place] oral tablet 10-325 mg 12/01/2013 01/30/2014 take [...] oral route once daily for 30 days metformin 500 mg oral tablet 10/01/2016 12/30/2016 take 1 tablet (500 mg) by oral route 2 times per day with morning and evening meals for 30 days Tylenol 325 mg oral tablet 10/08/2016 11/07/2016 May take up to 4000mg /day as needed for pain Seroquel 50 mg oral tablet 10/27/2016 11/26/2016 take 1 tablet (50 mg) by oral route daily for 30 days Discontinued Name Start [...] route 3 times per day Flonase Nasal [place], Suspension 50 mcg/actuation 09/09/2012 10/22/2012 inhale 1 [...] full glass (8 oz) of liquid Nasal [place] (sodium chloride) nasal aerosol,spray 0.65 % 06/18/2016 [...] oral route every 6 hours as needed [place] 5-325 mg oral tablet 09/10/2016 take 1 [...] by oral route 3 times per day furosemide 40 mg oral tablet 11/21/2016 12/03/2016 TAKE 1 1/2 TABLETS BY MOUTH TWICE DAILY Problem List Description Status Onset Anxiety Active Bipolar disorder, unspecified Active Chronic Obstructive Pulmonary Disease Active Gastroesophageal Reflux Active Hypercholesterolemia Active Hypertension Active Ovarian Cancer Active Obesity Active Degenerative disc disease Active Restless Leg Syndrome Active Other benign neoplasm of connective and other soft tissue; pelvis Active L5-S1 HNP, 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/07/2013 lumbar spondylosis Active 09/07/2013 Colon cancer screening Active 06/18/2016 COPD (chronic obstructive pulmonary disease) Active 06/18/2016 Schizophrenia Active 09/10/2016 Kidney failure Active 09/10/2016 CHF (congestive heart failure) Active 09/23/2016 Chronic systolic congestive heart failure Active 09/23/2016 Vital Signs Date Time BP-Sys(mm[Hg] BP-Mary(mm[Hg]) HR(bpm) RR(rpm) Temp WT HT HC BMI BSA BMI Percentile O2 Sat(%) 12/31/2016 1:20:00 PM 141 mmHg 73 mmHg 101 bpm 20 rpm 99.1 F 253 lbs 60 in 49.41 kg/m2 2.20 m2 92 % 12/17/2016 8:53:00 AM 110 mmHg 60 mmHg 98 bpm 20 rpm 98.8 F 257.375 lbs 60 in 50.2646 kg/m 2.2231 m 92 % 12/03/2016 3:50:00 PM 134 mmHg 60 mmHg 97 bpm 20 rpm 99.6 F 261.5 lbs 91 % 11/06/2016 9:03:00 AM 142 mmHg 64 mmHg 32 bpm 102 rpm 97.4 F 263.25 lbs 86 % 10/08/2016 9:02:00 AM 122 mmHg 62 mmHg 98 bpm 20 rpm 99.2 F 261 lbs 60 in 50.97 kg/m2 2.24 m2 94 % 10/07/2016 4:05:00 PM 130 mmHg 64 mmHg 106 bpm 24 rpm 99.3 F 261 lbs 60 in 50.9725 kg/m 2.2387 m 88 % 09/23/2016 8:54:00 AM 131 mmHg [...] rpm 98 F 261 lbs 60 in 50.97 kg/m2 2.2387 m 88 % 06/18/2016 1:22:00 PM 118 mmHg 57 mmHg 79 bpm 20 rpm 98.1 F 255 lbs 60 in 49.8008 kg/m 2.21 m2 09/05/2014 11:09:00 AM 118 mmHg [...] lbs 60 in 40.23 kg/m2 1.99 m2 94 % 04/26/2013 10:32:00 AM 142 mmHg 80 mmHg 56 bpm 16 rpm 97.9 F 203.125 lbs 60 in 39.6697 kg/m 1.975 m 04/25/2013 10:38:00 AM 164 mmHg 82 mmHg 75 bpm 20 rpm 96.3 F 206 lbs 60 in 40.23 kg/m2 1.99 m2 94 % 04/18/2013 2:01:00 PM 136 mmHg 78 mmHg 80 bpm 16 rpm 98.1 F 206 lbs 60 in 40.2312 kg/m 1.9889 m 03/31/2013 9:26:00 AM 152 mmHg 84 mmHg 84 bpm 16 rpm 95.9 F 207 lbs 60 in 40.43 kg/m2 1.99 m2 03/09/2013 8:28:00 AM 124 mmHg 80 mmHg 84 bpm 18 rpm 98.2 F 207 lbs 60 in 40.4265 kg/m 1.9937 m 02/28/2013 10:07:00 AM 144 mmHg 74 mmHg 81 bpm 20 rpm 96.3 F 210 lbs 60 in 41.01 kg/m2 2.01 m2 95 % 02/17/2013 10:53:00 AM 124 mmHg 70 mmHg 82 bpm 18 rpm 97.6 F 207 lbs 60 in 40.4265 kg/m 1.9937 m 02/09/2013 2:51:00 PM 144 mmHg 84 mmHg 71 bpm 20 rpm 96 F 209 lbs 60 in 40.82 kg/m2 2.00 m2 94 % 02/03/2013 10:14:00 AM 138 mmHg 76 mmHg 99 bpm 18 rpm 98.8 F 209.25 lbs 60 in 40.8659 kg/m 2.0045 m 91 % 01/31/2013 9:36:00 AM 146 mmHg 82 mmHg 84 bpm 18 rpm 96.8 F 209 lbs 60 in 40.82 kg/m2 2.00 m2 01/07/2013 10:38:00 AM 136 mmHg 78 mmHg 78 bpm 20 rpm 97.8 F 207 lbs 60 in 40.4265 kg/m 1.9937 m 92 % 11/25/2012 9:42:00 AM 144 mmHg 78 mmHg 96 bpm 18 rpm 97.5 F 205 lbs 60 in 40.04 kg/m2 1.98 m2 89 % 10/22/2012 9:20:00 AM 110 mmHg [...] rpm 98.1 F 239 lbs 60 in 46.68 kg/m2 2.14 m2 95 % 05/28/2009 1:32:00 PM 132 mmHg 62 mmHg 102 bpm 20 rpm 95.6 F 204 lbs Social History Name Description Comments lives alone in a apartment recieving Social Security Disability x 10 years High school graduate Cigarette smoking Former 11/06/2016 - quit 10 years ago Has never used alcohol Denies illicit substance [...] SPLT PRSRV FREE INC ANTIGEN IM Reviewed 04/26/2012 12:00 AM COMPLETE CBC W/AUTO DIFF [...] 05/13/2012 12:00 AM COMPREHEN METABOLIC PANEL Reviewed 08/27/2012 [...] negative WBC Est Ur Ql Strip negative History Of Immunizations Name Date Admin Mfg Name Mfg Code Trade Name Lot# Route Inj Vis Given Vis Pub CVX Influenza 12/29/2012 Not Entered NE Not Entered Not Entered Not Entered 03/30/2016 03/30/2016 111 Influenza 12/17/2016 sanofi pasteur PMC Fluzone [id number] Intramuscular Right Deltoid 12/17/2016 11/03/2014 135 History of Past Illness Name Date of [...] liters at home Colon cancer screening 06/18/2016 COPD (chronic obstructive pulmonary disease) 06/18/2016 Schizophrenia 09/10/2016 Kidney failure 09/10/2016 CHF (congestive heart failure) 09/23/2016 Chronic systolic congestive heart failure 09/23/2016 Bipolar disorder, unspecified Mar 25 2012 8:20AM [...] 2016 1:24PM Osteoporosis Dec 31 2016 1:24PM Payers Insurance Name Company Name Plan Name Plan Number Policy Number Policy Group Number Start Date Medicare RHC Medicare RHC [id number] N/A [employer] [place] [employer] [place] [id number] N/[place] [employer] [place] [employer] [place] [id number] N/A Medicare Part A Medicare - Lab/Xray [id number] September Medicare Part B Medicare Of [place] [id number] N/A Medicare Part B Medicare [place] [id number] September [place] Medical Assistance Program [place] Medical Assistance Prog [id number] N/A Medicare Part A Medicare Part A [id number] September [facility] [id number] Monday, October 22, 2012 History of Encounters Visit Date Visit Type Provider 12/31/[address] Ping Mosqueda DO 12/17/[address] Ping Mosqueda DO 12/03/[address] Ping Mosqueda DO 11/06/[address] Ping Mosqueda DO 10/08/[address] Ping Mosqueda DO 10/07/[address] Ping Mosqueda DO 10/06/2016 [facility] Bandar Levine MD 09/23/2016 [facility]2014 [facility] Cesar Bouman DO 09/10/2014 [facility] Bandar Levine MD 09/05/2014 Office visit Cesar Bouman DO 08/22/2014 [facility] Cesar Bouman DO 08/21/2014 [facility] Cesar Bouman DO 08/21/2014 [facility] Cesar Bouman DO 12/01/2013 Nurse visit Gianna [...] Hand MD 02/03/2013 Office visit Genesis Marie [employer] [address] 01/31/2013 Office visit Gianna MZac OMER 01/07/2013 Office visit Michael Fleming DO 11/25/2012 Office visit Michael Fleming DO 10/22/2012 Office visit Genesis Marie [employer] 10/18/2012 [facility] Bhakti José MD 10/10/2012 [facility] 10[facility] Office visit Genesis Marie [address] 10/06/2012 Office visit Pepe Herr MD 09/21/2012 [facility] Pepe Herr MD 09/21/2012 Office visit Pepe Herr MD 09/09/2012 Office visit Genesis Marie [address] 08/27/2012 Office visit Genesis Marie [address] 08/26/2012 [facility] Pepe Herr MD 08/11/2012 Office visit Genesis Marie [address] 07/27/2012 [facility] Bhakti José MD 05/27/2012 Office visit Genesis Marie [address] 05/07/2012 [facility] Bandar Levine MD 05/07/2012 Office visit Genesis Marie [address] 05/06/2012 [facility] Pepe Herr MD 04/27/2012 Office visit Pepe Herr MD 04/16/2012 Office visit Genesis Marie [address] 03/25/2012 Office visit Michael Fleming DO 10/07/2011 [facility] Pepe Herr MD 09/23/2011 [facility] Pepe Herr MD 09/09/2011 [facility] Pepe Herr MD 03/20/2011 [facility] Bandar Levine MD 05/28/2009 Office visit Pepe Herr MD
--- OUTSIDE RECORDS SUMMARY | 2017-12-10 10:16 | XMS REPORT ---
Author Author Ping Mosqueda [facility] Address [address] [place], [place] [id number] Care Team Providers Care Materials Associate Name Role Phone Ping Mosqueda PCP Ping Mosqueda Unavailable Unavailable Ping Mosqueda PreferredProvider Allergies and Adverse Reactions Name Reaction Notes erythromycin Toradol Minocycline TETRACYCLINES SULFA (SULFONAMIDES) Keflex Zoloft [place] Carbonate benztropine iodine Shell Fish (shrimp, crayfish, lobster, crab) Plan of Treatment Planned Activity Comments Planned Date Planned Time Plan/Goal URINALYSIS ROUTINE C&S IF IND 11/06/2016 12:00 AM FOBT 1st specimen 12/31/2016 12:00 AM Fecal occult blood detection 03/03/2017 12:00 AM Urine microalbumin screen 03/03/2017 12:00 AM ECHO 2D Complete - Adult 05/13/2017 12:00 AM Medications Active Name Start Date [...] per day in the morning and evening Aquaphilic topical ointment 12/03/2016 apply to affected area by external route 2 times a day for 30 days amlodipine 5 mg oral tablet 02/06/2017 06/06/2017 take 1 tablet (5 mg) by oral route once daily for 30 days Myrbetriq 25 mg oral tablet extended release 24 hr 02/17/2017 05/18/2017 TAKE 1 TABLET BY MOUTH DAILY pravastatin 20 mg oral tablet 02/25/2017 take 1 tablet (20 mg) by oral route once daily at bedtime for 90 days duloxetine 30 mg oral capsule,delayed release(DR/EC) 02/25/2017 take 1 capsule (30 mg) by oral route once daily for 90 days montelukast 10 mg oral tablet 04/01/2017 07/30/2017 TAKE 1 TABLET BY MOUTH IN THE EVENING prednisone 20 mg oral tablet 04/16/2017 take 2 tablets (40 mg) by oral route once daily for 7 days fentanyl 25 mcg/hr transdermal patch 72 hour 04/29/2017 05/29/2017 apply 1 patch (25 mcg/hour) by transdermal route every 72 hours for 30 days alendronate 70 mg oral tablet 05/13/2017 TAKE 1 TABLET BY MOUTH ONCE WEEKLY IN THE MORNING for 30 days Lasix 40 mg oral tablet 05/13/2017 Take 2 tabs in AM and 1 in PM Lyrica 75 mg oral capsule 05/13/2017 06/12/2017 take 1 capsule by oral route 2 times a day for 30 days metformin 500 mg oral tablet 05/13/2017 take 1 tab daily mirtazapine 30 mg oral tablet 05/13/2017 take 1 tablet (30 mg) by oral route once daily before bedtime for 30 days potassium chloride 20 mEq oral tablet extended release 05/13/2017 take 2 by oral route once daily with food for 30 days Lidoderm 5 % topical adhesive patch,medicated 05/13/2017 apply 2 patches by transdermal route once daily (May wear up to 12hours.) for 30 days Name Start Date Expiration [...] 72 hours for 30 days 12mcg patch [place] oral tablet 10-325 mg 12/01/2013 01/30/2014 take [...] daily in the evening for 90 days Singulair 10 mg oral tablet 12/26/2016 03/26/2017 take 1 tablet (10 mg) by oral route once daily in the evening for 30 days Calcium 500 + D (D3) 500 mg(1,250mg) -125 unit oral tablet 03/03/20172017 take 1 tablet by oral route 2 times a day for 30 days Discontinued Name Start Date [...] route 3 times per day Flonase Nasal [place], Suspension 50 mcg/actuation 09/09/2012 10/22/2012 inhale 1 [...] full glass (8 oz) of liquid Nasal [place] (sodium chloride) nasal aerosol,spray 0.65 % 06/18/2016 [...] oral route every 6 hours as needed [place] 5-325 mg oral tablet 09/10/2016 take 1 [...] 1 1/2 TABLETS BY MOUTH TWICE DAILY Colace 100 mg oral capsule 01/28/2017 03/03/2017 take 1 capsule (100 mg) by oral route 2 times per day for 90 days prednisone 20 mg oral tablet 02/25/2017 03/03/2017 take 2 tablets (40 mg) by oral route once daily for 5 days Levaquin 500 mg oral tablet 02/25/2017 03/03/2017 take 1 tablet (500 mg) by oral route once daily for 5 days Problem List Description Status Onset Anxiety Active [...] HC BMI BSA BMI Percentile O2 Sat(%) 05/13/2017 8:45:00 AM 178 mmHg 64 mmHg 118 bpm 20 rpm 98.8 F 253.5 lbs 60 in 49.51 kg/m2 2.21 m2 93 % 05/06/2017 1:34:00 PM 120 mmHg 60 mmHg 105 bpm 99.5 F 253 lbs 93 % 04/29/2017 10:59:00 AM 138 mmHg 70 mmHg 118 bpm 20 rpm 99.5 F 253.5 lbs 60 in 49.5078 kg/m 2.21 m2 91 % 04/02/2017 9:33:00 AM 158 mmHg 79 mmHg 105 bpm 20 rpm 98.3 F 253.125 lbs 60 in 49.43 kg/m2 2.2047 m 94 % 03/03/2017 8:20:00 AM 170 mmHg 84 mmHg 90 bpm 20 rpm 98.7 F 248.25 lbs 60 in 48.4825 kg/m 2.18 m2 98 % 02/25/2017 1:34:00 PM 153 mmHg 73 mmHg 91 bpm 20 rpm 99.1 F 257 lbs 60 in 50.19 kg/m2 2.2215 m 88 % 12/31/2016 1:20:00 PM 141 mmHg 73 mmHg 101 bpm 20 rpm 99.1 F 253 lbs 60 in 49.4102 kg/m 2.20 m2 92 % 12/17/2016 8:53:00 AM 110 mmHg 60 mmHg 98 bpm 20 rpm 98.8 F 257.375 lbs 60 in 50.26 kg/m2 2.2231 m 92 % 12/03/2016 3:50:00 PM 134 mmHg 60 mmHg 97 bpm 20 rpm 99.6 F 261.5 lbs 91 % 11/06/2016 9:03:00 AM 142 mmHg 64 mmHg 32 bpm 102 rpm 97.4 F 263.25 lbs 86 % 10/08/2016 9:02:00 AM 122 mmHg 62 mmHg 98 bpm 20 rpm 99.2 F 261 lbs 60 in 50.9725 kg/m 2.24 m2 94 % 10/07/2016 4:05:00 PM 130 mmHg 64 mmHg 106 bpm 24 rpm 99.3 F 261 lbs 60 in 50.97 kg/m2 2.2387 m 88 % 09/23/2016 8:54:00 AM [...] F 212 lbs 60 in 41.403 kg/m 2.02 m2 11/03/2013 12:56:00 PM 124 mmHg 62 mmHg 80 bpm 18 rpm 96.6 F 215 lbs 60 in 41.99 kg/m2 2.0319 m 10/05/2013 9:11:00 AM 140 mmHg 76 mmHg 84 bpm 16 rpm 98.4 F 217 lbs 60 in 42.3795 kg/m 2.04 m2 10/04/2013 10:12:00 AM 132 mmHg 68 mmHg 93 bpm 18 rpm 96.8 F 215.125 lbs 60 in 42.01 kg/m2 2.0325 m 96 % 09/07/2013 9:40:00 AM 132 mmHg 76 mmHg 88 bpm 20 rpm 97.7 F 208 lbs 60 in 40.6218 kg/m 2.00 m2 2013 10:06:00 AM 122 mmHg 62 mmHg 76 bpm 18 rpm 98.5 F 204.5 lbs 60 in 39.94 kg/m2 1.9816 m 94 % 07/25/2013 9:29:00 AM 136 mmHg 68 mmHg 84 bpm 18 rpm 96.7 F 207.375 lbs 60 in 40.4997 kg/m 2.00 m2 95 % 07/22/2013 10:08:00 AM 152 mmHg 80 mmHg 72 bpm 16 rpm 96.9 F 207 lbs 60 in 40.43 kg/m2 1.9937 m 07/05/2013 3:15:00 PM 132 mmHg 68 mmHg 82 bpm 20 rpm 98 F 206.25 lbs 60 in 40.28 kg/m 1.99 m2 94 % 06/13/2013 1:51:00 PM 140 mmHg 62 mmHg 93 bpm 18 rpm 98.8 F 206.375 lbs 60 in 40.30 kg/m2 1.9907 m 91 % 06/01/2013 11:30:00 AM 132 mmHg 64 mmHg 84 bpm 18 rpm 98 F 205 lbs 60 in 40.0359 kg/m 1.98 m2 96 % 05/24/2013 10:00:00 AM 148 mmHg 80 mmHg 78 bpm 18 rpm 97.8 F 202.125 lbs 60 in 39.47 kg/m2 1.9701 m 05/18/2013 10:28:00 AM 120 mmHg 60 mmHg [...] F 222.375 lbs 60 in 43.4292 kg/m 2.07 m2 09/21/2012 8:12:00 AM 150 mmHg 72 mmHg 82 bpm 16 rpm 97.2 F 230 lbs 60 in 44.92 kg/m2 2.1015 m 09/09/2012 8:18:00 AM 136 mmHg 70 mmHg [...] RHC MEDICARE - pneumonia vaccine administration Reviewed 04/26/2012 12:00 AM COMPLETE CBC W/AUTO [...] 4.65 HGB 14.20 g/dLHCT 42.70 %MCV 92.0 [facility] 30.50 [facility] 33.30 g/dLRDW SD 50 RDW CV 14.70 [...] NE Not Entered Not Entered Not Entered 03/30/2017 03/30/2017 111 Influenza 12/17/2016 sanofi pasteur PMC Fluzone [id number] Intramuscular Right Deltoid 12/17/2016 11/03/2014 135 Pneumococcal 03/03/2017 Merck [employer] MSD Pneumovax 23 [id number] Intramuscular Left Arm 03/03/2017 07/21/2014 33 History [...] Renal impairment Chronic kidney disease (CKD) 04/02/2017 Bipolar disorder, unspecified Mar 25 2012 8:20AM [...] 8:48AM Chronic pain May 13 2017 8:48AM Payers Insurance Name Company Name Plan Name Plan Number Policy Number Policy Group Number Start Date Medicare RHC Medicare [facility] [id number] N/A [employer] - [facility] - [place] State Plan [employer] - [facility] [place] State Plan [id number] N/A [employer]igroup [place] State [facility] [id number] N/A Medicare Part A Medicare - Lab/Xray [id number] September Medicare Part B Medicare Of [place] [id number] N/A Medicare Part B Medicare Of [place] [id number] September [place] Medical Assistance [facility] Medical Assistance Pro [id number] N/A Medicare Part A Medicare Part A [id number] September Kandi Fowler [facility] [id number] Monday, October 22, 2012 History of Encounters Visit Date Visit Type Provider 05/13/[address] Ping Mosqueda DO 05/06/2017 Office visit Michelet Harper DO 04/29/2017 [...] Office visit Dr. Ping Mosqueda DO 10/06/2016 [facility] Bandar Levine MD 09/23/[address] Ping Mosqueda DO 09/16/[address] Ping Mosqueda DO 09/10/[address] Ping Mosqueda DO 09/02/2016 [facility] Caesar Mosqueda MD 09/02/2016 Hospital Bandar Levine MD 06/18/2016 Office visit Cesar Encarnacion DO 07/24/2015 Hospital Bandar Levine MD 05/25/2015 [facility] Bandar Levine MD 09/11/2014 Hospital Cesar Encarnacion DO 09/10/2014 [facility] Bandar Levine MD 09/05/2014 Office visit Cesar Encarnacion DO 08/22/2014 [facility] Cesar Encarnacion DO 08/21/2014 Hospital Cesar Encarnacion DO 08/21/2014 [facility] Cesar Encarnacion DO 12/01/2013 Nurse visit Gianna OMER 11/16/2013 Office visit Gianna OMER 11/03/2013 Office visit Gianna OMER 10/05/2013 Office visit Gianna AMADORP 10/04/2013 Office visit Genesis Marie PERITONEAL DIALYSIS REGISTERED NURSE 09/07/2013 Office visit Gianna AMADORP 2013 Office visit Genesis Marie PERITONEAL DIALYSIS REGISTERED NURSE 07/25/2013 Office visit Genesis Marie PERITONEAL DIALYSIS REGISTERED NURSE 07/22/2013 Office visit Gianna AMADORP 07/05/2013 Office visit Genesis Marie PERITONEAL DIALYSIS REGISTERED NURSE 06/13/2013 Office visit Genesis Marie PERITONEAL DIALYSIS REGISTERED NURSE 06/01/2013 Office visit Genesis Marie PERITONEAL DIALYSIS REGISTERED NURSE 05/24/2013 Office visit Gianna OMER 05/18/2013 Office visit Angel Hand MD 05/04/2013 Office visit Angel Hand MD 04/28/2013 [facility] Angel Hand MD 04/26/2013 Office visit Sahara Ruiz MD 04/25/2013 Procedures Angel Hand MD 04/18/2013 Office visit Michael Fleming DO 03/31/2013 Office visit Gianna OMER 03/09/2013 Office visit Gianna OMER 02/28/2013 Office visit Angel Hand MD 02/17/2013 Office visit Gianna OMER 02/09/2013 Office visit Angel Hand MD 02/03/2013 Office visit Genesis Marie PERITONEAL DIALYSIS REGISTERED NURSE 01/31/2013 Office visit Gianna OMER 01/07/2013 Office visit Michael Fleming DO 11/25/2012 Office visit Michael Fleming DO 10/22/2012 Office visit Genesis Marie APRN 10/18/2012 [facility] Bhakti José MD 10/10/2012 [facility] 10/06/2012 Office visit Genesis Marie PERITONEAL DIALYSIS REGISTERED NURSE 10/06/2012 Office visit Pepe Herr MD 09/21/2012 [facility] Pepe Herr MD 09/21/2012 Office visit Pepe Herr MD 09/09/2012 Office visit Genesis Marie PERITONEAL DIALYSIS REGISTERED NURSE 08/27/2012 Office visit Genesis Marie PERITONEAL DIALYSIS REGISTERED NURSE 08/26/2012 [facility] Pepe Herr MD 08/11/2012 Office visit Genesis Marie APRN 07/27/2012 [facility] Bhakti José MD 05/27/2012 Office visit Genesis Marie PERITONEAL DIALYSIS REGISTERED NURSE 05/07/2012 [facility] Bandar Levine MD 05/07/2012 Office visit Genesis Marie PERITONEAL DIALYSIS REGISTERED NURSE 05/06/2012 [facility] Pepe Herr MD 04/27/2012 Office visit Pepe Herr MD 04/16/2012 Office visit Genesis Marie PERITONEAL DIALYSIS REGISTERED NURSE 03/25/2012 Office visit Michael Fleming DO 10/07/2011 [facility] Pepe Herr MD 09/23/2011 [facility] Pepe Herr MD 09/09/2011 [facility] Pepe Herr MD 03/20/2011 [facility] Bandar Levine MD 05/28/2009 Office visit Pepe Herr MD
--- OUTSIDE RECORDS SUMMARY | 2017-12-10 10:18 | XMS REPORT ---
Author Author Ping Mosqueda [facility] Address [address] [place], [place] [id number] Care Team Providers Care Gore Stitcher Name Role Phone Ping Mosqueda PCP Ping Mosqueda Unavailable Unavailable Ping Mosqueda PreferredProvider Allergies and Adverse Reactions Name Reaction Notes erythromycin Toradol Minocycline TETRACYCLINES SULFA (SULFONAMIDES) Keflex Zoloft [place] Carbonate benztropine iodine Shell Fish (shrimp, crayfish, lobster, crab) Plan of Treatment Planned Activity Comments Planned Date Planned Time Plan/Goal URINALYSIS ROUTINE C&S IF IND 11/06/2016 12:00 AM FOBT 1st specimen 12/31/2016 12:00 AM Fecal occult blood detection 03/03/2017 12:00 AM Urine microalbumin screen 03/03/2017 12:00 AM Urine microalbumin screen 07/02/2017 12:00 AM HEMOGLOBIN A1C 07/02/2017 12:00 AM Medications Active Name Start Date [...] 1 TABLET BY MOUTH IN THE EVENING alendronate 70 mg oral tablet 05/13/2017 TAKE 1 TABLET BY MOUTH ONCE WEEKLY IN THE MORNING for 30 days metformin 500 mg oral tablet 05/13/2017 take 1 tab daily Lidoderm 5 % topical adhesive patch,medicated 05/14/2017 apply 2 patches by transdermal route once daily (May wear up to 12hours.) for 30 days Lasix 40 mg oral tablet 05/18/2017 07/17/2017 TAKE 2 TABS IN AM AND 1 IN PM potassium chloride 20 mEq oral tablet extended release 05/20/2017 07/19/2017 TAKE 2 BY ORAL ROUTE ONCE DAILY WITH FOOD FOR 30 DAYS FOR 30 DAYS mirtazapine 30 mg oral tablet 05/25/2017 take 1 tablet (30 mg) by oral route once daily before bedtime for 30 days pravastatin 20 mg oral tablet 05/26/2017 take 1 tablet (20 mg) by oral route once daily at bedtime for 90 days amlodipine 5 mg oral tablet 06/10/2017 take 1 tablet (5 mg) by oral route once daily for 30 days Lyrica 75 mg oral capsule 06/10/2017 07/10/2017 take 1 capsule by oral route 2 times a day for 30 days Myrbetriq 25 mg oral tablet extended release 24 hr 06/24/2017 TAKE 1 TABLET BY MOUTH DAILY fentanyl 25 mcg/hr transdermal patch 72 hour 07/02/2017 08/01/2017 apply 1 patch (25 mcg/hour) by transdermal route every 72 hours for 30 days lisinopril 5 mg oral tablet 07/02/2017 08/31/2017 take 1 tablet (5 mg) by oral route once daily for 30 days Colace 100 mg oral capsule 07/02/2017 08/01/2017 take 1 capsule (100 mg) by oral route once daily at bedtime as needed for 30 days triamcinolone acetonide 0.5 % topical cream 07/02/2017 08/31/2017 apply a thin layer to the affected area(s) by topical route 2 times per day for 30 days Bevespi Aerosphere 9-4.8 mcg inhalation HFA aerosol inhaler 07/02/20172017 inhale 2 puffs by inhalation route 2 times per day in the morning and evening for 30 days Name Start Date [...] 72 hours for 30 days 12mcg patch [place] oral tablet 10-325 mg 12/01/2013 01/30/2014 take [...] oral route once daily for 7 days Discontinued Name Start Date Discontinued Date [...] route 3 times per day Flonase Nasal [place], Suspension 50 mcg/actuation 09/09/2012 10/22/2012 inhale 1 [...] full glass (8 oz) of liquid Nasal [place] (sodium chloride) nasal aerosol,spray 0.65 % 06/18/2016 [...] oral route every 6 hours as needed [place] 5-325 mg oral tablet 09/10/2016 take 1 [...] oral route once daily for 7 days Problem List Description Status Onset Anxiety [...] HC BMI BSA BMI Percentile O2 Sat(%) 07/02/2017 9:16:00 AM 152 mmHg 74 mmHg 114 bpm 20 rpm 98.4 F 261 lbs 60 in 50.9725 kg/m 2.2387 m 92 % 06/12/2017 12:10:00 PM 160 mmHg 76 mmHg 109 bpm 24 rpm 97.5 F 254 lbs 60 in 49.61 kg/m2 2.21 m2 95 % 06/03/2017 9:39:00 AM 158 mmHg 70 mmHg 105 bpm 18 rpm 97.8 F 251.25 lbs 60 in 49.0684 kg/m 2.1965 m 92 % 05/26/2017 10:36:00 AM 174 mmHg 72 mmHg 110 bpm 20 rpm 97.6 F 257.5 lbs 60 in 50.29 kg/m2 2.22 m2 92 % 05/13/2017 8:45:00 AM 178 mmHg 64 mmHg 118 bpm 20 rpm 98.8 F 253.5 lbs 60 in 49.5078 kg/m 2.2063 m 93 % 05/06/2017 1:34:00 PM 120 mmHg [...] drug screen collection Reviewed 12/17/2016 12:00 AM [facility] MEDICARE - flu vaccine administration Reviewed 12/17/2016 [...] 23 JUAN IM Reviewed 03/03/2017 12:00 AM [facility] MEDICARE - pneumonia vaccine administration Reviewed 05/13/2017 [...] 03/30/2017 111 Influenza 12/17/2016 sanofi pasteur PMC FLUZONE [id number] Intramuscular Right Deltoid 12/17/2016 11/03/2014 135 Pneumococcal 03/03/2017 Merck & Co[employer] MSD PNEUMOVAX 23 [id number] Intramuscular Left Arm 03/03/2017 07/21/2014 33 History [...] 2017 9:22AM Hyperlipemia Jul 02 2017 9:22AM Payers Insurance Name Company Name Plan Name Plan Number Policy Number Policy Group Number Start Date Medicare RHC Medicare RHC [id number] N/A [employer] - [place] State Plan [employer] - [facility] [place] State Plan [id number] N/A [employer] [place] State Plan [facility] [id number] N/A Medicare Part A Medicare - Lab/Xray [id number] September Medicare Part B Medicare Of [place] [id number] N/A Medicare Part B Medicare Of [place] [id number] September [place] Medical Assistance [facility] Medical Assistance Prog [id number] N/A Medicare Part A Medicare Part A [id number] September [facility] Hernandez [facility] [id number] Monday, October 22, 2012 History of Encounters Visit Date Visit Type Provider 07/02/[address] Ping Mosqueda DO 06/12/2017 Office visit Yeny ArreguinZac Hilario APRN 06/03/[address] Ping Mosqueda DO 05/26/[address] Ping Mosqueda DO 05/13/[address] Ping Mosqueda DO 05/07/2017 [facility] Bandar Levine MD 05/06/2017 Office visit [...] Office visit Dr. Ping Mosqueda DO 10/06/2016 [facility] Bandar Levine MD 09/23/[address] Ping Mosqueda DO 09/16/[address] Ping Mosqueda DO 09/10/[address] Ping Mosqueda DO 09/02/2016 [facility] Caesar Mosqueda MD 09/02/2016 [facility] Bandar Levine MD 06/18/2016 Office visit Cesar Encarnacion DO 07/24/2015 Hospital Bandar Levine MD 05/25/2015 [facility] Bandar Levine MD 09/11/2014 [facility] 09/10/2014 [facility] Bandar Levine MD 09/05/2014 Office visit Cesar Encarnacion DO 08/22/2014 [facility] Cesar Encarnacion DO 08/21/2014 [facility] 08/21/2014 [facility] visit Gianna OMER 11/16/2013 Office visit Ginana OMER 11/03/2013 Office visit Gianna OMER 10/05/2013 [...] 05/04/2013 Office visit Angel Hand MD 04/28/2013 [facility] Angel Hand MD 04/26/2013 Office visit Sahara Ruiz MD 04/25/2013 [facility] Angel Hand MD 04/18/2013 Office visit [...] 10/22/2012 Office visit Genesis Marie APRN 10/18/2012 [facility] Bhakti José MD 10/10/2012 [facility] DO 10/06/2012 Office visit Genesis Marie APRN 10/06/2012 Office visit Pepe Herr MD 09/21/2012 [facility] Pepe Herr MD 09/21/2012 Office visit Pepe Herr MD 09/09/2012 Office visit Genesis Marie SURTASS ANALYST 08/27/2012 Office visit Genesis Marie SURTASS ANALYST 08/26/2012 [facility] Pepe Herr MD 08/11/2012 Office visit Genesis Marie SURTASS ANALYST 07/27/2012 [facility] Bhakti José MD 05/27/2012 Office visit Genesis Marie SURTASS ANALYST 05/07/2012 [facility] Bandar Levine MD 05/07/2012 Office visit Genesis Marie SURTASS ANALYST 05/06/2012 [facility] Pepe Herr MD 04/27/2012 Office visit Pepe Herr MD 04/16/2012 Office visit Genesis Marie SURTASS ANALYST 03/25/2012 Office visit Michael Fleming DO 10/07/2011 [facility] Pepe Herr MD 09/23/2011 [facility] Pepe Herr MD 09/09/2011 [facility] Pepe Herr MD 03/20/2011 [facility] Bandar Levine MD 05/28/2009 Office visit Pepe Herr MD
--- OUTSIDE RECORDS SUMMARY | 2017-12-10 10:20 | XMS REPORT ---
Author Author Yeny Hilario Organization [facility] Address [address] [place], [place] [id number] Care Team Providers Care Bingo Usher Name Role Phone Yeny Hilario PCP Ping Mosqueda Unavailable Unavailable Ping Mosqueda PreferredProvider Allergies and Adverse Reactions Name Reaction Notes erythromycin Toradol Minocycline TETRACYCLINES SULFA (SULFONAMIDES) Keflex Zoloft [place] Carbonate benztropine iodine Shell Fish (shrimp, crayfish, lobster, crab) Plan of Treatment Planned Activity Comments Planned Date Planned Time Plan/Goal URINALYSIS ROUTINE C&S IF IND 11/06/2016 12:00 AM FOBT 1st specimen 12/31/2016 12:00 AM Fecal occult blood detection 03/03/2017 12:00 AM Urine microalbumin screen 03/03/2017 12:00 AM Medications Active Name Start Date [...] once daily at bedtime for 90 days fentanyl 25 mcg/hr transdermal patch 72 hour 06/03/2017 07/03/2017 apply 1 patch (25 mcg/hour) by transdermal route every 72 hours for 30 days amlodipine 5 mg oral tablet 06/10/2017 take 1 tablet (5 mg) by oral route once daily for 30 days Lyrica 75 mg oral capsule 06/10/2017 07/10/2017 take 1 capsule by oral route 2 times a day for 30 days Levaquin 500 mg oral tablet 06/12/2017 06/19/2017 take 1 tablet (500 mg) by oral route once daily for 7 days Name Start Date Expiration Date SIG [...] 72 hours for 30 days 12mcg patch [place] oral tablet 10-325 mg 12/01/2013 01/30/2014 take [...] daily in the evening for 90 days Myrbetriq 25 mg oral tablet extended release 24 hr 02/17/2017 05/18/2017 TAKE 1 TABLET BY MOUTH DAILY Calcium 500 + D (D3) 500 mg(1,250mg) [...] route 3 times per day Flonase Nasal [place], Suspension 50 mcg/actuation 09/09/2012 10/22/2012 inhale 1 [...] full glass (8 oz) of liquid Nasal [place] (sodium chloride) nasal aerosol,spray 0.65 % 06/18/2016 [...] oral route every 6 hours as needed [place] 5-325 mg oral tablet 09/10/2016 take 1 [...] daily in the evening for 30 days Singulair 10 mg oral tablet 12/26/2016 06/12/2017 [...] route every 12 hours for 7 days Problem List Description Status [...] HC BMI BSA BMI Percentile O2 Sat(%) 06/12/2017 12:10:00 PM 160 mmHg 76 mmHg [...] F 267.375 lbs 60 in 52.2176 kg/m 2.27 m2 90 % 09/10/2016 3:31:00 PM 91 % [...] F 224.25 lbs 60 in 43.7954 kg/m 2.08 m2 08/27/2012 8:42:00 AM 142 mmHg 64 mmHg 72 bpm 18 rpm 98.4 F 222 lbs 60 in 43.36 kg/m2 2.0647 m 08/11/2012 9:12:00 AM 122 mmHg 64 mmHg 82 bpm 18 rpm 98.4 F 225 lbs 60 in 43.9418 kg/m 2.08 m2 96 % 05/27/2012 11:31:00 AM 136 mmHg 74 mmHg 107 bpm 18 rpm 97.8 F 230.062 lbs 60 in 44.93 kg/m2 2.1018 m 94 % 05/07/2012 9:34:00 AM 142 mmHg 68 mmHg 88 bpm 18 rpm 98.6 F 230.25 lbs 60 in 44.9672 kg/m 2.10 m2 04/27/2012 8:34:00 AM 144 mmHg 74 mmHg 78 bpm 18 rpm 96.1 F 233 lbs 60 in 45.50 kg/m2 2.1152 m 04/16/2012 9:19:00 AM 136 mmHg 74 mmHg 101 bpm 18 rpm 97.6 F 222.25 lbs 98 % 03/25/2012 8:17:00 AM 138 mmHg 70 mmHg 100 bpm 20 rpm 98.1 F 239 lbs 60 in 46.68 kg/m2 2.1423 m 95 % 05/28/2009 1:32:00 PM [...] drug screen collection Reviewed 12/17/2016 12:00 AM [facility] MEDICARE - flu vaccine administration Reviewed 12/17/2016 [...] 23 JUAN IM Reviewed 03/03/2017 12:00 AM [facility] MEDICARE - pneumonia vaccine administration Reviewed 05/13/2017 [...] 111 Influenza 12/17/2016 sanofi pasteur PMC Fluzone [id number] Intramuscular Right Deltoid 12/17/2016 11/03/2014 135 Pneumococcal 03/03/2017 Merck & Co., Inc. MSD Pneumovax 23 [id number] Intramuscular Left Arm 03/03/2017 07/21/2014 33 History [...] 9:42AM Chronic pain Jun 03 2017 9:42AM Payers Insurance Name Company Name Plan Name Plan Number Policy Number Policy Group Number Start Date Medicare RHC Medicare RHC [id number] N/A [employer] [place] Amer[employer] [place] [id number] N/A [employer] [place] Amer[employer] [place] [id number] N/A Medicare Part A Medicare - Lab/Xray [id number] September Medicare Part B Medicare Of [place] [id number] N/A Medicare Part B Medicare Of [place] [id number] September [place] Medical Assistance Program [place] Medical Assistance Prog [id number] N/A Medicare Part A Medicare Part A [id number] September [facility] [id number] Monday, October 22, 2012 History of Encounters Visit Date Visit Type Provider 06/12/2017 Office visit Yeny Hilario APRN 06/03/2017 [...] 06/18/2016 Office visit Cesar Encarnacion DO 07/24/2015 [facility] Bandar Levine MD 05/25/2015 [facility] Bandar Levine MD 09/11/2014 [facility] DO 09/10/2014 [facility] Bandar Levine MD 09/05/2014 [facility]2014 [facility] DO 08/21/2014 [facility] DO 12/01/2013 Nurse visit Gianna OMER 11/16/2013 Office visit Gianna OMER 11/03/2013 Office visit Gianna OMER 10/05/2013 Office visit Gianna OMER 10/04/2013 Office visit Genesis Marie FOOD STOREROOM CLERK 09/07/2013 Office visit Gianna OMER 2013 Office visit Genesis Marie FOOD STOREROOM CLERK 07/25/2013 Office visit Genesis Marie APRN 07/22/2013 Office visit Gianna OMER 07/05/2013 Office visit Genesis Marie FOOD STOREROOM CLERK 06/13/2013 Office visit Genesis Marie FOOD STOREROOM CLERK 06/01/2013 Office visit Genesis Marie FOOD STOREROOM CLERK 05/24/2013 Office visit Gianna OMER 05/18/2013 Office [...] 10/22/2012 Office visit Genesis Marie APRN 10/18/2012 [facility] Bhakti José MD 10/10/2012 [facility] 10/06/2012 Office visit Genesis Marie FOOD STOREROOM CLERK 10/06/2012 Office visit Pepe Herr MD 09/21/2012 [facility] Pepe Herr MD 09/21/2012 Office visit Pepe Herr MD 09/09/2012 Office visit Genesis Marie FOOD STOREROOM CLERK 08/27/2012 Office visit Genesis Marie APRN 08/26/2012 [facility] Pepe Herr MD 08/11/2012 Office visit Genesis Marie APRN 07/27/2012 [facility] Bhakti José MD 05/27/2012 Office visit Genesis Marie APRN 05/07/2012 [facility] Bandar Levine MD 05/07/2012 Office visit Genesis Marie APRN 05/06/2012 [facility] Pepe Herr MD 04/27/2012 Office visit Pepe Herr MD 04/16/2012 Office visit Genesis Marie APRN 03/25/2012 Office visit Michael Fleming DO 10/07/2011 [facility] Pepe Herr MD 09/23/2011 [facility] Pepe Herr MD 09/09/2011 [facility] Pepe Herr MD 03/20/2011 [facility] Bandar Levine MD 05/28/2009 Office visit Pepe Herr MD
--- OUTSIDE RECORDS SUMMARY | 2017-12-10 10:22 | XMS REPORT ---
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 Medications Active Name Start Date Estimated Completion Date SIG Comments triamcinolone acetonide topical cream 0.1 % 06/01/2013 apply a thin layer to the affected area(s) by topical route 2 times per day Colace 100 mg oral capsule take 1 capsule (100 mg) by oral route 2 times per day Geodon 40 mg oral capsule take 2 in the AM and 3 at 5pm Lyrica 75 mg oral capsule take one TID Zocor 10 mg oral tablet take 1 tablet (10 mg) by oral route once daily in the evening mirtazapine 15 mg oral tablet take 1 tablet (15 mg) by oral route once daily before bedtime lamotrigine 150 mg oral tablet take 1 tablet (150 mg) by oral route 2 times per day alendronate 70 mg oral tablet take 1 tablet (70 mg) by oral route once weekly in the morning, at least 30 min before first food, beverage, or medication of day Bevespi Aerosphere 9-4.8 mcg inhalation HFA aerosol inhaler inhale 2 puffs by inhalation route 2 times per day in the morning and evening duloxetine 30 mg oral capsule,delayed release(DR/EC) 10/01/2016 12/30/2016 take 1 capsule (30 mg) by oral route once daily for 30 days metformin 500 mg oral tablet 10/01/2016 12/30/2016 take 1 tablet (500 mg) by oral route 2 times per day with morning and evening meals for 30 days Singulair 10 mg oral tablet 10/01/2016 12/30/2016 take 1 tablet (10 mg) by oral route once daily in the evening for 30 days fentanyl 25 mcg/hr transdermal patch 72 hour 10/08/2016 11/07/2016 apply 1 patch (25 mcg/hour) by transdermal route every 72 hours for 30 days amlodipine 5 mg oral tablet 10/08/2016 02/05/2017 take 1 tablet (5 mg) by oral route once daily for 30 days potassium chloride 20 mEq oral tablet extended release 10/08/2016 12/07/2016 take 2 by oral route once daily with food for 30 days Aspir-81 81 mg oral tablet,delayed release (DR/EC) 10/08/2016 11/07/2016 take 1 tablet (81 mg) by oral route once daily for 30 days Tylenol 325 mg oral tablet 10/08/2016 11/07/2016 May take up to 4000mg /day as needed for pain simvastatin 10 mg oral tablet 10/17/2016 TAKE 1 TABLET BY MOUTH EVERY NIGHT AT BEDTIME mirtazapine 15 mg oral tablet 10/17/2016 TAKE 1 1/2 TABLET BY MOUTH EVERY NIGHT AT BEDTIME Seroquel 50 mg oral tablet 10/27/2016 11/26/2016 take 1 tablet (50 mg) by oral route daily for 30 days Name Start Date [...] 72 hours for 30 days 12mcg patch [place] oral tablet 10-325 mg 12/01/2013 01/30/2014 take [...] oral route once daily for 30 days Discontinued [...] route 3 times per day Flonase Nasal [place], Suspension 50 mcg/actuation 09/09/2012 10/22/2012 inhale 1 [...] full glass (8 oz) of liquid Nasal [place] (sodium chloride) nasal aerosol,spray 0.65 % 06/18/2016 [...] oral route every 6 hours as needed [place] 5-325 mg oral tablet 09/10/2016 take 1 [...] by oral route 3 times per day Problem List Description Status Onset Anxiety Active [...] HC BMI BSA BMI Percentile O2 Sat(%) 10/08/2016 9:02:00 AM 122 mmHg 62 mmHg [...] in 50.97 kg/m2 2.24 m2 88 % 06/18/2016 1:22:00 PM 118 mmHg 57 mmHg 79 bpm 20 rpm 98.1 F 255 lbs 60 in 49.8008 kg/m 2.2128 m 09/05/2014 11:09:00 AM 118 mmHg 57 mmHg [...] 10 years High school graduate Cigarette smoking Current - status unknown 3 PPD x 42 years,now 1/2 PPD Has never used alcohol Denies illicit substance abuse History of Procedures Date Ordered Description Order Status 09/10/2016 12:00 AM COMPREHEN METABOLIC PANEL Reviewed 09/10/2016 12:00 AM GLYCOSYLATED HEMOGLOBIN TEST Reviewed 09/16/2016 12:00 AM CHEST X-RAY 2VW FRONTAL&LATL Reviewed 04/26/2012 12:00 AM COMPLETE CBC W/AUTO [...] 78 eGFR >60 mL/min/1.73 m2eGFR AA* >60 03/07/2013 2:08 PM COLOR YELLOW APPEARANCE CLEAR SPEC GRAV <=1.005 pH 6.5 PROTEIN NEGATIVE GLUCOSE NEGATIVE KETONE NEGATIVE BILIRUBIN NEGATIVE BLOOD NEGATIVE NITRITE NEGATIVE [place] SCREEN NEGATIVE WBC/HPF NEGATIVE RBC/HPF NEGATIVE CASTS/LPF NEGATIVE CRYSTALS NEGATIVE MUCOUS THRDS NEGATIVE BACTERIA NEGATIVE EPITH CELLS FEW SQUAMOUS TRICHOMONAS NEGATIVE YEAST NEGATIVE CULT SET UP? NO 05/02/2013 6:40 AM WBC 10.1 RBC 4.67 HGB 14.50 g/dLHCT 43.80 %MCV 94.0 fLMCH 31.0 pgMCHC 33.10 g/dLRDW SD 46 RDW CV 13.50 %MPV 10.40 fLPLT 278 NRBC# 0.00 NRBC% 0.0 GLUCOSE 80.0 mg/dLSODIUM 142.0 mmol/LPOTASSIUM 4.10 mmol/LCHLORIDE 104.0 mmol/LCO2 27.0 mmol/LBUN 7.0 mg/dLCREATININE 0.80 mg/dLSGOT/AST 17.0 IU/ LSGPT/ALT 17.0 IU/LALK PHOS 127.0 IU/LTOTAL PROTEIN 5.80 g/dLALBUMIN 3.70 g/ dLTOTAL BILI 0.60 mg/dLCALCIUM 9.90 mg/dLAGE 57 GFR NonAA 74 GFR AA 90 eGFR >60 mL/min/1.73 m2eGFR AA* >60 06/13/2013 [...] 0.27 #BASO 0.04 MANUAL DIFF NOT IND 10/31/2013 7:40 AM WBC 9.5 RBC 4.35 HGB 13.40 g/dLHCT 41.80 %MCV 96.0 fLMCH 30.80 pgMCHC 32.10 g/dLRDW SD 47 RDW CV 13.40 %MPV 10.70 fLPLT 266 NRBC# 0.00 NRBC% 0.0 GLUCOSE 101.0 mg/dLSODIUM 139.0 mmol/LPOTASSIUM 4.60 mmol/LCHLORIDE 100.0 mmol/LCO2 29.0 mmol/LBUN 9.0 mg/dLCREATININE 0.90 mg/dLSGOT/AST 23.0 IU/ LSGPT/ALT 24.0 IU/LALK PHOS 149.0 IU/LTOTAL PROTEIN 6.80 g/dLALBUMIN 4.10 g/ dLTOTAL BILI 0.40 mg/dLCALCIUM 9.80 mg/dLAGE 58 GFR NonAA 64 GFR AA 78 eGFR 60 eGFR AA* 60 TRIGLYCERIDES 86.0 mg/dLCHOLESTEROL 138.0 mg/dLHDL 54.0 mg/dLTOT CHOL/HDL 2.6 LDL (CALC) 67.0 mg/dL 09/10/2016 4:00 PM HGB A1C 6.0 %Est [...] Not Entered Not Entered 03/30/2016 03/30/2016 111 History of Past Illness Name Date of [...] Systolic heart failure Oct 08 2016 9:04AM Payers Insurance Name Company Name Plan Name Plan Number Policy Number Policy Group Number Start Date Medicare RHC Medicare RHC [id number] N/A [employer] [place] [employer] [place] [id number] N/[place] [employer] [employer] [place] [id number] N/A Medicare Part A Medicare - Lab/Xray [id number] September Medicare Part B Medicare Of [place] [id number] N/A Medicare Part B Medicare [place] [id number] September [place] Medical Assistance [facility] Medical Assistance Prog [id number] N/A Medicare Part A Medicare Part A [id number] September [facility] [id number] Monday, October 22, 2012 History of Encounters Visit Date Visit Type Provider 10/08/[address] Ping Mosqueda DO 10/07/[address] Ping Mosqueda DO 09/23/[address] Ping Mosqueda DO 09/16/[address] Ping Mosqueda DO 09/10/[address] Ping Mosqueda DO 09/02/2016 [facility] Caesar Mosqueda MD 06/18/2016 Office visit Cesar Encarnacion DO 07/24/2015 Hospital Bandar Levine MD 05/25/2015 [facility] Bandar Levine MD 09/11/2014 [facility] Cesar Encarnacion DO 09/10/2014 [facility] Bandar Levine MD 09/05/2014 Office visit Cesar Encarnacion DO 08/22/2014 [facility] Cesar Encarnacion DO 08/21/2014 [facility] Cesar Encarnacion DO 08/21/2014 [facility] Cesar Encarnacion DO 12/01/2013 Nurse visit Gianna OMER 11/16/2013 Office visit Gianna OMER 11/03/2013 Office visit Gianna OMER 10/05/2013 Office visit Gianna OMER 10/04/2013 Office visit Genesis Marie SUGAR LABORATORY ASSISTANT 09/07/2013 Office visit Gianna AMADORP 2013 Office visit Genesis Frank SUGAR LABORATORY ASSISTANT 07/25/2013 Office visit Genesis Frank SUGAR LABORATORY ASSISTANT 07/22/2013 Office visit Gianna AMADORP 07/05/2013 Office visit Genesis Frank SUGAR LABORATORY ASSISTANT 06/13/2013 Office visit Genesis Marie SUGAR LABORATORY ASSISTANT 06/01/2013 Office visit Genesis Frank SUGAR LABORATORY ASSISTANT 05/24/2013 Office visit Gianna OMER 05/18/2013 Office visit Angel Hand MD 05/04/2013 Office visit Angel Hand MD 04/28/2013 [facility] Angel Hand MD 04/26/2013 Office visit [...] 10/22/2012 Office visit Genesis Marie APRN 10/18/2012 [facility] Bhakti José MD 10/10/2012 [facility] 10/06/2012 Office visit Genesis Marie SUGAR LABORATORY ASSISTANT 10/06/2012 Office visit Pepe Herr MD 09/21/2012 [facility] Pepe Herr MD 09/21/2012 Office visit Pepe Herr MD 09/09/2012 Office visit Genesis Marie SUGAR LABORATORY ASSISTANT 08/27/2012 Office visit Genesis Marie APRN 08/26/2012 [facility] Pepe Herr MD 08/11/2012 Office visit Genesis Marie APRN 07/27/2012 [facility] Bhakti José MD 05/27/2012 Office visit Genesis Marie APRN 05/07/2012 [facility] Bandar Levine MD 05/07/2012 Office visit Genesis Marie APRN 05/06/2012 [facility] Pepe Herr MD 04/27/2012 Office visit Pepe Herr MD 04/16/2012 Office visit Genesis Marie APRN 03/25/2012 Office visit Michael Fleming DO 10/07/2011 [facility] Pepe Herr MD 09/23/2011 [facility] Pepe Herr MD 09/09/2011 [facility] Pepe Herr MD 03/20/2011 [facility] Bandar Levine MD 05/28/2009 Office visit Pepe Herr MD
--- OUTSIDE RECORDS SUMMARY | 2017-12-10 10:24 | XMS REPORT ---
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 Name Role Phone Ping Mosqueda PCP Ping Mosqueda Unavailable Unavailable Ping Mosqueda PreferredProvider Allergies and Adverse Reactions Name Reaction Notes erythromycin Toradol Minocycline TETRACYCLINES SULFA (SULFONAMIDES) Keflex Zoloft [place] Carbonate benztropine iodine Shell Fish (shrimp, crayfish, [...] in the AM and 3 at 5pm mirtazapine 15 mg oral tablet take 1 tablet (15 mg) by oral route once daily before bedtime lamotrigine 150 mg oral tablet take 1 tablet (150 mg) by oral route 2 times per day Bevespi Aerosphere 9-4.8 mcg inhalation HFA aerosol inhaler inhale 2 puffs by inhalation route 2 times per day in the morning and evening mirtazapine 15 mg oral tablet 10/17/2016 TAKE 1 1/2 TABLET BY MOUTH EVERY NIGHT AT BEDTIME Aquaphilic topical ointment 12/03/2016 apply to affected area by external route 2 times a day for 30 days alendronate 70 mg oral tablet 01/07/2017 04/29/2017 TAKE 1 TABLET BY MOUTH ONCE WEEKLY IN THE MORNING amlodipine 5 mg oral tablet 02/06/2017 06/06/2017 [...] 1 TABLET BY MOUTH IN THE EVENING metformin 500 mg oral tablet 04/02/2017 07/01/2017 take 1 tab daily prednisone 20 mg oral tablet 04/16/2017 take 2 tablets (40 mg) by oral route once daily for 7 days Lyrica 75 mg oral capsule 04/21/2017 05/21/2017 take 1 capsule by oral route 2 times a day for 30 days fentanyl 25 mcg/hr transdermal patch 72 hour 04/29/2017 05/29/2017 apply 1 patch (25 mcg/hour) by transdermal route every 72 hours for 30 days Name Start Date Expiration [...] 72 hours for 30 days 12mcg patch [place] oral tablet 10-325 mg 12/01/2013 01/30/2014 take [...] by oral route daily for 30 days Lasix 40 mg oral tablet 11/06/2016 01/05/2017 [...] daily in the evening for 30 days potassium chloride 20 mEq oral tablet extended release 02/06/2017 04/07/2017 take 2 by oral route once daily with food for 30 days Calcium 500 + D [...] route 3 times per day Flonase Nasal [place], Suspension 50 mcg/actuation 09/09/2012 10/22/2012 inhale 1 [...] full glass (8 oz) of liquid Nasal [place] (sodium chloride) nasal aerosol,spray 0.65 % 06/18/2016 [...] oral route every 6 hours as needed [place] 5-325 mg oral tablet 09/10/2016 take 1 [...] HC BMI BSA BMI Percentile O2 Sat(%) 04/29/2017 10:59:00 AM 138 mmHg 70 mmHg 118 bpm 20 rpm 99.5 F 253.5 lbs 60 in 49.51 kg/m2 2.21 m2 91 % 04/02/2017 9:33:00 AM 158 mmHg 79 mmHg 105 bpm 20 rpm 98.3 F 253.125 lbs 60 in 49.4346 kg/m 2.2047 m 94 % 03/03/2017 8:20:00 AM 170 mmHg 84 mmHg 90 bpm 20 rpm 98.7 F 248.25 lbs 60 in 48.48 kg/m2 2.18 m2 98 % 02/25/2017 1:34:00 PM 153 mmHg 73 mmHg 91 bpm 20 rpm 99.1 F 257 lbs 60 in 50.1914 kg/m 2.2215 m 88 % 12/31/2016 1:20:00 PM [...] drug screen collection Reviewed 12/17/2016 12:00 AM [facility] MEDICARE - flu vaccine administration Reviewed 12/17/2016 [...] 23 JUAN IM Reviewed 03/03/2017 12:00 AM [facility] MEDICARE - pneumonia vaccine administration Reviewed 04/26/2012 [...] 111 Influenza 12/17/2016 sanofi pasteur PMC Fluzone [id number] Intramuscular Right Deltoid 12/17/2016 11/03/2014 135 Pneumococcal 03/03/2017 Merck & [employer] Inc[employer] MSD Pneumovax 23 [id number] Intramuscular Left Arm 03/03/2017 07/21/2014 33 History [...] 11:03AM Morbid obesity Apr 29 2017 11:03AM Payers Insurance Name Company Name Plan Name Plan Number Policy Number Policy Group Number Start Date Medicare [facility] Medicare RHC [id number] N/[place] [employer] [place] [employer] [place] [id number] N/[place] [employer] [employer] [id number] N/A Medicare Part A Medicare - Lab/Xray [id number] September Medicare Part B Medicare Of [place] [id number] N/A Medicare Part B Medicare Of [place] [id number] September [place] Medical Assistance Program [place] Medical Assistance Prog [id number] N/A Medicare Part A Medicare Part A [id number] September Kandi Hernandezchristal [facility] [id number] Monday, October 22, 2012 History of Encounters Visit Date Visit Type Provider 04/29/[address] Ping Mosqueda DO 04/02/[address] Ping Mosqueda DO 03/03/[address] Ping Mosqueda DO 02/25/[address] Ping Mosqueda DO 12/31/[address] Pign Mosqueda DO 12/17/[address] Ping Mosqueda DO 12/03/[address] Ping Mosqueda DO 11/06/[address] Ping Mosqueda DO 10/08/[address] Ping Msoqueda DO 10/07/[address] Ping Mosqueda DO 10/06/2016 [facility] Bandar Levine MD 09/23/[address] Ping Mosqueda DO 09/16/[address] Ping Mosqueda DO 09/10/[address] Ping Mosqueda DO 09/02/2016 [facility] Caesar Mosqueda MD 09/02/2016 [facility] Bandar Levine MD 06/18/2016 Office visit Cesar Encarnacion DO 07/24/2015 [facility] Bandar Levine MD 05/25/2015 [facility] Bandar Levine MD 09/11/2014 [facility] DO 09/10/2014 [facility] Bandar Levine MD 09/05/2014 Office visit [facility] DO 08/22/2014 [facility] DO 08/21/2014 [facility] DO 08/21/2014 [facility] DO 12/01/2013 Nurse visit Gianna OMER 11/16/2013 Office visit Gianna OMER 11/03/2013 Office visit Gianna OMER 10/05/2013 Office visit Gianna OMER 10/04/2013 Office visit Genesis Marie VIOLIN TEACHER 09/07/2013 Office visit Gianna OMER 2013 Office visit Genesis Marie VIOLIN TEACHER 07/25/2013 Office visit Genesis Marie VIOLIN TEACHER 07/22/2013 Office visit Gianna OMER 07/05/2013 Office visit Genesis Marie VIOLIN TEACHER 06/13/2013 Office visit Genesis Marie VIOLIN TEACHER 06/01/2013 Office visit Genesis Marie VIOLIN TEACHER 05/24/2013 Office visit Gianna OMER 05/18/2013 Office visit Angel Hand MD 05/04/2013 Office visit Angel Hand MD 04/28/2013 Hospital Angel Hand MD 04/26/2013 Office visit Sahara Ruiz MD 04/25/2013 Procedures Angel Hand MD 04/18/2013 Office visit Michael Fleming DO 03/31/2013 Office visit Gianna Mercer DIRECTOR AGENCY & STRATEGIC PARTNERSHIPS 03/09/2013 Office visit Gianna AMADORP 02/28/2013 Office visit Angel Hand MD 02/17/2013 Office visit Gianna AMADORP 02/09/2013 Office visit Angel Hand MD 02/03/2013 Office visit Genesis Marie VIOLIN TEACHER 01/31/2013 Office visit Gianna Mercer DIRECTOR AGENCY & STRATEGIC PARTNERSHIPS 01/07/2013 Office visit Michael Fleming DO 11/25/2012 Office visit Michael Fleming DO 10/22/2012 Office visit Genesis Marie VIOLIN TEACHER 10/18/2012 [facility] Bhakti José MD 10/10/2012 [facility] DO 10/06/2012 Office visit Genesis Marie VIOLIN TEACHER 10/06/2012 Office visit Pepe Herr MD 09/21/2012 [facility] Pepe Herr MD 09/21/2012 Office visit Pepe Herr MD 09/09/2012 Office visit Genesis Marie VIOLIN TEACHER 08/27/2012 Office visit Genesis Marie VIOLIN TEACHER 08/26/2012 [facility] Pepe Herr MD 08/11/2012 Office visit Genesis Marie VIOLIN TEACHER 07/27/2012 [facility] Bhakti José MD 05/27/2012 Office visit Genesis Marie VIOLIN TEACHER 05/07/2012 [facility] Bandar Levine MD 05/07/2012 Office visit Genesis Marie VIOLIN TEACHER 05/06/2012 [facility] Pepe Herr MD 04/27/2012 Office visit Pepe Herr MD 04/16/2012 Office visit Genesis Marie VIOLIN TEACHER 03/25/2012 Office visit Michael Fleming DO 10/07/2011 [facility] Pepe Herr MD 09/23/2011 [facility] Pepe Herr MD 09/09/2011 Hospital Pepe Herr MD 03/20/2011 [facility] Bandar Levine MD 05/28/2009 Office visit Pepe Herr MD
--- OUTSIDE RECORDS SUMMARY | 2017-12-10 10:26 | XMS REPORT ---
Author Author Ping Mosqueda [facility] Address [address] [place], [place] [id number] Care Team Providers Care Outsole Scheduler Name Role Phone Ping Mosqueda PCP Ping Mosqueda Unavailable Unavailable Ping Mosqueda PreferredProvider Allergies and Adverse Reactions Name Reaction Notes erythromycin Toradol Minocycline TETRACYCLINES SULFA (SULFONAMIDES) Keflex Zoloft [place] Carbonate benztropine iodine Shell Fish (shrimp, crayfish, lobster, crab) Plan of Treatment Planned Activity Comments Planned Date Planned Time Plan/Goal URINALYSIS ROUTINE C&S IF IND 11/06/2016 12:00 AM Medications Active Name Start Date [...] per day in the morning and evening metformin 500 mg oral tablet 10/01/2016 12/30/2016 take 1 tablet (500 mg) by oral route 2 times per day with morning and evening meals for 30 days Singulair 10 mg oral tablet 10/01/2016 12/30/2016 take 1 tablet (10 mg) by oral route once daily in the evening for 30 days amlodipine 5 mg oral [...] 2 times per day for 90 days alendronate 70 mg oral tablet 11/06/2016 12/06/2016 take 1 tablet (70 mg) by oral route once weekly in the morning, at least 30 min before first food, beverage, or medication of day for 30 days Myrbetriq 25 mg [...] once daily with food for 30 days Name Start Date Expiration [...] 72 hours for 30 days 12mcg patch [place] oral tablet 10-325 mg 12/01/2013 01/30/2014 take [...] route 3 times per day Flonase Nasal [place], Suspension 50 mcg/actuation 09/09/2012 10/22/2012 inhale 1 [...] full glass (8 oz) of liquid Nasal [place] (sodium chloride) nasal aerosol,spray 0.65 % 06/18/2016 [...] oral route every 6 hours as needed [place] 5-325 mg oral tablet 09/10/2016 take 1 [...] HC BMI BSA BMI Percentile O2 Sat(%) 12/03/2016 3:50:00 PM 134 mmHg 60 mmHg [...] 12:00 AM ETHOS drug screen collection Reviewed 04/26/2012 12:00 AM COMPLETE CBC W/AUTO [...] negative History Of Immunizations Name Date Admin g Name [facility] Code Trade Name Lot# Route Inj Vis [...] 3:57PM Morbid obesity Dec 03 2016 3:57PM Payers Insurance Name Company Name Plan Name Plan Number Policy Number Policy Group Number Start Date Medicare RHC Medicare RHC [id number] N/A [employer] [place] [employer] [place] [id number] N/[place] [employer] [place] [employer] [place] [id number] N/A Medicare Part A Medicare - Lab/Xray [id number] September Medicare Part B Medicare Of [place] [id number] N/A Medicare Part B Medicare [place] [id number] , September 27, 1998 [place] Medical Assistance [facility] Medical Assistance Prog [id number] N/A Medicare Part A Medicare Part A [id number] , September 27, 1998 [facility] Hernandez [facility] [id number] Monday, October 22, 2012 History of Encounters Visit Date Visit Type Provider 12/03/[address] Ping Mosqueda DO [...] [facility] Bandar Levine MD 09/11/2014 [facility] Cesar Encarnacion DO 09/10/2014 [facility] Bandar Levine MD 09/05/2014 Office visit Cesarjorgito Encarnacion DO 08/22/2014 [facility] Cesar Bouman DO 08/21/2014 Hospital Cesar Bouman DO 08/21/2014 Hospital Cesar Bouman DO 12/01/2013 Nurse visit Gianna OMER 11/16/2013 Office visit Gianna OMER 11/03/2013 Office visit Gianna OMER 10/05/2013 Office visit Gianna OMER 10/04/2013 Office visit Genesis Marie APRN 09/07/2013 Office visit Gianna OMER 2013 Office visit Genesis Marie CONTOUR PATH TAPE MILL OPERATOR 07/25/2013 Office visit Genesis Marie CONTOUR PATH TAPE MILL OPERATOR 07/22/2013 Office visit Gianna OMER 07/05/2013 Office visit Genesis Marie CONTOUR PATH TAPE MILL OPERATOR 06/13/2013 Office visit Genesis Marie CONTOUR PATH TAPE MILL OPERATOR 06/01/2013 Office visit Genesis Marie CONTOUR PATH TAPE MILL OPERATOR 05/24/2013 Office visit Gianna OMER 05/18/2013 Office [...] 10/22/2012 Office visit Genesis Marie APRN 10/18/2012 [facility] Bhakti José MD 10/10/2012 [facility] 10/06/2012 Office visit Genesis Marie APRN 10/06/2012 Office visit Pepe Herr MD 09/21/2012 [facility] Pepe Herr MD 09/21/2012 Office visit Pepe Herr MD 09/09/2012 Office visit Genesis Marie APRN 08/27/2012 Office visit Genesis Marie APRN 08/26/2012 [facility] Pepe Herr MD 08/11/2012 Office visit Genesis Marie APRN 07/27/2012 [facility] Bhakti José MD 05/27/2012 Office visit Genesis Marie APRN 05/07/2012 [facility] Bandar Levine MD 05/07/2012 Office visit Genesis Marie APRN 05/06/2012 [facility] Pepe Herr MD [...]
--- OUTSIDE RECORDS SUMMARY | 2017-12-10 10:28 | XMS REPORT ---
Author Author Ping Mosqueda [facility] Address [address] [place], [place] [id number] Care Team Providers Care Loan And Credit Manager Name Role Phone Ping Mosqueda PCP Ping Mosqueda Unavailable Unavailable Ping Mosqueda PreferredProvider Allergies and Adverse Reactions Name Reaction Notes erythromycin Toradol Minocycline TETRACYCLINES SULFA (SULFONAMIDES) Keflex Zoloft [place] Carbonate benztropine iodine Shell Fish (shrimp, crayfish, [...] 2 times a day for 30 days Singulair 10 mg oral tablet 12/26/2016 03/26/2017 take 1 tablet (10 mg) by oral route once daily in the evening for 30 days metformin 500 mg oral tablet 01/06/2017 04/06/2017 take 1 tablet (500 mg) by oral route 2 times per day with morning and evening meals for 30 days alendronate 70 mg oral tablet 01/07/2017 04/29/2017 TAKE 1 TABLET BY MOUTH ONCE WEEKLY IN THE MORNING amlodipine 5 mg oral tablet 02/06/2017 06/06/2017 take 1 tablet (5 mg) by oral route once daily for 30 days potassium chloride 20 mEq oral tablet extended release 02/06/2017 04/07/2017 take 2 by oral route once daily with food for 30 days Myrbetriq 25 mg oral tablet extended release 24 hr 02/17/2017 05/18/2017 TAKE 1 TABLET BY MOUTH DAILY pravastatin 20 mg oral tablet 02/25/2017 take 1 tablet (20 mg) by oral route once daily at bedtime for 90 days duloxetine 30 mg oral capsule,delayed release(DR/EC) 02/25/2017 take 1 capsule (30 mg) by oral route once daily for 90 days Lyrica 75 mg oral capsule 02/25/2017 03/27/2017 take 1 capsule by oral route 2 times a day for 30 days Calcium 500 + D (D3) 500 mg(1,250mg) -125 unit oral tablet 03/03/20172017 take 1 tablet by oral route 2 times a day for 30 days fentanyl 25 mcg/hr transdermal patch 72 hour 03/03/2017 04/02/2017 apply 1 patch (25 mcg/hour) by transdermal [...] 72 hours for 30 days 12mcg patch [place] oral tablet 10-325 mg 12/01/2013 01/30/2014 take [...] daily in the evening for 90 days Discontinued Name Start Date Discontinued Date [...] route 3 times per day Flonase Nasal [place], Suspension 50 mcg/actuation 09/09/2012 10/22/2012 inhale 1 [...] full glass (8 oz) of liquid Nasal [place] (sodium chloride) nasal aerosol,spray 0.65 % 06/18/2016 [...] oral route every 6 hours as needed [place] 5-325 mg oral tablet 09/10/2016 take 1 [...] HC BMI BSA BMI Percentile O2 Sat(%) 03/03/2017 8:20:00 AM 170 mmHg 84 mmHg [...] drug screen collection Reviewed 12/17/2016 12:[address] [facility] MEDICARE - flu vaccine administration Reviewed [...] 23 JUAN IM Reviewed 03/03/2017 12:[address] [facility] MEDICARE - pneumonia vaccine administration Reviewed 04/26/2012 [...] 11.10 g/dLHCT 34.40 %MCV 93.0 fLMCH 29.90 pgHC 32.30 g/dLRDW SD 51 RDW CV 14.90 [...] 3.92 HGB 11.50 g/dLHCT 37.20 %MCV 95.0 [facility] 29.30 pgHC 30.90 g/dLRDW SD 54 RDW CV 15.40 [...] 111 Influenza 12/17/2016 sanofi pasteur PMC Fluzone [id number] Intramuscular Right Deltoid 12/17/2016 11/03/2014 135 Pneumococcal 03/03/2017 Merck & [employer] Inc[employer] MSD Pneumovax 23 [id number] Intramuscular Left Arm 03/03/2017 07/21/2014 33 History [...] 1.5, managed as type 2 Renal impairment Bipolar disorder, unspecified Mar 25 2012 8:20AM [...] 8:24AM Pneumonia vaccine Mar 03 2017 3:40PM Payers Insurance Name Company Name Plan Name Plan Number Policy Number Policy Group Number Start Date Medicare RHC Medicare RHC [id number] N/[place] [employer] [place] [employer] [place] [id number] N/[place] [employer] [employer] [place] [id number] N/A Medicare Part A Medicare - Lab/Xray [id number] , September 27, 1998 Medicare Part B Medicare Of [place] [id number] N/A Medicare Part B Medicare [place] [id number] , September 27, 1998 [place] Medical Assistance [facility] Medical Assistance Prog [id number] N/A Medicare Part A Medicare Part A [id number] September [facility] [id number] Monday, October 22, 2012 History of Encounters Visit Date Visit Type Provider 03/03/[address] Ping Mosqueda DO 02/25/[address] Ping Mosqueda DO 12/31/[address] Ping Mosqueda DO 12/17/[address] Ping Mosqueda DO 12/03/[address] Ping Mosqueda DO 11/06/[address] Ping Mosqueda DO 10/08/[address] Ping Mosqueda DO 10/07/[address] Ping Mosqueda DO 10/06/2016 [facility] Bandar Levine MD 09/23/[address] Ping Mosqueda DO 09/16/[address] Ping Mosqueda DO 09/10/[address] Ping Mosqueda DO 09/02/2016 [facility] Caesar Mosqueda MD 09/02/2016 [facility] Bandar Levine MD 06/18/2016 Office visit Cesar Encarnacion DO 07/24/2015 Hospital Bandar Levine MD 05/25/2015 [facility] Bandar Levine MD 09/11/2014 [facility] Cesar Encarnacion DO 09/10/2014 [facility] Bandar Levine MD 09/05/2014 Office visit Cesar Encarnacion DO 08/22/2014 [facility] 08/21/2014 [facility] 08/21/2014 [facility] DO 12/01/2013 Nurse visit Gianna OMER 11/16/2013 Office visit Gianna OMER 11/03/2013 Office visit Gianna AMADORP 10/05/2013 Office visit Gianna AMADORP 10/04/2013 Office visit Genesis Marie TEA BLENDER 09/07/2013 Office visit Gianna AMADORP 2013 Office visit Genesis Marie TEA BLENDER 07/25/2013 Office visit Genesis Marie TEA BLENDER 07/22/2013 Office visit Gianna AMADORP 07/05/2013 Office visit Genesis Marie TEA BLENDER 06/13/2013 Office visit Genesis Marie TEA BLENDER 06/01/2013 Office visit Genesis Marie TEA BLENDER 05/24/2013 Office visit Gianna OMER 05/18/2013 Office visit Angel Hand MD 05/04/2013 Office visit Angel Hand MD 04/28/2013 [facility] Angel Hand MD 04/26/2013 Office [...] 10/22/2012 Office visit Genesis Marie APRN 10/18/2012 [facility] Bhakti José MD 10/10/2012 [facility] Scarlett Gunnmfield DO 10/06/2012 Office visit Genesis Marie APRN 10/06/2012 Office visit Pepe Herr MD 09/21/2012 [facility] Pepe Herr MD 09/21/2012 Office visit Pepe Herr MD 09/09/2012 Office visit Genesis Marie TEA BLENDER 08/27/2012 Office visit Genesis Marie TEA BLENDER 08/26/2012 [facility] Pepe Herr MD 08/11/2012 Office visit Genesis Marie TEA BLENDER 07/27/2012 [facility] Bhakti José MD 05/27/2012 Office visit Genesis Marie TEA BLENDER 05/07/2012 [facility] Bandar Levine MD 05/07/2012 Office visit Genesis Marie TEA BLENDER 05/06/2012 [facility] Pepe Herr MD 04/27/2012 Office visit Pepe Herr MD 04/16/2012 Office visit Genesis Marie TEA BLENDER 03/25/2012 Office visit Michael Fleming DO 10/07/2011 [facility] Pepe Herr MD 09/23/2011 [facility] Pepe Herr MD 09/09/2011 [facility] Pepe Herr MD 03/20/2011 [facility] Bandar Levine MD 05/28/2009 Office visit Pepe Herr MD
--- OUTSIDE RECORDS SUMMARY | 2017-12-10 10:30 | XMS REPORT ---
Author Author Ping Mosqueda [facility] Address [address] [place], [place] [id number] Care Team Providers Care Report Clerk Name Role Phone Ping Mosqueda PCP Ping Mosqueda Unavailable Unavailable Ping Mosqueda PreferredProvider Allergies and Adverse Reactions Name Reaction Notes erythromycin Toradol Minocycline TETRACYCLINES SULFA (SULFONAMIDES) Keflex Zoloft [place] Carbonate benztropine iodine Shell Fish (shrimp, crayfish, [...] oral route once daily for 90 days Calcium 500 + D (D3) 500 mg(1,250mg) -125 unit oral tablet 03/03/20172017 take 1 tablet by oral route 2 times a day for 30 days montelukast 10 mg oral tablet 04/01/2017 07/30/2017 TAKE 1 TABLET BY MOUTH IN THE EVENING fentanyl 25 mcg/hr transdermal patch 72 hour 04/02/2017 05/02/2017 apply 1 patch (25 mcg/hour) by transdermal route every 72 hours for 30 days metformin 500 mg oral tablet 04/02/2017 07/01/2017 take 1 tab daily Name Start Date Expiration Date SIG Comments [...] 72 hours for 30 days 12mcg patch [place] oral tablet 10-325 mg 12/01/2013 01/30/2014 take [...] daily in the evening for 30 days Lyrica 75 mg oral capsule 02/25/2017 [...] route 3 times per day Flonase Nasal [place], Suspension 50 mcg/actuation 09/09/2012 10/22/2012 inhale 1 [...] full glass (8 oz) of liquid Nasal [place] (sodium chloride) nasal aerosol,spray 0.65 % 06/18/2016 [...] oral route every 6 hours as needed [place] 5-325 mg oral tablet 09/10/2016 take 1 [...] HC BMI BSA BMI Percentile O2 Sat(%) 04/02/2017 9:33:00 AM 158 mmHg 79 mmHg [...] drug screen collection Reviewed 12/17/2016 12:00 AM [facility] MEDICARE - flu vaccine administration [...] 23 JUAN IM Reviewed 03/03/2017 12:00 AM [facility] MEDICARE - pneumonia vaccine administration Reviewed 04/26/2012 [...] 111 Influenza 12/17/2016 sanofi pasteur PMC Fluzone [id number] Intramuscular Right Deltoid 12/17/2016 11/03/2014 135 Pneumococcal 03/03/2017 [employer]ck [employer] MSD Pneumovax 23 [id number] Intramuscular Left Arm 03/03/2017 07/21/2014 33 History [...] kidney disease (CKD) Apr 02 2017 9:38AM Payers Insurance Name Company Name Plan Name Plan Number Policy Number Policy Group Number Start Date Medicare RHC Medicare [facility] [id number] N/[place] [employer] [place] [employer] [place] [id number] [place] [employer] [employer] [id number] N/A Medicare Part A Medicare - Lab/Xray [id number] September Medicare Part B Medicare Of [place] [id number] N/A Medicare Part B [place] [id number] September [place] Medical [place] Program [place] Medical [place] Prog [id number] N/A Medicare Part A Medicare Part A [id number] , September 27, 1998 [facility] [id number] Monday, October 22, 2012 History of Encounters Visit Date Visit Type Provider 04/02/[address] Ping Mosqueda DO [...] Office visit Dr. Ping Mosqueda DO 09/02/2016 [facility] Caesar Mosqueda MD 09/02/2016 [facility] Bandar Levine MD 06/18/2016 Office visit Cesarjorgito Encarnacion DO 07/24/2015 [facility] Bandar Levine MD 05/25/2015 [facility] Bandar Levine MD 09/11/2014 [facility] Cesar Bouman DO 09/10/2014 [facility] Bandar Levine MD 09/05/2014 Office visit Cesar Bouman DO 08/22/2014 [facility] Cesar Bouman DO 08/21/2014 [facility] Cesar Bouman DO 08/21/2014 [facility] Ecsar Bouman DO 12/01/2013 Nurse visit Gianna OMER [...] Office visit Gianna OMER 02/09/2013 Office visit Anegl Hand MD 02/03/2013 Office visit Genesis Marie APRN 01/31/2013 Office visit Gianna HunterZac Ruslan NEGRA 01/07/2013 Office visit Michael Fleming DO 11/25/2012 Office visit Michael Fleming DO 10/22/2012 Office visit Genesis Marie ACTUARIAL ASSOCIATE 10/18/2012 [facility] Bhakti José MD 10/10/2012 [facility] Scarlett Aramis DO 10/06/2012 Office visit Genesis Marie ACTUARIAL ASSOCIATE 10/06/2012 Office visit Pepe Herr MD 09/21/2012 [facility] Pepe Herr MD 09/21/2012 Office visit Pepe Herr MD 09/09/2012 Office visit Genesis Marie ACTUARIAL ASSOCIATE 08/27/2012 Office visit Genesis Marie ACTUARIAL ASSOCIATE 08/26/2012 [facility] ePpe Herr MD 08/11/2012 Office visit Genesis Marie ACTUARIAL ASSOCIATE 07/27/2012 [facility] Bhakti José MD 05/27/2012 Office visit Genesis Marie ACTUARIAL ASSOCIATE 05/07/2012 [facility] Bandar Levine MD 05/07/2012 Office visit Genesis Marie ACTUARIAL ASSOCIATE 05/06/2012 [facility] Pepe Herr MD 04/27/2012 Office visit Pepe Herr MD 04/16/2012 Office visit Genesis Marie ACTUARIAL ASSOCIATE 03/25/2012 Office visit Michael Fleming DO 10/07/2011 [facility] Pepe Herr MD 09/23/2011 [facility] Pepe Herr MD 09/09/2011 [facility] Pepe Herr MD 03/20/2011 [facility] Bandar Levine MD 05/28/2009 Office visit Pepe Herr MD
--- OUTSIDE RECORDS SUMMARY | 2017-12-10 10:32 | XMS REPORT ---
Author Author Ping Mosqueda [facility] Address [address] [place], [place] [id number] Care Team Providers Care Lay Out Maker Name Role Phone Ping Mosqueda PCP Ping Mosqueda Unavailable Unavailable Ping Mosqueda PreferredProvider Allergies and Adverse Reactions Name Reaction Notes erythromycin Toradol Minocycline TETRACYCLINES SULFA (SULFONAMIDES) Keflex Zoloft [place] Carbonate benztropine iodine Shell Fish (shrimp, crayfish, lobster, crab) Plan of Treatment Planned Activity Comments Planned Date Planned Time Plan/Goal URINALYSIS ROUTINE C&S IF IND 11/06/2016 12:00 AM FOBT 1st specimen 12/31/2016 12:00 AM Fecal occult blood detection 03/03/2017 12:00 AM Urine microalbumin screen 03/03/2017 12:00 AM Urine Drug Screen 07/31/2017 12:00 AM COPD 05/21/2017 9:30 AM Medications [...] 06/24/2017 TAKE 1 TABLET BY MOUTH DAILY pravastatin 20 mg oral tablet 07/08/2017 10/06/2017 [...] wear up to 12hours.) for 30 days tramadol 50 mg oral tablet 09/04/2017 10/04/2017 take 1 tablet by oral route Q12 hours PRN severe pain Lyrica 50 mg oral capsule 09/15/2017 10/15/2017 take 1 capsule (50 mg) by oral route 3 times per day for 30 days Name Start Date Expiration [...] 72 hours for 30 days 12mcg patch [place] oral tablet 10-325 mg 12/01/2013 01/30/2014 take [...] 2 times per day for 30 days Tessalon Perles 100 mg [...] route 3 times per day Flonase Nasal [place], Suspension 50 mcg/actuation 09/09/2012 10/22/2012 inhale 1 [...] full glass (8 oz) of liquid Nasal [place] (sodium chloride) nasal aerosol,spray 0.65 % 06/18/2016 [...] oral route every 6 hours as needed [place] 5-325 mg oral tablet 09/10/2016 take 1 [...] HC BMI BSA BMI Percentile O2 Sat(%) 09/15/2017 3:52:00 PM 134 mmHg 68 mmHg [...] F 257.375 lbs 60 in 50.2646 kg/m 2.22 m2 92 % 12/03/2016 3:50:00 PM [...] 23 JUAN IM Reviewed 03/03/2017 12:00 AM [facility] MEDICARE - pneumonia vaccine administration Reviewed [...] 07/02/2017 12:00 AM GLYCOSYLATED HEMOGLOBIN TEST Returned 09/04/2017 12:00 AM COMPLETE CBC W/AUTO DIFF [...] 111 Influenza 12/17/2016 sanofi pasteur PMC FLUZONE [id number] Intramuscular Right Deltoid 12/17/2016 11/03/2014 135 Pneumococcal 03/03/2017 [employer]ck [employer] MSD PNEUMOVAX 23 [id number] Intramuscular Left Arm 03/03/2017 07/21/2014 33 History [...] Number Start Date Medicare RHC Medicare RHC [id number] N/[place] [employer] [place] [employer] - [facility] [place] [id number] N/[place] [employer] [place] [employer] [place] State [place] [id number] N/A Medicare Part A Medicare - Lab/Xray [id number] September Medicare Part B Medicare Of [place] [id number] N/A Medicare Part B Medicare [place] [id number] September [place] Medical Assistance Program [place] Medical [place] Prog [id number] N/A Medicare Part A Medicare Part A [id number] [facility] [id number] Monday, October 22, 2012 History of Encounters Visit Date Visit Type Provider 09/15/[address] Ping Mosqueda DO 09/04/2017 Office visit 09/04/[address] Ping Mosqueda DO 08/11/[address] Ping Mosqueda DO 07/31/[address] Ping Mosqueda DO 07/02/[address] Ping Mosqueda DO 06/12/2017 Office visit Yeny Hilario OVERWEAVER 06/03/[address] Ping Mosqueda DO 05/26/[address] Ping Mosqueda DO 05/13/[address] Ping Mosqueda DO 05/07/2017 [facility] Issa Levine MD 05/06/2017 Office visit Michelet Harper [...] visit Dr. Ping Mosqueda DO 10/06/2016 [facility] Bandar Levine MD 09/23/[address] Ping Mosqueda DO 09/16/[address] Ping Mosqueda DO 09/10/[address] Ping Mosqueda DO 09/02/2016 [facility] Caesar Mosqueda MD 09/02/2016 [facility] Bandar Levine MD 06/18/2016 Office visit Cesarjorgito Encarnacion DO 07/24/2015 [facility] Bandar Levine MD 05/25/2015 [facility] Bandar Levine MD 09/11/2014 [facility] Cesar Bouman DO 09/10/2014 [facility] Bandar Levine MD 09/05/2014 Office visit Cesar Bouman DO 08/22/2014 [facility] Cesar Bouman DO 08/21/2014 [facility] Cesar Bouman DO 08/21/2014 [facility] Cesar Bouman DO 12/01/2013 Nurse [...] Fleming DO 10/22/2012 Office visit Genesis Marie OVERWEAVER 10/18/2012 [facility] Bhakti José MD 10/10/2012 [facility] Scarlett Aramis DO 10/06/2012 Office visit Genesis Marie OVERWEAVER 10/06/2012 Office visit Pepe Herr MD 09/21/2012 [facility] Pepe Herr MD 09/21/2012 Office visit Pepe Herr MD 09/09/2012 Office visit Genesis Marie OVERWEAVER 08/27/2012 Office visit Genesis Marie OVERWEAVER 08/26/2012 [facility] Pepe Herr MD 08/11/2012 Office visit Genesis Marie OVERWEAVER 07/27/2012 [facility] Bhakti José MD 05/27/2012 Office visit Genesis Marie OVERWEAVER 05/07/2012 [facility] Bandar Levine MD 05/07/2012 Office visit Genesis Marie OVERWEAVER 05/06/2012 [facility] Pepe Herr MD 04/27/2012 Office visit Pepe Herr MD 04/16/2012 Office visit Genesis Marie OVERWEAVER 03/25/2012 Office visit Michael Fleming DO 10/07/2011 [facility] Pepe Herr MD 09/23/2011 [facility] Pepe Herr MD 09/09/2011 [facility] Pepe Herr MD 03/20/2011 [facility] Bandar Levine MD 05/28/2009 Office visit Pepe Herr MD
--- OUTSIDE RECORDS SUMMARY | 2017-12-10 10:34 | XMS REPORT ---
Author Author Ping Mosqueda [facility] Address [address] [place], [place] [id number] Care Team Providers Care Environmental Associate Name Role Phone Ping Mosqueda PCP Ping Mosqueda Unavailable Unavailable Ping Mosqueda PreferredProvider Allergies and Adverse Reactions Name Reaction Notes erythromycin Toradol Minocycline TETRACYCLINES SULFA (SULFONAMIDES) Keflex Zoloft [place] Carbonate benztropine iodine Shell Fish (shrimp, crayfish, lobster, crab) Plan of Treatment Planned Activity Comments Planned Date Planned Time Plan/Goal URINALYSIS ROUTINE C&S IF IND 11/06/2016 12:00 AM FOBT 1st specimen 12/31/2016 12:00 AM Fecal occult blood detection 03/03/2017 12:00 AM Urine microalbumin screen 03/03/2017 12:00 AM Urine Drug Screen 07/31/2017 12:00 AM Medications Active Name Start Date [...] WEEKLY IN THE MORNING for 30 days Lidoderm 5 % topical adhesive patch,medicated 05/14/2017 apply 2 patches by transdermal route once daily (May wear up to 12hours.) for 30 days mirtazapine 30 mg oral tablet 05/25/2017 take 1 tablet (30 mg) by oral route once daily before bedtime for 30 days Myrbetriq 25 mg oral tablet extended release 24 hr 06/24/2017 TAKE 1 TABLET BY MOUTH DAILY triamcinolone acetonide 0.5 % topical cream 07/02/2017 [...] daily for 30 days for 30 days Lyrica 75 mg oral capsule 07/15/2017 08/14/2017 take 1 capsule by oral route 2 times a day for 30 days lisinopril 5 mg oral tablet 08/05/2017 10/04/2017 TAKE 1 TABLET (5 MG) BY ORAL ROUTE ONCE DAILY FOR 30 DAYS for 30 days fentanyl 25 mcg/hr transdermal patch 72 hour 07/31/2017 08/30/2017 apply 1 patch (25 mcg/hour) by transdermal route every 72 hours for 30 days montelukast 10 mg oral [...] 72 hours for 30 days 12mcg patch [place] oral tablet 10-325 mg 12/01/2013 01/30/2014 take [...] at bedtime as needed for 30 days Discontinued Name Start Date [...] route 3 times per day Flonase Nasal [place], Suspension 50 mcg/actuation 09/09/2012 10/22/2012 inhale 1 [...] full glass (8 oz) of liquid Nasal [place] (sodium chloride) nasal aerosol,spray 0.65 % 06/18/2016 [...] oral route every 6 hours as needed [place] 5-325 mg oral tablet 09/10/2016 take 1 [...] the morning and evening for 30 days Problem List Description Status Onset Anxiety [...] HC BMI BSA BMI Percentile O2 Sat(%) 08/11/2017 9:51:00 AM 164 mmHg 70 mmHg 91 bpm 20 rpm 98.2 F 70 in 93 % 07/31/2017 9:58:00 AM 164 mmHg 60 mmHg 108 bpm 20 rpm 98.4 F 254.125 lbs 60 in 49.63 kg/m2 2.209 m 93 % 07/02/2017 9:16:00 AM 152 mmHg 74 mmHg 114 bpm 20 rpm 98.4 F 261 lbs 60 in 50.9725 kg/m 2.24 m2 92 % 06/12/2017 12:10:00 PM 160 mmHg 76 mmHg 109 bpm 24 rpm 97.5 F 254 lbs 60 in 49.61 kg/m2 2.2085 m 95 % 06/03/2017 9:39:00 AM 158 mmHg 70 mmHg 105 bpm 18 rpm 97.8 F 251.25 lbs 60 in 49.0684 kg/m 2.20 m2 92 % 05/26/2017 10:36:00 AM 174 mmHg 72 mmHg 110 bpm 20 rpm 97.6 F 257.5 lbs 60 in 50.29 kg/m2 2.2236 m 92 % 05/13/2017 8:45:00 AM 178 mmHg 64 mmHg 118 bpm 20 rpm 98.8 F 253.5 lbs 60 in 49.5078 kg/m 2.21 m2 93 % 05/06/2017 1:34:00 PM [...] drug screen collection Reviewed 12/17/2016 12:00 AM [facility] MEDICARE - flu vaccine administration Reviewed [...] 23 JUAN IM Reviewed 03/03/2017 12:00 AM [facility] MEDICARE - pneumonia vaccine administration Reviewed [...] 07/02/2017 12:00 AM GLYCOSYLATED HEMOGLOBIN TEST Returned 08/27/2012 [...] 11.50 g/dLHCT 37.20 %MCV 95.0 fLMCH 29.30 pgHC 30.90 g/dLRDW SD 54 RDW [...] 111 Influenza 12/17/2016 sanofi pasteur PMC FLUZONE [id number] Intramuscular Right Deltoid 12/17/2016 11/03/2014 135 Pneumococcal 03/03/2017 [employer] MSD PNEUMOVAX 23 [id number] Intramuscular Left Arm 03/03/2017 07/21/2014 33 History [...] 9:56AM Chronic pain Aug 11 2017 10:58AM Payers Insurance Name Company Name Plan Name Plan Number Policy Number Policy Group Number Start Date Medicare RHC Medicare RHC [id number] N/A Amer[employer] - [place] State [place] Amerigroup [place] State Plan [id number] N/A Amer[employer] [place] State Plan Amerigroup [place] State Plan [id number] N/A Medicare Part A Medicare - Lab/Xray [id number] September Medicare Part B Medicare Of [place] [id number] N/A Medicare Part B Medicare [place] [id number] September [place] Medical Assistance [facility] Medical Assistance Prog [id number] N/A Medicare Part A Medicare Part A [id number] September [facility] [id number] Monday, October 22, 2012 History of Encounters Visit Date Visit Type Provider 08/11/[address] Ping Mosqueda DO 07/31/[address] Ping Mosqueda DO 07/02/[address] Ping Mosqueda DO 06/12/2017 Office visit Yeny Hilario ARCHITECT INTERN 06/03/[address] Ping Mosqueda DO 05/26/[address] Ping Mosqueda DO 05/13/[address] Ping Mosqueda DO 05/07/2017 [facility] Bandar Levine MD 05/06/2017 Office [...] Office visit Dr. Ping Mosqueda DO 10/06/2016 [facility] Bandar Levine MD 09/23/[address] Ping Mosqueda DO 09/16/[address] Ping Mosqueda DO 09/10/[address] Ping Mosqueda DO 09/02/2016 [facility] Caesar Mosqueda MD 09/02/2016 [facility] Bandar Levine MD 06/18/2016 Office visit Cesar Encarnacion DO 07/24/2015 [facility] Bandar Levine MD 05/25/2015 [facility] Bandar Levine MD 09/11/2014 [facility] DO 09/10/2014 [facility] Bandar Levine MD 09/05/2014 Office visit [facility] DO 08/22/2014 [facility] DO 08/21/2014 [facility] 08/21/2014 [facility] DO 12/01/2013 Nurse visit Gianna OMER 11/16/2013 Office visit Gianna OMER 11/03/2013 Office visit Gianna OMER 10/05/2013 Office visit Gianna OMER 10/04/2013 Office visit Genesis Marie ARCHITECT INTERN 09/07/2013 Office visit Gianna OMER 2013 Office visit Genesis Marie ARCHITECT INTERN 07/25/2013 Office visit Genesis Marie APRN 07/22/2013 Office visit Gianna OMER 07/05/2013 Office visit Genesis Marie ARCHITECT INTERN 06/13/2013 Office visit Genesis Marie APRN 06/01/2013 Office visit Genesis Marie ARCHITECT INTERN 05/24/2013 Office visit Gianna OMER 05/18/2013 Office visit Angel Hand MD 05/04/2013 Office visit Angel Hand MD 04/28/2013 Hospital Angel Hand MD 04/26/2013 Office visit Sahara Ruiz MD 04/25/2013 Procedures Angel Hand MD 04/18/2013 Office visit Michael Fleming DO 03/31/2013 Office visit Gianna Mercer PATROL AGENT 03/09/2013 Office visit Gianna OMER 02/28/2013 Office visit Angel Hand MD 02/17/2013 Office visit Gianna OMER 02/09/2013 Office visit Angel Hand MD 02/03/2013 Office visit Genesis Marie ARCHITECT INTERN 01/31/2013 Office visit Gianna Mercer PATROL AGENT 01/07/2013 Office visit Michael Fleming DO 11/25/2012 Office visit Michael Fleming DO 10/22/2012 Office visit Genesis Marie ARCHITECT INTERN 10/18/2012 [facility] Bhakti José MD 10/10/2012 [facility] DO 10/06/2012 Office visit Genesis Marie ARCHITECT INTERN 10/06/2012 Office visit Pepe Herr MD 09/21/2012 [facility] Pepe Herr MD 09/21/2012 Office visit Pepe Herr MD 09/09/2012 Office visit Genesis Marie ARCHITECT INTERN 08/27/2012 Office visit Genesis Marie ARCHITECT INTERN 08/26/2012 [facility] Pepe Herr MD 08/11/2012 Office visit Genesis Marie ARCHITECT INTERN 07/27/2012 [facility] Bhakti José MD 05/27/2012 Office visit Genesis Marie ARCHITECT INTERN 05/07/2012 [facility] Bandar Levine MD 05/07/2012 Office visit Genesis Marie ARCHITECT INTERN 05/06/2012 [facility] Pepe Herr MD 04/27/2012 Office visit Pepe Herr MD 04/16/2012 Office visit Genesis Marie ARCHITECT INTERN 03/25/2012 Office visit Michael Fleming DO 10/07/2011 [facility] Pepe Herr MD 09/23/2011 [facility] Pepe Herr MD 09/09/2011 Hospital Pepe Herr MD 03/20/2011 [facility] Bandar Levine MD 05/28/2009 Office visit Pepe Herr MD
--- OUTSIDE RECORDS SUMMARY | 2017-12-10 10:36 | XMS REPORT ---
Author Author Ping Mosqueda [facility] Address [address] [place], [place] [id number] Care Team Providers Care Sane Nurse Name Role Phone Ping Mosqueda PCP Ping Mosqueda Unavailable Unavailable Ping Mosqueda PreferredProvider Allergies and Adverse Reactions Name Reaction Notes erythromycin Toradol Minocycline TETRACYCLINES SULFA (SULFONAMIDES) Keflex Zoloft [place] Carbonate benztropine iodine Shell Fish (shrimp, crayfish, [...] 75 mg oral capsule take one TID Klonopin 0.5 mg oral tablet take 1 tablet (0.5 mg) by oral route 2 times per day Zocor 10 mg oral tablet take 1 tablet (10 mg) by oral route once daily in the evening Norvasc 5 mg oral tablet take 1 tablet (5 mg) by oral route once daily cyclobenzaprine 10 mg oral tablet take 1 tablet (10 mg) by oral route 3 times per day Seroquel 50 mg oral tablet take 1 tablet (50 mg) by oral route daily mirtazapine 15 mg oral tablet take 1 tablet (15 mg) by oral route once daily before bedtime amlodipine 5 mg oral tablet take 1 tablet (5 mg) by oral route once daily lamotrigine 150 mg oral tablet take 1 tablet (150 mg) by oral route 2 times per day alendronate 70 mg oral tablet take 1 tablet (70 mg) by oral route once weekly in the morning, at least 30 min before first food, beverage, or medication of day potassium chloride 20 mEq oral tablet extended release take 2 by oral route once daily with food fentanyl 25 mcg/hr transdermal patch 72 hour apply 1 patch (25 mcg/hour ) by transdermal route every 72 hours Bevespi Aerosphere 9-4.8 mcg inhalation HFA aerosol [...] 72 hours for 30 days 12mcg patch [place] oral tablet 10-325 mg 12/01/2013 01/30/2014 take [...] route 3 times per day Flonase Nasal [place], Suspension 50 mcg/actuation 09/09/2012 10/22/2012 inhale 1 [...] full glass (8 oz) of liquid Nasal [place] (sodium chloride) nasal aerosol,spray 0.65 % 06/18/2016 [...] oral route every 6 hours as needed [place] 5-325 mg oral tablet 09/10/2016 take 1 tablet by oral route every 6 hours as needed for pain Remeron 15 mg oral tablet 09/10/2016 take [...] by oral route 2 times per day Seroquel 100 mg oral tablet 09/10/2016 take 1 tab at night Lasix 40 mg oral tablet 09/10/2016 take 1 tab in the AM and 2 at night Problem List Description Status Onset Anxiety Active [...] HC BMI BSA BMI Percentile O2 Sat(%) 10/07/2016 4:05:00 PM 130 mmHg 64 mmHg 106 bpm 24 rpm 99.3 F 261 lbs 60 in 50.97 kg/m2 2.24 m2 88 % 09/23/2016 8:54:00 AM 131 mmHg 71 mmHg 100 bpm 22 rpm 99.2 F 265 lbs 88 % 09/16/2016 9:21:00 AM 142 mmHg 68 mmHg 103 bpm 22 rpm 98.1 F 267.375 lbs 60 in 52.22 kg/m2 2.27 m2 90 % 09/10/2016 3:31:00 PM [...] rpm 96.2 F 212 lbs 60 in 41.40 kg/m2 2.02 m2 11/03/2013 12:56:00 PM 124 mmHg 62 mmHg 80 bpm 18 rpm 96.6 F 215 lbs 60 in 41.9889 kg/m 2.0319 m 10/05/2013 9:11:00 AM 140 mmHg 76 mmHg 84 bpm 16 rpm 98.4 F 217 lbs 60 in 42.38 kg/m2 2.04 m2 10/04/2013 10:12:00 AM 132 mmHg 68 mmHg 93 bpm 18 rpm 96.8 F 215.125 lbs 60 in 42.0133 kg/m 2.0325 m 96 % 09/07/2013 9:40:00 AM 132 mmHg 76 mmHg 88 bpm 20 rpm 97.7 F 208 lbs 60 in 40.62 kg/m2 2.00 m2 2013 10:06:00 AM 122 mmHg 62 mmHg 76 bpm 18 rpm 98.5 F 204.5 lbs 60 in 39.9383 kg/m 1.9816 m 94 % 07/25/2013 9:29:00 AM 136 mmHg 68 mmHg 84 bpm 18 rpm 96.7 F 207.375 lbs 60 in 40.50 kg/m2 2.00 m2 95 % 07/22/2013 10:08:00 AM 152 mmHg 80 mmHg 72 bpm 16 rpm 96.9 F 207 lbs 60 in 40.4265 kg/m 1.9937 m 07/05/2013 3:15:00 PM 132 mmHg 68 mmHg 82 bpm 20 rpm 98 F 206.25 lbs 60 in 40.28 kg/m2 1.99 m2 94 % 06/13/2013 1:51:00 PM 140 mmHg 62 mmHg 93 bpm 18 rpm 98.8 F 206.375 lbs 60 in 40.3044 kg/m 1.9907 m 91 % 06/01/2013 11:30:00 AM 132 mmHg 64 mmHg 84 bpm 18 rpm 98 F 205 lbs 60 in 40.04 kg/m2 1.98 m2 96 % 05/24/2013 10:00:00 AM 148 mmHg 80 mmHg 78 bpm 18 rpm 97.8 F 202.125 lbs 60 in 39.4744 kg/m 1.9701 m 05/18/2013 10:28:00 AM 120 mmHg [...] rpm 97.2 F 222.375 lbs 60 in 43.43 kg/m2 2.07 m2 09/21/2012 8:12:00 AM 150 mmHg 72 mmHg 82 bpm 16 rpm 97.2 F 230 lbs 60 in 44.9183 kg/m 2.1015 m 09/09/2012 8:18:00 AM 136 mmHg 70 mmHg 72 bpm 20 rpm 97.7 F 224.25 lbs 60 in 43.80 kg/m2 2.08 m2 08/27/2012 8:42:00 AM 142 mmHg 64 mmHg 72 bpm 18 rpm 98.4 F 222 lbs 60 in 43.356 kg/m 2.0647 m 08/11/2012 9:12:00 AM 122 mmHg 64 mmHg 82 bpm 18 rpm 98.4 F 225 lbs 60 in 43.94 kg/m2 2.08 m2 96 % 05/27/2012 11:31:00 AM 136 mmHg 74 mmHg 107 bpm 18 rpm 97.8 F 230.062 lbs 60 in 44.9305 kg/m 2.1018 m 94 % 05/07/2012 9:34:00 AM 142 mmHg 68 mmHg 88 bpm 18 rpm 98.6 F 230.25 lbs 60 in 44.97 kg/m2 2.10 m2 04/27/2012 8:34:00 AM 144 mmHg 74 mmHg 78 bpm 18 rpm 96.1 F 233 lbs 60 in 45.5042 kg/m 2.1152 m 04/16/2012 9:19:00 AM 136 mmHg [...] 9:01AM COPD exacerbation Oct 07 2016 4:11PM Payers Insurance Name Company Name Plan Name Plan Number Policy Number Policy Group Number Start Date Medicare RHC Medicare RHC [id number] N/A [employer] [place] [facility] State Plan [id number] N/A [facility] State [facility] State Plan [id number] N/A Medicare Part A Medicare - Lab/Xray [id number] September Medicare Part B Medicare Of [place] [id number] N/A Medicare Part B Medicare [place] [id number] September [place] Medical Assistance Program [place] Medical Assistance Prog [id number] N/A Medicare Part A Medicare Part A [id number] September Kandi Fowler [facility] [id number] Monday, October 22, 2012 History of Encounters Visit Date Visit Type Provider 10/08/[address] Ping Mosqueda DO 10/07/[address] Ping Mosqueda DO 09/23/[address] Ping Mosqueda DO 09/16/[address] Ping Mosqueda DO 09/10/[address] Ping Mosqueda DO 09/02/2016 [facility] Caesar Mosqueda MD 06/18/2016 Office visit Cesar Encarnacion DO 07/24/2015 [facility] Bandar Levine MD 05/25/2015 [facility] Bandar Levine MD 09/11/2014 [facility] DO 09/10/2014 [facility] Bandar Levine MD 09/05/2014 Office visit Cesarjorgito Encarnacion DO 08/22/2014 [facility] Cesar Bouman DO 08/21/2014 [facility] Cesar Bouman DO 08/21/2014 [facility] C[facility] DO 12/01/2013 Nurse visit Gianna OMER 11/16/2013 [...] Hand MD 02/03/2013 Office visit Genesis Marie RELIEF MAN 01/31/2013 Office visit Gianna MZac OMER 01/07/2013 Office visit Michael Fleming DO 11/25/2012 Office visit Michael Fleming DO 10/22/2012 Office visit Genesis Marie RELIEF MAN 10/18/2012 [facility] Bhakti José MD 10/10/2012 [facility] DO 10/06/2012 Office visit Genesis Marie RELIEF MAN 10/06/2012 Office visit Pepe Herr MD 09/21/2012 [facility] Pepe Herr MD 09/21/2012 Office visit Pepe Herr MD 09/09/2012 Office visit Genesis Marie RELIEF MAN 08/27/2012 Office visit Genesis Marie RELIEF MAN 08/26/2012 [facility] Pepe Herr MD 08/11/2012 Office visit Genesis Marie RELIEF MAN 07/27/2012 [facility] Bhakti José MD 05/27/2012 Office visit Genesis Marie RELIEF MAN 05/07/2012 [facility] Bandar Levine MD 05/07/2012 Office visit Genesis Marie RELIEF MAN 05/06/2012 [facility] Pepe Herr MD 04/27/2012 Office visit Pepe Herr MD 04/16/2012 Office visit Genesis Marie RELIEF MAN 03/25/2012 Office visit Michael Fleming DO 10/07/2011 [facility] Pepe Herr MD 09/23/2011 [facility] Pepe Herr MD 09/09/2011 [facility] Pepe Herr MD 03/20/2011 [facility] Bandar Levine MD 05/28/2009 Office visit Pepe Herr MD
--- OUTSIDE RECORDS SUMMARY | 2017-12-10 10:38 | XMS REPORT ---
Author Author Ping Mosqueda [facility] Address [address] [place], [place] [id number] Care Team Providers Care Ornamental Metalwork Designer Name Role Phone iPng Mosqueda PCP Ping Mosqueda Unavailable Unavailable Ping Mosqueda PreferredProvider Allergies and Adverse Reactions Name Reaction Notes erythromycin Toradol Minocycline TETRACYCLINES SULFA (SULFONAMIDES) Keflex Zoloft [place] Carbonate benztropine iodine Shell Fish (shrimp, crayfish, [...] oral route once daily for 5 days Name Start Date Expiration Date SIG [...] 72 hours for 30 days 12mcg patch [place] oral tablet 10-325 mg 12/01/2013 01/30/2014 take [...] route 3 times per day Flonase Nasal [place], Suspension 50 mcg/actuation 09/09/2012 10/22/2012 inhale 1 [...] full glass (8 oz) of liquid Nasal [place] (sodium chloride) nasal aerosol,spray 0.65 % 06/18/2016 [...] oral route every 6 hours as needed [place] 5-325 mg oral tablet 09/10/2016 take 1 [...] HC BMI BSA BMI Percentile O2 Sat(%) 12/17/2016 8:53:00 AM 110 mmHg 60 mmHg [...] 2016 8:55AM Eczema Dec 17 2016 8:55AM Payers Insurance Name Company Name Plan Name Plan Number Policy Number Policy Group Number Start Date Medicare RHC Medicare RHC [id number] N/A [employer] [place] Amer[employer] [place] [id number] N/[place] [employer] [place] [employer] [place] [id number] N/A Medicare Part A Medicare - Lab/Xray [id number] , September 27, 1998 Medicare Part B Medicare Of [place] [id number] N/A Medicare Part B Medicare [place] [id number] , September 27, 1998 [place] Medical Assistance [facility] Medical Assistance Prog [id number] N/A Medicare Part A Medicare Part A [id number] , September 27, [facility] [id number] Monday, October 22, 2012 History of Encounters Visit Date Visit Type Provider 12/17/[address] Ping Mosqueda DO 12/03/[address] Ping Mosqueda DO 11/06/[address] Ping Mosqueda DO 10/08/[address] Ping Mosqueda DO 10/07/[address] Ping Mosqueda DO 09/23/[address] Ping Mosqueda DO 09/16/[address] Ping Mosqueda DO 09/10/[address] Ping Mosqueda DO 09/02/2016 [facility] Caesar Mosqueda MD 09/02/2016 [facility] Bandar Levine MD 06/18/2016 Office visit Cesar Encarnacion DO 07/24/2015 Hospital Bandar Levine MD 05/25/2015 [facility] Bandar Levine MD 09/11/2014 [facility] Cesar Encarnacion DO 09/10/2014 [facility] Bandar Levine MD 09/05/2014 Office visit Cesar Encarnacion DO 08/22/2014 [facility] Cesar Encarnacion DO 08/21/2014 Hospital Cesar Encarnacion DO 08/21/2014 [facility] Cesar Encarnacion DO 12/01/2013 Nurse visit Gianna OMER 11/16/2013 Office visit Gianna AMADORP 11/03/2013 Office visit Gianna AMADORP 10/05/2013 Office visit Gianna AMADORP 10/04/2013 Office visit Genesis Marie GRAPE PRUNER 09/07/2013 Office visit Gianna AMADORP 2013 Office visit Genesis Marie GRAPE PRUNER 07/25/2013 Office visit Genesis Marie GRAPE PRUNER 07/22/2013 Office visit Gianna AMADORP 07/05/2013 Office visit Genesis Marie GRAPE PRUNER 06/13/2013 Office visit Genesis Marie GRAPE PRUNER 06/01/2013 Office visit Genesis Marie GRAPE PRUNER 05/24/2013 Office visit Gianna OMER 05/18/2013 Office visit Angel Hand MD 05/04/2013 Office visit Angel Hand MD 04/28/2013 [facility] Angel Hand MD 04/26/2013 Office visit Sahara Ruiz MD 04/25/2013 Procedures Angel Hand MD 04/18/2013 Office visit Michael Fleming DO 03/31/2013 Office visit Gianna OMER 03/09/2013 Office visit Gianna OMER 02/28/2013 Office visit Angel Hand MD 02/17/2013 Office visit Gianna OMER 02/09/2013 Office visit Angel Hand MD 02/03/2013 Office visit Genesis Marie GRAPE PRUNER 01/31/2013 Office visit Gianna OMER 01/07/2013 Office visit Michael Fleming DO 11/25/2012 Office visit Michael Fleming DO 10/22/2012 Office visit Genesis Marie GRAPE PRUNER 10/18/2012 [facility] Bhakti José MD 10/10/2012 [facility] 10/06/2012 Office visit Genesis Marie GRAPE PRUNER 10/06/2012 Office visit Pepe Herr MD 09/21/2012 [facility] Pepe Herr MD 09/21/2012 Office visit Pepe Herr MD 09/09/2012 Office visit Genesis Marie GRAPE PRUNER 08/27/2012 Office visit Genesis Marie GRAPE PRUNER 08/26/2012 [facility] Pepe Herr MD 08/11/2012 Office visit Genesis Marie GRAPE PRUNER 07/27/2012 [facility] Bhakti José MD 05/27/2012 Office visit Genesis Marie GRAPE PRUNER 05/07/2012 [facility] Bandar Levine MD 05/07/2012 Office visit Genesis Marie APRN 05/06/2012 [facility] Pepe Herr MD 04/27/2012 Office visit Pepe Herr MD 04/16/2012 Office visit Genesis Marie APRN 03/25/2012 Office visit Michael Fleming DO 10/07/2011 [facility] Pepe Herr MD 09/23/2011 [facility] Pepe Herr MD 09/09/2011 [facility] Pepe Herr MD 03/20/2011 [facility] Bandar Levine MD 05/28/2009 Office visit Pepe Herr MD
--- OUTSIDE RECORDS SUMMARY | 2017-12-10 10:40 | XMS REPORT ---
Author Author Ping Mosqueda [facility] Address [address] [place], [place] [id number] Care Team Providers Care Buy Boat Operator Name Role Phone Ping Mosqueda PCP Ping Mosqueda Unavailable Unavailable Ping Mosqueda PreferredProvider Allergies and Adverse Reactions Name Reaction Notes erythromycin Toradol Minocycline TETRACYCLINES SULFA (SULFONAMIDES) Keflex Zoloft [place] Carbonate benztropine iodine Shell Fish (shrimp, crayfish, lobster, crab) Plan of Treatment Planned Activity Comments Planned Date Planned Time Plan/Goal URINALYSIS ROUTINE C&S IF IND 11/06/2016 12:00 AM Urine Drug Screen 11/06/2016 12:00 AM Medications Active Name Start [...] 1 tab in AM and 2in PM fentanyl 25 mcg/hr transdermal patch 72 hour 11/06/2016 12/06/2016 apply 1 patch (25 mcg/hour) by transdermal [...] 72 hours for 30 days 12mcg patch [place] oral tablet 10-325 mg 12/01/2013 01/30/2014 take [...] route 3 times per day Flonase Nasal [place], Suspension 50 mcg/actuation 09/09/2012 10/22/2012 inhale 1 [...] full glass (8 oz) of liquid Nasal [place] (sodium chloride) nasal aerosol,spray 0.65 % 06/18/2016 [...] oral route every 6 hours as needed [place] 5-325 mg oral tablet 09/10/2016 take 1 [...] HC BMI BSA BMI Percentile O2 Sat(%) 11/06/2016 9:03:00 AM 142 mmHg 64 mmHg [...] 9:12AM Reduced mobility Nov 06 2016 9:12AM Payers Insurance Name Company Name Plan Name Plan Number Policy Number Policy Group Number Start Date Medicare RHC Medicare RHC [id number] N/A [employer] [place] [employer] [place] [id number] N/[place] [employer] [place] [facility] [place] [id number] N/A Medicare Part A Medicare - Lab/Xray [id number] September Medicare Part B Medicare Of [place] [id number] N/A Medicare Part B Medicare [place] [id number] September [place] Medical [place] Program [place] Medical [place] Prog [id number] N/A Medicare Part A Medicare Part A [id number] September Kandi Hernandezchristal [facility] [id number] Monday, October 22, 2012 History of Encounters Visit Date Visit Type Provider 11/06/[address] Ping Mosqueda DO 10/08/[address] Ping Mosqueda DO 10/07/[address] Ping Mosqueda DO 09/23/[address] Ping Mosqueda DO 09/16/[address] Ping Mosqueda DO 09/10/[address] Ping Mosqueda DO 09/02/2016 [facility] Caesar Mosqueda MD 06/18/2016 Office visit Cesar Encarnacion DO 07/24/2015 Hospital Bandar Levine MD 05/25/2015 [facility] Bandar Levine MD 09/11/2014 Hospital Cesar Bouman DO 09/10/2014 [facility] Bandar Levine MD 09/05/2014 Office visit Cesar Bouman DO 08/22/2014 Hospital Cesar Bouman DO 08/21/2014 [facility] Cesar Bouman DO 08/21/2014 Hospital Cesar [...] Fleming DO 10/22/2012 Office visit Genesis Marie DIGITAL MEDIA DESIGNER 10/18/2012 [facility] Bhakti José MD 10/10/2012 [facility] Scarlett Austinfield DO 10/06/2012 Office visit Genesis Marie DIGITAL MEDIA DESIGNER 10/06/2012 Office visit Pepe Herr MD 09/21/2012 [facility] Pepe Herr MD 09/21/2012 Office visit Pepe Herr MD 09/09/2012 Office visit Genesis Marie DIGITAL MEDIA DESIGNER 08/27/2012 Office visit Genesis Marie DIGITAL MEDIA DESIGNER 08/26/2012 [facility] Pepe Herr MD 08/11/2012 Office visit Genesis Marie DIGITAL MEDIA DESIGNER 07/27/2012 [facility] Bhakti José MD 05/27/2012 Office visit Genesis Marie DIGITAL MEDIA DESIGNER 05/07/2012 [facility] Bandar Levine MD 05/07/2012 Office visit Genesis Marie DIGITAL MEDIA DESIGNER 05/06/2012 [facility] Pepe Herr MD 04/27/2012 Office visit Pepe Herr MD 04/16/2012 Office visit Genesis Marie DIGITAL MEDIA DESIGNER 03/25/2012 Office visit Michael Fleming DO 10/07/2011 [facility] Pepe Herr MD 09/23/2011 [facility] Pepe Herr MD 09/09/2011 [facility] Pepe Herr MD 03/20/2011 [facility] Bandar Levine MD 05/28/2009 Office visit Pepe Herr MD
--- OUTSIDE RECORDS SUMMARY | 2017-12-10 10:42 | XMS REPORT ---
Author Author Ping Mosqueda [facility] Address [address] [place], [place] [id number] Care Team Providers Care Spice Blender Name Role Phone Ping Mosqueda PCP Ping Mosqueda Unavailable Unavailable Ping Mosqueda PreferredProvider Allergies and Adverse Reactions Name Reaction Notes erythromycin Toradol Minocycline TETRACYCLINES SULFA (SULFONAMIDES) Keflex Zoloft [place] Carbonate benztropine iodine Shell Fish (shrimp, crayfish, lobster, crab) Plan of Treatment Planned Activity Comments Planned Date Planned Time Plan/Goal URINALYSIS ROUTINE C&S IF IND 11/06/2016 12:00 AM FOBT 1st specimen 12/31/2016 12:00 AM Fecal occult blood detection 03/03/2017 12:00 AM VITAMIN D (25 HYDROXY) 03/03/2017 12:00 AM Urine microalbumin screen 03/03/2017 12:00 AM PNEUMOVAX 23 03/03/2017 12:00 AM Medications Active Name Start [...] 72 hours for 30 days 12mcg patch [place] oral tablet 10-325 mg 12/01/2013 01/30/2014 take [...] route 3 times per day Flonase Nasal [place], Suspension 50 mcg/actuation 09/09/2012 10/22/2012 inhale 1 [...] full glass (8 oz) of liquid Nasal [place] (sodium chloride) nasal aerosol,spray 0.65 % 06/18/2016 [...] oral route every 6 hours as needed [place] 5-325 mg oral tablet 09/10/2016 take 1 [...] drug screen collection Reviewed 12/17/2016 12:00 AM [facility] MEDICARE - flu vaccine administration Reviewed 12/17/2016 12:00 AM INFLUENZA VACCINE SPLT PRSRV FREE INC ANTIGEN IM Reviewed 02/04/2017 12:00 AM [facility] drug screen collection Reviewed 03/03/2017 12:00 AM LIPID PANEL Returned 03/03/2017 12:00 AM COMPREHEN METABOLIC PANEL Returned 03/03/2017 12:00 AM GLYCOSYLATED HEMOGLOBIN TEST Returned 03/03/2017 12:00 AM COMPLETE CBC W/AUTO DIFF WBC Returned 04/26/2012 12:00 AM COMPLETE CBC W/AUTO [...] 111 Influenza 12/17/2016 sanofi pasteur PMC Fluzone [id number] Intramuscular Right Deltoid 12/17/2016 11/03/2014 135 History [...] 09/23/2016 Diabetes 1.5, managed as type 2 Bipolar disorder, unspecified Mar 25 2012 8:20AM [...] Feb 09 2013 2:59PM L5-S1 HNP, Right Nov 21 2013 10:59AM Lumbar spondylosis Feb 17 2013 [...] Number Policy Group Number Start Date Medicare [facility] Medicare [facility] [id number] N/A [employer] [place] [employer] [place] [id number] N/[place] [employer] [place] [employer] [place] [id number] N/A Medicare Part A Medicare - Lab/Xray [id number] September Medicare Part B Medicare Of [place] [id number] N/A Medicare Part B [place] [id number] September [place] Medical Assistance [facility] Medical Assistance Prog [id number] N/A Medicare Part A Medicare Part A [id number] September [facility] [id number] Monday, October 22, 2012 History of Encounters [...] Office visit Dr. Ping Mosqueda DO 10/06/2016 Bib Levine MD 09/23/[address] Ping Mosqueda DO 09/16/[address] Ping Mosqueda DO 09/10/[address] Ping Mosqueda DO 09/02/2016 Hospital Caesar Mosqueda MD 09/02/2016 [facility] Bandar Levine MD 06/18/2016 Office visit Cesar Bonati DO 07/24/2015 [facility] Bandar Levine MD 05/25/2015 [facility] Banadr Levine MD 09/11/2014 Hospital Cesar Bouman DO 09/10/2014 [facility] Bandar Levine MD 09/05/2014 Office visit Cesar [...] visit Gianna OMER 02/28/2013 Office visit Angel Hadn MD 02/17/2013 Office visit Gianna OMER 02/09/2013 Office visit Angel Hand MD 02/03/2013 Office visit Genesis Marie APRN 01/31/2013 Office visit Gianna OMER 01/07/2013 Office visit Michael Fleming DO 11/25/2012 Office visit Michael Fleming DO 10/22/2012 Office visit Genesis Marie PATIENT ACCOUNT ANALYST 10/18/2012 [facility] Bhakti José MD 10/10/2012 [facility] Scarlett Austinfield DO 10/06/2012 Office visit Genesis Marie PATIENT ACCOUNT ANALYST 10/06/2012 Office visit Pepe Herr MD 09/21/2012 [facility] Pepe Herr MD 09/21/2012 Office visit Pepe Herr MD 09/09/2012 Office visit Genesis Marie PATIENT ACCOUNT ANALYST 08/27/2012 Office visit Genesis Marie PATIENT ACCOUNT ANALYST 08/26/2012 [facility] Pepe Herr MD 08/11/2012 Office visit Genesis Marie PATIENT ACCOUNT ANALYST 07/27/2012 [facility] Bhakti José MD 05/27/2012 Office visit Genesis Marie PATIENT ACCOUNT ANALYST 05/07/2012 [facility] Bandar Levine MD 05/07/2012 Office visit Genesis Marie PATIENT ACCOUNT ANALYST 05/06/2012 [facility] Pepe Herr MD 04/27/2012 Office visit Pepe Herr MD 04/16/2012 Office visit Genesis Marie PATIENT ACCOUNT ANALYST 03/25/2012 Office visit Michael Fleming DO 10/07/2011 [facility] Pepe Herr MD 09/23/2011 [facility] Pepe Herr MD 09/09/2011 [facility] Pepe Herr MD 03/20/2011 [facility] Bandar Levine MD 05/28/2009 Office visit Pepe Herr MD
--- OUTSIDE RECORDS SUMMARY | 2017-12-10 10:44 | XMS REPORT ---
Author Author Ping Mosqueda [facility] Address [address] [place], [place] [id number] Care Team Providers Care Deckhand Name Role Phone Ping Mosqueda PCP Ping Mosqueda Unavailable Unavailable Ping Mosqueda PreferredProvider Allergies and Adverse Reactions Name Reaction Notes erythromycin Toradol Minocycline TETRACYCLINES SULFA (SULFONAMIDES) Keflex Zoloft [place] Carbonate benztropine iodine Shell Fish (shrimp, crayfish, lobster, crab) Plan of Treatment Planned Activity Comments Planned Date Planned Time Plan/Goal URINALYSIS ROUTINE C&S IF IND 11/06/2016 12:00 AM FOBT 1st specimen 12/31/2016 12:00 AM Fecal occult blood detection 03/03/2017 12:00 AM Urine microalbumin screen 03/03/2017 12:00 AM Urine Drug Screen 07/31/2017 12:00 AM CBC for General Health Panel 09/04/2017 12:00 AM LACTIC ACID. 09/04/2017 12:00 AM COPD 05/21/2017 9:30 AM Medications [...] DAILY FOR 30 DAYS FOR 30 DAYS Lyrica 75 mg oral capsule 08/18/2017 09/17/2017 take 1 capsule by oral route 2 times a day for 30 days Colace 100 mg oral capsule 09/02/2017 TAKE [...] oral route Q12 hours PRN severe pain Tessalon Per[place] 100 mg oral capsule 09/04/2017 09/11/2017 take 1 capsule (100 mg) by oral route 3 times per day as needed for cough for 7 days Zofran 4 mg oral tablet 09/04/2017 09/11/2017 Take 1-2 hrs PRN nausea every 6- 8 hrs Name Start Date Expiration Date SIG Comments [...] 72 hours for 30 days 12mcg patch [place] oral tablet 10-325 mg 12/01/2013 01/30/2014 take [...] 2 times per day for 30 days Discontinued Name Start [...] route 3 times per day Flonase Nasal [place], Suspension 50 mcg/actuation 09/09/2012 10/22/2012 inhale 1 [...] full glass (8 oz) of liquid Nasal [place] (sodium chloride) nasal aerosol,spray 0.65 % 06/18/2016 [...] oral route every 6 hours as needed [place] 5-325 mg oral tablet 09/10/2016 take 1 [...] HC BMI BSA BMI Percentile O2 Sat(%) 09/04/2017 9:39:00 AM 164 mmHg 66 mmHg [...] 23 JUAN IM Reviewed 03/03/2017 12:00 AM [facility] MEDICARE - pneumonia vaccine administration Reviewed [...] 111 Influenza 12/17/2016 sanofi pasteur PMC FLUZONE [id number] Intramuscular Right Deltoid 12/17/2016 11/03/2014 135 Pneumococcal 03/03/2017 [employer]ck [employer] MSD PNEUMOVAX 23 [id number] Intramuscular Left Arm 03/03/2017 07/21/2014 33 History [...] Chest Pain b 2012 9:36AM Gastroesophageal Reflux Feb 2012 9:36AM Shortness Of Breath Feb 14 2012 11:38AM Bipolar Disorder May 27 2012 [...] 9:44AM Chronic pain Sep 04 2017 9:44AM Payers Insurance Name Company Name Plan Name Plan Number Policy Number Policy Group Number Start Date Medicare RHC Medicare RHC [id number] N/A [employer] [place] [employer] [place] [id number] N/[place] [employer] [place] [employer] [place] [id number] N/A Medicare Part A Medicare - Lab/Xray [id number] September Medicare Part B Medicare Of [place] [id number] N/A Medicare Part B Medicare [place] [id number] September [place] Medical Assistance [facility] Pro [id number] N/A Medicare Part A Medicare Part A [id number] September Kandi Fowler [facility] [id number] Monday, October 22, 2012 History of Encounters Visit Date Visit Type Provider 09/04/2017 Office visit 09/04/[address] Ping Mosqueda DO 08/11/[address] Ping Mosqueda DO 07/31/[address] Ping Mosqueda DO 07/02/[address] Ping Mosqueda DO 06/12/2017 Office [address] [place] DIRECTOR OF PHYSIOTHERAPY SERVICES 06/03/[address] Ping Mosqueda DO 05/26/[address] Ping Mosqueda DO 05/13/[address] Ping Mosqueda DO 05/07/2017 [facility] Bandar Levine MD 05/06/2017 Office visit [...] Office visit Dr. Ping Mosqueda DO 10/06/2016 [facility] Bandar Levine MD 09/23/[address] Ping Mosqueda DO 09/16/[address] Ping Mosqueda DO 09/10/[address] Ping Mosqueda DO 09/02/2016 [facility] Caesar Mosqueda MD 09/02/2016 [facility] Bandar Levine MD 06/18/2016 Office visit Cesar Encarnacion DO 07/24/2015 [facility] Bandar Levine MD 05/25/2015 [facility] Bandar Levine MD 09/11/2014 Hospital Cesar Encarnacion DO 09/10/2014 Hospital Bandar Levine MD 09/05/2014 Office visit Cesar Encarnacion DO 08/22/2014 [facility] Cesar Bouman DO 08/21/2014 [facility] Cesar Encarnacion DO 08/21/2014 [facility] 12/01/2013 Nurse visit Gianna OMER 11/16/2013 Office visit Gianna OMER 11/03/2013 Office visit Gianna AMADORP 10/05/2013 Office visit Gianna AMADORP 10/04/2013 Office visit Genesis Marie DIRECTOR OF PHYSIOTHERAPY SERVICES 09/07/2013 Office visit Gianna OMER 2013 Office visit Genesis Marie APRN 07/25/2013 Office visit Genesis Marie APRN 07/22/2013 Office visit Gianna AMADORP 07/05/2013 Office visit Genesis Marie APRN 06/13/2013 Office visit Genesis Marie APRN 06/01/2013 Office visit Genesis Marie APRN 05/24/2013 Office visit Gianna OMER 05/18/2013 Office visit Angel Hand MD 05/04/2013 Office visit Angel Hand MD 04/28/2013 [facility] Angel Hand MD 04/26/2013 Office visit Sahara Ruiz MD 04/25/2013 [facility] Angel Hand MD 04/18/2013 Office visit Michael [...] 10/22/2012 Office visit Genesis Marie APRN 10/18/2012 [facility] Bhakti José MD 10/10/2012 [facility] DO 10/06/2012 Office visit Genesis Marie APRN 10/06/2012 Office visit Pepe Herr MD 09/21/2012 [facility] Pepe Herr MD 09/21/2012 Office visit Pepe Herr MD 09/09/2012 Office visit Genesis Marie DIRECTOR OF PHYSIOTHERAPY SERVICES 08/27/2012 Office visit Genesis Marie DIRECTOR OF PHYSIOTHERAPY SERVICES 08/26/2012 [facility] Pepe Herr MD 08/11/2012 Office visit Genesis Marie DIRECTOR OF PHYSIOTHERAPY SERVICES 07/27/2012 [facility] Bhakti José MD 05/27/2012 Office visit Genesis Marie DIRECTOR OF PHYSIOTHERAPY SERVICES 05/07/2012 [facility] Bandar Levine MD 05/07/2012 Office visit Genesis Marie DIRECTOR OF PHYSIOTHERAPY SERVICES 05/06/2012 [facility] Pepe Herr MD 04/27/2012 Office visit Pepe Herr MD 04/16/2012 Office visit Genesis Marie DIRECTOR OF PHYSIOTHERAPY SERVICES 03/25/2012 Office visit Michael Fleming DO 10/07/2011 [facility] Pepe Herr MD 09/23/2011 [facility] Pepe Herr MD 09/09/2011 [facility] Pepe Herr MD 03/20/2011 [facility] Bandar Levine MD 05/28/2009 Office visit Pepe Herr MD
--- OUTSIDE RECORDS SUMMARY | 2017-12-10 10:46 | XMS REPORT ---
Author Author Ping Mosqueda [facility] Address [address] [place], [place] [id number] Care Team Providers Care Design Engineering Specialist Name Role Phone Ping Mosqueda PCP Ping Mosqueda Unavailable Unavailable Ping Mosqueda PreferredProvider Allergies and Adverse Reactions Name Reaction Notes erythromycin Toradol Minocycline TETRACYCLINES SULFA (SULFONAMIDES) Keflex Zoloft [place] Carbonate benztropine iodine Shell Fish (shrimp, crayfish, [...] (5 mg) by oral route once daily Singulair 10 mg oral tablet take 1 tablet (10 mg) by oral route once daily in the evening metformin 500 mg oral tablet take 1 tablet (500 mg) by oral route 2 times per day with morning and evening meals cyclobenzaprine 10 mg oral tablet take 1 [...] first food, beverage, or medication of day duloxetine 30 mg oral capsule,delayed release(DR/EC) take 1 capsule (30 mg) by oral route once daily potassium chloride 20 mEq oral tablet extended release take 2 by oral route once daily with food fentanyl 25 mcg/hr transdermal patch 72 hour apply 1 patch (25 mcg/hour ) by transdermal route every 72 hours Bevespi Aerosphere 9-4.8 mcg inhalation HFA aerosol inhaler inhale 2 puffs by inhalation route 2 times per day in the morning and evening Name Start Date Expiration Date SIG Comments [...] 72 hours for 30 days 12mcg patch [place] oral tablet 10-325 mg 12/01/2013 01/30/2014 take [...] route 3 times per day Flonase Nasal [place], Suspension 50 mcg/actuation 09/09/2012 10/22/2012 inhale 1 [...] full glass (8 oz) of liquid Nasal [place] (sodium chloride) nasal aerosol,spray 0.65 % 06/18/2016 [...] oral route every 6 hours as needed [place] 5-325 mg oral tablet 09/10/2016 take 1 [...] HC BMI BSA BMI Percentile O2 Sat(%) 09/23/2016 8:54:00 AM 131 mmHg 71 mmHg [...] (congestive) heart failure Sep 23 2016 9:01AM Payers Insurance Name Company Name Plan Name Plan Number Policy Number Policy Group Number Start Date Medicare RHC Medicare RHC [id number] N/A [employer] [place] [employer] [place] [id number] N/[place] [employer] [place] Plan [facility] [id number] N/A Medicare Part A Medicare - Lab/Xray [id number] September Medicare Part B Medicare Of [place] [id number] N/A Medicare Part B Medicare [place] [id number] September [place] Medical Assistance Program [place] Medical Assistance Prog [id number] N/A Medicare Part A Medicare Part A [id number] September [facility] [id number] Monday, October 22, 2012 History of Encounters Visit Date Visit Type Provider 09/23/[address] Ping Mosqueda DO 09/16/[address] Ping Mosqueda DO 09/10/[address] Ping Mosqueda DO 09/02/2016 [facility] Caesar Mosqueda MD 06/18/2016 Office visit Cesar Encarnacion DO 07/24/2015 [facility] Bandar Levine MD 05/25/2015 [facility] Bandar Levine MD 09/11/2014 [facility] Cesar Encarnacion DO 09/10/2014 [facility] Bandar Levine MD 09/05/2014 Office visit Cesar Bonati DO 08/22/2014 [facility] Cesar Bouman DO 08/21/2014 [facility] 08/21/2014 [facility] 12[facility]2013 Nurse visit Gianna [...] 04/26/2013 Office visit Sahara Ruiz MD 04/25/2013 [facility] Angel Hand MD 04/18/2013 [facility] 10/10/2012 [facility] DO 10/06/2012 Office visit Genesis Marie APRN 10/06/2012 Office visit Pepe Herr MD 09/21/2012 [facility] Pepe Herr MD 09/21/2012 Office visit Pepe Herr MD 09/09/2012 Office visit Genesis Marie SUPPLY CHAIN INTERN 08/27/2012 Office visit Genesis Marie SUPPLY CHAIN INTERN 08/26/2012 [facility] Pepe Herr MD 08/11/2012 Office visit Genesis Marie SUPPLY CHAIN INTERN 07/27/2012 [facility] Bhakti José MD 05/27/2012 Office visit Genesis Marie SUPPLY CHAIN INTERN 05/07/2012 [facility] Bandar Levine MD 05/07/2012 Office visit Genesis Marie SUPPLY CHAIN INTERN 05/06/2012 [facility] Pepe Herr MD 04/27/2012 Office visit Pepe Herr MD 04/16/2012 Office visit Genesis Marie SUPPLY CHAIN INTERN 03/25/2012 Office visit Michael Fleming DO 10/07/2011 [facility] Pepe Herr MD 09/23/2011 [facility] Pepe Herr MD 09/09/2011 [facility] Pepe Herr MD 03/20/2011 [facility] Bandar Levine MD 05/28/2009 Office visit Pepe Herr MD
--- OUTSIDE RECORDS SUMMARY | 2017-12-10 10:48 | XMS REPORT ---
Author Author Ping Mosqueda [facility] Address [address] [place], [place] [id number] Care Team Providers Care Body Line Finisher Name Role Phone Ping Mosqueda PCP Ping Mosqueda Unavailable Unavailable Ping Mosqueda PreferredProvider Allergies and Adverse Reactions Name Reaction Notes erythromycin Toradol Minocycline TETRACYCLINES SULFA (SULFONAMIDES) Keflex Zoloft [place] Carbonate benztropine iodine Shell Fish (shrimp, crayfish, lobster, crab) Plan of Treatment Planned Activity Comments Planned Date Planned Time Plan/Goal URINALYSIS ROUTINE C&S IF IND 11/06/2016 12:00 AM FOBT 1st specimen 12/31/2016 12:00 AM Fecal occult blood detection 03/03/2017 12:00 AM Urine microalbumin screen 03/03/2017 12:00 AM Urine microalbumin screen 07/02/2017 12:00 AM HEMOGLOBIN A1C 07/02/2017 12:00 AM Urine Drug Screen 07/31/2017 12:00 [...] 06/24/2017 TAKE 1 TABLET BY MOUTH DAILY Colace 100 mg oral capsule 07/02/2017 08/01/2017 [...] 30 days lisinopril 5 mg oral tablet 07/31/2017 09/29/2017 TAKE 1 TABLET (5 MG) BY ORAL [...] 72 hours for 30 days 12mcg patch [place] oral tablet 10-325 mg 12/01/2013 01/30/2014 take [...] TABS IN AM AND 1 IN PM Discontinued Name Start Date Discontinued Date SIG [...] route 3 times per day Flonase Nasal [place], Suspension 50 mcg/actuation 09/09/2012 10/22/2012 inhale 1 [...] full glass (8 oz) of liquid Nasal [place] (sodium chloride) nasal aerosol,spray 0.65 % 06/18/2016 [...] oral route every 6 hours as needed [place] 5-325 mg oral tablet 09/10/2016 take 1 [...] HC BMI BSA BMI Percentile O2 Sat(%) 07/31/2017 9:58:00 AM 164 mmHg 60 mmHg [...] drug screen collection Reviewed 12/17/2016 12:00 AM [facility] MEDICARE - flu vaccine administration Reviewed [...] 23 JUAN IM Reviewed 03/03/2017 12:00 AM [facility] MEDICARE - pneumonia vaccine administration Reviewed [...] 111 Influenza 12/17/2016 sanofi pasteur PMC FLUZONE [id number] Intramuscular Right Deltoid 12/17/2016 11/03/2014 135 Pneumococcal 03/03/2017 Merck & Co., Inc. MSD PNEUMOVAX 23 [id number] Intramuscular Left Arm 03/03/2017 07/21/2014 33 History [...] 10:02AM Chronic pain Jul 31 2017 10:02AM Payers Insurance Name Company Name Plan Name Plan Number Policy Number Policy Group Number Start Date Medicare RHC Medicare RHC [id number] N/A [employer] [place] Amer[employer] [place] [id number] N/A [employer] [place] Amer[employer] [place] [id number] N/A Medicare Part A Medicare - Lab/Xray [id number] September Medicare Part B Medicare Of [place] [id number] N/A Medicare Part B Medicare [place] [id number] September [place] Medical Assistance [facility] Medical Assistance Prog [id number] N/A Medicare Part A Medicare Part A [id number] September [facility] [id number] Monday, October 22, 2012 History of Encounters Visit Date Visit Type Provider 07/31/[address] Ping Mosqueda DO 07/02/[address] Ping Mosqueda DO 06/12/2017 Office visit Yeny Hilario APRN 06/03/[address] Ping Mosqueda DO 05/26/[address] Ping Mosqueda DO 05/13/[address] Ping Mosqueda DO 05/07/2017 [facility] Bandar Levine MD 05/06/2017 Office visit Michelet Harper DO 04/29/[address] Ping Mosqueda DO 04/02/[address] Ping Mosqueda DO 03/03/[address] Ping Mosqueda DO 02/25/[address] Ping Mosqueda DO 12/31/[address] Ping Mosqueda DO 12/17/[address] Ping Mosqueda DO 12/03/[address] Ping Mosqueda DO 11/06/2016 Office visit DrZac Mosqueda DO 10/08/[address] Ping Mosqueda DO 10/07/[address] Ping Mosqueda DO 10/06/2016 Hospital Bandar Levine MD 09/23/[address] Ping Mosqueda DO 09/16/[address] Ping Mosqueda DO 09/10/[address] Ping Mosqueda DO 09/02/2016 [facility] Caesar Mosqueda MD 09/02/2016 [facility] Bandar Levine MD 06/18/2016 Office visit Cesar Encarnacion DO 07/24/2015 [facility] Bandar Levine MD 05/25/2015 [facility] Bandar Levine MD 09/11/2014 [facility] Bandar Levine MD 09/05/2014 Office visit Cesar Bouman DO 08/22/2014 [facility] Cesar Bouman DO 08/21/2014 [facility] 08[facility]2014 [facility] 12/[facility]/2013 Nurse visit Gianna OMER [...] Hand MD 02/03/2013 Office visit Genesis Marie SUSTAINABILITY DIRECTOR 01/31/2013 Office visit Gianna OMER 01/07/2013 Office visit Michael Fleming DO 11/25/2012 Office visit Michael Fleming DO 10/22/2012 Office visit Genesis Marie SUSTAINABILITY DIRECTOR 10/18/2012 [facility] Bhakti José MD 10/10/2012 [facility] DO 10/06/2012 Office visit Genesis Marie SUSTAINABILITY DIRECTOR 10/06/2012 Office visit Pepe Herr MD 09/21/2012 [facility] Pepe Herr MD 09/21/2012 Office visit Pepe Herr MD 09/09/2012 Office visit Genesis Marie SUSTAINABILITY DIRECTOR 08/27/2012 Office visit Genesis Marie SUSTAINABILITY DIRECTOR 08/26/2012 [facility] Pepe Herr MD 08/11/2012 Office visit Genesis Marie SUSTAINABILITY DIRECTOR 07/27/2012 [facility] Bhakti José MD 05/27/2012 Office visit Genesis Marie SUSTAINABILITY DIRECTOR 05/07/2012 [facility] Bandar Levine MD 05/07/2012 Office visit Genesis Marie SUSTAINABILITY DIRECTOR 05/06/2012 [facility] Pepe Herr MD 04/27/2012 Office visit Pepe Herr MD 04/16/2012 Office visit Genesis Marie SUSTAINABILITY DIRECTOR 03/25/2012 Office visit Michael Fleming DO 10/07/2011 [facility] Pepe Herr MD 09/23/2011 [facility] Pepe Herr MD 09/09/2011 [facility] Pepe Herr MD 03/20/2011 [facility] Bandar Levine MD 05/28/2009 Office visit Pepe Herr MD
--- OUTSIDE RECORDS SUMMARY | 2017-12-10 10:51 | XMS REPORT ---
Author Author Ping Mosqueda [facility] Address [address] [place], [place] [id number] Care Team Providers Care Applied Marine Physics Professor Name Role Phone Ping Mosqueda PCP Ping Mosqueda Unavailable Unavailable Ping Mosqueda PreferredProvider Allergies and Adverse Reactions Name Reaction Notes erythromycin Toradol Minocycline TETRACYCLINES SULFA (SULFONAMIDES) Keflex Zoloft [place] Carbonate benztropine iodine Shell Fish (shrimp, crayfish, [...] 72 hours for 30 days 12mcg patch [place] oral tablet 10-325 mg 12/01/2013 01/30/2014 take [...] route 3 times per day Flonase Nasal [place], Suspension 50 mcg/actuation 09/09/2012 10/22/2012 inhale 1 [...] full glass (8 oz) of liquid Nasal [place] (sodium chloride) nasal aerosol,spray 0.65 % 06/18/2016 [...] oral route every 6 hours as needed [place] 5-325 mg oral tablet 09/10/2016 take 1 [...] 111 Influenza 12/17/2016 sanofi pasteur PMC FLUZONE [id number] Intramuscular Right Deltoid 12/17/2016 11/03/2014 135 Pneumococcal 03/03/2017 Merck & [employer] MSD PNEUMOVAX 23 [id number] Intramuscular Left Arm 03/03/2017 07/21/2014 33 History [...] Number Policy Group Number Start Date Medicare [facility] Medicare RHC [id number] N/A [employer] [place] [employer] [place] [id number] N/A [employer] [place] State Plan Amer[place] State Plan [id number] N/A Medicare Part A Medicare - Lab/Xray [id number] September Medicare Part B Medicare Of [place] [id number] N/A Medicare Part B [place] [id number] September [place] Medical Assistance Pro [id number] N/A Medicare Part A Medicare Part A [id number] September Kandi Fowler [facility] [id number] Monday, October 22, 2012 History of Encounters [...] Ping Mosqueda DO 05/13/[address] Pign Mosqueda DO 05/07/2017 [facility] Bandar Levine MD 05/06/2017 Office visit [...] Office visit Dr. Ping Mosqueda DO 10/06/2016 [facility] Bandar Levine MD 09/23/[address] Ping Mosqueda DO 09/16/[address] Ping Mosqueda DO 09/10/[address] Ping Mosqueda DO 09/02/2016 [facility] Caesar Mosqueda MD 09/02/2016 [facility] Bandar Levine MD 06/18/2016 Office visit Cesar Encarnacion DO 07/24/2015 Hospital Bandar Levine MD 05/25/2015 [facility] Bandar Levine MD 09/11/2014 [facility] 09/10/2014 [facility] Bandar Levine MD 09/05/2014 Office visit Cesarjorgito Encarnacion DO 08/22/2014 [facility] 08/21/2014 [facility] 08/21/2014 [facility] DO 12/01/2013 Nurse visit Gianna OMER 11/16/2013 Office visit Gianna OMER 11/03/2013 Office visit Gianna OMER 10/05/2013 Office visit Gianna OMER 10/04/2013 Office visit Genesis Marie TILE SETTER SUPERVISOR 09/07/2013 Office visit Gianna OMER 2013 Office visit Genesis Marie APRN 07/25/2013 Office visit Genesis Marie TILE SETTER SUPERVISOR 07/22/2013 Office visit Gianna OMER 07/05/2013 Office [...] 10/22/2012 Office visit Genesis Marie APRN 10/18/2012 [facility] Bhakti José MD 10/10/2012 [facility] DO 10/06/2012 Office visit Genesis Marie APRN 10/06/2012 Office visit Pepe Herr MD 09/21/2012 [facility] ePpe Herr MD 09/21/2012 Office visit Pepe Herr MD 09/09/2012 Office visit Genesis Marie TILE SETTER SUPERVISOR 08/27/2012 Office visit Genesis Marie TILE SETTER SUPERVISOR 08/26/2012 [facility] Pepe Herr MD 08/11/2012 Office visit Genesis Marie TILE SETTER SUPERVISOR 07/27/2012 [facility] Bhakti José MD 05/27/2012 Office visit Genesis Marie TILE SETTER SUPERVISOR 05/07/2012 [facility] Bandar Levine MD 05/07/2012 Office visit Genesis Marie TILE SETTER SUPERVISOR 05/06/2012 [facility] Pepe Herr MD 04/27/2012 Office visit Pepe Herr MD 04/16/2012 Office visit Genesis Marie TILE SETTER SUPERVISOR 03/25/2012 Office visit Michael Fleming DO 10/07/2011 [facility] Pepe Herr MD 09/23/2011 [facility] Pepe Herr MD 09/09/2011 [facility] Pepe Herr MD 03/20/2011 [facility] Bandar Levine MD 05/28/2009 Office visit Pepe Herr MD
--- OUTSIDE RECORDS SUMMARY | 2017-12-10 10:53 | XMS REPORT ---
Author Author Ping Mosqueda [facility] Address [address] [place], [place] [id number] Care Team Providers Care Concrete Plant Laborer Name Role Phone Ping Mosqueda PCP Ping Mosqueda Unavailable Unavailable Ping Moqsueda PreferredProvider Allergies and Adverse Reactions Name Reaction Notes erythromycin Toradol Minocycline TETRACYCLINES SULFA (SULFONAMIDES) Keflex Zoloft [place] Carbonate benztropine iodine Shell Fish (shrimp, crayfish, [...] 72 hours for 30 days 12mcg patch [place] oral tablet 10-325 mg 12/01/2013 01/30/2014 take [...] route 3 times per day Flonase Nasal [place], Suspension 50 mcg/actuation 09/09/2012 10/22/2012 inhale 1 [...] take 1 tablet by mouth daily at [place] oral tablet 10 mg 06/18/2016 take 1 [...] full glass (8 oz) of liquid Nasal [place] (sodium chloride) nasal aerosol,spray 0.65 % 06/18/2016 [...] oral route every 6 hours as needed [place] 5-325 mg oral tablet 09/10/2016 take 1 [...] drug screen collection Reviewed 12/17/2016 12:00 AM [facility] MEDICARE - flu vaccine administration Reviewed 12/17/2016 [...] 23 JUAN IM Reviewed 03/03/2017 12:00 AM [facility] MEDIC[facility] - pneumonia vaccine administration Reviewed 05/13/2017 [...] 111 Influenza 12/17/2016 sanofi pasteur PMC FLUZONE [id number] Intramuscular Right Deltoid 12/17/2016 11/03/2014 135 Pneumococcal 03/03/2017 Merck & Co., Inc[employer] MSD PNEUMOVAX 23 [id number] Intramuscular Left Arm 03/03/2017 07/21/2014 33 History [...] Number Start Date Medicare RHC Medicare RHC [id number] N/A [employer] - [facility] [place] [employer] [place] [id number] N/A [employer] State Plan Amerigroup [place] State Plan [id number] N/A Medicare Part A Medicare - Lab/Xray [id number] September Medicare Part B Medicare Of [place] [id number] N/A Medicare Part B Medicare [place] [id number] September [place] Medical [place] Program [place] Medical [place] Prog [id number] N/A Medicare Part A Medicare Part A [id number] September [facility] [id number] Monday, October 22, 2012 History of Encounters Visit Date Visit Type Provider 09/15/[address] Ping Mosqueda DO 09/04/2017 [facility] Caesar Mosqueda MD 09/04/2017 Office visit 09/04/[address] Ping Mosqueda DO 08/11/[address] Ping Mosqueda DO 07/31/[address] Ping Mosqueda DO 07/02/[address] Ping Mosqueda DO 06/12/2017 Office visit Yeny Hilario APRN 06/03/[address] Ping Mosqueda DO 05/26/[address] Ping Mosqueda DO 05/13/[address] Ping Mosqueda DO 05/07/2017 [facility] Bandar Levnie MD 05/06/2017 Office visit Michelet Harper DO [...] Office visit Dr. Ping Mosqueda DO 10/06/2016 [facility] Bandar Levine MD 09/23/[address] Ping Mosqueda DO 09/16/[address] Ping Mosqueda DO 09/10/[address] Pign Mosqueda DO 09/02/2016 [facility] Caesar Mosqueda MD 09/02/2016 [facility] Bandar Levine MD 06/18/2016 Office visit Cesar Encarnacion DO 07/24/2015 [facility] Bandar Levine MD 05/25/2015 [facility] Bandar Levine MD 09/11/2014 [facility] DO 09/10/2014 [facility] Bandar Levine MD 09/05/2014 Office visit [facility] 08/22/2014 [facility] DO 08/21/2014 [facility] 08/[facility]2014 [facility] DO 12/01/2013 Nurse visit Gianna OMER [...] Hand MD 02/03/2013 Office visit Genesis Marie LAUNDRY MACHINE TENDER 01/31/2013 Office visit Gianna OMER 01/07/2013 Office visit Michael Fleming DO 11/25/2012 Office visit Michael Fleming DO 10/22/2012 Office visit Genesis Marie LAUNDRY MACHINE TENDER 10/18/2012 [facility] Bhakti José MD 10/10/2012 [facility] 10/06/2012 Office visit Genesis Marie LAUNDRY MACHINE TENDER 10/06/2012 Office visit Pepe Herr MD 09/21/2012 [facility] Pepe Herr MD 09/21/2012 Office visit Pepe Herr MD 09/09/2012 Office visit Genesis Marie LAUNDRY MACHINE TENDER 08/27/2012 Office visit Genesis Marie LAUNDRY MACHINE TENDER 08/26/2012 [facility] Pepe Herr MD 08/11/2012 Office visit Genesis Marie LAUNDRY MACHINE TENDER 07/27/2012 [facility] Bhakti José MD 05/27/2012 Office visit Genesis Marie LAUNDRY MACHINE TENDER 05/07/2012 [facility] Bandar Levine MD 05/07/2012 Office visit Genesis Marie APRN 05/06/2012 [facility] Pepe Herr MD 04/27/2012 Office visit Ppee Herr MD 04/16/2012 Office visit Genesis Marie LAUNDRY MACHINE TENDER 03/25/2012 Office visit Michael Fleming DO 10/07/2011 [facility] Pepe Herr MD 09/23/2011 [facility] Pepe Herr MD 09/09/2011 [facility] Pepe Herr MD 03/20/2011 [facility] Bandar Levine MD 05/28/2009 Office visit Pepe Herr MD
--- OUTSIDE RECORDS SUMMARY | 2017-12-10 10:55 | XMS REPORT ---
Author Author Bandar Levine [facility] Address [address] [place], [place] [id number] Care Team Providers Care Php Wordpress Developer Name Role Phone Bandar Levine PCP Michael Fleming PreferredProvider Unavailable Allergies and Adverse Reactions Name Reaction Notes erythromycin Toradol Minocycline TETRACYCLINES SULFA (SULFONAMIDES) Keflex Zoloft [place] Carbonate benztropine iodine Shell Fish (shrimp, crayfish, lobster, crab) Plan of Treatment Planned Activity Comments Planned Date Planned Time Plan/Goal EKG (12-lead electrocardiogram) 05/07/2012 12:00 AM Basic metabolic panel 04/18/2013 12:00 AM Medications Active Name Start Date Estimated Completion Date SIG Comments diltiazem HCl Oral capsule, extended release 180 mg take 1 capsule (180 mg) by oral route once daily Geodon Oral capsule 80 mg take 1 capsule (80 mg) by oral route 2 times per day with food lamotrigine Oral tablet extended release 24hr 100 mg take 1 tablet by oral route two times per day swallowing whole. Do not crush, chew and/or divide. Singulair Oral tablet 10 mg take 1 tablet (10 mg) by oral route once daily in the evening Spiriva with HandiHaler Inhalation capsule, w/inhalation device 18 mcg inhale 1 capsule (18 mcg) by inhalation route once daily Symbicort Inhalation HFA Aerosol Inhaler 160-4.5 mcg/actuation inhale 2 puffs by inhalation route 2 times a day multivitamin Oral tablet take 1 tablet by oral route daily triamcinolone acetonide topical cream 0.1 % 06/01/2013 apply a thin layer to the affected area(s) by topical route 2 times per day Abilify oral tablet 10 mg take 1 tablet (10 mg) by oral route once daily Klonopin oral tablet 0.5 mg 1 tab daily alprazolam oral tablet 0.25 mg take 1 tablet (0.25 mg) by oral route 2 times per day /PRN second dose should be 4 hrs or more since the first dose. Cymbalta oral capsule,delayed release(DR/EC) 30 mg 1 capsule po BID fentanyl transdermal patch 72 hour 12 mcg/hr apply 1 patch (12 mcg/hour ) by transdermal route every 72 hours furosemide oral tablet 20 mg take 1 tablet (20 mg) by oral route once daily gabapentin oral capsule 300 mg 1 po BID and 600mg po once a day Nexium oral capsule,delayed release(DR/EC) 40 mg take 1 capsule by oral route daily mirtazapine oral tablet 30 mg take 1 tablet (30 mg) by oral route once daily before bedtime Milk of Magnesia oral suspension 400 mg/5 mL take 30 milliliters by oral route once daily as needed, followed by a full glass (8 oz) of liquid Nasal [place] (sodium chloride) nasal aerosol,spray 0.65 % apply 1 spray by nasal route As needed potassium chloride oral capsule, extended release 10 mEq take 1 capsule (10 meq) by oral route once daily ProAir HFA inhalation HFA aerosol inhaler 90 mcg/actuation inhale 1 - 2 puffs (90 - 180 mcg) by inhalation route every 6 hours as needed Pulmicort inhalation suspension for nebulization 0.5 mg/2 mL inhale 2 milliliters (0.5 mg) by nebulization route once daily simvastatin oral tablet 10 mg take 1 tablet (10 mg) by oral route once daily in the evening Xanax oral tablet 0.25 mg 1 po daily at lunch Tylenol oral tablet 325 mg take 1 tablet (325 mg) by oral route every 4 hours as needed Name Start Date Expiration Date SIG Comments [...] 72 hours for 30 days 12mcg patch [place] oral tablet 10-325 mg 12/01/2013 01/30/2014 take [...] (40 mg) by oral route once daily Klonopin [...] route 3 times per day Flonase Nasal [place], Suspension 50 mcg/actuation 09/09/2012 10/22/2012 inhale 1 [...] (5 mg) by oral route once daily tramadol Oral tablet 50 mg 01/31/2013 [...] 1 tablet by mouth daily at HS Problem List Description Status Onset Anxiety Active Bipolar disorder, unspecified Active Chronic Obstructive Pulmonary Disease Active Gastroesophageal Reflux Active Hypercholesterolemia Active Hypertension Active Ovarian Cancer Active Obesity Active Degenerative disc disease Active Restless Leg Syndrome Active Other benign neoplasm of connective and other soft tissue; pelvis Active L5-S1 HNP, 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/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 lumbar spondylosis Active 09/07/2013 Vital Signs Date Time BP-Sys(mm[Hg] BP-Mary(mm[Hg]) HR(bpm) RR(rpm) Temp WT HT HC BMI BSA BMI Percentile O2 Sat(%) 09/05/2014 11:09:00 AM 118 mmHg 57 mmHg [...] of Procedures Date Ordered Description Order Status 04/26/2012 12:00 AM COMPLETE CBC W/AUTO DIFF WBC Reviewed 04/26/2012 12:00 AM COMPREHEN METABOLIC PANEL Reviewed 04/26/2012 12:00 AM X-RAY EXAM OF ABDOMEN Reviewed 05/07/2012 12:00 AM COMPLETE CBC W/AUTO DIFF WBC Reviewed 05/07/2012 12:00 AM COMPREHEN METABOLIC PANEL Reviewed 05/07/2012 12:00 AM ASSAY OF TROPONIN QUANT Reviewed 05/07/2012 12:00 AM CHEST X-RAY 2VW FRONTAL&LATL Reviewed 05/13/2012 12:00 AM COMPREHEN METABOLIC PANEL [...] AM OFFICE/OUTPATIENT VISIT EST Reviewed Results Summary Data and Description Results 04/27/2012 10:00 AM WBC [...] mg/dLTOT CHOL/HDL 2.6 LDL (CALC) 67.0 mg/dL History Of Immunizations Name Date Admin Mfg [...] L5-S1 HNP, Right 09/07/2013 lumbar spondylosis 09/07/2013 Bipolar disorder, unspecified Mar 25 2012 8:20AM [...] 2013 10:02AM Lumbago Dec 01 2013 10:02AM Payers Insurance Name Company Name Plan Name Plan Number Policy Number Policy Group Number Start Date Medicare Part A Medicare Part A [id number] September [employer] [place] [employer] [place] [id number] N/[place] [employer] [employer] [place] [id number] N/A Medicare Part A Medicare - Lab/Xray [id number] September Kandi Fowler [facility] [id number] Monday, October 22, 2012 Medicare Part B Medicare Of [place] [id number] September [place] [facility] [id number] N/A History of Encounters Visit Date Visit Type Provider 07/24/2015 [facility] Bandar Levine MD 05/25/2015 [facility] Bnadar Levine MD 09/11/2014 [facility] DO 09/10/2014 [facility] Bandar Levine MD 09/05/2014 [facility] 08/22/2014 [facility] DO 08/21/2014 [facility] DO 08/21/2014 [facility] DO 12/01/2013 Nurse visit Gianna OMER 11/16/2013 Office visit Gianna MOER 11/03/2013 Office visit Gianna OMER 10/05/2013 Office visit Gianna OMER 10/04/2013 Office visit Genesis Marie APRN 09/07/2013 Office visit Gianna OMER 2013 Office visit Genesis Marie APRN 07/25/2013 Office visit Genesis Marie APRN 07/22/2013 Office visit Gianna OEMR 07/05/2013 Office visit Genesis Marie APRN 06/13/2013 Office visit Genesis Marie APRN 06/01/2013 Office visit Genesis Marie APRN 05/24/2013 Office visit Gianna OMER 05/18/2013 Office visit Angel Hand MD 05/04/2013 Office visit Angel Hand MD 04/28/2013 [facility] Angel Hand MD 04/26/2013 Office visit [...] 10/22/2012 Office visit Genesis Marie APRN 10/18/2012 [facility] Bhakti José MD 10/10/2012 [facility] Aramis DO 10/06/2012 Office visit Genesis Marie APRN 10/06/2012 Office visit Pepe Herr MD 09/21/2012 [facility] Pepe Herr MD 09/21/2012 Office visit Pepe Herr MD 09/09/2012 Office visit Genesis Marie GENERAL PARTNER 08/27/2012 Office visit Genesis Marie GENERAL PARTNER 08/26/2012 [facility] Pepe Herr MD 08/11/2012 Office visit Genesis Marie GENERAL PARTNER 07/27/2012 [facility] Bhakti José MD 05/27/2012 Office visit Genesis Marie GENERAL PARTNER 05/07/2012 [facility] Bandar Levine MD 05/07/2012 Office visit Genesis Marie GENERAL PARTNER 05/06/2012 [facility] Pepe Herr MD 04/27/2012 Office visit Pepe Herr MD 04/16/2012 Office visit Genesis Marie GENERAL PARTNER 03/25/2012 Office visit Michael Fleming DO 10/07/2011 [facility] Pepe Herr MD 09/23/2011 [facility] Pepe Herr MD 09/09/2011 [facility] Pepe Herr MD 03/20/2011 [facility] Bandar Levine MD 05/28/2009 Office visit Pepe Herr MD
--- OUTSIDE RECORDS SUMMARY | 2017-12-10 10:57 | XMS REPORT ---
Author Author Ping Mosqueda [facility] Address [address] [place], [place] [id number] Care Team Providers Care Boat Buffer Plastic Name Role Phone Ping Mosqueda PCP Ping Mosqueda Unavailable Unavailable Ping Mosqueda PreferredProvider Allergies and Adverse Reactions Name Reaction Notes erythromycin Toradol Minocycline TETRACYCLINES SULFA (SULFONAMIDES) Keflex Zoloft [place] Carbonate benztropine iodine Shell Fish (shrimp, crayfish, [...] once daily with food for 30 days Tylenol 325 mg oral [...] route every 72 hours for 30 days Aspir-81 81 mg oral [...] or medication of day for 30 days Name Start Date [...] 72 hours for 30 days 12mcg patch [place] oral tablet 10-325 mg 12/01/2013 01/30/2014 take [...] route 3 times per day Flonase Nasal [place], Suspension 50 mcg/actuation 09/09/2012 10/22/2012 inhale 1 [...] full glass (8 oz) of liquid Nasal [place] (sodium chloride) nasal aerosol,spray 0.65 % 06/18/2016 [...] oral route every 6 hours as needed [place] 5-325 mg oral tablet 09/10/2016 take 1 [...] 11:16 AM URINALYSIS AUTO W/O SCOPE Reviewed 04/26/2012 12:00 AM COMPLETE CBC W/AUTO [...] negative History Of Immunizations Name Date Admin [facility] Name [facility] Code Trade Name Lot# Route Inj Vis [...] for drug therapy Nov 06 2016 9:12AM Payers Insurance Name Company Name Plan Name Plan Number Policy Number Policy Group Number Start Date Medicare [facility] Medicare [facility] [id number] N/A Amerigroup - [place]HC - [place] State Plan Amerigroup - [place] State Plan [id number] N/A Amerigroup [place] State Plan Amerigroup [place] State Plan [id number] N/A Medicare Part A Medicare - Lab/Xray [id number] , September 27, 1998 Medicare Part B Medicare Of [place] [id number] N/A Medicare Part B Medicare Of [place] [id number] September [place] Medical Assistance [facility] Medical Assistance Pro [id number] N/A Medicare Part A Medicare Part A [id number] September Kandi Fowler [facility] [id number] Monday, October 22, 2012 History of Encounters Visit Date Visit Type Provider 11/06/[address] Ping Mosqueda DO 10/08/[address] Ping Mosqueda DO 10/07/[address] Ping Mosqueda DO 09/23/[address] Ping Mosqueda DO 09/16/[address] Ping Mosqueda DO 09/10/[address] Ping Mosqueda DO 09/02/2016 [facility] Caesar Mosqueda MD 06/18/2016 Office visit Cesar Encarnacion DO 07/24/2015 [facility] Bandar Levine MD 05/25/2015 [facility] Bandar Levine MD 09/11/2014 [facility] DO 09/10/2014 [facility] Bandar Levine MD 09/05/2014 [facility] 08/22/2014 [facility] DO 08/21/2014 [facility] DO 08/21/2014 [facility] DO 12/01/2013 Nurse visit Gianna [...] Hand MD 02/03/2013 Office visit Genesis Marie BRAIDED RUG MAKER 01/31/2013 Office visit Gianna AMADORP 01/07/2013 Office visit Michael Fleming DO 11/25/2012 Office visit Michael Fleming DO 10/22/2012 Office visit Genesis Marie BRAIDED RUG MAKER 10/18/2012 [facility] Bhakti José MD 10/10/2012 [facility] 10/06/2012 Office visit Genesis Marie BRAIDED RUG MAKER 10/06/2012 Office visit Pepe Herr MD 09/21/2012 [facility] Pepe Herr MD 09/21/2012 Office visit Pepe Herr MD 09/09/2012 Office visit Genesis Marie BRAIDED RUG MAKER 08/27/2012 Office visit Genesis Marie BRAIDED RUG MAKER 08/26/2012 [facility] Pepe Herr MD 08/11/2012 Office visit Genesis Marie BRAIDED RUG MAKER 07/27/2012 [facility] Bhakti José MD 05/27/2012 Office visit Genesis Marie BRAIDED RUG MAKER 05/07/2012 [facility] Bandar Levine MD 05/07/2012 Office visit Genesis Marie BRAIDED RUG MAKER 05/06/2012 [facility] Pepe Herr MD 04/27/2012 Office visit Pepe Herr MD 04/16/2012 Office visit Genesis Marie APRN 03/25/2012 Office visit Michael Fleming DO 10/07/2011 [facility] Pepe Herr MD 09/23/2011 [facility] Pepe Herr MD 09/09/2011 Hospital Pepe Herr MD 03/20/2011 [facility] Bandar Levine MD 05/28/2009 Office visit Pepe Herr MD
--- OUTSIDE RECORDS SUMMARY | 2017-12-10 11:00 | XMS REPORT ---
Author Author Ping Mosqueda [facility] Address [address] [place], [place] [id number] Care Team Providers Care Development Assistant Name Role Phone Ping Mosqueda PCP Ping Mosqueda Unavailable Unavailable Ping Mosqueda PreferredProvider Allergies and Adverse Reactions Name Reaction Notes erythromycin Toradol Minocycline TETRACYCLINES SULFA (SULFONAMIDES) Keflex Zoloft [place] Carbonate benztropine iodine Shell Fish (shrimp, crayfish, [...] BY MOUTH ONCE WEEKLY IN THE MORNING Colace 100 mg oral capsule 01/28/2017 01/23/2018 take 1 capsule (100 mg) by oral route 2 times per day for 90 days fentanyl 25 mcg/hr transdermal patch 72 hour 02/04/2017 03/06/2017 apply 1 patch (25 mcg/hour) by transdermal [...] once daily at bedtime for 90 days prednisone 20 mg oral tablet 02/25/2017 take 2 tablets (40 mg) by oral route once daily for 5 days duloxetine 30 mg oral capsule,delayed release(DR/EC) 02/25/2017 take 1 capsule (30 mg) by oral route once daily for 90 days Levaquin 500 mg oral tablet 02/25/2017 take 1 tablet (500 mg) by oral route once daily for 5 days Lyrica 75 mg oral capsule 02/25/2017 03/27/2017 take 1 capsule by oral route 2 times a day for 30 days Name Start Date [...] 72 hours for 30 days 12mcg patch [place] oral tablet 10-325 mg 12/01/2013 01/30/2014 take [...] route 3 times per day Flonase Nasal [place], Suspension 50 mcg/actuation 09/09/2012 10/22/2012 inhale 1 [...] full glass (8 oz) of liquid Nasal [place] (sodium chloride) nasal aerosol,spray 0.65 % 06/18/2016 [...] oral route every 6 hours as needed [place] 5-325 mg oral tablet 09/10/2016 take 1 [...] HC BMI BSA BMI Percentile O2 Sat(%) 02/25/2017 1:34:00 PM 153 mmHg 73 mmHg [...] drug screen collection Reviewed 12/17/2016 12:00 AM [facility] MEDICARE - flu vaccine administration Reviewed [...] Not Entered 03/30/2017 03/30/2017 111 Influenza 12/17/2016 [facility] Fluzone [id number] Intramuscular Right Deltoid 12/17/2016 11/03/2014 135 History [...] diseases classified elsewhere Feb 25 2017 1:39PM Payers Insurance Name Company Name Plan Name Plan Number Policy Number Policy Group Number Start Date Medicare RHC Medicare RHC [id number] N/A [employer] - [facility] - [place] State Plan [facility] [place] State Plan [id number] N/A Amerigroup [place] State Plan [facility] [id number] N/A Medicare Part A Medicare - Lab/Xray [id number] September Medicare Part B Medicare Of [place] [id number] N/A Medicare Part B Medicare Of [place] [id number] September [place] Medical Assistance [facility] Medical Assistance Pro [id number] N/A Medicare Part A Medicare Part A [id number] September Kandi Fowler [facility] [id number] Monday, October 22, 2012 History of Encounters Visit Date Visit Type Provider 02/25/[address] Ping Mosqueda DO 12/31/[address] Ping Mosqueda DO 12/17/[address] Ping Mosqueda DO 12/03/[address] Ping Mosqueda DO 11/06/[address] Ping Mosqueda DO 10/08/[address] Ping Mosqueda DO 10/07/[address] Ping Mosqueda DO 10/06/2016 [facility] Bandar Levine MD 09/23/2016 Office visit [...] 09/05/2014 Office visit Cesarjorgito Encarnacion DO 08/22/2014 [facility] Cesar Bouman DO 08/21/2014 [facility] Cesar Bouman DO 08/21/2014 [facility] Cesar Bouman DO 12/01/2013 Nurse visit Gianna OMER 11/16/2013 Office visit Gianna OMER 11/03/2013 Office visit Gianna OMER 10/05/2013 Office visit Gianna OMER 10/04/2013 Office visit Genesis Marie APRN 09/07/2013 Office visit Gianna OMER 2013 Office visit Genesis Marie ASSISTANT PROFESSOR OF RELIGION 07/25/2013 Office visit Genesis Marie ASSISTANT PROFESSOR OF RELIGION 07/22/2013 Office visit Gianna OMER 07/05/2013 Office visit Genesis Marie ASSISTANT PROFESSOR OF RELIGION 06/13/2013 Office visit Genesis Marie ASSISTANT PROFESSOR OF RELIGION 06/01/2013 Office visit Genesis Marie ASSISTANT PROFESSOR OF RELIGION 05/24/2013 Office visit Gianna OMER 05/18/2013 Office [...] 10/22/2012 Office visit Genesis Marie APRN 10/18/2012 [facility] Bhakti José MD 10/10/2012 [facility] 10/06/2012 Office visit Genesis Marie APRN 10/06/2012 Office visit Pepe Herr MD 09/21/2012 [facility] Pepe Herr MD 09/21/2012 Office visit Pepe Herr MD 09/09/2012 Office visit Genesis Marie APRN 08/27/2012 Office visit Genesis Marie APRN 08/26/2012 [facility] Pepe Herr MD 08/11/2012 Office visit Genesis Marie APRN 07/27/2012 [facility] Bhakti José MD 05/27/2012 Office visit Genesis Marie APRN 05/07/2012 [facility] Bandar Levine MD 05/07/2012 [...]
--- OUTSIDE RECORDS SUMMARY | 2017-12-10 11:02 | XMS REPORT ---
Author Author Ping Mosqueda [facility] Address [address] [place], [place] [id number] Care Team Providers Care Mechanical Ordnance Assembler Name Role Phone Ping Mosqueda PCP Ping Mosqueda Unavailable Unavailable Ping Mosqueda PreferredProvider Allergies and Adverse Reactions Name Reaction Notes erythromycin Toradol Minocycline TETRACYCLINES SULFA (SULFONAMIDES) Keflex Zoloft [place] Carbonate benztropine iodine Shell Fish (shrimp, crayfish, lobster, crab) Plan of Treatment Planned Activity Comments Planned Date Planned Time Plan/Goal URINALYSIS ROUTINE C&S IF IND 11/06/2016 12:00 AM FOBT 1st specimen 12/31/2016 12:00 AM LIPID PANEL 03/03/2017 12:00 AM CMP 03/03/2017 12:00 AM HEMOGLOBIN A1C 03/03/2017 12:00 AM CBC W/ AUTO DIFF (RFLX MAN DIFF IF IND). 03/03/2017 12:00 AM Fecal occult blood detection 03/03/2017 [...] 72 hours for 30 days 12mcg patch [place] oral tablet 10-325 mg 12/01/2013 01/30/2014 take [...] route 3 times per day Flonase Nasal [place], Suspension 50 mcg/actuation 09/09/2012 10/22/2012 inhale 1 [...] take 1 tablet by mouth daily at Abilify oral tablet 10 mg 06/18/2016 take [...] full glass (8 oz) of liquid Nasal [place] (sodium chloride) nasal aerosol,spray 0.65 % 06/18/2016 [...] oral route every 6 hours as needed [place] 5-325 mg oral tablet 09/10/2016 take 1 [...] drug screen collection Reviewed 12/17/2016 12:00 AM [facility] MEDICARE - flu vaccine administration Reviewed 12/17/2016 [...] Of Immunizations Name Date Admin Mfg Name Mf Code Trade Name Lot# Route Inj Vis Given Vis Pub CVX Influenza 12/29/2012 Not Entered NE Not Entered Not Entered Not Entered 03/30/2017 03/30/2017 111 Influenza 12/17/2016 sanofi pasteur PMC Fluzone [id number] Intramuscular Right Deltoid 12/17/2016 11/03/2014 135 History [...] 2017 8:24AM Osteoporosis Mar 03 2017 8:24AM Payers Insurance Name Company Name Plan Name Plan Number Policy Number Policy Group Number Start Date Medicare RHC Medicare RHC [id number] N/A [employer] - [place] State [place] Amerigroup [place] State Plan [id number] N/A Amer[employer] [place] State Plan Amerigroup [place] State Plan [id number] N/A Medicare Part A Medicare - Lab/Xray [id number] September Medicare Part B Medicare Of [place] [id number] N/A Medicare Part B Medicare Of [place] [id number] September [place] Medical Assistance Program [place] Medical [place] Prog [id number] N/A Medicare Part A Medicare Part A [id number] September [facility] [id number] Monday, October 22, 2012 History of Encounters [...] Bib Levine MD 09/23/[address] Pign Mosqueda DO 09/16/[address] Ping Mosqueda DO 09/10/[address] Ping Mosqueda DO 09/02/2016 [facility] Caesar Mosqueda MD 09/02/2016 [facility] Bandar Levine MD 06/18/2016 Office visit Cesar Encarnacion DO 07/24/2015 [facility] Bandar Levine MD 05/25/2015 [facility] Bandar Levine MD 09/11/2014 Hospital Cesar Bouman DO 09/10/2014 [facility] Bandar Levine MD 09/05/2014 Office visit Cesar Bouman DO 08/22/2014 [facility] Cesar Bouman DO 08/21/2014 [facility] Cesar Bouman DO 08/21/2014 Hospital Cesar Bouman [...] 05/04/2013 Office visit Angel Hand MD 04/28/2013 [facility] Angel Hand MD 04/26/2013 Office visit Sahara Ruiz MD 04/25/2013 Procedures Angel Hand MD 04/18/2013 Office visit Michael Fleming DO 03/31/2013 Office visit Gianna OMER 03/09/2013 Office visit Gianna OMER 02/28/2013 Office visit Angel Hand MD 02/17/2013 Office visit Gianna OMER 02/09/2013 Office visit Angel Hand MD 02/03/2013 Office visit Genesis aMrie APRN 01/31/2013 Office visit Gianna OMER 01/07/2013 Office visit Michael Fleming DO 11/25/2012 Office visit Michael Fleming DO 10/22/2012 Office visit Genesis Marie APRN 10/18/2012 [facility] Bhakti José MD 10/10/2012 [facility] Scarlett Austinfield DO 10/06/2012 Office visit Genesis Marie LIMB DRIVER 10/06/2012 Office visit Pepe Herr MD 09/21/2012 [facility] Pepe Herr MD 09/21/2012 Office visit Pepe Herr MD 09/09/2012 Office visit Genesis Marie LIMB DRIVER 08/27/2012 Office visit Genesis Marie LIMB DRIVER 08/26/2012 [facility] Pepe Herr MD 08/11/2012 Office visit Genesis Marie LIMB DRIVER 07/27/2012 [facility] Bhakti José MD 05/27/2012 Office visit Genesis Marie LIMB DRIVER 05/07/2012 [facility] Bandar Levine MD 05/07/2012 Office visit Genesis Marie LIMB DRIVER 05/06/2012 [facility] Pepe Herr MD 04/27/2012 Office visit Pepe Herr MD 04/16/2012 Office visit Genesis Marie LIMB DRIVER 03/25/2012 Office visit Michael Fleming DO 10/07/2011 [facility] Pepe Herr MD 09/23/2011 [facility] Pepe Herr MD 09/09/2011 [facility] Pepe Herr MD 03/20/2011 [facility] Bandar Levine MD 05/28/2009 Office visit Pepe Herr MD
--- OUTSIDE RECORDS SUMMARY | 2017-12-10 11:04 | XMS REPORT ---
Author Author Ping Mosqueda [facility] Address [address] [place], [place] [id number] Care Team Providers Care Rubber Splicer Name Role Phone Ping Mosqueda PCP Ping Mosqueda PreferredProvider Allergies and Adverse Reactions Name Reaction Notes erythromycin Toradol Minocycline TETRACYCLINES SULFA (SULFONAMIDES) Keflex Zoloft [place] Carbonate benztropine iodine Shell Fish (shrimp, crayfish, lobster, crab) Plan of Treatment Planned Activity Comments Planned Date Planned Time Plan/Goal CMP 09/10/2016 12:00 AM HEMOGLOBIN A1C 09/10/2016 12:00 AM Medications Active Name Start Date [...] ) by transdermal route every 72 hours Name Start Date Expiration Date SIG Comments [...] 72 hours for 30 days 12mcg patch [place] oral tablet 10-325 mg 12/01/2013 01/30/2014 take [...] route 3 times per day Flonase Nasal [place], Suspension 50 mcg/actuation 09/09/2012 10/22/2012 inhale 1 [...] full glass (8 oz) of liquid Nasal [place] (sodium chloride) nasal aerosol,spray 0.65 % 06/18/2016 [...] oral route every 6 hours as needed [place] 5-325 mg oral tablet 09/10/2016 take 1 [...] Schizophrenia Active 09/10/2016 Kidney failure Active 09/10/2016 Vital Signs Date Time BP-Sys(mm[Hg] BP-Mary(mm[Hg]) HR(bpm) RR(rpm) Temp WT HT HC BMI BSA BMI Percentile O2 Sat(%) 09/10/2016 3:31:00 PM 91 % 09/10/2016 2:20:00 [...] disease) 06/18/2016 Schizophrenia 09/10/2016 Kidney failure 09/10/2016 Bipolar disorder, unspecified Mar 25 2012 8:20AM [...] cervical Pap smear Sep 10 2016 2:23PM Payers Insurance Name Company Name Plan Name Plan Number Policy Number Policy Group Number Start Date Medicare RHC Medicare RHC [id number] N/A Amerigroup - [facility] - [place] State Plan Amerigroup - [facility] State Plan [id number] N/A [facility] Amerigroup [place] State Plan [id number] N/A Medicare Part A Medicare - Lab/Xray [id number] September Medicare Part B Medicare Of [place] [id number] N/A Medicare Part B Medicare Of [place] [id number] September [place] Medical Assistance Program [place] Medical Assistance Prog [id number] N/A Medicare Part A Medicare Part A [id number] September [facility] [id number] Monday, October 22, 2012 History of Encounters Visit Date Visit Type Provider 09/10/[address] Ping Mosqueda DO 06/18/2016 Office visit Cesar Martínnati DO 07/24/2015 [facility] Bandar Levine MD 05/25/2015 [facility] Bandar Levine MD 09/11/2014 [facility] Cesar Bouman DO 09/10/2014 [facility] Bandar Levine MD 09/05/2014 Office visit Cesar Bouman DO 08/22/2014 [facility] Cesar Bouman DO 08/21/2014 [facility] Cesar Bouman DO 08/21/2014 Hospital Cesar [...] 05/04/2013 Office visit Angel Hand MD 04/28/2013 [facility] Angel Hand MD 04/26/2013 Office visit Sahara Ruiz MD 04/25/2013 [facility] Angel Hand MD 04/18/2013 Office visit [...] 10/22/2012 Office visit Genesis Marie APRN 10/18/2012 [facility] Bhakti José MD 10/10/2012 [facility] Scarlett Austinfield DO 10/06/2012 Office visit Genesis Marie RESOURCE SPECIALIST 10/06/2012 Office visit ePpe Herr MD 09/21/2012 [facility] Pepe Herr MD 09/21/2012 Office visit Pepe Herr MD 09/09/2012 Office visit Genesis Marie RESOURCE SPECIALIST 08/27/2012 Office visit Genesis Marie RESOURCE SPECIALIST 08/26/2012 [facility] ePpe Herr MD 08/11/2012 Office visit Genesis Marie RESOURCE SPECIALIST 07/27/2012 [facility] Bhakti José MD 05/27/2012 Office visit Genesis Marie RESOURCE SPECIALIST 05/07/2012 [facility] Bandar Levine MD 05/07/2012 Office visit Genesis Marie RESOURCE SPECIALIST 05/06/2012 [facility] Pepe Herr MD 04/27/2012 Office visit Pepe Herr MD 04/16/2012 Office visit Genesis Marie RESOURCE SPECIALIST 03/25/2012 Office visit Michael Fleming DO 10/07/2011 [facility] Pepe Herr MD 09/23/2011 [facility] Pepe Herr MD 09/09/2011 [facility] Pepe Herr MD 03/20/2011 [facility] Bandar Levine MD 05/28/2009 Office visit Pepe Herr MD
--- OUTSIDE RECORDS SUMMARY | 2017-12-10 11:06 | XMS REPORT ---
Author Author Michelet Harper Organization [facility] Address [address] [place], [place] [id number] Care Team Providers Care Clinical Services Specialist Name Role Phone Michelet Harper PCP Ping Mosqueda Unavailable Unavailable Ping Mosqueda PreferredProvider Allergies and Adverse Reactions Name Reaction Notes erythromycin Toradol Minocycline TETRACYCLINES SULFA (SULFONAMIDES) Keflex Zoloft [place] Carbonate benztropine iodine Shell Fish (shrimp, crayfish, [...] 72 hours for 30 days 12mcg patch [place] oral tablet 10-325 mg 12/01/2013 01/30/2014 take [...] daily in the evening for 30 days alendronate 70 mg oral tablet 01/07/2017 04/29/2017 TAKE 1 TABLET BY MOUTH ONCE WEEKLY IN THE MORNING potassium chloride 20 mEq oral tablet extended [...] route 3 times per day Flonase Nasal [place], Suspension 50 mcg/actuation 09/09/2012 10/22/2012 inhale 1 [...] full glass (8 oz) of liquid Nasal [place] (sodium chloride) nasal aerosol,spray 0.65 % 06/18/2016 [...] oral route every 6 hours as needed [place] 5-325 mg oral tablet 09/10/2016 take 1 [...] HC BMI BSA BMI Percentile O2 Sat(%) 05/06/2017 1:34:00 PM 120 mmHg 60 mmHg [...] drug screen collection Reviewed 12/17/2016 12:00 AM [facility] MEDIC[facility] - flu vaccine administration Reviewed [...] 23 JUAN IM Reviewed 03/03/2017 12:00 AM [facility] MEDIC[facility] - pneumonia vaccine administration Reviewed [...] 111 Influenza 12/17/2016 sanofi pasteur PMC Fluzone [id number] Intramuscular Right Deltoid 12/17/2016 11/03/2014 135 Pneumococcal 03/03/2017 [employer] MSD Pneumovax 23 [id number] Intramuscular Left Arm 03/03/2017 07/21/2014 33 History [...] 1:39PM Neuropathic pain May 06 2017 1:39PM Payers Insurance Name Company Name Plan Name Plan Number Policy Number Policy Group Number Start Date Medicare RHC Medicare RHC [id number] N/A [employer] - [facility] [place] State Plan [facility] State Plan [id number] N/A [facility] [id number] N/A Medicare Part A Medicare - Lab/Xray [id number] September Medicare Part B Medicare Of [place] [id number] N/A Medicare Part B Medicare Of [place] [id number] September [place] Medical Assistance Program [place] Medical Assistance Prog [id number] N/A Medicare Part A Medicare Part A [id number] September Kandi Hernandezchristal [facility] [id number] Monday, October 22, 2012 History of Encounters Visit Date Visit Type Provider 05/06/2017 Office visit Michelet Harper DO 04/29/2017 [...] Office visit Dr. Ping Mosqueda DO 10/06/2016 [facility] Bandar Levine MD 09/23/[address] Ping Mosqueda DO 09/16/[address] Ping Mosqueda DO 09/10/[address] Ping Mosqueda DO 09/02/2016 [facility] Caesar Mosqueda MD 09/02/2016 [facility] Bandar Levine MD 06/18/2016 Office visit Cesar Encarnacion DO 07/24/2015 [facility] Bandar Levine MD 05/25/2015 [facility] Bandar Levine MD 09/11/2014 [facility] DO 09/10/2014 [facility] Bandar Levine MD 09/05/2014 Office visit Cesar Martínvirtua berlin DO 08/22/2014 [facility] DO 08/21/2014 [facility]2014 [facility] DO 12/01/2013 Nurse visit Gianna OMER 11/16/2013 Office visit Gianna OMER 11/03/2013 Office visit Gianna OMER 10/05/2013 Office visit Gianna OMER 10/04/2013 Office visit Genesis Marie MAINTENANCE SPECIALIST 09/07/2013 Office visit Gianna OMER 2013 Office visit Genesis Marie MAINTENANCE SPECIALIST 07/25/2013 Office visit Genesis Marie APRN 07/22/2013 Office visit Gianna OMER 07/05/2013 Office visit Gneesis Marie APRN 06/13/2013 Office visit Genesis Marie APRN 06/01/2013 Office visit Genesis Marie MAINTENANCE SPECIALIST 05/24/2013 Office visit Gianna OMER 05/18/2013 Office visit Angel Hand MD 05/04/2013 Office visit Angel Hand MD 04/28/2013 [facility] Angel Hand MD 04/26/2013 Office visit Sahara [...] 10/22/2012 Office visit Genesis Marie APRN 10/18/2012 [facility] Bhakti José MD 10/10/2012 [facility] 10/06/2012 Office visit Genesis Marie MAINTENANCE SPECIALIST 10/06/2012 Office visit Pepe Herr MD 09/21/2012 [facility] Pepe Herr MD 09/21/2012 Office visit Pepe Herr MD 09/09/2012 Office visit Genesis Marie MAINTENANCE SPECIALIST 08/27/2012 Office visit Genesis Marie APRN 08/26/2012 [facility] Pepe Herr MD 08/11/2012 Office visit Genesis Marie APRN 07/27/2012 [facility] Bhakti José MD 05/27/2012 Office visit Genesis Marie APRN 05/07/2012 [facility] Bandar Levine MD 05/07/2012 Office visit Genesis Marie APRN 05/06/2012 [facility] Pepe Herr MD 04/27/2012 Office visit Pepe Herr MD 04/16/2012 Office visit Genesis Marie APRN 03/25/2012 Office visit Michael Fleming DO 10/07/2011 [facility] Pepe Herr MD 09/23/2011 [facility] Pepe Herr MD 09/09/2011 [facility] Pepe Herr MD 03/20/2011 [facility] Bandar Levine MD 05/28/2009 Office visit Pepe Herr MD
--- OUTSIDE RECORDS SUMMARY | 2017-12-10 11:09 | XMS REPORT ---
Author Author Ping Msoqueda [facility] Address [address] [place], [place] [id number] Care Team Providers Care Lead Oracle Developer Name Role Phone Ping Mosqueda PCP Ping Mosqueda Unavailable Unavailable Ping Mosqueda PreferredProvider Allergies and Adverse Reactions Name Reaction Notes erythromycin Toradol Minocycline TETRACYCLINES SULFA (SULFONAMIDES) Keflex Zoloft [place] Carbonate benztropine iodine Shell Fish (shrimp, crayfish, [...] oral route once daily in the evening Seroquel 50 mg oral tablet take 1 [...] to 4000mg /day as needed for pain Name Start Date Expiration Date SIG Comments [...] 72 hours for 30 days 12mcg patch [place] oral tablet 10-325 mg 12/01/2013 01/30/2014 take [...] route 3 times per day Flonase Nasal [place], Suspension 50 mcg/actuation 09/09/2012 10/22/2012 inhale 1 [...] full glass (8 oz) of liquid Nasal [place] (sodium chloride) nasal aerosol,spray 0.65 % 06/18/2016 [...] oral route every 6 hours as needed [place] 5-325 mg oral tablet 09/10/2016 take 1 [...] Number Start Date Medicare RHC Medicare RHC [id number] N/A [employer] [place] [employer] [place] [id number] N/[place] [employer] [place] [employer] [place] [id number] N/A Medicare Part A Medicare - Lab/Xray [id number] , September 27, 1998 Medicare Part B Medicare Of [place] [id number] N/A Medicare Part B Medicare [place] [id number] , September 27, 1998 [place] Medical Assistance [facility] Medical Assistance Prog [id number] N/A Medicare Part A Medicare Part A [id number] , September 27, 1998 delaney Hernandez [facility] [id number] Monday, October 22, 2012 History of Encounters Visit Date Visit Type Provider 10/08/[address] Ping Mosqueda DO 10/07/[address] Ping Mosqueda DO 09/23/[address] Ping Mosqueda DO 09/16/[address] Ping Mosqueda DO 09/10/[address] Ping Mosqueda DO 09/02/2016 [facility] Caesar Mosqueda MD 06/18/2016 Office visit Cesar Encarnacion DO 07/24/2015 [facility] Bandar Levine MD 05/25/2015 [facility] Bandar Levine MD 09/11/2014 [facility] Cesar Encarnacion DO 09/10/2014 [facility] Bandar Levine MD 09/05/2014 Office visit Cesar Encarnacion DO 08/22/2014 [facility] Cesar Shashank DO 08/21/2014 [facility] 08/21/2014 [facility] DO 12/01/2013 Nurse visit Gianna OMER 11/16/2013 Office visit Gianna OMER 11/03/2013 Office visit Gianna OMER 10/05/2013 Office visit Gianna OMER 10/04/2013 Office visit Genesis Marie APRN 09/07/2013 Office visit Gianna OMER 2013 Office visit Genesis Marie ENVIRONMENTAL SCIENTISTS 07/25/2013 Office visit Genesis Frank ENVIRONMENTAL SCIENTISTS 07/22/2013 Office visit Gianna OMER 07/05/2013 Office visit Genesis Marie ENVIRONMENTAL SCIENTISTS 06/13/2013 Office visit Genesis Marie ENVIRONMENTAL SCIENTISTS 06/01/2013 Office visit Genesis Marie ENVIRONMENTAL SCIENTISTS 05/24/2013 Office visit Gianna OMER 05/18/2013 Office visit Angel Hand MD 05/04/2013 Office visit Angel Hand MD 04/28/2013 [facility] Angel Hand MD 04/26/2013 Office visit Sahara Ruiz MD 04/25/2013 Procedures Angel Hand MD 04/18/2013 Office visit Michael Fleming DO 03/31/2013 Office visit Gianna OMER 03/09/2013 Office visit Gianna OMER 02/28/2013 Office visit nAgel Hand MD 02/17/2013 Office visit Gianna OMER 02/09/2013 Office visit Angel Hand MD 02/03/2013 Office visit Genesis Marie APRN 01/31/2013 Office visit Gianna OMER 01/07/2013 Office visit Michael Fleming DO 11/25/2012 Office visit Michael Fleming DO 10/22/2012 Office visit Genesis Marie APRN 10/18/2012 [facility] Bhakti José MD 10/10/2012 [facility] 10/06/2012 Office visit Genesis Marie ENVIRONMENTAL SCIENTISTS 10/06/2012 Office visit Pepe Herr MD 09/21/2012 [facility] Pepe Herr MD 09/21/2012 Office visit Pepe Herr MD 09/09/2012 Office visit Genesis Marie APRN 08/27/2012 Office visit Genesis Marie APRN 08/26/2012 [facility] Pepe Herr MD 08/11/2012 Office visit Genesis Marie ENVIRONMENTAL SCIENTISTS 07/27/2012 [facility] Bhakti José MD 05/27/2012 Office visit Genesis Marie APRN 05/07/2012 [facility] Bandar Levine MD 05/07/2012 Office visit Genesis Marie APRN 05/06/2012 [facility] Pepe Herr MD [...]
--- OUTSIDE RECORDS SUMMARY | 2017-12-10 11:10 | XMS REPORT ---
Author Michael Butt [facility] Address [address] [place], [place] [id number] Care Team Providers Care Parachute Line Tier Name Role Phone Michael Fleming PCP Unavailable Allergies and Adverse Reactions Name Reaction Notes Erythromycin Toradol Minocycline TETRACYCLINES SULFA (SULFONAMIDES) Keflex Zoloft [place] Carbonate benztropine iodine Shell Fish (shrimp, crayfish, lobster, crab) Plan of Treatment Planned Activity Comments Planned Date Planned Time Plan/Goal METABOLIC PANEL TOTAL CA 04/18/2013 12:00 AM Medications Active Name Start [...] hrs or more since the first dose. Miralax oral powder 17 gram/dose 09/05/2014 03/04/2015 take 17 gram mixed with 8 oz. 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 Lumbar spondylosis Active 09/07/2013 Vital Signs Date Time [...] 10 years High school graduate Cigarette smoking 3 PPD x 42 years,now 1/2 PPD Has never used alcohol Denies illicit substance abuse History of Procedures Date Ordered Description Order Status 04/26/2012 12:00 AM COMPLETE CBC W/AUTO DIFF WBC Returned 04/26/2012 12:00 AM COMPREHEN METABOLIC PANEL Returned 04/26/2012 12:00 AM X-RAY EXAM OF ABDOMEN Returned 05/07/2012 12:00 AM COMPLETE CBC W/AUTO DIFF WBC Returned 05/07/2012 12:00 AM COMPREHEN METABOLIC PANEL Returned 05/07/2012 12:00 AM ASSAY OF TROPONIN QUANT Returned 05/07/2012 12:00 AM CHEST X-RAY 2VW FRONTAL&LATL Returned 05/13/2012 12:00 AM COMPREHEN METABOLIC PANEL Returned 10/22/2012 12:00 AM COMPLETE CBC W/AUTO DIFF WBC Returned 10/22/2012 12:00 AM COMPREHEN METABOLIC PANEL Returned 10/22/2012 12:00 AM URINALYSIS AUTO W/SCOPE Returned 10/22/2012 12:[address] HEAD/BRAIN W/O & W/DYE Returned 10/22/2012 12:00 AM CHEST X-RAY 2VW FRONTAL&LATL Returned 01/14/2013 12:00 AM METABOLIC PANEL TOTAL CA Reviewed 02/09/2013 12:[address] PELVIS W/O & W/DYE Reviewed 03/31/2013 12:00 AM MRI LUMBAR SPINE W/O DYE Reviewed 04/28/2013 12:00 AM MRI LUMBAR SPINE W/O DYE Reviewed 06/13/2013 12:00 AM COMPLETE CBC W/AUTO DIFF WBC Returned 06/13/2013 12:00 AM COMPREHEN METABOLIC PANEL Returned 06/13/2013 12:00 AM CHEST X-RAY 2VW FRONTAL&LATL Returned 2013 12:00 AM URINALYSIS AUTO W/O SCOPE Reviewed 12/01/2013 12:00 AM OFFICE/OUTPATIENT VISIT EST Reviewed Results Summary Data and Description Results 04/27/2012 10:00 AM WBC 8.2 RBC 4.60 HGB 14.0 g/dLHCT 41.80 %MCV 91.0 fLMCH 30.40 pgMCHC 33.50 g/dLRDW CV 14.80 %MPV 10.0 fLPLT 233 %NEUT 65.10 %%LYMP 24.70 %%MONO 6.30 %%EOS 3.40 %%BASO 0.50 %#NEUT 5.34 #LYMP 2.03 #MONO 0.52 #EOS 0.28 #BASO 0.04 GLUCOSE 97.0 mg/dLSODIUM 140.0 mmol/LPOTASSIUM 4.40 mmol/ LCHLORIDE 104.0 mmol/LCO2 23.0 mmol/LBUN 11.0 mg/dLCREATININE 0.90 mg/dLSGOT/ AST 18.0 IU/LSGPT/ALT 18.0 IU/LALK PHOS 133.0 IU/LTOTAL PROTEIN 7.0 g/dLALBUMIN 4.30 g/dLTOTAL BILI 0.30 mg/dLCALCIUM 10.20 mg/dLeGFR 60 05/07/2012 11:05 AM TROPONIN-I AD < 0.04 ng/mLWBC 13.6 RBC 4.65 HGB 14.20 g/dLHCT 42.70 %MCV 92.0 fLMCH 30.50 pgMCHC 33.30 g/dLRDW CV 14.70 %MPV 11.60 fLPLT 194 %NEUT 84.10 %%LYMP 11.30 %%MONO 4.30 %%EOS 0.20 %%BASO 0.10 %# NEUT 11.43 #LYMP 1.53 #MONO 0.58 #EOS 0.03 #BASO 0.01 GLUCOSE 122.0 mg/dLSODIUM 140.0 mmol/LPOTASSIUM 4.70 mmol/LCHLORIDE 102.0 mmol/LCO2 22.0 mmol/LBUN 11.0 mg /dLCREATININE 0.90 mg/dLSGOT/AST 18.0 IU/LSGPT/ALT 24.0 IU/LALK PHOS 137.0 IU/ LTOTAL PROTEIN 7.60 g/dLALBUMIN 4.40 g/dLTOTAL BILI 0.20 mg/dLCALCIUM 10.60 mg/ dLeGFR 60 05/18/2012 9:15 AM GLUCOSE 99.0 mg/dLSODIUM 142.0 mmol/LPOTASSIUM 4.50 mmol/ LCHLORIDE 101.0 mmol/LCO2 27.0 mmol/LBUN 11.0 mg/dLCREATININE 0.80 mg/dLSGOT/ AST 17.0 IU/LSGPT/ALT 25.0 IU/LALK PHOS 124.0 IU/LTOTAL PROTEIN 6.50 g/ dLALBUMIN 4.20 g/dLTOTAL BILI 0.40 mg/dLCALCIUM 10.10 mg/dLeGFR 60 10/22/2012 12:45 PM WBC 9.3 RBC 3.71 HGB 11.10 g/dLHCT 34.40 %MCV 93.0 fLMCH 29.90 pgMCHC 32.30 g/dLRDW CV 14.90 %MPV 9.0 fLPLT 402 %NEUT 62.90 %%LYMP 25.30 %%MONO 9.30 %%EOS 2.0 %%BASO 0.50 %#NEUT 5.83 #LYMP 2.35 #MONO 0.86 #EOS 0.19 # BASO 0.05 EOS 2.0 %BASO 1.0 %GLUCOSE 108.0 mg/dLSODIUM 141.0 mmol/LPOTASSIUM 3.60 mmol/LCHLORIDE 102.0 mmol/LCO2 26.0 mmol/LBUN 3.0 mg/dLCREATININE 0.70 mg/ dLSGOT/AST 30.0 IU/LSGPT/ALT 41.0 IU/LALK PHOS 121.0 IU/LTOTAL PROTEIN 5.10 g/ dLALBUMIN 2.60 g/dLTOTAL BILI 0.40 mg/dLCALCIUM 8.90 mg/dLeGFR 60 10/25/2012 12:40 PM WBC 9.7 RBC 3.92 HGB 11.50 g/dLHCT 37.20 %MCV 95.0 fLMCH 29.30 pgMCHC 30.90 g/dLRDW CV 15.40 %MPV 9.10 fLPLT 454 %NEUT 65.40 %%LYMP 23.70 %%MONO 8.60 %%EOS 1.90 %%BASO 0.40 %#NEUT 6.34 #LYMP 2.30 #MONO 0.83 #EOS 0.18 #BASO 0.04 GLUCOSE 105.0 mg/dLSODIUM 141.0 mmol/LPOTASSIUM 4.0 mmol/ LCHLORIDE 102.0 mmol/LCO2 28.0 mmol/LBUN 5.0 mg/dLCREATININE 0.80 mg/dLSGOT/AST 28.0 IU/LSGPT/ALT 32.0 IU/LALK PHOS 118.0 IU/LTOTAL PROTEIN 6.10 g/dLALBUMIN 2.80 g/dLTOTAL BILI 0.40 mg/dLCALCIUM 9.70 mg/dLeGFR 60 11/23/2012 10:20 PM COLOR YELLOW APPEARANCE CLEAR SPEC GRAV <=1.005 pH 7.0 PROTEIN NEGATIVE GLUCOSE NEGATIVE KETONE NEGATIVE BILIRUBIN NEGATIVE BLOOD NEGATIVE NITRITE NEGATIVE LEUK SCREEN NEGATIVE CASTS/LPF NEGATIVE CRYSTALS NEGATIVE MUCOUS THRDS NEGATIVE BACTERIA 1+ EPITH CELLS 1+ SQUAMOUS TRICHOMONAS NEGATIVE YEAST NEGATIVE 01/13/2013 8:52 AM GLUCOSE 104.0 mg/dLSODIUM 138.0 mmol/LPOTASSIUM 4.20 mmol/ LCHLORIDE 102.0 mmol/LCO2 24.0 mmol/LBUN 9.0 mg/dLCREATININE 0.90 mg/dLCALCIUM 10.40 mg/dLeGFR >60 mL/min/1.73 m2 03/07/2013 2:08 PM COLOR YELLOW APPEARANCE CLEAR SPEC GRAV <=1.005 pH 6.5 PROTEIN NEGATIVE GLUCOSE NEGATIVE KETONE NEGATIVE BILIRUBIN NEGATIVE BLOOD NEGATIVE NITRITE NEGATIVE LEUK SCREEN NEGATIVE CASTS/LPF NEGATIVE CRYSTALS NEGATIVE MUCOUS THRDS NEGATIVE BACTERIA NEGATIVE EPITH CELLS FEW SQUAMOUS TRICHOMONAS NEGATIVE YEAST NEGATIVE 05/02/2013 6:40 AM WBC 10.1 RBC 4.67 HGB 14.50 g/dLHCT 43.80 %MCV 94.0 fLMCH 31.0 pgMCHC 33.10 g/dLRDW CV 13.50 %MPV 10.40 fLPLT 278 GLUCOSE 80.0 mg/ dLSODIUM 142.0 mmol/LPOTASSIUM 4.10 mmol/LCHLORIDE 104.0 mmol/LCO2 27.0 mmol/ LBUN 7.0 mg/dLCREATININE 0.80 mg/dLSGOT/AST 17.0 IU/LSGPT/ALT 17.0 IU/LALK PHOS 127.0 IU/LTOTAL PROTEIN 5.80 g/dLALBUMIN 3.70 g/dLTOTAL BILI 0.60 mg/dLCALCIUM 9.90 mg/dLeGFR >60 mL/min/1.73 m2 06/13/2013 2:18 PM GLUCOSE 97.0 mg/dLSODIUM 135.0 mmol/LPOTASSIUM 4.70 mmol/ LCHLORIDE 96.0 mmol/LCO2 25.0 mmol/LBUN 12.0 mg/dLCREATININE 0.90 mg/dLSGOT/AST 19.0 IU/LSGPT/ALT 17.0 IU/LALK PHOS 155.0 IU/LTOTAL PROTEIN 6.30 g/dLALBUMIN 4.10 g/dLTOTAL BILI 0.40 mg/dLCALCIUM 9.80 mg/dLeGFR >60 mL/min/1.73 m2WBC 11.3 RBC 4.46 HGB 13.90 g/dLHCT 40.80 %MCV 92.0 fLMCH 31.20 pgMCHC 34.10 g/dLRDW CV 12.80 %MPV 10.0 fLPLT 279 %NEUT 61.10 %%LYMP 29.90 %%MONO 6.20 %%EOS 2.40 %% BASO 0.40 %#NEUT 6.93 #LYMP 3.39 #MONO 0.70 #EOS 0.27 #BASO 0.04 10/31/2013 7:40 AM WBC 9.5 RBC 4.35 HGB 13.40 g/dLHCT 41.80 %MCV 96.0 fLMCH 30.80 pgMCHC 32.10 g/dLRDW CV 13.40 %MPV 10.70 fLPLT 266 GLUCOSE 101.0 mg/ dLSODIUM 139.0 mmol/LPOTASSIUM 4.60 mmol/LCHLORIDE 100.0 mmol/LCO2 29.0 mmol/ LBUN 9.0 mg/dLCREATININE 0.90 mg/dLSGOT/AST 23.0 IU/LSGPT/ALT 24.0 IU/LALK PHOS 149.0 IU/LTOTAL PROTEIN 6.80 g/dLALBUMIN 4.10 g/dLTOTAL BILI 0.40 mg/dLCALCIUM 9.80 mg/dLeGFR 60 TRIGLYCERIDES 86.0 mg/dLCHOLESTEROL 138.0 mg/dLHDL 54.0 mg/ dLLDL (CALC) 67.0 mg/dL History Of Immunizations Name Date Admin Mfg Name Mfg Code Trade Name Lot# Route Inj Vis Given Vis Pub CVX Influenza 12/29/2012 Not Entered NE Not Entered Not Entered Not Entered 03/30/2014 03/30/2014 111 History of Past Illness Name Date [...] ischial/ gluteal fossa L5-S1 HNP, Right 09/07/2013 Lumbar spondylosis 09/07/2013 Bipolar disorder, unspecified Mar 25 [...] Date Medicare Part A Medicare Part A [id number] September [employer] [place] [employer] [place] [id number] N[place] [employer] [employer] [place] [id number] N/A Kandi Fowler [facility] [id number] Monday, 2012 Medicare Part B Medicare Of [place] [id number] September [place] Medical Assistance [facility] Medical Assistance Pro [id number] N/A History of Encounters Visit Date Visit Type Provider 09/05/2014 Office visit Cesar Encarnacion DO 08/22/2014 [facility] Cesar Bos[facility] DO 08/21/2014 [facility] Cesar Bosaint [facility] DO 08/21/2014 [facility] DO 12/01/2013 Nurse visit Gianna OMER [...] Fleming DO 10/22/2012 Office visit Genesis Marie BEATER BOSS 10/18/2012 [facility] Bhakti José MD 10/10/2012 [facility] Scarlett Aramis DO 10/06/2012 Office visit Pepe Herr MD 10/06/2012 Office visit Genesis Marie BEATER BOSS 09/21/2012 Office visit Pepe Herr MD 09/21/2012 [facility] Pepe Herr MD 09/09/2012 Office visit Genesis Marie BEATER BOSS 08/27/2012 Office visit Genesis Marie BEATER BOSS 08/26/2012 [facility] Pepe Herr MD 08/11/2012 Office visit Genesis Marie BEATER BOSS 07/27/2012 [facility] Bhakti José MD 05/27/2012 Office visit Genesis Marie BEATER BOSS 05/07/2012 Office visit Genesis Marie BEATER BOSS 05/07/2012 [facility] Bandar Levine MD 05/06/2012 [facility] Pepe Herr [...]
--- OUTSIDE RECORDS SUMMARY | 2017-12-10 11:13 | XMS REPORT ---
Author Author Ping Mosqueda [facility] Address [address] [place], [place] [id number] Care Team Providers Care Yarn Rewinder Name Role Phone Ping Mosqueda PCP Ping Mosqueda Unavailable Unavailable Ping Mosqueda PreferredProvider Allergies and Adverse Reactions Name Reaction Notes erythromycin Toradol Minocycline TETRACYCLINES SULFA (SULFONAMIDES) Keflex Zoloft [place] Carbonate benztropine iodine Shell Fish (shrimp, crayfish, [...] oral route once daily for 30 days duloxetine 30 mg oral capsule,delayed release(DR/EC) 02/25/2017 take 1 capsule (30 mg) by oral route once daily for 90 days montelukast 10 mg oral tablet 04/01/2017 07/30/2017 TAKE 1 TABLET BY MOUTH IN THE EVENING prednisone 20 mg oral tablet 04/16/2017 take 2 tablets (40 mg) by oral route once daily for 7 days alendronate 70 mg oral tablet 05/13/2017 TAKE 1 TABLET BY MOUTH ONCE WEEKLY IN THE MORNING for 30 days Lyrica 75 mg oral capsule 05/13/2017 06/12/2017 [...] 72 hours for 30 days 12mcg patch [place] oral tablet 10-325 mg 12/01/2013 01/30/2014 take [...] daily in the evening for 30 days Myrbetriq 25 mg oral [...] route 3 times per day Flonase Nasal [place], Suspension 50 mcg/actuation 09/09/2012 10/22/2012 inhale 1 [...] full glass (8 oz) of liquid Nasal [place] (sodium chloride) nasal aerosol,spray 0.65 % 06/18/2016 [...] oral route every 6 hours as needed [place] 5-325 mg oral tablet 09/10/2016 take 1 [...] HC BMI BSA BMI Percentile O2 Sat(%) 06/03/2017 9:39:00 AM 158 mmHg 70 mmHg [...] drug screen collection Reviewed 12/17/2016 12:00 AM [facility] MEDICARE - flu vaccine administration Reviewed 12/17/2016 [...] 12:00 AM [facility] MEDICARE - pneumonia vaccine administration Reviewed 05/13/2017 [...] 111 Influenza 12/17/2016 sanofi pasteur PMC Fluzone [id number] Intramuscular Right Deltoid 12/17/2016 11/03/2014 135 Pneumococcal 03/03/2017 [employer] MSD Pneumovax 23 [id number] Intramuscular Left Arm 03/03/2017 07/21/2014 33 History [...] Number Start Date Medicare RHC Medicare RHC [id number] N/[place] [employer] [place] [employer] [place] [id number] N[place] [employer] [place] [employer] [place] [id number] N/A Medicare Part A Medicare - Lab/Xray [id number] September Medicare Part B Medicare Of [place] [id number] N/A Medicare Part B [place] [id number] September [place] Medical [place] Program [place] Medical [place] Prog [id number] N/A Medicare Part A Medicare Part A [id number] September [facility] [id number] Monday, October 22, 2012 History of Encounters Visit Date Visit Type Provider 06/03/[address] Ping Mosqueda DO [...] Ping Mosqueda DO 09/16/[address] iPng Mosqueda DO 09/10/[address] Ping Mosqueda DO 09/02/2016 [facility] Caesar Mosqueda MD 09/02/2016 [facility] Bandar Levine MD 06/18/2016 Office visit Cesar Encarnacion DO 07/24/2015 [facility] Bandar Levine MD 05/25/2015 [facility] Bandar Levine MD 09/11/2014 [facility] DO 09/10/2014 [facility] Bandar Levine MD 09/05/2014 [facility] 08/22/2014 [facility] Cesar Bouman DO 08/21/2014 [facility]2014 [facility] 12/01/2013 Nurse visit Gianna OMER 11/16/2013 Office visit Gianna OMER 11/03/2013 Office visit Gianna OMER 10/05/2013 Office visit Gianna OMER 10/04/2013 Office visit Genesis Marie APRN 09/07/2013 Office visit Gianna OMER 2013 Office visit Genesis Marie APRN 07/25/2013 Office visit Genesis Marie APRN 07/22/2013 Office visit Ginana OMER 07/05/2013 Office visit Genesis Marie APRN 06/13/2013 Office visit Genesis Marie APRN 06/01/2013 Office visit Genesis Marie APRN 05/24/2013 Office visit Gianna OMER 05/18/2013 Office visit Angel Hand MD 05/04/2013 Office visit Angel Hand MD 04/28/2013 [facility] Angel Hand MD 04/26/2013 Office visit Sahara Ruiz MD 04/25/2013 [facility] Angel Hand MD 04/18/2013 Office visit Michael Fleming DO 03/31/2013 Office visit Gianna OMER 03/09/2013 Office visit Gianna Mercer OPTOMETRIC TECHNOLOGIST 02/28/2013 Office visit Angel Hand MD 02/17/2013 Office visit Gianna Mercer OPTOMETRIC TECHNOLOGIST 02/09/2013 Office visit Angel Hand MD 02/03/2013 Office visit Genesis Marie INKJET OPERATOR 01/31/2013 Office visit Ginana Mercer OPTOMETRIC TECHNOLOGIST 01/07/2013 Office visit Michael Fleming DO 11/25/2012 Office visit Michael Fleming DO 10/22/2012 Office visit Genesis Marie INKJET OPERATOR 10/18/2012 [facility] Bhakti José MD 10/10/2012 [facility] DO 10/06/2012 Office visit Genesis Marie INKJET OPERATOR 10/06/2012 Office visit Pepe Herr MD 09/21/2012 [facility] Pepe Herr MD 09/21/2012 Office visit Pepe Herr MD 09/09/2012 Office visit Genesis Marie INKJET OPERATOR 08/27/2012 Office visit Genesis Marie INKJET OPERATOR 08/26/2012 [facility] Pepe Herr MD 08/11/2012 Office visit Genesis Marie INKJET OPERATOR 07/27/2012 [facility] Bhakti José MD 05/27/2012 Office visit Genesis Marie INKJET OPERATOR 05/07/2012 [facility] Bandar Levine MD 05/07/2012 Office visit Genesis Marie INKJET OPERATOR 05/06/2012 [facility] Pepe Herr MD 04/27/2012 Office visit Pepe Herr MD 04/16/2012 Office visit Genesis Marie INKJET OPERATOR 03/25/2012 Office visit Michael Fleming DO 10/07/2011 [facility] Pepe Herr MD 09/23/2011 [facility] Pepe Herr MD 09/09/2011 [facility] Pepe Herr MD 03/20/2011 [facility] Bandar Levine MD 05/28/2009 Office visit Pepe Herr MD
[2017-12-10] MEDS ORDERED: MIDAZOLAM 2 MG/2 ML (VERSED) VIAL ONE (11:22)
[2017-12-10] MEDS ORDERED: LIDOCAINE PF 2% 2 ML (XYLOCAINE) VIAL ONE ×2 (11:22)
[2017-12-10] MEDS ORDERED: fentaNYL INJECTION 100 MCG/2 ML AMP ONE (11:22)
[2017-12-10] MEDS ORDERED: proPOfol 200 MG/20 ML (DIPRIVAN) VIAL IV ONE (11:22)
[2017-12-10] MEDS ORDERED: SUCCINYLCHOLINE INJ 100 MG/5 ML SYR ONE (11:22)
--- OUTSIDE RECORDS SUMMARY | 2017-12-10 11:22 | XMS REPORT ---
Author Author [facility] Address [address] [place], [place] [id number] Care Team Providers Care Manufacturing Project Engineer Name Role Phone Cesar Encarnacion PCP Unavailable Michael Fleimng PreferredProvider Unavailable Allergies and Adverse Reactions Name Reaction Notes erythromycin Toradol Minocycline TETRACYCLINES SULFA (SULFONAMIDES) Keflex Zoloft [place] Carbonate benztropine iodine Shell Fish (shrimp, crayfish, [...] by topical route 2 times per day alprazolam oral tablet 0.25 mg take 1 tablet (0.25 mg) by oral route 2 times per day /PRN second dose should be 4 hrs or more since the first dose. tramadol 50 mg oral tablet take 1 tablet (50 mg) by oral route every 6 hours as needed Colace 100 mg oral capsule take 1 capsule (100 mg) by oral route 2 times per day Plevna 5-325 mg oral tablet take 1 tablet by oral route every 6 hours as needed for pain Geodon 40 mg oral capsule take 2 in the AM and 3 at 5pm Lyrica 75 mg oral capsule take one TID Klonopin 0.5 mg oral tablet take 1 tablet (0.5 mg) by oral route 2 times per day Remeron 15 mg oral tablet take 1/2 tab at nigth Zocor 10 mg oral tablet take 1 tablet (10 mg) by oral route once daily in the evening potassium chloride 10 mEq oral tablet extended release take 1 tablet ( 10 meq) by oral route once daily with food Cymbalta 30 mg oral capsule,delayed release(DR/EC) take 1 capsule (30 mg ) by oral route once daily Lamictal 25 mg oral tablet take 2 tablets (50 mg) by oral route 2 times per day Norvasc 5 mg oral tablet take 1 tablet (5 mg) by oral route once daily Seroquel 100 mg oral tablet take 1 tab at night Singulair 10 mg oral tablet take 1 tablet (10 mg) by oral route once daily in the evening Lasix 40 mg oral tablet take 1 tab in the AM and 2 at night metformin 500 mg oral tablet take 1 tablet (500 mg) by oral route 2 times per day with morning and evening meals cyclobenzaprine 10 mg oral tablet take 1 tablet (10 mg) by oral route 3 times per day Name Start Date Expiration Date SIG Comments [...] 72 hours for 30 days 12mcg patch [place] oral tablet 10-325 mg 12/01/2013 01/30/2014 take [...] route 3 times per day Flonase Nasal [place], Suspension 50 mcg/actuation 09/09/2012 10/22/2012 inhale 1 [...] tablet 0.5 mg 06/18/2016 1 tab daily Cymbalta oral capsule,delayed release(DR/EC) 30 mg 06/18/2016 [...] full glass (8 oz) of liquid Nasal [place] (sodium chloride) nasal aerosol,spray 0.65 % 06/18/2016 [...] oral route every 4 hours as needed Problem List Description Status Onset Anxiety Active [...] COPD (chronic obstructive pulmonary disease) Active 06/18/2016 Vital Signs Date Time BP-Sys(mm[Hg] BP-Mary(mm[Hg]) HR(bpm) RR(rpm) Temp WT HT HC BMI BSA BMI Percentile O2 Sat(%) 06/18/2016 1:22:00 PM 118 mmHg 57 mmHg [...] 3.92 HGB 11.50 g/dLHCT 37.20 %MCV 95.0 [facility] 29.30 [facility] 30.[facility] g/dLRDW SD 54 RDW CV 15.40 [...] 06/18/2016 COPD (chronic obstructive pulmonary disease) 06/18/2016 Bipolar disorder, unspecified Mar 25 2012 8:20AM [...] obstructive pulmonary disease) Jun 18 2016 1:48PM Payers Insurance Name Company Name Plan Name Plan Number Policy Number Policy Group Number Start Date Medicare Part A Medicare Part A [id number] September [employer] [place] [facility] State Plan [id number] N/A [facility] State Plan [id number] N/A Medicare Part A Medicare - Lab/Xray [id number] September Medicare Part B Medicare Of [place] [id number] N/A Kandi Fowler [facility] [place] [id number] Monday, October 22, 2012 Medicare Part B Medicare [place] [id number] September [place] Medical [place] Pro[place] [id number] N/A History of Encounters Visit Date Visit Type Provider 06/18/2016 Office visit Cesar Encarnacion DO 07/24/2015 [facility] Bandar Levine MD 05/25/2015 [facility] Bandar Levine MD 09/11/2014 [facility] 09/10/2014 [facility] Bandar Levine MD 09/05/2014 Office visit Cesar Encarnacion DO 08/22/2014 [facility] DO 08/21/2014 [facility] DO 08/21/2014 [facility] DO 12/01/2013 Nurse visit Gianna [...] 05/04/2013 Office visit Angel Hand MD 04/28/2013 [facility] Angel Hand MD 04/26/2013 Office visit Sahara Ruiz MD 04/25/2013 Procedures Angel Hand MD 04/18/2013 Office visit Michael Fleming DO 03/31/2013 Office visit Gianna OMER 03/09/2013 Office visit Gianna OMER 02/28/2013 Office visit Angel Hand MD 02/17/2013 Office visit Gianna OMER 02/09/2013 Office visit Angel Hand MD 02/03/2013 Office visit Genesis Marie RAIL ENGINEER 01/31/2013 Office visit Gianna MZac OMER 01/07/2013 Office visit Michael Fleming DO 11/25/2012 Office visit Michael Fleming DO 10/22/2012 Office visit Genesis Marie RAIL ENGINEER 10/18/2012 [facility] Bhakti José MD 10/10/2012 [facility] DO 10/06/2012 Office visit Genesis Marie RAIL ENGINEER 10/06/2012 Office visit Pepe Herr MD 09/21/2012 [facility] Pepe Herr MD 09/21/2012 Office visit Pepe Herr MD 09/09/2012 Office visit Genesis Marie RAIL ENGINEER 08/27/2012 Office visit Genesis Marie RAIL ENGINEER 08/26/2012 [facility] Pepe Herr MD 08/11/2012 Office visit Genesis Marie RAIL ENGINEER 07/27/2012 [facility] Bhakti José MD 05/27/2012 Office visit Genesis Marie RAIL ENGINEER 05/07/2012 [facility] Bandar Levine MD 05/07/2012 Office visit Genesis Marie RAIL ENGINEER 05/06/2012 [facility] Pepe Herr MD 04/27/2012 Office visit Pepe Herr MD 04/16/2012 Office visit Genesis Marie RAIL ENGINEER 03/25/2012 Office visit Michael Fleming DO 10/07/2011 [facility] Pepe Herr MD 09/23/2011 [facility] Pepe Herr MD 09/09/2011 [facility] Pepe Herr MD 03/20/2011 [facility] Bandar Levine MD 05/28/2009 Office visit Pepe Herr MD
[2017-12-10] MEDS ORDERED: DEXAMETHASONE 10 MG/ML (DECADRON) 1 ML VIAL ONE (11:23)
[2017-12-10] MEDS ORDERED: KETAMINE HCL 100 MG/ML 5 ML VIAL ONE (11:23)
[2017-12-10] MEDS ORDERED: SEVOFLURANE (ULTANE) 15 ML INHAL SOLN ONE ×2 (11:28→12:20)
--- OUTSIDE RECORDS SUMMARY | 2017-12-10 11:28 | XMS REPORT ---
Author Author Ping Mosqueda [facility] Address [address] [place], [place] [id number] Care Team Providers Care Campground Attendant Name Role Phone Ping Mosqueda PCP Ping Mosqueda Unavailable Unavailable Ping Mosqueda PreferredProvider Allergies and Adverse Reactions Name Reaction Notes erythromycin Toradol Minocycline TETRACYCLINES SULFA (SULFONAMIDES) Keflex Zoloft [place] Carbonate benztropine iodine Shell Fish (shrimp, crayfish, [...] 72 hours for 30 days 12mcg patch [place] oral tablet 10-325 mg 12/01/2013 01/30/2014 take [...] route 3 times per day Flonase Nasal [place], Suspension 50 mcg/actuation 09/09/2012 10/22/2012 inhale [...] full glass (8 oz) of liquid Nasal [place] (sodium chloride) nasal aerosol,spray 0.65 % [...] oral route every 6 hours as needed [place] 5-325 mg oral tablet 09/10/2016 take 1 [...] drug screen collection Reviewed 12/17/2016 12:00 AM [facility] MEDICARE - flu vaccine administration [...] 23 JUAN IM Reviewed 03/03/2017 12:00 AM [facility] MEDICARE - pneumonia vaccine administration Reviewed [...] 111 Influenza 12/17/2016 sanofi pasteur PMC FLUZONE [id number] Intramuscular Right Deltoid 12/17/2016 11/03/2014 135 Pneumococcal 03/03/2017 [employer]ck [employer] MSD PNEUMOVAX 23 [id number] Intramuscular Left Arm 03/03/2017 07/21/2014 33 History [...] Number Start Date Medicare RHC Medicare RHC [id number] N/A [employer] [place] Amer[employer] [place] [id number] N/A [employer] [place] [employer] [place] State Plan [id number] N/A Medicare Part A Medicare - Lab/Xray [id number] September Medicare Part B Medicare [place] [id number] N/A Medicare Part B [place] [id number] September [place] Medical Assistance [facility] Medical Assistance Prog [id number] N/A Medicare Part A Medicare Part A [id number] September [facility] [id number] Monday, October 22, 2012 History of Encounters Visit Date Visit Type Provider 08/11/[address] Ping Mosqueda DO 07/31/[address] Ping Mosqueda DO 07/02/[address] Ping Mosqueda DO 06/12/2017 Office visit Yeny Hilario DRY COLOR TESTER 06/03/[address] Ping Mosqueda DO [...] 05/25/2015 [facility] Bandar Levine MD 09/11/2014 [facility] DO 09/10/2014 [facility] Bandar Levine MD 09/05/2014 Office visit [facility] DO 08/22/2014 [facility] DO 08/21/2014 [facility] 08/21/2014 [facility] DO 12/01/2013 Nurse visit Gianna OMER 11/16/2013 Office visit Gianna OMER 11/03/2013 Office visit Gianna OMER 10/05/2013 Office visit Gianna OMER 10/04/2013 Office visit Genesis Marie DRY COLOR TESTER 09/07/2013 Office visit Gianna OMER 2013 Office visit Genesis Marie DRY COLOR TESTER 07/25/2013 Office visit Genesis Marie APRN 07/22/2013 Office visit Gianna OMER 07/05/2013 Office visit Genesis Marie DRY COLOR TESTER 06/13/2013 Office visit Genesis Marie APRN 06/01/2013 Office visit Genesis Marie DRY COLOR TESTER 05/24/2013 Office visit Gianna OMER 05/18/2013 Office visit Angel Hand MD 05/04/2013 Office visit Angel Hand MD 04/28/2013 Hospital Angel Hand MD 04/26/2013 Office visit Sahara Ruiz MD 04/25/2013 Procedures Angel Hand MD 04/18/2013 Office visit Michael Fleming DO 03/31/2013 Office visit Gianna Mercer TEAM LEADER SURGERY 03/09/2013 Office visit Gianna OMER 02/28/2013 Office visit Angel Hand MD 02/17/2013 Office visit Gianna OMER 02/09/2013 Office visit Angel Hand MD 02/03/2013 Office visit Genesis Marie DRY COLOR TESTER 01/31/2013 Office visit Gianna Mercer TEAM LEADER SURGERY 01/07/2013 Office visit Michael Fleming DO 11/25/2012 Office visit Michael Fleming DO 10/22/2012 Office visit Genesis Marie DRY COLOR TESTER 10/18/2012 [facility] Bhakti José MD 10/10/2012 [facility] DO 10/06/2012 Office visit Genesis Marie DRY COLOR TESTER 10/06/2012 Office visit Pepe Herr MD 09/21/2012 [facility] Pepe Herr MD 09/21/2012 Office visit Pepe Herr MD 09/09/2012 Office visit Genesis Marie DRY COLOR TESTER 08/27/2012 Office visit Genesis Marie DRY COLOR TESTER 08/26/2012 [facility] Pepe Herr MD 08/11/2012 Office visit Genesis Marie DRY COLOR TESTER 07/27/2012 [facility] Bhakti José MD 05/27/2012 Office visit Genesis Marie DRY COLOR TESTER 05/07/2012 [facility] Bandar Levine MD 05/07/2012 Office visit Genesis Marie DRY COLOR TESTER 05/06/2012 [facility] Pepe Herr MD 04/27/2012 Office visit Pepe Herr MD 04/16/2012 Office visit Genesis Marie DRY COLOR TESTER 03/25/2012 Office visit Michael Fleming DO 10/07/2011 [facility] Pepe Herr MD 09/23/2011 [facility] Pepe Herr MD 09/09/2011 Hospital Pepe Herr MD 03/20/2011 [facility] Bandar Levine MD 05/28/2009 Office visit Pepe Herr MD
[2017-12-10] MEDS ORDERED: LACTATED RINGERS 1,000 ML IV STA (11:35)
--- OUTSIDE RECORDS SUMMARY | 2017-12-10 11:35 | XMS REPORT ---
Author Author Ping Mosqueda [facility] Address [address] [place], [place] [id number] Care Team Providers Care Rod Hanger Name Role Phone Ping Mosqueda PCP Ping Mosqueda Unavailable Unavailable Ping Mosqueda PreferredProvider Allergies and Adverse Reactions Name Reaction Notes erythromycin Toradol Minocycline TETRACYCLINES SULFA (SULFONAMIDES) Keflex Zoloft [place] Carbonate benztropine iodine Shell Fish (shrimp, crayfish, [...] once daily with food for 30 days simvastatin 10 mg oral [...] 72 hours for 30 days 12mcg patch [place] oral tablet 10-325 mg 12/01/2013 01/30/2014 take [...] to 4000mg /day as needed for pain Discontinued Name Start Date Discontinued Date SIG [...] route 3 times per day Flonase Nasal [place], Suspension 50 mcg/actuation 09/09/2012 10/22/2012 inhale 1 [...] full glass (8 oz) of liquid Nasal [place] (sodium chloride) nasal aerosol,spray 0.65 % 06/18/2016 [...] oral route every 6 hours as needed [place] 5-325 mg oral tablet 09/10/2016 take 1 [...] negative History Of Immunizations Name Date Admin [facility] Name [facility] Code Trade Name Lot# Route Inj Vis [...] Number Policy Group Number Start Date Medicare [facility] Medicare [facility] [id number] N/A [employer] - RHC [place] State [place] Amerigroup - [place] State Plan [id number] N/A [employer] [place] Amer[employer] [place] State Plan [id number] N/A Medicare Part A Medicare - Lab/Xray [id number] , September 27, 1998 Medicare Part B Medicare [place] [id number] N/A Medicare Part B Medicare Of [place] [id number] September [place] Medical Assistance [facility] Medical Assistance Pro [id number] N/A Medicare Part A Medicare Part A [id number] September Kandi Fowler [facility] [id number] Monday, October 22, 2012 History of Encounters Visit Date Visit Type Provider 11/06/[address] Ping Mosqueda DO 10/08/[address] Ping Mosqueda DO 10/07/[address] Ping Mosqueda DO 09/23/[address] Ping Mosqueda DO 09/16/[address] Ping Mosqueda DO 09/10/[address] Ping Mosqueda DO 09/02/2016 [facility] Caesar Mosqueda MD 06/18/2016 Office visit Cesar Encarnacion DO 07/24/2015 [facility] Bandar Levine MD 05/25/2015 [facility] Bandar Levine MD 09/11/2014 [facility] DO 09/10/2014 [facility] Bandar Levine MD 09/05/2014 [facility] 08/[facility]2014 [facility] DO 08/21/2014 [facility] DO 08/21/2014 [facility] DO 12/01/2013 Nurse visit Gianna OMER [...] 05/04/2013 Office visit Angel Hand MD 04/28/2013 [facility] Angel Hand MD 04/26/2013 Office visit Sahara Ruiz MD 04/25/2013 Procedures Angel Hand MD 04/18/2013 Office visit Michael Fleming DO 03/31/2013 Office visit Gianna OMER 03/09/2013 Office visit Gianna OMER 02/28/2013 Office visit Angel Hand MD 02/17/2013 Office visit Gianna OMER 02/09/2013 Office visit Angel Hand MD 02/03/2013 Office visit Genesis Marie MARKETING LIAISON 01/31/2013 Office visit Gianna AMADORP 01/07/2013 Office visit Michael Fleming DO 11/25/2012 Office visit Michael Fleming DO 10/22/2012 Office visit Genesis Marie MARKETING LIAISON 10/18/2012 [facility] Bhakti José MD 10/10/2012 [facility] 10[facility]2012 Office visit Genesis Marie MARKETING LIAISON 10/06/2012 Office visit Pepe Herr MD 09/21/2012 [facility] Pepe Herr MD 09/21/2012 Office visit Pepe Herr MD 09/09/2012 Office visit Genesis Marie MARKETING LIAISON 08/27/2012 Office visit Genesis Marie MARKETING LIAISON 08/26/2012 [facility] Pepe Herr MD 08/11/2012 Office visit Genesis Marie MARKETING LIAISON 07/27/2012 [facility] Bhakti José MD 05/27/2012 Office visit Genesis Marie MARKETING LIAISON 05/07/2012 [facility] Bandar Levine MD 05/07/2012 Office visit Genesis Marie MARKETING LIAISON 05/06/2012 [facility] Pepe Herr MD 04/27/2012 Office visit Pepe Herr MD 04/16/2012 Office visit Genesis Marie APRN 03/25/2012 Office visit Michael Fleming DO 10/07/2011 [facility] Pepe Herr MD 09/23/2011 [facility] Pepe Herr MD 09/09/2011 Hospital Pepe Herr MD 03/20/2011 [facility] Bandar Levine MD 05/28/2009 Office visit Pepe Herr MD
[2017-12-10] MEDS ORDERED: ZPR80C PO (11:39)
[2017-12-10] MEDS ORDERED: ALPR0.254 PO (11:39)
[2017-12-10] MEDS ORDERED: FLUT9.9S NS (11:39)
[2017-12-10] MEDS ORDERED: LIDO1ADH19 TP (11:39)
[2017-12-10] MEDS ORDERED: MONT10TA24 PO (11:39)
[2017-12-10] MEDS ORDERED: RT-ALBUINH IH (11:39)
[2017-12-10] MEDS ORDERED: ONDN4T PO (11:39)
[2017-12-10] MEDS ORDERED: FURO40TA4 PO (11:39)
[2017-12-10] MEDS ORDERED: POTA-51 PO (11:39)
[2017-12-10] MEDS ORDERED: DULO30CA3 PO (11:39)
[2017-12-10] MEDS ORDERED: ZIPR60CA2 PO (11:39)
[2017-12-10] MEDS ORDERED: POLY119P5 PO (11:39)
[2017-12-10] MEDS ORDERED: UMEC62.5 IH (11:39)
[2017-12-10] MEDS ORDERED: FLUT1AER IH (11:39)
[2017-12-10] MEDS ORDERED: BENZ100C18 PO (11:39)
[2017-12-10] MEDS ORDERED: MULT-1029 PO (11:39)
[2017-12-10] MEDS ORDERED: AMLO5TAB7 PO (11:39)
[2017-12-10] MEDS ORDERED: PRAV20TA3 PO (11:39)
[2017-12-10] MEDS ORDERED: LAMO150T3 PO (11:39)
[2017-12-10] MEDS ORDERED: CHOL10003 PO (11:39)
[2017-12-10] MEDS ORDERED: LISI-556 PO (11:39)
[2017-12-10] MEDS ORDERED: ACET-168 PO (11:39)
[2017-12-10] MEDS ORDERED: MIRT30TA PO (11:39)
[2017-12-10] MEDS ORDERED: PREG75CA PO (11:39)
--- OUTSIDE RECORDS SUMMARY | 2017-12-10 11:43 | XMS REPORT ---
Author Author Ping Mosqueda [facility] Address [address] [place], [place] [id number] Care Team Providers Care City Editor Name Role Phone Pnig Mosqueda PCP Ping Mosqueda Unavailable Unavailable Ping Mosqueda PreferredProvider Allergies and Adverse Reactions Name Reaction Notes erythromycin Toradol Minocycline TETRACYCLINES SULFA (SULFONAMIDES) Keflex Zoloft [place] Carbonate benztropine iodine Shell Fish (shrimp, crayfish, [...] 72 hours for 30 days 12mcg patch [place] oral tablet 10-325 mg 12/01/2013 01/30/2014 take [...] route 3 times per day Flonase Nasal [place], Suspension 50 mcg/actuation 09/09/2012 10/22/2012 inhale 1 [...] full glass (8 oz) of liquid Nasal [place] (sodium chloride) nasal aerosol,spray 0.65 % 06/18/2016 [...] oral route every 6 hours as needed [place] 5-325 mg oral tablet 09/10/2016 take 1 [...] 111 Influenza 12/17/2016 sanofi pasteur PMC Fluzone [id number] Intramuscular Right Deltoid 12/17/2016 11/03/2014 135 History [...] Number Start Date Medicare RHC Medicare RHC [id number] N/[place] [employer] [place] [employer] [place] [id number] N/[place] [employer] [place] [employer] [place] [id number] N/A Medicare Part A Medicare - Lab/Xray [id number] September Medicare Part B Medicare [place] [id number] N/A Medicare Part B [place] [id number] September [place] Medical Assistance Program [place] Medical Assistance Prog [id number] N/A Medicare Part A Medicare Part A [id number] [facility] [id number] Monday, October 22, 2012 History of Encounters [...] Office visit Dr. Ping Mosqueda DO 09/02/2016 [facility] Caesar Mosqueda MD 09/02/2016 [facility] Bandar Levine MD 06/18/2016 Office visit Cesar Encarnacion DO 07/24/2015 [facility] Bandar Levine MD 05/25/2015 [facility] Bandar Levine MD 09/11/2014 [facility] Cesar Bouman DO 09/10/2014 [facility] Bandar Levine MD 09/05/2014 Office visit Cesar Bouman DO 08/22/2014 [facility] Cesar Bouman DO 08/21/2014 [facility] Cesar Bouman DO 08/21/2014 [facility] Cesar Bouman DO 12/01/2013 Nurse visit [...] Hand MD 02/03/2013 Office visit Genesis Marie VALVE PIPE IRRIGATOR 01/31/2013 Office visit Gianna MZac OMER 01/07/2013 Office visit Michael Fleming DO 11/25/2012 Office visit Michael Fleming DO 10/22/2012 Office visit Genesis Marie VALVE PIPE IRRIGATOR 10/18/2012 [facility] Bhakti José MD 10/10/2012 [facility] 10[facility]2012 Office visit Genesis Marie VALVE PIPE IRRIGATOR 10/06/2012 Office visit Pepe Herr MD 09/21/2012 [facility] Pepe Herr MD 09/21/2012 Office visit Pepe Herr MD 09/09/2012 Office visit Genesis Marie VALVE PIPE IRRIGATOR 08/27/2012 Office visit Genesis Marie VALVE PIPE IRRIGATOR 08/26/2012 [facility] Pepe Herr MD 08/11/2012 Office visit Genesis Marie VALVE PIPE IRRIGATOR 07/27/2012 [facility] Bhakti José MD 05/27/2012 Office visit Genesis Marie VALVE PIPE IRRIGATOR 05/07/2012 [facility] Bandar Levine MD 05/07/2012 Office visit Genesis Marie VALVE PIPE IRRIGATOR 05/06/2012 [facility] Pepe Herr MD 04/27/2012 Office visit Pepe Herr MD 04/16/2012 Office visit Genesis Marie VALVE PIPE IRRIGATOR 03/25/2012 Office visit Michael Fleming DO 10/07/2011 [facility] Pepe Herr MD 09/23/2011 [facility] Pepe Herr MD 09/09/2011 [facility] Pepe Herr MD 03/20/2011 [facility] Bandar Levine MD 05/28/2009 Office visit Pepe Herr MD
--- OUTSIDE RECORDS SUMMARY | 2017-12-10 11:49 | XMS REPORT ---
Author Author Ping Mosqueda [facility] Address [address] [place], [place] [id number] Care Team Providers Care Tire Classifier Name Role Phone Ping Mosqueda PCP Ping Mosqueda Unavailable Unavailable Ping Mosqueda PreferredProvider Allergies and Adverse Reactions Name Reaction Notes erythromycin Toradol Minocycline TETRACYCLINES SULFA (SULFONAMIDES) Keflex Zoloft [place] Carbonate benztropine iodine Shell Fish (shrimp, crayfish, [...] 72 hours for 30 days 12mcg patch [place] oral tablet 10-325 mg 12/01/2013 01/30/2014 take [...] route 3 times per day Flonase Nasal [place], Suspension 50 mcg/actuation 09/09/2012 10/22/2012 inhale 1 [...] full glass (8 oz) of liquid Nasal [place] (sodium chloride) nasal aerosol,spray 0.65 % 06/18/2016 [...] oral route every 6 hours as needed [place] 5-325 mg oral tablet 09/10/2016 take 1 [...] HC BMI BSA BMI Percentile O2 Sat(%) 09/16/2016 9:21:00 AM 142 mmHg 68 mmHg [...] 09/16/2016 12:00 AM CHEST X-RAY 2VW FRONTAL&LATL Returned 04/26/2012 12:00 AM COMPLETE CBC W/AUTO [...] 2016 9:31AM Edema Sep 16 2016 9:31AM Payers Insurance Name Company Name Plan Name Plan Number Policy Number Policy Group Number Start Date Medicare RHC Medicare RHC [id number] N/A [employer] [place] [employer] [place] [id number] N/[place] [employer] [employer] [place] [id number] N/A Medicare Part A Medicare - Lab/Xray [id number] September Medicare Part B Medicare Of [place] [id number] N/A Medicare Part B Medicare [place] [id number] September [place] Medical Assistance [facility] Medical Assistance Prog [id number] N/A Medicare Part A Medicare Part A [id number] September [facility] [id number] Monday, October 22, 2012 History of Encounters Visit Date Visit Type Provider 09/16/[address] Ping Mosqueda DO 09/10/[address] Ping Mosqueda DO 06/18/2016 Office visit Cesar Encarnacion DO 07/24/2015 [facility] Bandar Levine MD 05/25/2015 [facility] Bandar Levine MD 09/11/2014 [facility] Cesar Encarnacion DO 09/10/2014 [facility] Bandar Levine MD 09/05/2014 Office visit Cesar Encarnacion DO 08/22/2014 [facility] Cesar Encarnacion DO 08/21/2014 [facility] Cesar Encarnacion DO 08/21/2014 [facility] Cesar Encarnacion DO 12/01/2013 Nurse visit Gianna OMER 11/16/2013 Office visit Gianna OMER 11/03/2013 Office visit Gianna OMER 10/05/2013 Office visit Gianna OMER 10/04/2013 Office visit Genesis Marie ROUTE DRIVER SALESPERSON 09/07/2013 Office visit Gianna AMADORP 2013 Office visit Genesis Marie ROUTE DRIVER SALESPERSON 07/25/2013 Office visit Genesis Marie ROUTE DRIVER SALESPERSON 07/22/2013 Office visit Gianna AMADORP 07/05/2013 Office visit Genesis Frank ROUTE DRIVER SALESPERSON 06/13/2013 Office visit Genesis Frank ROUTE DRIVER SALESPERSON 06/01/2013 Office visit Genesis Marie ROUTE DRIVER SALESPERSON 05/24/2013 Office visit Gianna OMER 05/18/2013 Office visit Angel Hand MD 05/04/2013 Office visit Angel Hand MD 04/28/2013 [facility] Angel Hand MD 04/26/2013 Office visit Sahara Ruiz MD 04/25/2013 Procedures Angel Hand MD 04/18/2013 Office visit Michael Fleming DO 03/31/2013 Office visit Gianna OMER 03/09/2013 Office visit Gianna OMER 02/28/2013 Office visit Angel Hand MD 02/17/2013 Office visit Gianna OEMR 02/09/2013 Office visit Angel Hand MD 02/03/2013 Office visit Genesis Marie ROUTE DRIVER SALESPERSON 01/31/2013 Office visit Gianna OMER 01/07/2013 Office visit Michael Fleming DO 11/25/2012 Office visit Michael Fleming DO 10/22/2012 Office visit Genesis Marie ROUTE DRIVER SALESPERSON 10/18/2012 [facility] Bhakti José MD 10/10/2012 [facility] 10/06/2012 Office visit Genesis Marie ROUTE DRIVER SALESPERSON 10/06/2012 Office visit Pepe Herr MD 09/21/2012 [facility] Pepe Herr MD 09/21/2012 Office visit Pepe Herr MD 09/09/2012 Office visit Genesis Marie ROUTE DRIVER SALESPERSON 08/27/2012 Office visit Genesis Marie ROUTE DRIVER SALESPERSON 08/26/2012 [facility] Pepe Herr MD 08/11/2012 Office visit Genesis Marie ROUTE DRIVER SALESPERSON 07/27/2012 [facility] Bhakti José MD 05/27/2012 Office visit Genesis Marie ROUTE DRIVER SALESPERSON 05/07/2012 [facility] Bandar Levine MD 05/07/2012 Office visit Genesis Marie ROUTE DRIVER SALESPERSON 05/06/2012 [facility] Pepe Herr MD 04/27/2012 Office visit Pepe Herr MD 04/16/2012 Office visit Genesis Marie ROUTE DRIVER SALESPERSON 03/25/2012 Office visit Michael Fleming DO 10/07/2011 Hospital Pepe Herr MD 09/23/2011 [facility] Pepe Herr MD 09/09/2011 [facility] Pepe Herr MD 03/20/2011 [facility] Bandar Levine MD 05/28/2009 Office visit Pepe Herr MD
--- OUTSIDE RECORDS SUMMARY | 2017-12-10 11:51 | XMS REPORT ---
Author Author Ping Mosqueda [facility] Address [address] [place], [place] [id number] Care Team Providers Care Census Clerk Name Role Phone Ping Mosqueda PCP Ping Mosqueda Unavailable Unavailable Ping Mosqueda PreferredProvider Allergies and Adverse Reactions Name Reaction Notes erythromycin Toradol Minocycline TETRACYCLINES SULFA (SULFONAMIDES) Keflex Zoloft [place] Carbonate benztropine iodine Shell Fish (shrimp, [...] TABLET BY MOUTH EVERY NIGHT AT BEDTIME Aspir-81 81 mg oral tablet,delayed release (DR/EC) [...] 2 times a day for 30 days potassium chloride 20 mEq oral tablet extended release 12/03/2016 take 2 by oral route once daily with food for 30 days Levaquin 500 mg oral tablet 12/17/2016 take [...] 2 times per day for 90 days Lyrica 75 mg oral capsule 02/02/2017 03/04/2017 take one TID for 30 days fentanyl 25 mcg/hr transdermal [...] 72 hours for 30 days 12mcg patch [place] oral tablet 10-325 mg 12/01/2013 01/30/2014 take [...] 1 tab in AM and 2in PM Discontinued Name Start Date Discontinued Date [...] route 3 times per day Flonase Nasal [place], Suspension 50 mcg/actuation 09/09/2012 10/22/2012 inhale 1 [...] full glass (8 oz) of liquid Nasal [place] (sodium chloride) nasal aerosol,spray 0.65 % 06/18/2016 [...] oral route every 6 hours as needed [place] 5-325 mg oral tablet 09/10/2016 take 1 [...] 111 Influenza 12/17/2016 sanofi pasteur PMC Fluzone [id number] Intramuscular Right Deltoid 12/17/2016 11/03/2014 135 History [...] 1:24PM Chronic pain Feb 04 2017 8:30AM Payers Insurance Name Company Name Plan Name Plan Number Policy Number Policy Group Number Start Date Medicare RH Medicare RHC [id number] N/A [employer] [place] [employer] [place] [id number] [place] [employer] [facility] [place] [id number] N/A Medicare Part A Medicare - Lab/Xray [id number] September Medicare Part B Medicare Of [place] [id number] N/A Medicare Part B Medicare [place] [id number] September [place] Medical Assistance Program [place] Medical Assistance Prog [id number] N/A Medicare Part A Medicare Part A [id number] September [facility] [id number] Monday, October 22, 2012 History of Encounters [...] MD 09/11/2014 [facility] Cesar Bouman DO 09/10/2014 [facility] Bandar Levine MD 09/05/2014 Office visit Cesar Bouman DO 08/22/2014 [facility] Cesar Bouman DO 08/21/2014 [facility] Cesar Bouman DO 08/21/2014 [facility] Cesar Bouman DO 12/01/2013 Nurse visit Gianna OMER 11/16/2013 Office visit Gianna OMER 11/03/2013 Office visit Gianna OMER 10/05/2013 Office visit Gianna OMER 10/04/2013 Office visit Genesis Marie APRN 09/07/2013 Office visit Gianna OMER 2013 Office visit Genesis Marie BOBBIN COLLECTOR 07/25/2013 Office visit Genesis Marie BOBBIN COLLECTOR 07/22/2013 Office visit Gianna OMER 07/05/2013 Office visit Genesis Marie APRN 06/13/2013 Office visit Genesis Marie APRN 06/01/2013 Office visit Genesis Marie BOBBIN COLLECTOR 05/24/2013 Office visit Gianna OMER 05/18/2013 Office [...] Hand MD 02/03/2013 Office visit Genesis Marie BOBBIN COLLECTOR 01/31/2013 Office visit Gianna OMER 01/07/2013 Office visit Michael Fleming DO 11/25/2012 Office visit Michael Fleming DO 10/22/2012 Office visit Genesis Marie BOBBIN COLLECTOR 10/18/2012 [facility] Bhakti José MD 10/10/2012 [facility] DO 10/06/2012 Office visit Genesis Marie BOBBIN COLLECTOR 10/06/2012 Office visit Pepe Herr MD 09/21/2012 [facility] Pepe Herr MD 09/21/2012 Office visit Pepe Herr MD 09/09/2012 Office visit Genesis Marie BOBBIN COLLECTOR 08/27/2012 Office visit Genesis Marie BOBBIN COLLECTOR 08/26/2012 [facility] Pepe Herr MD 08/11/2012 Office visit Genesis Marie BOBBIN COLLECTOR 07/27/2012 [facility] Bhakti José MD 05/27/2012 Office visit Genesis Marie BOBBIN COLLECTOR 05/07/2012 [facility] Bandar Levine MD 05/07/2012 Office visit Genesis Marie APRN 05/06/2012 [facility] Pepe Herr MD 04/27/2012 Office visit Pepe Herr MD 04/16/2012 Office visit Genesis Marie BOBBIN COLLECTOR 03/25/2012 Office visit Mcihael Fleming DO 10/07/2011 [facility] Pepe Herr MD 09/23/2011 [facility] Pepe Herr MD 09/09/2011 [facility] Pepe Herr MD 03/20/2011 [facility] Bandar Levine MD 05/28/2009 Office visit Pepe Herr MD
--- OUTSIDE RECORDS SUMMARY | 2017-12-10 11:54 | XMS REPORT ---
Author Author Ping Mosqueda [facility] Address [address] [place], [place] [id number] Care Team Providers Care Palletizer Name Role Phone Ping Mosqueda PCP Ping Mosqueda Unavailable Unavailable Ping Mosqueda PreferredProvider Allergies and Adverse Reactions Name Reaction Notes erythromycin Toradol Minocycline TETRACYCLINES SULFA (SULFONAMIDES) Keflex Zoloft [place] Carbonate benztropine iodine Shell Fish (shrimp, crayfish, [...] 72 hours for 30 days 12mcg patch [place] oral tablet 10-325 mg 12/01/2013 01/30/2014 take [...] route 3 times per day Flonase Nasal [place], Suspension 50 mcg/actuation 09/09/2012 10/22/2012 inhale 1 [...] full glass (8 oz) of liquid Nasal [place] (sodium chloride) nasal aerosol,spray 0.65 % 06/18/2016 [...] oral route every 6 hours as needed [place] 5-325 mg oral tablet 09/10/2016 take 1 [...] drug screen collection Reviewed 12/17/2016 12:00 AM INFLUENZA VACCINE SPLT [...] negative History Of Immunizations Name Date Admin [facility] Name [facility] Code Trade Name [...] 8:55AM Flu Vaccine Dec 17 2016 11:17AM Payers Insurance Name Company Name Plan Name Plan Number Policy Number Policy Group Number Start Date Medicare RHC Medicare RHC [id number] N/[place] [employer] [place] [employer] [place] [id number] [place] [employer] [employer] [place] [id number] N/A Medicare Part A Medicare - Lab/Xray [id number] September Medicare Part B Medicare [place] [id number] N/A Medicare Part B Medicare [place] [id number] September [place] Medical Assistance Program [place] Medical [place] Prog [id number] N/A Medicare Part A Medicare Part A [id number] September [facility] [id number] Monday, October 22, 2012 History of Encounters [...] Office visit Dr. Ping Mosqueda DO 09/02/2016 [facility] Caesar Mosqueda MD 09/02/2016 Hospital Bandar Levine MD 06/18/2016 Office visit Cesar Encarnacion DO 07/24/2015 Hospital Bandar Levine MD 05/25/2015 [facility] Bandar Levine MD 09/11/2014 [facility] Cesar Encarnacion DO 09/10/2014 [facility] Bandar Levine MD 09/05/2014 Office visit Cesar Encarnacion DO 08/22/2014 [facility] DO 08/21/2014 [facility] DO 08/21/2014 Hospital [facility] DO 12/01/2013 Nurse visit Gianna OMER 11/16/2013 Office visit Gianna OMER 11/03/2013 Office visit Gianna OMER 10/05/2013 Office visit Gianna OMER 10/04/2013 Office visit Genesis Marie NET SOFTWARE ENGINEER 09/07/2013 Office visit Gianna AMADORP 2013 Office visit Genesis Marie NET SOFTWARE ENGINEER 07/25/2013 Office visit Genesis Marie NET SOFTWARE ENGINEER 07/22/2013 Office visit Gianna AMADORP 07/05/2013 Office visit Genesis Marie NET SOFTWARE ENGINEER 06/13/2013 Office visit Genesis Marie NET SOFTWARE ENGINEER 06/01/2013 Office visit Genesis Marie NET SOFTWARE ENGINEER 05/24/2013 Office visit Gianna OMER 05/18/2013 Office visit Angel Hand MD 05/04/2013 Office visit Angel Hand MD 04/28/2013 [facility] Angel Hand MD 04/26/2013 Office visit Sahara Ruiz MD 04/25/2013 [facility] Angel Hand MD 04/18/2013 Office visit [...] Fleming DO 10/22/2012 Office visit Genesis Marie NET SOFTWARE ENGINEER 10/18/2012 [facility] Bhakti José MD 10/10/2012 [facility] DO 10/06/2012 Office visit Genesis Marie APRN 10/06/2012 Office visit Pepe Herr MD 09/21/2012 [facility] Pepe eHrr MD 09/21/2012 Office visit Pepe Herr MD 09/09/2012 Office visit Genesis Marie APRN 08/27/2012 Office visit Genesis Marie APRN 08/26/2012 [facility] Pepe Herr MD 08/11/2012 Office visit Genesis Marie APRN 07/27/2012 [facility] Bhakti Jsoé MD 05/27/2012 Office visit Genesis Marie NET SOFTWARE ENGINEER 05/07/2012 [facility] Bandar Levine MD 05/07/2012 Office visit Genesis Marie NET SOFTWARE ENGINEER 05/06/2012 [facility] Pepe Herr MD 04/27/2012 Office visit Pepe Herr MD 04/16/2012 Office visit Genesis Marie NET SOFTWARE ENGINEER 03/25/2012 Office visit Michael Fleming DO 10/07/2011 [facility] Pepe Herr MD 09/23/2011 [facility] Pepe Herr MD 09/09/2011 [facility] Pepe Herr MD 03/20/2011 [facility] Bandar Levine MD 05/28/2009 Office visit Pepe Herr MD
--- OUTSIDE RECORDS SUMMARY | 2017-12-10 11:55 | XMS REPORT | Continuity of Care Document ---
Author Author [facility] Address Unknown Phone Unavailable Allergies Active Description Code Type Severity Reaction Onset Reported/Identified Relationship to Patient Clinical Status Yes adhesive 3245 Drug Allergy N/A N/A Confirmed or Verified Yes amitriptyline 4600 Drug Allergy N/A N/A Confirmed or Verified Yes benztropine 4667 Drug Allergy N /A N/A Confirmed or Verified Yes Cephalexin 2716 Drug Allergy N/ A N/A Confirmed or Verified Yes Erythromycin Base 2755 Drug Allergy N/A N/A Confirmed or Verified Yes fesoterodine 74766 Drug Allergy N/A N/A Confirmed or Verified Yes iodine 852 Drug Allergy N/A N/A Confirmed or Verified Yes Peacham 1532 Drug Allergy N/A N/A Confirmed or Verified Yes Minocycline 4864 Drug Allergy N /A N/A Confirmed or Verified Yes sertraline 4615 Drug Allergy N/ A N/A Confirmed or Verified Yes shellfish derived 57582 Drug Allergy N/A N/A Confirmed or Verified Yes Sulfa (Sulfonamide Antibiotics) 491 Drug Allergy N/A N/A Confirmed or Verified Yes Tetracycline 2738 Drug Allergy N/A N/A Confirmed or Verified Yes Tetracyclines 478 Drug Allergy N/A N/A Confirmed or Verified Yes BENZTROPINE [id number] DRUG N/A N/A Yes ERYTHROMYCIN [id number] DRUG N/A N/A Yes IODINE [id number] DRUG N/A N/A Yes KEFLEX [id number] BRANDNAME N/A N/A Yes LITHIUM [id number] DRUG N/A N/A Yes MINOCYCLINE 51118369 DRUG N/A N/A Yes MYSOLINE [id number] BRANDNAME N/ A N/A Yes SHELLFISH [id number] FOOD N/A N/A Yes SULFA (sulfonamide) [id number] CLASS N/A N/A Yes TETRACYCLINE 17387065 DRUG N/A N/A Yes TORADOL 16075344 BRANDNAME N/A N/A Yes TOVIAZ 10084190 BRANDNAME N/A N/A Yes ZOLOFT [id number] BRANDNAME N/A N/A Yes *MRSA Miscellaneous Allergy N /A N/A 12/02/2008 Erroneous Yes Benstropne Drug Allergy N/A Unknown Alrgy React 07/02/2011 Yes ERYTHROMYCIN Drug Allergy N/ A legs hurt 07/02/2011 Yes LITHIUM DERIVITIVES Drug Allergy N/A loose stools & vomiting 07/02/2011 Yes MINOCYCLINE HCL Drug Allergy N/A Unknown Alrgy React 07/02/2011 Yes SULFA Drug Allergy N/A Rash 07/02/2011 Yes tape/adhesive Miscellaneous Allergy N/A Rash 07/02/2011 Yes MRSA MRSA Miscellaneous Allergy N/A N/A 07/12/2013 Erroneous Yes benztropine 4667 Drug Allergy N /A Unknown Alrgy React 12/02/2013 Yes Erythromycin Base 2755 Drug Allergy N/A legs hurt 12/02/2013 Yes Peacham 1532 Drug Allergy N/A loose stools & vomiting 12/02/2013 Yes Minocycline 4864 Drug Allergy N /A Unknown Alrgy React 12/02/2013 Yes shellfish derived 59407 Drug Allergy N/A Unknown 12/02/2013 Yes Sulfa (Sulfonamide Antibiotics) 491 Drug Allergy N/A Rash 12/02/2013 Yes Tetracyclines 478 Drug Allergy N/A Unknown 12/02/2013 Yes Toviaz 331656 Drug Allergy N/A Unknown 12/02/2013 Yes adhesive 3245 Drug Allergy N/A Rash 12/07/2013 Yes ELAVIL 1788 Drug Allergy N/A heart arrythmia 12/07/2013 Yes IODINE 852 Drug Allergy N/A Rash 12/07/2013 Yes KEFLEX 6608 Drug Allergy N/A back pain 12/07/2013 Yes TETRACYCLINE 2738 Drug Allergy N/A legs hurt 12/07/2013 Yes ZOLOFT 35 Drug Allergy N/A suicidal 12/07/2013 Yes shellfish derived [id number] Drug Allergy Severe ANAPHYLAXIS 08/03/2017 Yes Sulfa (Sulfonamide Antibiotics) [id number] Drug Allergy Severe RASH 2017 Medications There is no data. Problems Date Dx Coded Attending Type Code Diagnosis Diagnosed By 05/02/2009 D 272.4 HYPERLIPIDEMIA NEC/NOS 05/02/2009 D 294.8 OTH PERSIST MENT DIS CCE 05/02/2009 D 311 DEPRESSIVE DISORDER NEC 05/02/2009 D 401.9 HYPERTENSION NOS 05/02/2009 D 414.00 CAD UNS VESSEL/SENECA-CAYUGA/GR 05/02/2009 D 496 CHR AIRWAY OBSTRUCT NEC 05/09/2009 D 729.5 PAIN IN LIMB 05/16/2009 D 496 CHR AIRWAY OBSTRUCT NEC 05/16/2009 D 786.05 SHORTNESS OF BREATH 10/29/2012 NICOLE ZUNIGA MD 278.00 OBESITY, UNSPECIFIED 10/29/2012 NICOLE ZUNIGA MD 295.80 SCHIZOPHRENIA NEC-UNSPEC 10/29/2012 NICOLE ZUNIGA MD 305.90 DRUG ABUSE NEC-UNSPEC 10/29/2012 NICOLE ZUNIGA MD 401.9 HYPERTENSION NOS 10/29/2012 NICOLE ZUNIGA MD 496 CHR AIRWAY OBSTRUCT NEC 10/29/2012 NICOLE ZUNIGA MD 780.09 ALTERATION/CONSCIOUSNESS 10/29/2012 NICOLE ZUNIGA MD V58.69 WORKERS COMPENSATION ADMINISTRATOR MEDICATION USE 11/17/2012 JENNIFER HENRY MD 272.4 HYPERLIPIDEMIA NEC/NOS 11/17/2012 JENNIFER HENRY MD 295.70 SCHIZOAFF DISORDER NOS 11/17/2012 JENNIFER HENRY MD 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 11/17/2012 JENNIFER HENRY MD 401.9 HYPERTENSION NOS 11/17/2012 JENNIFER HENRY MD 496 CHR AIRWAY OBSTRUCT NEC 11/17/2012 JENNIFER HENRY MD 530.81 ESOPHAGEAL REFLUX 11/17/2012 JENNIFER HENRY MD 584.9 ACUTE KIDNEY FAILURE NOS 11/17/2012 JENNIFER HENRY MD 715.90 OSTEOARTHROS NOS-UNSPEC 07/10/2013 NICOLE ZUNIGA MD 272.4 HYPERLIPIDEMIA NEC/NOS 07/10/2013 NICOLE ZUNIGA MD 401.9 HYPERTENSION NOS 07/10/2013 NICOLE ZUNIGA MD 496 CHR AIRWAY OBSTRUCT NEC 07/10/2013 NICOLE ZUNIGA MD 530.81 ESOPHAGEAL REFLUX 07/10/2013 NICOLE ZUNIGA MD 715.90 OSTEOARTHROS NOS-UNSPEC 07/10/2013 NICOLE ZUNIGA MD V58.69 WORKERS COMPENSATION ADMINISTRATOR MEDICATION USE 07/19/2013 JENNIFER HENRY MD 272.4 HYPERLIPIDEMIA NEC/NOS 07/19/2013 JENNIFER HENRY MD 295.70 SCHIZOAFF DISORDER NOS 07/19/2013 JENNIFER HENRY MD 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 07/19/2013 JENNIFER HENRY MD 401.9 HYPERTENSION NOS 07/19/2013 JENNIFER HENRY MD 496 CHR AIRWAY OBSTRUCT NEC 07/19/2013 JENNIFER HENRY MD 530.81 ESOPHAGEAL REFLUX 07/19/2013 JENNIFER HENRY MD 715.90 OSTEOARTHROS NOS-UNSPEC 12/02/2013 NICOLE ZUNIGA MD 272.4 HYPERLIPIDEMIA NEC/NOS 12/02/2013 NICOLE ZUNIGA MD 295.70 SCHIZOAFF DISORDER NOS 12/02/2013 NICOLE ZUNIGA MD 311 DEPRESSIVE DISORDER NEC 12/02/2013 NICOLE ZUNIGA MD 401.9 HYPERTENSION NOS 12/02/2013 NICOLE ZUNIGA MD 496 CHR AIRWAY OBSTRUCT NEC 12/02/2013 NICOLE ZUNIGA MD 530.81 ESOPHAGEAL REFLUX 12/02/2013 NICOLE ZUNIGA MD 715.90 OSTEOARTHROS NOS-UNSPEC 12/02/2013 NICOLE ZUNIGA MD V58.69 WORKERS COMPENSATION ADMINISTRATOR MEDICATION USE 12/16/2013 JENNIFER HENRY MD 272.4 HYPERLIPIDEMIA NEC/NOS 12/16/2013 JENNIFER HENRY MD 295.70 SCHIZOAFF DISORDER NOS 12/16/2013 JENNIFER HENRY MD 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 12/16/2013 JENNIFER HENRY MD 401.9 HYPERTENSION NOS 12/16/2013 JENNIFER HENRY MD 496 CHR AIRWAY OBSTRUCT NEC 12/16/2013 JENNIFER HENRY MD 530.81 ESOPHAGEAL REFLUX 12/16/2013 JENNIFER HENRY MD 715.90 OSTEOARTHROS NOS-UNSPEC 12/16/2013 JENNIFER HENRY MD 722.10 LUMBAR DISC DISPLACEMENT 12/16/2013 JENNIFER HENRY MD V60.89 HOUSING/ECONOMIC PBX NEC 08/09/2015 NICOLE ZUNIGA MD E11.9 Type 2 diabetes mellitus without complications 08/09/2015 NICOLE ZUNIGA MD F25.0 Schizoaffective disorder, bipolar type 08/09/2015 NICOLE ZUNIGA MD F32.2 Major depressv disord, single epsd, sev w/o psych features 08/09/2015 NICOLE ZUNIGA MD G47.33 Obstructive sleep apnea (adult) (pediatric) 08/09/2015 NICOLE ZUNIGA MD I10 Essential (primary) hypertension 08/09/2015 NICOLE ZUNIGA MD J44.9 Chronic obstructive pulmonary disease, unspecified 08/09/2015 NICOLE ZUNIGA MD R21 Rash and other nonspecific skin eruption 08/09/2015 NICOLE ZUNIGA MD R45.851 Suicidal ideations 08/09/2015 NICOLE ZUNIGA MD Z79.899 Other shelter (current) drug therapy 08/20/2015 JENNIFER HENRY MD E11.9 Type 2 diabetes mellitus without complications 08/20/2015 JENNIFER HENRY MD F25.0 Schizoaffective disorder, bipolar type 08/20/2015 JENNIFER HENRY MD F32.2 Major depressv disord, single epsd, sev w/o psych features 08/20/2015 JENNIFER HENRY MD G47.33 Obstructive sleep apnea (adult) (pediatric) 08/20/2015 JENNIFER HENRY MD I10 Essential (primary) hypertension 08/20/2015 JENNIFER HENRY MD J44.9 Chronic obstructive pulmonary disease, unspecified 08/20/2015 JENNIFER HENRY MD R21 Rash and other nonspecific skin eruption 08/20/2015 JENNIFER HENRY MD R45.851 Suicidal ideations 07/08/2017 Ot J44.9 CHRONIC OBSTRUCTIVE PULMONARY DISEASE, U 07/08/2017 Ot J44.9 CHRONIC OBSTRUCTIVE PULMONARY DISEASE, U 07/31/2017 Ot J44.9 CHRONIC OBSTRUCTIVE PULMONARY DISEASE, U 08/03/2017 Ot J44.9 CHRONIC OBSTRUCTIVE PULMONARY DISEASE, U 2017 JESUS BAÑUELOS APRN Ot J44.9 CHRONIC OBSTRUCTIVE PULMONARY DISEASE, U 08/10/2017 Ot J44.9 CHRONIC OBSTRUCTIVE PULMONARY DISEASE, U 09/08/2017 JESUS BAÑUELOS APRN Ot J44.9 CHRONIC OBSTRUCTIVE PULMONARY DISEASE, U 09/15/2017 JESUS BAÑUELOS ELEMENTARY SCIENCE TEACHER Ot J44.9 CHRONIC OBSTRUCTIVE PULMONARY DISEASE, U 10/13/2017 JESUS BAÑUELOS ELEMENTARY SCIENCE TEACHER Ot J44.9 CHRONIC OBSTRUCTIVE PULMONARY DISEASE, U 10/13/2017 JESUS BAÑUELOS ELEMENTARY SCIENCE TEACHER Ot J98.11 ATELECTASIS 11/17/2017 JESUS BAÑUELOS ELEMENTARY SCIENCE TEACHER Ot J44.9 CHRONIC OBSTRUCTIVE PULMONARY DISEASE, U 11/17/2017 JESUS BAÑUELOS ELEMENTARY SCIENCE TEACHER Ot J96.20 ACUTE AND CHR RESP FAILURE, UNSP W HYPOX 11/20/2017 JESUS BAÑUELOS ELEMENTARY SCIENCE TEACHER Ot J44.9 CHRONIC OBSTRUCTIVE PULMONARY DISEASE, U 11/20/2017 EDDAJESUS HAMILTON ELEMENTARY SCIENCE TEACHER Ot J96.20 ACUTE AND CHR RESP FAILURE, UNSP W HYPOX 12/01/2017 JESUS BAÑUELOS ELEMENTARY SCIENCE TEACHER Ot J44.9 CHRONIC OBSTRUCTIVE PULMONARY DISEASE, U 12/01/2017 JESUS BAÑUELOS ELEMENTARY SCIENCE TEACHER Ot J96.20 ACUTE AND CHR RESP FAILURE, UNSP W HYPOX 12/01/2017 JESUS BAÑUELOS ELEMENTARY SCIENCE TEACHER Ot J44.9 CHRONIC OBSTRUCTIVE PULMONARY DISEASE, U 12/01/2017 JESUS BAÑUELOS ELEMENTARY SCIENCE TEACHER Ot J96.20 ACUTE AND CHR RESP FAILURE, UNSP W HYPOX Procedures Code Description [place] [address] THER/PROPH/DIAG INJ, IV PUSH CHRISTELLE WAGNER, EMEKA P 05/02/2009 44244 EMERGENCY DEPT VISIT CHRISTELLE WAGNER, EMEKA P 05/02/2009 J2930 METHYLPREDNISOLONE INJECTION EMEKA BOURGEOIS MD P 05/02/2009 J7611 ALBUTEROL NON-COMP CON EMEKA BOURGEOIS MD P 05/02/2009 15657 THER/PROPH/DIAG INJ, SC/IM SHEMAR WAGNER, SALONI C 05/08/2009 44047 EMERGENCY DEPT VISIT SHEMAR WAGNER, SALONI C 05/08/2009 J1885 KETOROLAC TROMETHAMINE INJ SHEMAR WAGNER, SALONI C 05/08/2009 38530 CHEST X-RAY KEVIN SANCHEZ DO 05/16/2009 61994 ELECTROCARDIOGRAM REPORT NICOLE ZUNIGA MD 10/29/2012 87330 ELECTROCARDIOGRAM REPORT NICOLE ZUNIGA MD 07/10/2013 49831 ELECTROCARDIOGRAM REPORT NICOLE ZUNIGA MD 12/02/2013 57342 ELECTROCARDIOGRAM REPORT EFRAIN WAGNER, NICOLE Arreguin 08/09/2015 Results Test Result Range CMP - 10/29/12 14:40 Osmo Calculated 266 MOSM 261-280 Sodium 138 MMOLL 137-145 T. Protein 6.2 G/DL 6.3-8.2 Potassium 3.9 MMOLL 3.6-5.0 T Bili 0.4 MG/DL 0.2-1.3 Calcium 9.0 MG/DL 8.4-10.2 BUN 8 MG/DL 7-21 Chloride 101 MMOLL 98-107 AST 34 U/L 15-46 ALT 41 U/L 7-56 Albumin 3.1 G/DL 3.5-5.0 A/G Ratio 1.0 RATIO 1.2-2.2 Bun/Creat 8.2 RATIO 7-25 Alk Phos 143 U/L 38-126 CO2 28 MMOLL 22-30 Glucose 103 MG/DL 65-110 Globulin 3.1 2.4-3.5 Creatinine 1.0 MG/DL 0.7-1.5 COMPLETE BLOOD COUNT - 10/29/12 14:40 Platelet 434 10^3u 142-424 MPV 8.7 FL 9.4-12.4 [place] # 0.84 10^3u 0.0-1.0 [place] 7.0 RBC 3.87 10^6u 4.04-6.13 [place] % 10.7 % 0-12 RDW 15.4 % 11.6-14.8 Seg 54.0 Neut # 4.27 10^3u 2.0-6.9 Neut % 54.7 % 37-80 WBC 7.82 10^3u 4.60-10.20 Bands 1.0 MCV 93.5 FL 80.0-97.0 Baso # 0.04 10^3u 0.0-0.1 Baso % 0.5 % 0-2 Eos # 0.19 10^3u 0-0.7 Eos % 2.4 % 0-7 Lymph % 31.7 % 10-50 MCHC 32.0 G/DL 31.8-35.4 MCH 30.0 PG 27.0-31.2 Lymph # 2.48 10^3u 0.6-3.4 Lymph 38.0 HGB 11.6 G/DL 12.2-18.1 HCT 36.2 % 37.7-53.7 TSH - 10/29/12 14:40 TSH 1.46 UIUML 0.35-4.94 Free T4 - 10/29/12 14:40 Free T4 1.24 NG/DL 0.70-1.48 MRSA Nasal Screen - 10/29/12 14:40 MRSA Nasal Screen [facility] EKG - 10/29/12 14:40 EKG [facility] Urinalysis - 10/29/12 17:00 Glucose NEG Negative Leukocyte 1+ Negative Nitrite Positive Negative pH 8.0 5.5-7.5 Urine Appearance Cloudy Clear Protein NEG Negative Ketones NEG Negative Urobilinogen 0.2 0.2-1.0 Specific [place] 1.020 1.010-1.020 Urine WBC N51-100 Urine Bacteria 4+ Blood Trace Negative Color Yellow Yellow Squamous Epithelial Cells 1+ Bilirubin NEG Negative BNP - 10/30/12 12:22 BNP <10 BMP - 10/30/12 12:22 Osmo Calculated 272 MOSM 261-280 Sodium 141 MMOLL 137-145 Potassium 4.0 MMOLL 3.6-5.0 Calcium 9.2 MG/DL 8.4-10.2 BUN 11 MG/DL 7-21 Chloride 100 MMOLL 98-107 Anion GAP 12.6 Bun/Creat 10.5 RATIO 7-25 CO2 28 MMOLL 22-30 Glucose 102 MG/DL 65-110 Creatinine 1.0 MG/DL 0.7-1.5 COMPLETE BLOOD COUNT - 11/05/12 18:00 Platelet 272 10^3u 142-424 MPV 9.2 FL 9.4-12.4 [place] # 0.85 10^3u 0.0-1.0 RBC 4.54 10^6u 4.04-6.13 [place] % 10.6 % 0-12 RDW 15.1 % 11.6-14.8 Neut # 4.16 10^3u 2.0-6.9 Neut % 51.7 % 37-80 WBC 8.04 10^3u 4.60-10.20 MCV 92.5 FL 80.0-97.0 Baso # 0.03 10^3u 0.0-0.1 Baso % 0.4 % 0-2 Eos # 0.37 10^3u 0-0.7 Eos % 4.6 % 0-7 Lymph % 32.7 % 10-50 MCHC 32.4 G/DL 31.8-35.4 MCH 30.0 PG 27.0-31.2 Lymph # 2.63 10^3u 0.6-3.4 HGB 13.6 G/DL 12.2-18.1 HCT 42.0 % 37.7-53.7 CMP - 11/05/12 18:00 Osmo Calculated 273 MOSM 261-280 Sodium 141 MMOLL 137-145 T. Protein 6.1 G/DL 6.3-8.2 Potassium 4.0 MMOLL 3.6-5.0 T Bili 0.4 MG/DL 0.2-1.3 Calcium 9.5 MG/DL 8.4-10.2 BUN 12 MG/DL 7-21 Chloride 102 MMOLL 98-107 AST 34 U/L 15-46 ALT 34 U/L 7-56 Albumin 3.2 G/DL 3.5-5.0 A/G Ratio 1.1 RATIO 1.2-2.2 Bun/Creat 12.8 RATIO 7-25 Alk Phos 138 U/L 38-126 CO2 25 MMOLL 22-30 Glucose 112 MG/DL 65-110 Globulin 2.9 2.4-3.5 Creatinine 0.9 MG/DL 0.7-1.5 Sed Rate (ESR) - 11/05/12 18:00 Sed Rate (ESR) 71 MM/hr 5-20 Culture Routine - 11/11/12 09:36 Culture Routine SMR Urinalysis - 07/10/13 14:33 Glucose Negative Negative Leukocyte Negative Negative Nitrite Negative Negative pH 6.0 5.5-7.5 Urine Appearance Clear Clear Protein Negative Negative Ketones Negative Negative Urobilinogen 0.2 0.2-1.0 Urine RBC NONESEEN Specific [place] 1.015 1.010-1.020 Urine WBC N0-2 Blood Negative Negative Color Yellow Yellow Squamous Epithelial Cells 1+ Bilirubin Negative Negative COMPLETE BLOOD COUNT - 07/10/13 15:00 Platelet 278 10^3u 142-424 MPV 9.1 FL 9.4-12.4 [place] # 0.62 10^3u 0.0-1.0 RBC 4.32 10^6u 4.04-6.13 [place] % 6.6 % 0-12 RDW 13.4 % 11.6-14.8 Neut # 4.91 10^3u 2.0-6.9 Neut % 52.5 % 37-80 WBC 9.37 10^3u 4.60-10.20 MCV 92.6 FL 80.0-97.0 Baso # 0.06 10^3u 0.0-0.1 Baso % 0.6 % 0-2 Eos # 0.63 10^3u 0-0.7 Eos % 6.7 % 0-7 Lymph % 33.6 % 10-50 MCHC 33.5 G/DL 31.8-35.4 MCH 31.0 PG 27.0-31.2 Lymph # 3.15 10^3u 0.6-3.4 HGB 13.4 G/DL 12.2-18.1 HCT 40.0 % 37.7-53.7 CMP - 07/10/13 15:00 Osmo Calculated 262 MOSM 261-280 Sodium 137 MMOLL 137-145 T. Protein 6.8 G/DL 6.3-8.2 Potassium 4.1 MMOLL 3.6-5.0 T Bili 0.4 MG/DL 0.2-1.3 Calcium 9.3 MG/DL 8.4-10.2 BUN 10 MG/DL 7-21 Chloride 94 MMOLL 98-107 AST 29 U/L 15-46 ALT 36 U/L 7-56 Albumin 4.1 G/DL 3.5-5.0 A/G Ratio 1.5 RATIO 1.2-2.2 Bun/Creat 11.3 RATIO 7-25 Alk Phos 156 U/L 38-126 CO2 28 MMOLL 22-30 Glucose 89 MG/DL 65-110 Globulin 2.8 2.4-3.5 Creatinine 0.9 MG/DL 0.7-1.5 TSH - 07/10/13 15:00 TSH 0.78 UIUML 0.35-4.94 Free T4 - 07/10/13 15:00 Free T4 1.11 NG/DL 0.70-1.48 EKG - 07/10/13 15:07 EKG SMR COMPLETE BLOOD COUNT - 12/02/13 14:59 Platelet 227 10^3u 142-424 MPV 9.6 FL 9.4-12.4 [place] # 0.62 10^3u 0.0-1.0 RBC 4.00 10^6u 4.04-6.13 [place] % 6.6 % 0-12 RDW 13.4 % 11.6-14.8 Neut # 6.16 10^3u 2.0-6.9 Neut % 65.6 % 37-80 WBC 9.39 10^3u 4.60-10.20 MCV 96.8 FL 80.0-97.0 Baso # 0.03 10^3u 0.0-0.1 Baso % 0.3 % 0-2 Eos # 0.27 10^3u 0-0.7 Eos % 2.9 % 0-7 Lymph % 24.6 % 10-50 MCHC 32.6 G/DL 31.8-35.4 MCH 31.5 PG 27.0-31.2 Lymph # 2.31 10^3u 0.6-3.4 HGB 12.6 G/DL 12.2-18.1 HCT 38.7 % 37.7-53.7 CMP - 12/02/13 14:59 Osmo Calculated 274 MOSM 261-280 Sodium 143 MMOLL 137-145 T. Protein 6.8 G/DL 6.3-8.2 Potassium 4.2 MMOLL 3.6-5.0 T Bili 0.2 MG/DL 0.2-1.3 Calcium 8.9 MG/DL 8.4-10.2 BUN 9 MG/DL 7-21 Chloride 102 MMOLL 98-107 AST 25 U/L 15-46 ALT 21 U/L 7-56 Albumin 3.8 G/DL 3.5-5.0 A/G Ratio 1.3 RATIO 1.2-2.2 Bun/Creat 10.7 RATIO 7-25 Alk Phos 126 U/L 38-126 CO2 28 MMOLL 22-30 Glucose 98 MG/DL 65-110 Globulin 2.9 2.4-3.5 Creatinine 0.8 MG/DL 0.7-1.5 Urinalysis - 12/02/13 14:59 Glucose Negative Negative Leukocyte Negative Negative Nitrite Negative Negative pH 7.0 5.5-7.5 Urine Appearance Clear Clear Protein Negative Negative Ketones Negative Negative Urobilinogen 0.2 0.2-1.0 Urine RBC NONESEEN Specific [place] 1.010 1.010-1.020 Urine WBC NONESEEN Urine Bacteria NONESEEN Blood Negative Negative Color Yellow Yellow Squamous Epithelial Cells 1+ Bilirubin Negative Negative Site UNK TSH - 12/02/13 14:59 TSH 0.82 UIUML 0.35-4.94 Free T4 - 12/02/13 14:59 Free T4 1.05 NG/DL 0.70-1.48 EKG - 12/02/13 14:59 EKG SMR Urinalysis - 08/09/15 16:15 Glucose Negative Negative Leukocyte Negative Negative Nitrite Negative Negative pH 6.5 5.5-7.5 Urine Appearance Clear Clear Protein Negative Negative Ketones Negative Negative Urobilinogen 0.2 0.2-1.0 Urine RBC NONESEEN Specific [place] 1.010 1.010-1.020 Urine WBC NONESEEN Urine Bacteria NONESEEN Blood Negative Negative Color Yellow Yellow Bilirubin Negative Negative Site [facility] COMPLETE BLOOD COUNT - 08/09/15 16:20 Platelet 231 10^3u 142-424 MPV 11.1 FL 9.4-12.4 [place] # 0.61 10^3u 0.0-1.0 RBC 4.37 10^6u 4.04-6.13 [place] % 6.0 % 0-12 RDW 18.2 % 11.6-14.8 Neut # 6.52 10^3u 2.0-6.9 Neut % 64.2 % 37-80 WBC 10.15 10^3u 4.60-10.20 MCV 90.2 FL 80.0-97.0 Baso # 0.08 10^3u 0.0-0.1 Baso % 0.8 % 0-2 Eos # 0.22 10^3u 0-0.7 Eos % 2.2 % 0-7 Lymph % 26.8 % 10-50 MCHC 31.5 G/DL 31.8-35.4 MCH 28.4 PG 27.0-31.2 Lymph # 2.72 10^3u 0.6-3.4 HGB 12.4 G/DL 12.2-18.1 HCT 39.4 % 37.7-53.7 CMP - 08/09/15 17:11 Osmo Calculated 278 MOSM 261-280 Sodium 142 MMOLL 136-145 T. Protein 6.7 G/DL 6.4-8.3 Potassium 3.6 MMOLL 3.5-5.1 T Bili 0.3 MG/DL 0.2-1.2 Calcium 9.4 MG/DL 8.4-10.2 BUN 14 MG/DL 7-26 Chloride 102 MMOLL 98-107 AST 14 U/L 5-34 ALT 19 U/L 0-55 Albumin 3.4 G/DL 3.5-5.0 A/G Ratio 1.0 RATIO 1.2-2.2 Bun/Creat 11 RATIO 7-25 Alk Phos 151 U/L 40-150 CO2 27 MMOLL 22-29 Glucose 160 MG/DL 70-99 Globulin 3.3 G/DL 2.4-3.5 Creatinine 1.3 MG/DL 0.6-1.3 TSH - 08/09/15 17:11 TSH 0.98 UIUML 0.35-4.94 Free T4 - 08/09/15 17:11 Free T4 0.80 NG/DL 0.70-1.48 BMP - 08/14/15 07:19 Osmo Calculated 275 MOSM 261-280 Sodium 142 MMOLL 136-145 Potassium 4.1 MMOLL 3.5-5.1 Calcium 9.9 MG/DL 8.4-10.2 BUN 13 MG/DL 7-26 Chloride 102 MMOLL 98-107 Anion GAP 13 MMOLL 5-16 Bun/Creat 13 RATIO 7-25 CO2 27 MMOLL 22-29 Glucose 108 MG/DL 70-99 Creatinine 1.0 MG/DL 0.6-1.3 Hgb A1c - 08/14/15 07:29 Hgb A1c 6.2 % < 6.0 EKG - 08/16/15 03:52 EKG SMR Respiratory Panel-[facility] - 08/16/15 14:53 Adeno ND Not Detected Adeno2 ND Not Detected Coronavirus 229E ND Not Detected Coronavirus HKU1 ND Not Detected Coronavirus NL63 ND Not Detected Coronavirus OC43 ND Not Detected Human Metapneumovirus ND Not Detected Entero 1 ND Not Detected Entero 2 ND Not Detected Human Rhinovirus 1 ND Not Detected Human Rhinovirus 2 ND Not Detected Human Rhinovirus 3 ND Not Detected Human Rhinovirus 4 ND Not Detected [id number] ND Not Detected FluA-H1-madsen ND Not Detected FluA-H3 ND Not Detected FluA-pan1 ND Not Detected FluA-pan2 ND Not Detected Influenza B ND Not Detected Parainfluenza Virus 1 ND Not Detected Parainfluenza Virus 2 ND Not Detected Parainfluenza Virus 3 ND Not Detected Parainfluenza Virus 4 ND Not Detected Respiratory Syncytial Virus ND Not Detected Bordetella pertussis ND Not Detected Chlamydophilia pneumoniae ND Not Detected Mycoplasma pneumoniae ND Not Detected COMPLETE BLOOD COUNT - 08/19/15 16:19 Platelet 283 10^3u 142-424 MPV 10.5 FL 9.4-12.4 [place] # 0.95 10^3u 0.0-1.0 RBC 4.19 10^6u 4.04-6.13 [place] % 14.6 % 0-12 RDW 18.9 % 11.6-14.8 Neut # 3.05 10^3u 2.0-6.9 Neut % 46.8 % 37-80 WBC 6.52 10^3u 4.60-10.20 MCV 91.2 FL 80.0-97.0 Baso # 0.04 10^3u 0.0-0.1 Baso % 0.6 % 0-2 Eos # 0.30 10^3u 0-0.7 Eos % 4.6 % 0-7 Lymph % 33.4 % 10-50 MCHC 30.9 G/DL 31.8-35.4 MCH 28.2 PG 27.0-31.2 Lymph # 2.18 10^3u 0.6-3.4 HGB 11.8 G/DL 12.2-18.1 HCT 38.2 % 37.7-53.7 [facility] - 08/19/15 17:04 Osmo Calculated 280 MOSM 261-280 Sodium 144 MMOLL 136-145 Potassium 3.9 MMOLL 3.5-5.1 Calcium 9.1 MG/DL 8.4-10.2 BUN 17 MG/DL 7-26 Chloride 105 MMOLL 98-107 Anion GAP 11 MMOLL 5-16 Bun/Creat 14 RATIO 7-25 CO2 28 MMOLL 22-29 Glucose 109 MG/DL 70-99 Creatinine 1.2 MG/DL 0.6-1.3 Respiratory Panel-Bio [facility] - 08/19/15 17:39 Adeno ND Not Detected Adeno2 ND Not Detected Coronavirus 229E ND Not Detected Coronavirus HKU1 ND Not Detected Coronavirus NL63 ND Not Detected Coronavirus OC43 ND Not Detected Human Metapneumovirus ND Not Detected Entero 1 ND Not Detected Entero 2 ND Not Detected Human Rhinovirus 1 ND Not Detected Human Rhinovirus 2 ND Not Detected Human Rhinovirus 3 ND Not Detected Human Rhinovirus 4 ND Not Detected [id number] ND Not Detected FluA-H1-madsen ND Not Detected FluA-H3 ND Not Detected FluA-pan1 ND Not Detected FluA-pan2 ND Not Detected Influenza B ND Not Detected Parainfluenza Virus 1 ND Not Detected Parainfluenza Virus 2 ND Not Detected Parainfluenza Virus 3 DETECT Not Detected Parainfluenza Virus 4 ND Not Detected Respiratory Syncytial Virus ND Not Detected Bordetella pertussis ND Not Detected Chlamydophilia pneumoniae ND Not Detected Mycoplasma pneumoniae ND Not Detected Triiodothyronine,Free,Serum - 07/06/17 16:50 Triiodothyronine,Free,Serum 3.2 pg/mL 2.0-4.4 Arterial blood gas measurement - 07/07/17 15:41 Blood pCO2 53 mm[Hg] 35-45 Blood pO2 59 mm[Hg] 79-93 Arterial blood bicarbonate measurement (moles/volume) 33 mmol/L 23-27 Arterial blood base excess by calculation 7.8 mmol/L -2.5 -2.5 Arterial blood oxygen saturation measurement 89 % 94-100 * Inhaled oxygen flow rate 3L NRG Arterial blood pH measurement with patient temperature correction 7.41 7.37-7.43 Arterial blood carbon dioxide, total measurement (moles/volume) 34.1 mmol/L 21.0-31.0 Body site LT RAD NRG Assessment of wrist artery patency prior to arterial puncture YES- POS NRG Setting of ventilation mode NO NRG Measurement of body temperature 99.6 NRG Encounters ACCT No. Visit Date/Time Discharge Status Pt. Type Provider Facility Loc./Unit Complaint [id number] 08/09/2015 15:05:00 08/20/2015 13:00:00 DIS Inpatient CARL WAGNER, [facility] [id number] 08/09/2015 15:05:00 08/09/2015 15:05:00 [id number] 13:55:00 12/16/2013 13:15:00 DIS Inpatient CARL WAGNER, [facility] [id number] 12/02/2013 14:53:00 12/02/2013 14:53:00 DIS Outpatient EFRAIN WAGNER, [facility] OTHER [id number] 07/10/2013 13:00:00 07/19/2013 12:45:00 DIS Inpatient CARL WAGNER, [facility] [id number] 07/10/2013 13:00:00 07/10/2013 13:00:00 DIS Outpatient EFRAIN WAGNER, [facility] OTHER [id number] 10/29/2012 12:35:00 11/17/2012 15:15:00 DIS Inpatient CARL WAGNER, [facility] [id number] 10/29/2012 12:35:00 10/29/2012 12:35:00 DIS Outpatient EFRAIN WAGNER, [facility] OTHER [id number] 05/16/2009 15:00:00 Document Registration [id number] 05/08/2009 23:25:00 Document Registration [id number] 05/02/2009 17:40:00 Document Registration [id number] 07/09/2017 08:19:00 Document Registration [id number] 07/10/2016 17:06:00 Document Registration [id number] 10/15/2017 10:17:27 10/15/2017 23:59:59 CLS Outpatient Ping Mosqueda [id number] 09/16/2017 13:13:33 09/16/2017 23:59:59 CLS Outpatient Caesar Mosqueda [id number] 09/15/2017 16:46:36 09/15/2017 23:59:59 CLS Outpatient Ping Mosqueda [id number] 09/04/2017 10:35:51 09/04/2017 23:59:59 CLS Outpatient Ping Mosqueda [id number] 08/11/2017 10:41:59 08/11/2017 23:59:59 CLS Outpatient Ping Mosqueda [id number] 07/31/2017 10:47:25 07/31/2017 23:59:59 CLS Outpatient Ping Mosqueda [id number] 07/02/2017 10:14:35 07/02/2017 23:59:59 CLS Outpatient Ping Mosqueda [id number] 06/12/2017 13:08:48 06/12/2017 23:59:59 CLS Outpatient Yeny Hilario [id number] 06/03/2017 10:16:29 06/03/2017 23:59:59 CLS Outpatient Ping Mosqueda [id number] 05/28/2017 12:01:01 05/28/2017 23:59:59 CLS Outpatient Bandar Levine [id number] 05/26/2017 11:34:23 05/26/2017 23:59:59 CLS Outpatient Harjitracquel Ping [id number] 05/13/2017 09:38:02 05/13/2017 23:59:59 CLS Outpatient Harjitracquel Ping [id number] 05/06/2017 14:09:33 05/06/2017 23:59:59 CLS Outpatient Michelet Harper [id number] 04/29/2017 11:47:02 04/29/2017 23:59:59 CLS Outpatient Carol Mosquedanifer [id number] 04/02/2017 10:18:35 04/02/2017 23:59:59 CLS Outpatient HarjitCarol clementnifer [id number] 03/03/2017 08:49:12 03/03/2017 23:59:59 CLS Outpatient Carol Mosquedanifer [id number] 02/25/2017 14:24:10 02/25/2017 23:59:59 CLS Outpatient HarjitCarol clementnifer [id number] 12/31/2016 14:15:18 12/31/2016 23:59:59 CLS Outpatient Harjitracquel Ping [id number] 12/25/2016 09:40:15 12/25/2016 23:59:59 CLS Outpatient Bandar Levine [id number] 12/17/2016 09:27:01 12/17/2016 23:59:59 CLS Outpatient Harjitbonifaciocharity Ping [id number] 12/03/2016 16:20:34 12/03/2016 23:59:59 CLS Outpatient HarjitbonifacioPing nash [id number] 11/26/2016 16:47:33 11/26/2016 23:59:59 CLS Outpatient Bandar Levine [id number] 11/06/2016 09:53:57 11/06/2016 23:59:59 CLS Outpatient Ping Mosqueda [id number] 10/08/2016 09:47:21 10/08/2016 23:59:59 CLS Outpatient Ping Mosqueda [id number] 10/07/2016 16:49:26 10/07/2016 23:59:59 CLS Outpatient Ping Mosqueda [id number] 09/23/2016 09:45:19 09/23/2016 23:59:59 CLS Outpatient Ping Mosqueda [id number] 09/17/2016 17:11:04 09/17/2016 23:59:59 CLS Outpatient Caesar Mosqueda [id number] 09/16/2016 10:18:32 09/16/2016 23:59:59 CLS Outpatient Ping Mosqueda [id number] 09/10/2016 14:36:47 09/10/2016 23:59:59 CLS Outpatient Ping Mosqueda [id number] 06/18/2016 14:11:22 06/18/2016 23:59:59 CLS Outpatient Cesar Encarnacion [id number] 06/27/2015 17:24:02 06/27/2015 23:59:59 CLS Outpatient Bandar Levine Edgar [id number] 01/27/2015 16:12:14 01/27/2015 23:59:59 CLS Outpatient Bandar Levine Edgar [id number] 11/06/2014 22:01:51 11/06/2014 23:59:59 CLS Outpatient Cesar Encarnacion [id number] 11/06/2014 21:51:38 11/06/2014 23:59:59 CLS Outpatient Cesar Encarnacion [id number] 11/06/2014 21:51:26 11/06/2014 23:59:59 CLS Outpatient Martínnati Cesar [id number] 11/06/2014 21:51:26 11/06/2014 23:59:59 CLS Outpatient MartínCesar damian [id number] 11/06/2014 21:43:41 11/06/2014 23:59:59 CLS Outpatient Martínnati Cesar [id number] 12/01/2013 10:46:18 12/01/2013 23:59:59 CLS Outpatient Gianna Mercer [id number] 11/16/2013 16:37:01 11/16/2013 23:59:59 CLS Outpatient RuslanGianna [id number] 11/03/2013 13:54:44 11/03/2013 23:59:59 CLS Outpatient Madeleine Mercermaryann Hunter [id number] 10/05/2013 09:59:47 10/05/2013 23:59:59 CLS Outpatient Madeleine Mercermaryann Hunter [id number] 10/04/2013 11:07:46 10/04/2013 23:59:59 CLS Outpatient Genesis Marie [id number] 09/07/2013 10:35:19 09/07/2013 23:59:59 CLS Outpatient Ruslan Gianna Hunter [id number] 2013 10:48:29 2013 23:59:59 CLS Outpatient Genesis Marie [id number] 07/25/2013 10:22:39 07/25/2013 23:59:59 CLS Outpatient WalkerGenesis [id number] 07/22/2013 10:59:55 07/22/2013 23:59:59 CLS Outpatient Madeleine Mercere Dale [id number] 07/05/2013 15:47:34 07/05/2013 23:59:59 CLS Outpatient WalkerGenesis [id number] 06/13/2013 14:45:30 06/13/2013 23:59:59 CLS Outpatient Walker, Genesis [id number] 06/01/2013 12:24:53 06/01/2013 23:59:59 CLS Outpatient WalkerGenesis [id number] 05/24/2013 10:54:20 05/24/2013 23:59:59 CLS Outpatient Madeleine Mercermaryann Hunter [id number] 05/18/2013 11:32:29 05/18/2013 23:59:59 CLS Outpatient Angel Hand [id number] 05/04/2013 11:51:16 05/04/2013 23:59:59 CLS Outpatient Angel Hand [id number] 05/02/2013 18:15:25 05/02/2013 23:59:59 CLS Outpatient Angel Hand [id number] 04/26/2013 11:31:22 04/26/2013 23:59:59 CLS Outpatient Sahara Ruiz [id number] 04/25/2013 11:42:22 04/25/2013 23:59:59 CLS Outpatient Angel Hand [id number] 04/18/2013 14:56:36 04/18/2013 23:59:59 CLS Outpatient Michael Fleming [id number] 03/31/2013 10:19:42 03/31/2013 23:59:59 CLS Outpatient Gianna Mercer [id number] 12/01/2017 13:00:00 12/01/2017 23:59:59 CLS Outpatient JUAN ALBERTO BAÑUELOSINE E [employer] [facility] PULM COPD [id number] 11/05/2017 08:45:00 11/05/2017 23:59:59 CLS Preadmit EDDA, JESUS E [employer] [facility] RAD DYSPNEA,COPD,ASTHMA [id number] 10/12/2017 09:18:00 10/12/2017 23:59:59 CLS Outpatient JUAN ALBERTO BAÑUELOSINE E [employer] [facility] RAD COPD [id number] 08/03/2017 09:41:00 08/03/2017 23:59:59 CLS Outpatient JUAN ALBERTO BAÑUELOSINE E [employer] SCI[employer] [facility] RT COPD [id number] 12/10/2017 09:46:00 ACT Outpatient SUNG PEDERSEN DO [facility] ENDO CHRONIC BRONCHITIS, COPD [id number] 12/07/2017 12:15:00 PEN Preadmit JUAN ALBERTO BAÑUELOSINE E [employer] [facility] RAD ALLERGIC RHINITIS [id number] 07/07/2017 15:51:00 Document Registration [id number] 11/13/2017 11:34:50 Document Registration [id number] 10/15/2017 10:29:51 Document Registration [id number] 10/15/2017 10:25:43 Document Registration [id number] 09/04/2017 13:14:24 Document Registration [id number] 09/04/2017 10:19:50 Document Registration [id number] 08/11/2017 10:55:43 Document Registration [id number] 07/31/2017 11:15:26 Document Registration [id number] 06/15/2017 09:26:41 Document Registration [id number] 05/13/2017 09:35:12 Document Registration [id number] 05/07/2017 16:29:08 Document Registration [id number] 05/07/2017 16:20:38 Document Registration [id number] 04/29/2017 08:16:35 Document Registration [id number] 03/31/2017 20:58:11 Document Registration [id number] 03/30/2017 09:05:39 Document Registration [id number] 03/30/2017 08:56:39 Document Registration [id number] 03/03/2017 09:06:01 Document Registration [id number] 02/04/2017 09:13:13 Document Registration [id number] 12/05/2013 09:21:20 ACT Document Registration [id number] 11/08/2015 19:00:29 11/08/2015 19:00:29 Outpatient
--- NOTE | 2017-12-10 11:58 | Progress Note-Pre Operative ---
Pre-Operative Progress Note H&P Reviewed The H&P was reviewed, patient examined and no changes noted. Time Seen by Provider: 11:58 Date H&P Reviewed: Dec 10, 2017 Time H&P Reviewed: 11:58 Pre-Operative Diagnosis: excessive mucous production. SUNG PEDERSEN DO Dec 10, 2017 11:58
--- NOTE | 2017-12-10 12:08 | Pulmonary Progress Note ---
Standard Progress Note Progress Notes Time Seen by Provider: 11:59 Assessment & Plan I discussed with patient regarding pros and cons of bronchoscopy. She has had copious amounts of mucous production that she describes as obstructing her airway. She has recently been on steroids and Abx as an out patient however she feels her SOB cough, and mucous production is getting worse. She understands if we do bronchoscopy we may have difficulty getting her off ventilator. She state "I have to do something". She is willing to take all risk associated with bronchoscopy. I have also discussed with anesthesia and bronchoscope will be done in OR and ICU has been informed about possibly needing a bed with ventilator patient. Persistent productive cough with copious amounts of sputum production - failed out patient treatment. -After indepth discussion with anesthesia, patient, and family will proceed with bronchoscopy and plan for ICU admission. SUNG PEDERSEN DO Dec 10, 2017 12:08
[2017-12-10] MEDS ORDERED: ROCURONIUM 10 MG/ML 5 ML SYRINGE IV ONE (12:20)
[2017-12-10] MEDS ORDERED: PHENYLEPHRINE 100 MCG/ML 10 ML (ANESTHESIA) SYR ONE (12:52)
[2017-12-10] MEDS ORDERED: ONDANSETRON 4 MG/2 ML (SDV) Z0FRAN IVP PRN (13:00)
--- NOTE | 2017-12-10 13:15 | Diagnostic Imaging Report ---
INDICATION: Status post bronchoscopy. TIME OF EXAM: 12:57 p.m. Correlation is made with prior study from 10/12/2017. FINDINGS: Endotracheal tube appears above the zandra. No pneumothorax is seen status post bronchoscopy. There is some infiltrate in the right perihilar and right basilar region. The left lung is clear. IMPRESSION: No evidence of pneumothorax status post bronchoscopy. Dictated by: Dictated on workstation # [id number]
--- NOTE | 2017-12-10 14:42 | Pulmonary History & Physicial ---
History of Present Illness History of Present Illness Date of Consultation 12/10/17 14:36 Time Seen by Provider: 14:36 Date of Admission History of Present Illness 62yo morbidly obese patient presented for elective bronchoscopy. Post bronchoscopy patient remained intubated secondary to difficult airway and sedation. Pt transferred to ICU for recovery and extubation. Pt will be monitored through the night closely in ICU. Pt has required ventilator therapy in past secondary to respiratory failure. Allergies and Home Medications Allergies Coded Allergies: Sulfa (Sulfonamide Antibiotics) (Unverified Allergy, Severe, RASH, 08/03/17) patient gets high fever shellfish derived (Unverified Allergy, Severe, ANAPHYLAXIS, 08/03/17) Home Medications Acetaminophen 500 Mg Tablet, 1,000 MG PO Q6H PRN for PAIN-MILD, (Reported) Albuterol Sulfate 1 Puff Puff, 2 PUFF IH Q4H PRN for WHEEZING, (Reported) 1 PUFF = 90 MCG Alprazolam 0.25 Mg Tablet, 0.25 MG PO BID PRN for ANXIETY, (Reported) Amlodipine Besylate 5 Mg Tablet, 5 MG PO DAILY, (Reported) Benzonatate 100 Mg Capsule, 100 MG PO Q8H PRN for COUGH, (Reported) Cefdinir 300 Mg Capsule, 300 MG PO BID Prescribed by: JESUS HEWITT on 12/11/17 0822 Cholecalciferol (Vitamin D3) 1,000 Unit Tablet, 1,000 UNIT PO DAILY, (Reported) Duloxetine HCl 30 Mg Capsule.dr, 30 MG PO DAILY, (Reported) Fluticasone Propionate 9.9 Ml Ferguson.susp, 2 SPRAY NS DAILY, (Reported) 2 SPRAYS PER NOSTRIL DAILY X 2 DAYS THEN 1 SPRAY DAILY Fluticasone/Vilanterol 1 Each Blst.w.dev, 2 PUFF IH HS, (Reported) Furosemide 40 Mg Tablet, 80 MG PO DAILY, (Reported) take 2 (40mg) tabs Lamotrigine 150 Mg Tablet, 150 MG PO BID, (Reported) Lidocaine/Methyl Pal/Menthol 1 Each Adh..patch, 2 EACH TP HS, (Reported) Lisinopril 5 Mg Tablet, 5 MG PO DAILY, (Reported) Mirtazapine 30 Mg Tablet, 30 MG PO HS, (Reported) Montelukast Sodium 10 Mg Tablet, 10 MG PO HS, (Reported) Multivit-Min/FA/Lycopene/Lut 1 Each Tablet, 1 EACH PO DAILY, (Reported) Ondansetron HCl 4 Mg Tab, 4 MG PO Q4H PRN for NAUSEA/VOMITING, (Reported) Polyethylene Glycol 3350 119 Gm Powder, 17 GM PO DAILY PRN for CONSTIPATION-1ST LINE, (Reported) Potassium Chloride 20 Meq Tablet.er, 40 MEQ PO DAILY, (Reported) take 2 (20meq) tabs Pravastatin Sodium 20 Mg Tablet, 20 MG PO HS, (Reported) Prednisone 10 Mg Tab, 10 MG PO DAILY one tablet daily for 2 weeks Prescribed by: JESUS HEWITT on 12/11/17 0822 Pregabalin 75 Mg Capsule, 75 MG PO TID, (Reported) Umeclidinium [place] 62.5 Mcg Blst.w.dev, 62.5 MCG IH DAILY, (Reported) Ziprasidone 80 Mg Cap, 80 MG PO DAILY, (Reported) Ziprasidone HCl 60 Mg Capsule, 120 MG PO HS, (Reported) take 2 (60mg) tabs Patient Home Medication List Home Medication List Reviewed: Yes Past Zaxnyje-Agrpkz-Ejnbxn Hx Patient Social History Alcohol Use: Denies Use Recreational Drug Use: No Smoking Status: Former Smoker Type Used: Cigarettes Former Smoker, Quit: Dec 10, 2010 Recent Foreign Travel: No Contact w/Someone Who Travel: No Recent Hopitalizations: No Physical Abuse: No Sexual Abuse: No Mistreated: No Fear: No Seasonal Allergies Seasonal Allergies: Yes Past Medical History Gallbladder, Hysterectomy Chronic Bronchitis, COPD Currently Using CPAP: No Currently Using BIPAP: No Hypertension Reproductive Disorders: No Female Reproductive Disorders: Denies [employer]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 Dyspnea; No: Chest Pain, Palpitations, Edema, Lt Headedness, Other Gastrointestinal: No: Nausea, Vomiting, Abdominal Pain, Diarrhea, Constipation , Melena, Hematochezia, Other Neurological: Weakness Exam Exam Vital Signs Date Time Temp Pulse Resp B/P (MAP) Pulse Ox O2 Delivery O2 Flow Rate FiO2 12/10/17 14:24 94 20 95 60.00 12/10/17 13:00 105 12/10/17 13:00 101 43 189/93 (125) 97 Mechanical Ventilator 50.00 12/10/17 12:56 100 12/10/17 12:40 98.6 111 24 189/93 (125) 93 Mechanical Ventilator 100.00 12/10/17 11:48 98.9 100 20 156/81 (106) 89 Nasal Cannula 4.00 Height & Weight Height: 5'0.00" Weight: 255lbs. 0.0oz. 115.281755wk; 49.8 BMI Method: General Appearance: Anxious, Moderate Distress Respiratory: Chest Non Tender, Accessory Muscle Use, Decreased Breath Sounds, Respiratory Distress Cardiovascular: Regular Rate, Rhythm, No Edema Capillary Refill: Less Than 3 Seconds Gastrointestinal: normal bowel sounds, non tender, soft Extremity: Normal Capillary Refill, Normal Inspection Neurologic/Psychiatric: Other (sedated) Skin: Normal Color, Warm/Dry Lymphatic: No Adenopathy Assessment/Plan Assessment/Plan Admission Dx Acute respiratory failure - secondary to sedation and airway maintenance -Will attempt extubation once patient is awake. -SVNS Q4 Morbid obesity -Pt has home vent to mask -Will use BiPAP when patient is extubated. 120min spent with patient, family, and medical team discussing plan of care. This does not include time spent for bronchoscopy. Admission Status: Observation a SUNG PEDERSEN DO Dec 10, 2017 14:42
--- NOTE | 2017-12-10 14:45 | Pulmonary Procedures ---
Pulmonary Procedures Date of Procedure Date of Service: Dec 10, 2017 Bronch Bronchoscopy with bronchoalveolar lavage (BAL), transbronchial washes and, brushes. Preop DX chronic cough with copious amounts of sputum production Postop DX: same - very little sputum noted in airways Complications: none After informed consent obtained and formal time out pt was sedated per anesthesia. Bronchoscope was advanced through the ET tube. 1% lidocaine was used to anesthetize zandra, and left/right main stem bronchus. An anatomical tour was undertaken down to the segmental bronchi bilaterally. No endobronchial lesions noted. From the RML a bronchoalveolar lavage (BAL), transbronchial washes and, brushes were obtained. Pt tolerated procedure well. No complications noted. Stat CXR is pending. SUNG PEDERSEN DO Dec 10, 2017 14:45
[2017-12-10 15:42] LABS: HEMOGLOBIN 11.6 G/DL (11.5-16.0); MEAN PLATELET VOLUME 10.3 FL (7.4-10.4); RED BLOOD COUNT 3.32 10^6/uL (4.35-5.85); WHITE BLOOD COUNT 12.4 10^3/uL (4.3-11.0)
[2017-12-10 16:01] LABS: BUN/CREATININE RATIO 11; CALCIUM 8.8 MG/DL (8.5-10.1); CARBON DIOXIDE 26 MMOL/L (21-32); CHLORIDE 106 MMOL/L (98-107); CREATININE SERUM 0.88 MG/DL (0.60-1.30); GFR ESTIMATED > 60; GLUCOSE 116 MG/DL (70-105); MAGNESIUM 2.1 MG/DL (1.8-2.4); PHOSPHORUS 3.1 MG/DL (2.3-4.7); POTASSIUM 4.4 MMOL/L (3.6-5.0); SODIUM 141 MMOL/L (135-145)
[2017-12-10] MEDS: NS IV 1000 ML 1,000 ML IV SCH (17:37)
[2017-12-10] MEDS: RT-ALBUTEROL/IPRATROPIUM 3 ML (DUONEB) VIAL INH SCH ×2 (18:46→21:49)
[2017-12-11] VITALS (10 sets, daily range): BP systolic 98–136; BP diastolic 45–70
[2017-12-11] MEDS: RT-ALBUTEROL/IPRATROPIUM 3 ML (DUONEB) VIAL INH SCH ×2 (01:03→06:42)
[2017-12-11 03:49] LABS: ABG OXYGEN SATURATION 99 % (94-100); ABG PCO2 52 MMHG (35-45); ABG PH 7.35 (7.37-7.43); ABG PO2 152 MMHG (79-93); ABG TCO2 29.4 MMOL/L (21.0-31.0)
[2017-12-11 03:51] LABS: ALLENS TEST YES-POS; INSPIRED O2 55; PATIENT TEMP 100.3; VENTILATOR NO
[2017-12-11] MEDS: NS IV 1000 ML 1,000 ML IV SCH (05:47)
[2017-12-11 05:52] LABS: BASOPHILS % (AUTO) 0 % (0-10); EOSINOPHILS # (AUTO) 0.1 10^3/uL (0.0-0.3); EOSINOPHILS % (AUTO) 1 % (0-10); HEMATOCRIT 32 % (35-52); HEMOGLOBIN 10.9 G/DL (11.5-16.0); LYMPHOCYTES # (AUTO) 2.4 X 10^3 (1.0-4.0); LYMPHOCYTES % (AUTO) 18 % (12-44); MEAN CORPUSCULAR HEMOGLOBIN 37 PG (25-34); MEAN CORPUSCULAR HGB CONC 34 G/DL (32-36); MEAN CORPUSCULAR VOLUME 106 FL (80-99); MEAN PLATELET VOLUME 10.8 FL (7.4-10.4); MONOCYTES # (AUTO) 0.9 X 10^3 (0.0-1.0); MONOCYTES % (AUTO) 7 % (0-12); NEUTROPHILS # (AUTO) 9.9 X 10^3 (1.8-7.8); NEUTROPHILS % (AUTO) 74 % (42-75); PLATELET COUNT 228 10^3/uL (130-400); RED BLOOD COUNT 2.99 10^6/uL (4.35-5.85); RED CELL DISTRIBUTION WIDTH 18.1 % (10.0-14.5); WHITE BLOOD COUNT 13.4 10^3/uL (4.3-11.0)
[2017-12-11] MEDS ORDERED: MAGNESIUM 1 GM/100 ML IVPB 100 ML IV SCH (06:00)
[2017-12-11] MEDS ORDERED: KCL 20 MEQ TAB (K-DUR) PO SCH (06:00)
[2017-12-11] MEDS ORDERED: POTASSIUM CL 10MEQ/50ML IVPB 50 ML IV SCH (06:00)
[2017-12-11 06:18] LABS: BUN/CREATININE RATIO 11; CALCIUM 8.6 MG/DL (8.5-10.1); CARBON DIOXIDE 28 MMOL/L (21-32); CHLORIDE 107 MMOL/L (98-107); CREATININE SERUM 0.93 MG/DL (0.60-1.30); GFR ESTIMATED > 60; GLUCOSE 101 MG/DL (70-105); MAGNESIUM 2.1 MG/DL (1.8-2.4); PHOSPHORUS 2.7 MG/DL (2.3-4.7); POTASSIUM 4.2 MMOL/L (3.6-5.0); SODIUM 142 MMOL/L (135-145)
--- NOTE | 2017-12-11 06:22 | Pulmonary Progress Note ---
Subjective Time Seen by Provider: 06:25 Subjective/Events-last exam PT is doing well off vent no complications noted. Sepsis Event Evaluation Height, Weight, BMI Height: 5'0.00" Weight: 255lbs. 0.0oz. 115.022557ke; 49.8 BMI Method: Exam Exam Vital Signs Date Time Temp Pulse Resp B/P (MAP) Pulse Ox O2 Delivery O2 Flow Rate FiO2 12/11/17 06:00 97.8 12/11/17 06:00 93 14 110/69 (83) 97 Nasal Cannula 8.00 12/11/17 05:00 91 12 108/55 (72) 97 Nasal Cannula 8.00 12/11/17 04:00 Nasal Cannula 5.00 12/11/17 04:00 93 17 136/62 (86) 92 Nasal Cannula 8.00 12/11/17 04:00 100.3 12/11/17 03:00 105 11 104/59 (74) 95 NIV Bilevel 35.00 12/11/17 02:00 104 15 104/56 (72) 97 NIV Bilevel 35.00 12/11/17 01:03 105 17 96 55.00 12/11/17 01:00 100 12/11/17 01:00 96 20 98/45 (62) 93 NIV Bilevel 35.00 12/11/17 00:00 100.1 12/11/17 00:00 NIV Bilevel 55 12/11/17 00:00 97 19 110/56 (74) 96 NIV Bilevel 35.00 12/10/17 23:00 103 11 104/52 (69) 95 NIV Bilevel 35.00 12/10/17 22:00 104 15 104/51 (68) 97 NIV Bilevel 35.00 12/10/17 21:49 98 20 93 55.00 12/10/17 21:00 96 20 98/45 (62) 93 NIV Bilevel 35.00 12/10/17 20:00 99.9 12/10/17 20:00 NIV Bilevel 55 12/10/17 20:00 97 19 110/56 (74) 96 NIV Bilevel 35.00 12/10/17 19:55 96 20 94 55.00 12/10/17 19:00 98 9 112/58 (76) 90 NIV Bilevel 35.00 12/10/17 19:00 98 12/10/17 18:46 92 15 87 40.00 12/10/17 18:00 94 27 109/61 (77) 92 NIV Bilevel 35.00 12/10/17 18:00 NIV Bilevel 35.00 12/10/17 17:37 98.4 12/10/17 17:00 NIV Bilevel 35.00 12/10/17 17:00 96 29 108/63 (78) 91 NIV Bilevel 35.00 12/10/17 16:00 98 20 128/65 (86) 89 NIV Bilevel 35.00 12/10/17 16:00 NIV Bilevel 35.00 12/10/17 16:00 NIV Bilevel 35 12/10/17 15:45 98 20 90 35.00 12/10/17 15:29 99 20 97 35.00 12/10/17 15:02 NIV Bilevel 35.00 12/10/17 15:02 NIV Bilevel 35.00 12/10/17 15:00 97 53 144/70 (94) 97 NIV Bilevel 60.00 12/10/17 14:45 98 47 154/77 (102) 99 NIV Bilevel 60.00 12/10/17 14:30 98 28 149/70 (96) 94 NIV Bilevel 60.00 12/10/17 14:24 94 20 95 60.00 12/10/17 14:20 NIV Bilevel 60.00 12/10/17 14:15 106 19 160/79 (106) 84 Mechanical Ventilator 15.00 12/10/17 14:00 98 24 145/76 (99) 95 Mechanical Ventilator 30.00 12/10/17 13:00 105 12/10/17 13:00 101 43 189/93 (125) 97 Mechanical Ventilator 50.00 12/10/17 12:56 98 25 99 100 12/10/17 12:40 98.6 111 24 189/93 (125) 93 Mechanical Ventilator 100.00 12/10/17 11:48 98.9 100 20 156/81 (106) 89 Nasal Cannula 4.00 I & O 12/11/17 07:00 Intake Total 1170 ml Output Total 650 ml Balance 520 ml Height & Weight Height: 5'0.00" Weight: 255lbs. 0.0oz. 115.201136zi; 49.8 BMI Method: General Appearance: Anxious, Moderate Distress Respiratory: Chest Non Tender, Accessory Muscle Use, Decreased Breath Sounds, Respiratory Distress Cardiovascular: Regular Rate, Rhythm, No Edema Capillary Refill: Less Than 3 Seconds Gastrointestinal: normal bowel sounds, non tender, soft Extremity: Normal Capillary Refill, Normal Inspection Neurologic/Psychiatric: Other (sedated) Skin: Normal Color, Warm/Dry Lymphatic: No Adenopathy Results Lab Laboratory Tests 12/10/17 15:31 12/11/17 05:10 Assessment/Plan Assessment/Plan Acute respiratory failure - secondary to sedation and airway maintenance -Pt is doing well off ventilator -SVNS Q4 persistent cough with yellow mucous production S/P bronchoscopy -Very little mucous observed during bronch Leukocytosis with low grade fever -Will give omnicef -CXR is clear -Will await bronch cultures Allergic rhinitis -Singulair, Zyrtec, flonase, nasal saline flush -Will give Solumedrol 125mg IV X 1 -Will give prednisone 10mg daily starting tomorrow -Will continue until I see her in clinic tomorrow Morbid obesity -Pt has home vent to mask -Will use BiPAP when patient is extubated. Will D/C patient with Omncef and prednisone. SHe is allready taking Singulair and Zyrtec at home. Will have her f/u with me next week in office. SUNG PEDERSEN DO Dec 11, 2017 06:22
[2017-12-11] MEDS ORDERED: LORATADINE (CLARITIN) 10 MG TAB PO NR (06:30)
[2017-12-11] MEDS ORDERED: MONTELUKAST 10 MG (SINGULAIR) TAB PO NR (06:30)
[2017-12-11] MEDS ORDERED: methylPREDNISolone 125 MG (Solu-MEDROL) VIAL IVP ONE (06:30)
[2017-12-11] MEDS ORDERED: ACETAMINOPHEN 325 MG TABLET PO ONE (06:30)
--- NOTE | 2017-12-11 07:37 | Diagnostic Imaging Report ---
INDICATION: Dyspnea. COMPARISON: 12/10/2017. FINDINGS: Interval extubation of the ET tube. Bibasilar hazy opacities persist and could relate to atelectasis and summation shadow from patient's large body habitus. No pleural effusion or pneumothorax. Stable cardiomediastinal silhouette. IMPRESSION: Extubation without adverse development. Dictated by: Dictated on workstation # [id number]
[2017-12-11] MEDS ORDERED: CEFD300C3 PO (08:22)
[2017-12-11] MEDS ORDERED: PRD10T PO (08:22)
[2017-12-11] MEDS ORDERED: CEFDINIR 300 MG (OMNICEF) CAP PO SCH (09:00)
== END 2017-12-11 09:08 | disposition home or self-care (01) ==
LOC: ENDO 09:46 → ICU 12:38 → ENDO 12-11 09:08
PROVIDERS: ATTEND Internal Medicine Critical Care Medicine
DX: J96.20 Acute and chronic respiratory failure, unspecified whether with hypoxia or hypercapnia (principal); R05 Cough; J44.9 Chronic obstructive pulmonary disease, unspecified; J45.909 Unspecified asthma, uncomplicated; I10 Essential (primary) hypertension; E11.9 Type 2 diabetes mellitus without complications; E66.01 Morbid (severe) obesity due to excess calories; Z68.42 Body mass index [BMI] 45.0-49.9, adult; Z87.891 Personal history of nicotine dependence; Z99.81 Dependence on supplemental oxygen; Z79.82 Long term (current) use of aspirin; Z79.51 Long term (current) use of inhaled steroids; Z79.52 Long term (current) use of systemic steroids
CPT/HCPCS: 36415; 71045; 80048; 82805; 82962; 83735; 83880; 84100; 85025; 85027; 87070; 87101; 87116; 87205; 88112; 88305; 88312; 94002; 94640; 94660

== ENCOUNTER → 2020-10-21 | Outpatient (CLI) | payer OTHER, MEDICARE, MEDICAID ==
[~2020-10-21] MED LIST changes: +ALPR.25T PO; -ALPR0.254 PO; +AMLO-250 PO; -AMLO5TAB7 PO; -LISI-556 PO; +LISI-729 PO; +MIRT-94 PO; -MIRT30TA PO; -MONT10TA24 PO; +MONT10TA32 PO
== END ==
LOC: LABNPT 12:22
PROVIDERS: ATTEND Internal Medicine
DX: Z01.89 Encounter for other specified special examinations (principal)
CPT/HCPCS: 84145